=== PATIENT | female | born 1985 | race Caucasian/White ===

== ENCOUNTER → 2018-07-19 08:13 | Outpatient (CLI) | payer OTHER, SELFPAY ==
--- NOTE | 2018-07-19 08:20 | BI_ITS ---
MAMMOGRAPHY - BILATERAL SCREENING REASON FOR EXAM: Female, 32 years old. Routine annual screening examination. PERTINENT HISTORY: Mother with breast cancer. TECHNIQUE: Digital bilateral breast paolo (3D mammographic acquisition) in the CC and MLO projections. 2-D mediolateral oblique (MLO) and craniocaudad (CC) views of both breasts were obtained. CAD: Full Field Digital Mammography with Computer Added Detection was performed. COMPARISON: Comparison is made with prior study dated November 26, 2016. FINDINGS: Breast Composition: The breasts are almost entirely fatty. There are no dominant masses or suspicious calcifications. No other significant abnormalities are identified. There has been no significant change since the prior study. BI/SCREENING MAMM (CAD), BILAT IMPRESSION: Stable bilateral screening mammogram. Yearly follow-up mammogram recommended. (A) ASSESSMENT CATEGORY: BIRADS Category 1: Negative. A letter regarding these results will be sent to the patient by the facility within 30 days. Approximately 10% of breast cancers are not detected by mammography. A normal mammogram should not delay biopsy of a clinically suspicious abnormality. [id number] Electronically Signed: Kam Parsons MD at 8:37 EST Tel [phone], Service support ,
--- OUTSIDE RECORDS SUMMARY | 2018-10-22 08:37 | XMS RPT_ITS ---
:1985 Author Organization [facility] Care Team Providers Name Role Phone TAWANA MERCEDES Attending Unavailable TAWANA MERCEDES Referring Unavailable Primay Care Physicia, No Primary Care Unavailable TAWANA MERCEDES Consulting Unavailable ASSESSMENT, HEALTH RISK Attending Unavailable ASSESSMENT, HEALTH RISK Referring Unavailable TAWANA MERCEDES Primary Care Unavailable PROBLEMS PROBLEMS No Problem Records FoundPROCEDURES PROCEDURES No Procedure Records FoundRESULTS RESULTS SCREENING MAMM (CAD), Observed: 07/19/2018 Status: F Source: [facility] 8:20 AM [facility] REPOSITORY [facility] Imaging Services [address] [place] [address] SCREENING MAMM (CAD), BILAT MR#: [id number] Acct: [id number] Name: MU BARBOZA Rep #: [id number] : 1985 F 32 From: Kam Parsons MD PCP: Care Physician, No Primary Status: REG CLI Study: SCREENING MAMM (CAD), BILAT Date of Exam: 07/19/18 Exam# [id number] Ordering Dr: DELLA IRIZARRY MAMMOGRAPHY - BILATERAL SCREENING REASON FOR EXAM: Female, 32 years old. Routine annual screening examination. PERTINENT HISTORY: Mother with breast cancer. TECHNIQUE: Digital bilateral breast paolo (3D mammographic acquisition) in the CC and MLO projections. 2-D mediolateral oblique (MLO) and craniocaudad (CC) views of both breasts were obtained. CAD: Full Field Digital Mammography with Computer Added Detection was performed. COMPARISON: Comparison is made with prior study dated November 26, 2016. FINDINGS: Breast Composition: The breasts are almost entirely fatty. There are no dominant masses or suspicious calcifications. No other significant abnormalities are identified. There has been no significant change since the prior study. BI/SCREENING MAMM (CAD), BILAT IMPRESSION: Stable bilateral screening mammogram. Yearly follow-up mammogram recommended. (A) ASSESSMENT CATEGORY: BIRADS Category 1: Negative. A letter regarding these results will be sent to the patient by the facility within 30 days. Approximately 10% of breast cancers are not detected by mammography. A normal mammogram should not delay biopsy of a clinically suspicious abnormality. [id number] Electronically Signed: Kam Parsons MD at 8:37 EST Tel [phone], Service support , CC: No Primary Care Physician; DELLA IRIZARRY Site Surveyor: Signed CBC, EMPLOYEE Collected: 04/23/2018 Status: F Source: [place] 8:59 AM [facility] REPOSITORY TYPE CODE TESTS RESULT OUT OF RANGE REFERENCE UNITS LAB L100.1000 4.4-11.0 K/mm3 Normal WBC 7.6 LAB L100.1200 4.2-5.4 M/mm3 Normal RBC 4.64 LAB L100.1300 12.0-15.0 g/dl Low HGB 11.9 LAB L100.1400 37-47 % Low HCT 36.8 LAB L100.1500 81-99 fL Low MCV 79.3 LAB L100.1600 27.0-32.0 pg Low MCH 25.6 LAB L100.1700 32-36 g/gl Normal MCHC 32.3 LAB L100.1810 11.6-14.6 % High RDW CV 15.0 LAB L100.1820 35.1-43.9 fl Normal RDW SD 42.9 LAB L100.1900 150-450 K/mm3 Normal PLT 268 LAB L100.2000 6.2-12.0 fl Normal MPV 10.7 LAB L100.2110 47-70 % Normal NEUT% 67.1 LAB L100.2210 19-41 % Normal LY% 26.0 LAB L100.2310 0-10 % Normal MONO% 5.4 LAB L100.2410 0-5 % Normal EO% 1.1 LAB L100.2510 0-1 % Normal BASO% 0.3 LAB L100.2620 2.0-7.7 X10 3/uL Normal Absolute Neut 5.1 LAB L100.2720 0.83-4.51 X10 3/ul Normal Absolute Lymph 1.97 Performed By: #### L100.0200 #### [facility] [address] [place], [place], [id number] URINALYSIS, EMPLOYEE Collected: 04/23/2018 Status: F Source: [place] 8:59 AM [facility] REPOSITORY TYPE CODE TESTS RESULT OUT OF RANGE REFERENCE UNITS LAB L400.3000 Yellow COLOR Normal Yellow LAB L400.3050 Clear Normal CLARITY Sl. Cloudy LAB L400.3200 Normal mg/dl Normal GLUCOSE, UR Normal LAB L400.3300 Negative mg/dL Normal BILIRUBIN URINE Negative LAB L400.3400 Negative mg/dl Normal KETONE UR Negative LAB L400.3465 1.002-1.030 Normal SP.GR. DIPSTX 1.020 LAB L400.3550 5.0 - 8.0 pH UR Normal 5.0 LAB L400.3600 Negative mg/dl PROT Normal DIPSTX Negative LAB L400.3700 Normal mg/dl Normal UROBILI Normal LAB L400.3750 Negative Normal NITRITE UR Negative LAB L400.3780 Negative /ul High 25 OCCULT BLOOD-UR LAB L400.3800 Negative /ul High LEUK 25 ESTERASE Performed By: #### L400.0100 #### [facility] [address] [place], [address] NICOTINE URINE DRUG Collected: 04/23/2018 Status: F Source: [place] SCREEN 8:59 AM [facility] REPOSITORY TYPE CODE TESTS RESULT OUT OF RANGE REFERENCE UNITS LAB L505.6250 TO BE Normal CONFIRMED Result Comment: CONFIRMATORY TESTING FOR ALL POSITIVE URINE DRUG SCREEN RESULTS WILL ONLY BE SENT OUT UPON PHYSICIAN ORDER. The results of Urine Drug Screen methods provide only preliminary analytical test results. A more specific alternate chemical method must be used in order to obtain a confirmed analytical result. Gas chromatography/mass spectrometery (GC/MS) is the preferred confirmatory method. Clinical consideration and professional judgement should be applied to any drug of abuse test result, particularly when preliminary positive results are used. LAB L505.6270 <200 ng/mL Normal COT DRG Negative SCREEN Result Comment: Cotinine is the first-stage metabolite of Nicotine. Performed By: #### L505.6240 #### [facility] [address] [place], [address] EMPLOYEE PROFILE Collected: 04/23/2018 Status: F Source: [place] 8:59 AM [facility] REPOSITORY TYPE CODE TESTS RESULT OUT OF RANGE REFERENCE UNITS LAB L501.0100 74-106 mg/dL Normal GLU 92 Result Comment: Please note revised GLUCOSE reference range effective 2017. LAB L501.1000 7-18 mg/dL Normal BUN 10 LAB L501.1100 0.55-1.02 mg/dL Normal CREAT,SERUM 0.76 Result Comment: The validity of the calculated GFR AND GFRAA in patients over 70 years has not been determined. Clinical correlation is essential. LAB L501.1110 >60 mL/min Normal EST GFR 92 Result Comment: Non- GFR Calc LAB L501.1115 >60 mL/min Normal EST GFR - AA 112 Result Comment: GFR Calc LAB L501.1300 10-20 RATIO Normal BUN/CRE 13.1 LAB L501.1400 2.6-6.0 mg/dL High URIC 7.1 Result Comment: The drugs N-Acetylcysteine and Metamizole may falsely depress this assay. LAB L501.1500 6.4-8.2 g/dL Normal T PROT 7.3 LAB L501.1800 3.2-5.0 g/dL Low ALB 2.8 LAB L501.1950 2.2-4.2 g/dL High GLOB 4.5 LAB L501.2000 0.9-2.4 RATIO Low A/G 0.6 LAB L501.2200 8.5-10.1 mg/dL Normal CA 8.6 LAB L501.2300 2.5-4.9 mg/dL Normal PHOS 3.5 LAB L501.4100 15-37 U/L Low AST 8 LAB L501.4305 45-117 U/L Normal ALK P 88 LAB L501.4405 13-56 U/L Normal ALT 17 LAB L501.4600 0.20-1.00 mg/dL Normal T BILI 0.20 LAB L501.4700 0.00-0.30 mg/dL Normal D BILI 0.09 LAB L501.4900 200 mg/dL Normal CHOL 129 Result Comment: <200 mg/dL Desirable 200-240 mg/dL Borderline >240 mg/dL High Risk LAB L501.5000 mg/dL Normal TRIG 180 Result Comment: The drugs N-Acetylcysteine and Metamizole may falsely depress this assay. Serum Triglycerides Reference Interval Normal <150 mg/dL Borderline high 150 - 199 mg/dL High 200 - 499 mg/dL Very High > or = 500 mg/dL LAB L501.5300 136-145 mmol/L Normal NA 140 LAB L501.5600 3.5-5.1 mmol/L Normal K 4.0 LAB L501.5900 98-107 mmol/L Normal CL 107 LAB L501.6100 21.0-32.0 mmol/L Normal CO2 24.0 LAB L501.6200 5-15 Normal 9 GAP LAB L501.6400 mg/dL Normal HDL 42 Result Comment: The drugs N-Acetylcysteine and Metamizole may falsely depress this assay. Reference Range HDL <40 mg/dL Low HDL Cholesterol HDL >or= 60 mg/dL High HDL Cholesterol LAB L501.6475 Normal CHOL:HDL 3.10 LAB L501.6500 0-130 mg/dL Normal LDL 51 LAB L501.6600 5-40 mg/dL Normal VLDL 36 LAB L504.2610 84-246 U/L Normal LDH 176 Performed By: #### L500.2900 #### [facility] [address] [place], [address] PROGRESS Observed: 02/24/2018 Status: COMPLETED Source: [place] 3:10 PM [facility] REPOSITORY HNO ID: [id number] Author: Lex Meek Service: (none) Author Type: Physician Manager Of Applications Development Type: Progress Notes Filed: 02/24/2018 3:45 PM Note Text: This is a 32 yo female for a follow up visit for her acne and rosacea. Present regimen includes metro cream and doxycycline. She is doing much better on current regimen. She reports she had taken the doxycycline for 2 months and she was having some trouble with her periods. She states she had stopped it in mid January and hasn't taken since. She was started on control Maci over the past 2 weeks. She was unsure if she should take the doxycycline as she is still having some break outs on her chin and lower cheeks. She feels much better overall as she was having pain of her face before the medication. ALLERGIES No Known Allergies Current Outpatient Prescriptions: Drospirenone-Ethinyl Estradiol (MACI, 28,) 3-0.03 mg per tablet Take 1 tablet by mouth once daily. Disp: Rfl: metroNIDAZOLE 0.75 % cream Apply 1 application to affected area twice daily. Disp: Rfl: 2 minocycline (MINOCIN, DYNACIN) 100 mg capsule Take 1 capsule by mouth twice daily. Disp: 60 capsule Rfl: 2 No current facility-administered medications for this visit. PAST MEDICAL HISTORY Diagnosis Date - Acne vulgaris - Rosacea History reviewed. No pertinent family history. Social History Marital status: Spouse name: Years of education: Number of children: Social History Main Topics Smoking status: Never Smoker Smokeless tobacco: Never Used Alcohol use: No Drug use: No Other Topics Concern Caffeine Concern Yes REVIEW OF SYSTEMS: Patient feels well and denies any recent fevers, chills, or night sweats. She is not having any rash or itching. She has some lesions on her face. PHYSICAL EXAM: BP 132/70 Ht 5' 7.126 (1.71m) Wt 268 lb 8.3 oz (121.8kg) BMI 41.90 kg/(m2). The patient is a pleasant female in no distress. Skin is dry Involving the nose, face, chest and back -few closed comedones and couple papules of face (b/l lower cheeks and chin) -minimal erythema of forehead, b/l cheeks and chin -back and chest are clear ASSESSMENT/PLAN: 1. Rosacea - ICD9: 695.3, ICD10: L71.9 (primary diagnosis) - much improved -will continue Metro cream 0.75% twice daily -will switch to Minocycline 100 mg one bid (for the remaining summer (6 weeks) and then try going to one in April then stop), eRx sent -discussed side effects of medication which include hepatitis, lupus like syndrome, pseudotumor cerebri, cutaneous and tooth dyspigmentation. -continue gentle cleansers and daily face moisturizers with spf 30 2. Acne vulgaris - ICD9: 706.1, ICD10: L70.0 -will continue Metro and Minocycline which is helping for both rosacea and acne -continue over the counter BPO wash topically daily when showering to chest and back Return in about 6 months (around 08/27/2018). Lex Meek PA-C CNOV Observed: 02/24/2018 Status: COMPLETED Source: [place] 2:40 PM [facility] REPOSITORY Office Visit ([facility]) MU BARBOZA ([id number]) 1985 F Date Time Provider Department 02/24/18 2:40 PM LEX MEEK) [facility] During your visit today, we recorded the following information about you: Blood pressure Weight Height 132/70 121.8 kg 1.705 m Lex Meek PA-C 02/24/2018 3:10 PM Addendum Start minocycline twice daily for 6 weeks then decrease to one daily for one remaining month then stop Continue current oral control Continue metro cream twice daily Continue daily facial sunscreen Lex Meek PA-C 02/24/2018 3:45 PM Signed This is a 32 yo female for a follow up visit for her acne and rosacea. Present regimen includes metro cream and doxycycline. She is doing much better on current regimen. She reports she had taken the doxycycline for 2 months and she was having some trouble with her periods. She states she had stopped it in mid January and hasn't taken since. She was started on control Maci over the past 2 weeks. She was unsure if she should take the doxycycline as she is still having some break outs on her chin and lower cheeks. She feels much better overall as she was having pain of her face before the medication. ALLERGIES No Known Allergies Current Outpatient Prescriptions: Drospirenone-Ethinyl Estradiol (MACI, 28,) 3-0.03 mg per tablet Take 1 tablet by mouth once daily. Disp: Rfl: metroNIDAZOLE 0.75 % cream Apply 1 application to affected area twice daily. Disp: Rfl: 2 minocycline (MINOCIN, DYNACIN) 100 mg capsule Take 1 capsule by mouth twice daily. Disp: 60 capsule Rfl: 2 No current facility-administered medications for this visit. PAST MEDICAL HISTORY Diagnosis Date - Acne vulgaris - Rosacea History reviewed. No pertinent family history. Social History Marital status: Spouse name: Years of education: Number of children: Social History Main Topics Smoking status: Never Smoker Smokeless tobacco: Never Used Alcohol use: No Drug use: No Other Topics Concern Caffeine Concern Yes REVIEW OF SYSTEMS: Patient feels well and denies any recent fevers, chills, or night sweats. She is not having any rash or itching. She has some lesions on her face. PHYSICAL EXAM: BP 132/70 Ht 5' 7.126 (1.71m) Wt 268 lb 8.3 oz (121.8kg) BMI 41.90 kg/(m2). The patient is a pleasant female in no distress. Skin is dry Involving the nose, face, chest and back -few closed comedones and couple papules of face (b/l lower cheeks and chin) -minimal erythema of forehead, b/l cheeks and chin -back and chest are clear ASSESSMENT/PLAN: 1. Rosacea - ICD9: 695.3, ICD10: L71.9 (primary diagnosis) - much improved -will continue Metro cream 0.75% twice daily -will switch to Minocycline 100 mg one bid (for the remaining summer (6 weeks) and then try going to one in April then stop), eRx sent -discussed side effects of medication which include hepatitis, lupus like syndrome, pseudotumor cerebri, cutaneous and tooth dyspigmentation. -continue gentle cleansers and daily face moisturizers with spf 30 2. Acne vulgaris - ICD9: 706.1, ICD10: L70.0 -will continue Metro and Minocycline which is helping for both rosacea and acne -continue over the counter BPO wash topically daily when showering to chest and back Return in about 6 months (around 08/27/2018). Lex Meek PA-C Referring Provider: SELF [200] Allergies As of Date: 02/24/2018 (No Known Allergies) Date Reviewed: 02/24/2018 Reviewed by: Lex (Zhang) [place] - Fully Assessed Reason for Visit: Rosacea [926] Primary Visit Diagnosis:Rosacea [L71.9] Other Visit Diagnosis:Acne vulgaris [L70.0] Order(s):minocycline (MINOCIN, DYNACIN) 100 mg capsuleTake 1 capsule by mouth twice daily.Disp: 60 capsuleRfl: 2 Prescriptions as of 02/24/2018 Sig: DROSPIRENONE 3 MG-ETHINYL EST* Take 1 tablet by mouth once d* METRONIDAZOLE 0.75 % TOPICAL * Apply 1 application to affect* MINOCYCLINE 100 MG CAPSULE Take 1 capsule by mouth twice* Problem List As Of Date: 02/24/2018 (None) Other instructions from your clinician: Start minocycline twice daily for 6 weeks then decrease to one daily for one remaining month then stop Continue current oral control Continue metro cream twice daily Continue daily facial sunscreen Prescriptions ordered this encounter Disp Refills Start End MINOCYCLINE 100 MG CAPSULE 60 c* 2 02/24/2018 Route: ORAL Sig: Take 1 capsule by mouth twice daily. Medications Discontinued During This Encounter doxycycline monohydrate (MONODOX) 10* 2 10/29/2017 02/24/2018 Class: Historical Med Route: ORAL Sig: Take 1 capsule by mouth twice daily. Disc: Reason for discontinue is not on file. Disposition: Return in about 6 months (around 08/27/2018). Follow-up and Disposition History Recorded Encounter Status:Closed by LEX MEEK on 02/24/18 ALLERGIES ALLERGIES No Allergies Records FoundENCOUNTERS ENCOUNTERS ADMIT/DISCHARGE ACCOUNT ADMITTING ENCOUNTER LOCATION SOURCE NUMBER CLASS 07/19/[id number] ing:OPBI Repository 04/23/[id number] ing:EMPH Repository PAYERS PAYERS ENCOUNTER GUARANTOR PAYER SUBSCRIBER SOURCE 07/19/2018 MU NOLAND Primary Insurance:[facility] MU [id number] [id number] [address]Xoc: Number: Repository [id number] () Date:[id number] [address], [place] [address]FX: CHECK WEBSITE 07/19/2018 Secondary NOT GIVENUNK Ashley Insurance:SELF PAY [facility] [place] Number: Effective Repository Date:2018-07-15 04/23/2018 Mu Noland Primary NOT GIVENUNK Ashley [id number] [place] Insurance:SELF PAY [facility] [id number]: Number: Effective Repository Date:2018-04-23 ()
== END ==
DX: Z12.31 Encounter for screening mammogram for malignant neoplasm of breast (principal); Z80.3 Family history of malignant neoplasm of breast
CPT/HCPCS: 77063; 77067

== ENCOUNTER → 2019-01-31 08:52 | Outpatient (CLI) | payer OTHER, SELFPAY ==
[2019-01-31 09:51] LABS: Absolute Lymphocyte Count 1.96 X10^3/ul (0.83-4.51); Absolute Neutrophil Count 3.1 X10^3/uL (2.0-7.7); Basophil# 0.04 X10^3/uL; Basophil% 0.7 % (0-1); Eosinophil# 0.09 X10^3/uL; Eosinophils% 1.6 % (0-5); Hematocrit 40.2 % (37-47); Hemoglobin 13.3 g/dl (12.0-15.0); Lymphocyte # 1.96 X10^3/ul (4.0); Lymphocyte % 35.2 % (19-41); Mean Corp Hgb Conc 33.1 g/gl (32-36); Mean Corpuscular Hgb 26.6 pg (27.0-32.0); Mean Corpuscular Volume 80.4 fL (81-99); Mean Platelet Vol. 10.8 fl (6.2-12.0); Monocyte# 0.36 X10^3/uL; Monocyte% 6.5 % (0-10); Neutrophil # 3.11 X10^3/uL (2.7-7.7); Neutrophil % 55.8 % (47-70); Platelet Count 289 K/mm3 (150-450); RBC Distribution Width CV 14.3 % (11.6-14.6); RBC Distribution Width SD 41.2 fl (35.1-43.9); White Blood Count 5.6 K/mm3 (4.4-11.0)
[2019-01-31 09:56] LABS: POSITIVE COUNT NO; POSITIVE DIFFERENTIAL NO; POSITIVE MORPHOLOGY NO
[2019-01-31 10:28] LABS: ALB/GLOB Ratio 0.8 RATIO (0.9-2.4); AST(SGOT) 21 U/L (15-37); Alanine Aminotransfer ALT/SGPT 30 U/L (13-56); Albumin, Serum 3.4 g/dL (3.2-5.0); Alkaline Phosphatase 103 U/L (45-117); Anion Gap 5 (5-15); BUN 10 mg/dL (7-18); BUN/Creat Ratio 11.9 RATIO (10-20); Calcium,Total 9.3 mg/dL (8.5-10.1); Chloride 108 mmol/L (98-107); Cholesterol 191 mg/dL (200); Creatinine, Serum 0.84 mg/dL (0.55-1.02); EST Glomerular Filtration Rate 82 mL/min (>60); Est Glom Filt Rate - Afr Amer 99 mL/min (>60); Follicle Stimulating Hormone 6.1 mIU/mL; Globulin 4.5 g/dL (2.2-4.2); Glucose 92 mg/dL (74-106); High Density Lipoprotein 40 mg/dL; Luteinizing Hormone 9.2 mIU/mL; Potassium 4.1 mmol/L (3.5-5.1); Protein, Total 7.9 g/dL (6.4-8.2); Sodium Level 139 mmol/L (136-145); Thyroid Stim Hormone (TSH) 0.99 uIU/mL (0.358-3.74); Triglycerides 187 mg/dL; Very Low Density Lipoprotein 37 mg/dL (5-40)
[2019-02-02 09:23] LABS: Insulin 31.8 mU/L (2.6-37.6)
[2019-02-03 09:08] LABS: Testosterone, Free < 0.05 ng/dL (0.10-0.85); Testosterone, Total < 3 ng/dL (8-48)
[2019-02-03 16:21] LABS: Testosterone, % Free 1.65 % (0.50-2.80)
== END ==
DX: Z13.1 Encounter for screening for diabetes mellitus (principal); E66.01 Morbid (severe) obesity due to excess calories; N83.202 Unspecified ovarian cyst, left side; Z68.41 Body mass index [BMI] 40.0-44.9, adult
CPT/HCPCS: 36415; 80053; 80061; 83001; 83002; 83525; 84402; 84403; 84439; 84443; 85025

== ENCOUNTER → 2019-07-21 13:19 | Outpatient (CLI) | payer OTHER, SELFPAY ==
--- NOTE | 2019-07-21 13:23 | BI_ITS ---
MAMMOGRAPHY - BILATERAL SCREENING REASON FOR EXAM: Female, 33 years old. Routine annual screening examination. PERTINENT HISTORY: Mother with breast cancer. TECHNIQUE: Digital bilateral breast shannan (3D mammographic acquisition) in the CC and MLO projections. 2-D mediolateral oblique (MLO) and craniocaudad (CC) views of both breasts were obtained. CAD: Full Field Digital Mammography with Computer Added Detection was performed. COMPARISON: Comparison is made with prior examination dated July 19, 2018 and November 26, 2016. FINDINGS: Breast Composition: The breasts are almost entirely fatty. There are no dominant masses or suspicious calcifications. No other significant abnormalities are identified. There has been no significant change since the prior study. BI/SCREEN MAMM (CAD) W/SHANNAN BILAT IMPRESSION: Stable bilateral screening mammogram. Yearly follow-up mammogram recommended. (A) ASSESSMENT CATEGORY: BIRADS Category 1: Negative. A letter regarding these results will be sent to the patient by the facility within 30 days. Approximately 10% of breast cancers are not detected by mammography. A normal mammogram should not delay biopsy of a clinically suspicious abnormality. [id number] Electronically Signed: Kam Parsons, at 15:19 EST , Service support ,
== END ==
DX: Z12.31 Encounter for screening mammogram for malignant neoplasm of breast (principal); Z80.3 Family history of malignant neoplasm of breast
CPT/HCPCS: 77063; 77067

== ENCOUNTER → 2020-06-13 14:49 | Outpatient (CLI) | payer OTHER, SELFPAY ==
--- NOTE | 2020-06-13 16:42 | CT_ITS ---
ACR Level 3 findings have been noted. An addendum which confirms receipt of the report will follow. HISTORY: LLQ pain. ADDITIONAL HISTORY: None provided. EXAMINATION/TECHNIQUE: CT Abdomen And Pelvis W/ Contrast Injection CONTRAST: 100mL Isovue-300 IV contrast. Enteric contrast was given. A radiation dose optimization technique was used for this scan. Number of images including paperwork: 442 COMPARISON: None FINDINGS: LOWER THORAX: No consolidation or pleural effusion. Minimal patchy groundglass opacities at the bases. LIVER: No concerning focal lesion. GALLBLADDER: No radiopaque calculi. BILE DUCTS: No significant biliary dilatation. SPLEEN: Unremarkable. PANCREAS: Unremarkable. ADRENAL GLANDS: Unremarkable. KIDNEYS/URETERS: Unremarkable. BOWEL: No bowel obstruction. No significant bowel wall thickening. No localized inflammation. Colonic diverticulosis. APPENDIX: No evidence of appendicitis. FREE FLUID: No significant free fluid. FREE AIR: None. LYMPH NODES: No pathologic appearing adenopathy. PERITONEUM, RETROPERITONEUM AND MESENTERY: Otherwise unremarkable. VASCULATURE: Unremarkable as imaged. PELVIS: Unremarkable bladder. ABDOMINAL WALL: Unremarkable. OSSEOUS AND SOFT TISSUE STRUCTURES: No acute skeletal findings. CT/Abdomen/Pelvis WITH Contrast IMPRESSION: 1. No acute abdominopelvic abnormality. 2. Colonic diverticulosis. 3. Minimal patchy groundglass opacities at the bases, nonspecific and possibly related to COVID-19 infection. Individualized dose optimization techniques were used for this CT. at 0148 Reported and signed by: Mame Delcid MD Electronically Signed: Mame Delcid MD at 1:48 EST Tel , Service support ,
== END ==
DX: R10.32 Left lower quadrant pain (principal)
CPT/HCPCS: 74177; Q9967

== ENCOUNTER → 2020-08-10 08:14 | Outpatient (CLI) | payer OTHER, SELFPAY ==
--- NOTE | 2020-08-10 08:17 | BI_ITS ---
MAMMOGRAPHY - BILATERAL SCREENING REASON FOR EXAM: Female, 34 years old. Routine annual screening examination. PERTINENT HISTORY: Mother with breast cancer. TECHNIQUE: Digital bilateral breast shannan (3D mammographic acquisition) in the CC and MLO projections. 2-D mediolateral oblique (MLO) and craniocaudad (CC) views of both breasts were obtained. CAD: Full Field Digital Mammography with Computer Added Detection was performed. COMPARISON: Comparison is made with prior study dated 07/21/2019 and 07/19/2018. FINDINGS: Breast Composition: The breasts are almost entirely fatty. There are no dominant masses or suspicious calcifications. Small benign-appearing bilateral axillary lymph nodes. No other significant abnormalities are identified. There has been no significant change since the prior study. BI/SCREEN MAMM (CAD) W/SHANNAN BILAT IMPRESSION: Stable bilateral screening mammogram. Yearly follow-up mammogram recommended. (A) ASSESSMENT CATEGORY: BIRADS Category 2: Benign. A letter regarding these results will be sent to the patient by the facility within 30 days. Approximately 10% of breast cancers are not detected by mammography. A normal mammogram should not delay biopsy of a clinically suspicious abnormality. [id number] Electronically Signed: Kam Parsons, at 9:09 EST , Service support ,
== END ==
DX: Z12.31 Encounter for screening mammogram for malignant neoplasm of breast (principal); Z80.3 Family history of malignant neoplasm of breast
CPT/HCPCS: 77063; 77067

== ENCOUNTER 2021-08-25 15:32 | Outpatient (CLI) | payer OTHER, SELFPAY ==
--- NOTE | 2021-08-25 15:34 | BI_ITS ---
MAMMOGRAPHY - BILATERAL SCREENING REASON FOR EXAM: Female, 35 years old. Routine annual screening examination. PERTINENT HISTORY: Mother with breast cancer. TECHNIQUE: Digital bilateral breast shannan (3D mammographic acquisition) in the CC and MLO projections. 2-D mediolateral oblique (MLO) and craniocaudad (CC) views of both breasts were obtained. CAD: Full Field Digital Mammography with Computer Added Detection was performed. COMPARISON: Comparison is made with prior study dated 08/10/2020 and 07/21/2019 FINDINGS: Breast Composition: The breasts are almost entirely fatty. There are no dominant masses or suspicious calcifications. Stable benign-appearing bilateral axillary No other significant abnormalities are identified. There has been no significant change since the prior study. BI/SCRN MAMM (CAD)W/SHANNAN BILAT IMPRESSION: Stable bilateral screening mammogram. Yearly follow-up mammogram recommended. (A) ASSESSMENT CATEGORY: BIRADS Category 2: Benign. A letter regarding these results will be sent to the patient by the facility within 30 days. Approximately 10% of breast cancers are not detected by mammography. A normal mammogram should not delay biopsy of a clinically suspicious abnormality. [id number] Electronically Signed: Kam Parsons MD at 8:00 EST , Service support ,
== END 2021-08-25 23:59 | disposition home or self-care (01) ==
PROVIDERS: Visit Provider Nurse Practitioner Family
DX: Z12.31 Encounter for screening mammogram for malignant neoplasm of breast (principal)
CPT/HCPCS: 77063; 77067

== ENCOUNTER → 2022-08-27 | Outpatient (CLI) | payer OTHER, SELFPAY ==
--- NOTE | 2022-08-27 13:32 | BI_ITS ---
MAMMOGRAPHY - BILATERAL SCREENING REASON FOR EXAM: Female, 36 years old. Routine annual screening examination. PERTINENT HISTORY: Mother with breast cancer. Right breast larger than left. TECHNIQUE: Digital bilateral breast shannan (3D mammographic acquisition) in the CC and MLO projections. 2-D mediolateral oblique (MLO) and craniocaudad (CC) views of both breasts were obtained. CAD: Full Field Digital Mammography with Computer Added Detection was performed. COMPARISON: Comparison is made with prior study dated 08/25/2021 and 08/10/2020. FINDINGS: Breast Composition: The breasts are almost entirely fatty. There are no dominant masses or suspicious calcifications. No other significant abnormalities are identified. There has been no significant change since the prior study. BI/SCRN MAMM (CAD)W/SHANNAN BILAT IMPRESSION: Stable bilateral screening mammogram. Yearly follow-up mammogram recommended. (A) ASSESSMENT CATEGORY: BIRADS Category 1: Negative. A letter regarding these results will be sent to the patient by the facility within 30 days. Approximately 10% of breast cancers are not detected by mammography. A normal mammogram should not delay biopsy of a clinically suspicious abnormality. [id number] Electronically Signed: Kam Parsons MD at 14:21 EST ,
== END | disposition home or self-care (01) ==
LOC: OPBI 13:30
PROVIDERS: PCP Family Medicine; Visit Provider Family Medicine
DX: Z12.31 Encounter for screening mammogram for malignant neoplasm of breast (principal); Z80.3 Family history of malignant neoplasm of breast
CPT/HCPCS: 77063; 77067

== ENCOUNTER → 2022-10-17 | Outpatient (CLI) | payer OTHER, SELFPAY ==
[2022-10-17 17:00] LABS: HIV - WCH Non-Reactive (Nonreactive); Hepatitis C Antibody Non-Reactive (Nonreactive); Syphilis Antibodies Non-reactive
[2022-10-19 13:36] LABS: HSV 1 IgG < 0.91 index (0.00-0.90); HSV 2 IgG < 0.91 index (0.00-0.90)
[2022-10-20 11:09] LABS: Chlamydia By Nucleic Acid AMP Negative (Negative)
[2022-10-20 13:00] LABS: Gonococcus By Nucleic Acid AMP Negative (Negative)
[2022-10-25 13:04] LABS: HPV APTIMA, High Risk Negative (Negative)
== END | disposition home or self-care (01) ==
PROVIDERS: PCP Family Medicine; Referring Provider Nurse Practitioner Women's Health; Visit Provider Nurse Practitioner Women's Health
DX: N98.9 Complication associated with artificial fertilization, unspecified (principal); Z20.2 Contact with and (suspected) exposure to infections with a predominantly sexual mode of transmission; Z12.4 Encounter for screening for malignant neoplasm of cervix
CPT/HCPCS: 36415; 86695; 86696; 86703; 86780; 86803; 87070; 87205; 87491; 87591; 87624; 88175; G0145

== ENCOUNTER → 2022-12-11 | Outpatient (CLI) | payer OTHER, SELFPAY ==
[2022-12-11 09:42] LABS: Absolute Lymphocyte Count 2.17 X10^3/uL (0.83-4.51); Absolute Neutrophil Count 7.1 X10^3/uL (2.0-7.7); Basophil# 0.04 X10^3/uL; Basophil% 0.4 % (0-1); Hematocrit 39.8 % (37-47); Hemoglobin 12.8 g/dL (12.0-15.0); Lymphocyte # 2.17 X10^3/ul (0.83-4.51); Lymphocyte % 21.9 % (19-41); Mean Corp Hgb Conc 32.2 g/dL (32-36); Mean Corpuscular Hgb 26.4 pg (27.0-32.0); Mean Corpuscular Volume 82.2 fL (81-99); Mean Platelet Vol. 10.4 fl (6.2-12.0); Monocyte# 0.48 X10^3/uL; Monocyte% 4.8 % (0-10); NRBC Flagged by Analyzer 0 % (0-5); Neutrophil % 71.5 % (47-70); Platelet Count 286 K/mm3 (150-450); RBC Distribution Width CV 14.5 % (11.6-14.6); RBC Distribution Width SD 42.8 fl (35.1-43.9); Red Blood Count 4.84 M/mm3 (4.2-5.4); White Blood Count 9.9 K/mm3 (4.4-11.0)
[2022-12-11 10:07] LABS: ALB/GLOB Ratio 0.7 RATIO (0.9-2.4); AST(SGOT) 11 U/L (15-37); Alanine Aminotransfer ALT/SGPT 21 U/L (13-56); Albumin, Serum 3.1 g/dL (3.2-5.0); Alkaline Phosphatase 81 U/L (45-117); Anion Gap 4 (5-15); BUN 9 mg/dL (7-18); BUN/Creat Ratio 12.1 RATIO (10-20); Calcium,Total 8.8 mg/dL (8.5-10.1); Chloride 110 mmol/L (98-107); Creatinine, Serum 0.74 mg/dL (0.55-1.02); EST Glomerular Filtration Rate 92 mL/min (>60); Est Glom Filt Rate - Afr Amer 112 mL/min (>60); Globulin 4.5 g/dL (2.2-4.2); Glucose 100 mg/dL (74-106); LDH 158 U/L (84-246); Potassium 4.1 mmol/L (3.5-5.1); Protein, Total 7.6 g/dL (6.4-8.2); Sodium Level 140 mmol/L (136-145)
[2022-12-11 10:14] LABS: Erythrocyte Sedimentation Rate 27 mm/hr (0-30)
[2022-12-13 09:09] LABS: Endomysial Antibody IgA Negative (Negative); Immunoglobulin A 209 mg/dL (87-352); t-Transglutaminase IgA <2 U/mL (0-3)
[2022-12-15 03:07] LABS: Albumin 3.4 g/dL (2.9-4.4); Alpha-1-Globulins 0.3 g/dL (0.0-0.4); Alpha-2-Globulins 0.9 g/dL (0.4-1.0); Cytoplasmic Ab (C-ANCA) <1:20 titer (Neg:<1:20); Gamma Globulin 1.1 g/dL (0.4-1.8); Immunoglobulin A 216 mg/dL (87-352); Immunoglobulin E 8 IU/mL (6-495); Immunoglobulin G 1175 mg/dL (586-1602); Immunoglobulin M 167 mg/dL (26-217); Perinuclear Ab (P-ANCA) <1:20 titer (Neg:<1:20)
[2022-12-15 17:07] LABS: Alternaria alternata <0.10 kU/L (Class 0); Anti-Centromere B Ab <0.2 AI (0.0-0.9); Anti-Chromatin <0.2 AI (0.0-0.9); Anti-Jo <0.2 AI (0.0-0.9); Anti-Scleroderma-70 AB <0.2 AI (0.0-0.9); Anti-dsDNA Ab <1 IU/mL (0-9); Beef <0.10 kU/L (Class 0); Bermuda Grass <0.10 kU/L (Class 0); Bluegrass, Kentucky <0.10 kU/L (Class 0); Cat Hair/Dander, Standard <0.10 kU/L (Class 0); Chocolate <0.10 kU/L (Class 0); Corn <0.10 kU/L (Class 0); D farinae Mite <0.10 kU/L (Class 0); D pteronyssinus <0.10 kU/L (Class 0); Dog Epithelia <0.10 kU/L (Class 0); Egg, Whole <0.10 kU/L (Class 0); Elm, American White <0.10 kU/L (Class 0); Milk (Cow) <0.10 kU/L (Class 0); Mouse Urine <0.10 kU/L (Class 0); Oak, White <0.10 kU/L (Class 0); Peanut <0.10 kU/L (Class 0); Plantain, English <0.10 kU/L (Class 0); Pork <0.10 kU/L (Class 0); RNP Ab <0.2 AI (0.0-0.9); Ragweed, Short/Common <0.10 kU/L (Class 0); SJOGREN'S Anti-SS-A test < 0.2 AI (0.0-0.9); SJOGREN'S Anti-SS-B test < 0.2 AI (0.0-0.9); Smith Ab <0.2 AI (0.0-0.9); Soybean <0.10 kU/L (Class 0); Wheat <0.10 kU/L (Class 0)
== END | disposition home or self-care (01) ==
PROVIDERS: PCP Family Medicine; Referring Provider Internal Medicine Gastroenterology; Visit Provider Internal Medicine Gastroenterology
DX: K52.9 Noninfective gastroenteritis and colitis, unspecified (principal)
CPT/HCPCS: 36415; 80053; 82784; 82785; 83516; 83615; 84165; 85025; 85652; 86003; 86005; 86140; 86225; 86235; 86255; 86256; 86334

== ENCOUNTER 2022-12-22 21:17 | Emergency (ER) | payer OTHER, SELFPAY ==
[2022-12-22 21:18] VITALS: BP 187/99; PULSE 119; RESP 16; TEMP 36.1; O2SAT 99; BMI 43.1
--- NOTE | 2022-12-22 21:37 | CT_ITS ---
EXAM: CT ABDOMEN AND PELVIS WITH INTRAVENOUS CONTRAST CLINICAL INDICATION: LLQ pain -- H/O diverticulitis and ovarian cysts TECHNIQUE: Helically acquired images were obtained of the abdomen and pelvis with intravenous contrast. CTDIvol = ( 16.91 ) mGy, DLP = ( 1297.47 ) mGycm This CT exam was performed using one or more of the following dose reduction techniques: automated exposure control, adjustment of the mA and/or kV according to patient size, and/or use of iterative reconstruction technique. CONTRAST: IV 100mL Isovue-370 COMPARISON: June 13, 2020 FINDINGS: LOWER THORAX: Unremarkable. Lung bases are clear. No cardiomegaly. No significant pericardial effusion. ABDOMEN: LIVER: Hepatic steatosis. GALLBLADDER AND BILE DUCTS: Unremarkable. No calcified gallstones. No gallbladder distention or wall edema. No intra- or extrahepatic biliary ductal dilation. PANCREAS: Unremarkable. No focal cystic or solid mass. SPLEEN: Unremarkable. Normal size without focal cystic or solid mass. ADRENALS: Unremarkable. No nodules. KIDNEYS AND URETERS: Unremarkable. Normal renal size and position. No hydronephrosis. STOMACH AND BOWEL: Mild focal inflammation involving a diverticulum at the posterior aspect of the distal descending colon is compatible with acute diverticulitis. No colitis. No bowel obstruction. PELVIS: APPENDIX: No evidence of acute appendicitis. BLADDER: Unremarkable. REPRODUCTIVE: Unremarkable as visualized. No mass. ABDOMEN and PELVIS: INTRAPERITONEAL SPACE: Unremarkable. No ascites or other fluid collection. No free air. BONES/JOINTS: Unremarkable. No suspicious lytic or blastic abnormality. SOFT TISSUES: Unremarkable. No discrete abdominal or pelvic wall hernia. VASCULATURE: Unremarkable. Abdominal aorta is non-dilated. LYMPH NODES: Unremarkable. No enlarged lymph nodes. CT/Abdomen/Pelvis W IV Cont ONLY IMPRESSION: Acute diverticulitis of the distal descending colon without complication. Electronically Signed: Jarrell Christina MD at 23:51 EDT ,
--- NOTE | 2022-12-22 21:38 | EDS_ITS ---
HPI History of Present Illness Chief Complaint: Abd Pain Informant: patient Onset/Context/Timing Onset: Yesterday Context: Gradual Onset Timing: Waxes and wanes Current Severity: Mild Maximum Severity: Moderate Narrative Narrative: Patient presents with intermittent pain to the left lower quadrant. She had some mild nausea and intermittent diarrhea. She is a history of diverticulitis as well as ovarian cysts. Her right ovary was removed in the past secondary to large ovarian cyst. She is also had cyst removal left ovary but it remains. Patient has had no fever. She did have some slight chills earlier. She recently saw GI secondary to history of diverticulitis flares and is scheduled for a colonoscopy in March. [facility] Medical History Diverticulitis Ovarian cyst Home Medications clotrimazole-betamethasone 1 %-0.05 % topical cream 1 applic topical BID 2 weeks #45 grams 10/17/22 [Rx Last Taken Unknown] drospirenone 3 mg-ethinyl estradiol 0.03 mg tablet 1 tab PO DAILY #84 tabs 10/17/22 [Rx Last Taken Unknown] fluconazole 150 mg tablet 150 mg PO .COMPLEX #2 tabs 10/17/22 [Rx Last Taken Unknown] ciprofloxacin HCl 500 mg tablet (Cipro) 500 mg PO BID #20 tabs 12/22/22 [Rx Last Taken Unknown] metronidazole 500 mg tablet 500 mg PO TID #30 tabs 12/22/22 [Rx Last Taken Unknown] hydrocodone-acetaminophen 5-325mg 5mg-325mg 1 tab PO Q6H PRN PRN Pain 3 days #10 TABLETS 12/23/22 [Rx Last Taken Unknown] Allergy/AdvReac Type Severity Reaction Status Date / Time No Known Allergies Allergy Verified 12/22/22 21:19 Family History Mother Breast cancer, Onset Age: 35 Father Cancer Prostate Grandmother Cancer Ovarian- paternal Grandfather Colon cancer Paternal Surgical History S/P right oophorectomy S/P surgical removal of pilonidal cyst S/P tonsillectomy Social History adopted: No household members: significant other housing: house number of children: 0 current occupational status: employed 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 ROS ROS ED Constitutional Constitutional ED: Reports chills; Denies fever(s) Eyes Eyes: Denies discharge from eye(s) ENT ENT ED: Denies discharge from eye(s), rhinorrhea or sore throat Cardiovascular Cardiovascular: Denies chest pain or palpitations Respiratory/Chest Respiratory/Chest: Denies cough or dyspnea Gastrointestinal Gastrointestinal: Reports abdominal pain, diarrhea and nausea; Denies vomiting Genitourinary Genitourinary ED: Denies difficulty urinating or dysuria Musculoskeletal Musculoskeletal: Denies back pain or extremity pain Integumentary Denies Abrasions or rash Neurologic Neurologic: Denies headache(s) or weakness Psychiatric Psychiatric: Denies anxiety or depression Allergic/Immunologic Allergic/Immunologic ED: Denies lip swelling or urticaria EXAM Physical Exam Const Vital Signs: 12/22/22 21:18 Temperature 97 F L Temperature Source Temporal Pulse Rate 119 H Respiratory Rate 16 Blood Pressure 187/99 H Blood Pressure Mean 128 Pulse Ox 99 Oxygen Delivery Method Room Air Positive well nourished and well developed General Appearance ED: well developed HEENT Reports normocephalic and head/scalp atraumatic Eyes PERRL and EOMs intact bilaterally Neck supple Chest Wall inspection of chest normal and palpation of chest normal Resp normal respiratory effort and clear to auscultation bilaterally Cardio regular rate and regular rhythm GI GI Narrative: Abdomen soft with mild tenderness in the left lower quadrant. No rebound noted. Palpation: soft Back/Spine no CVA tenderness Extremity normal to inspection Neuro oriented x3 and no sensory deficits noted Sensorium / Orientation: alert Motor Exam: strength 5/5 throughout Psych mental status grossly normal Skin no rashes or lesions noted MDM MDM MDM Narrative Medical decision making narrative: Patient declined anything for pain or nausea at this time. Labwork obtained to evaluate for leukocytosis, anemia, and electrolyte derangement. Urinalysis obtained to evaluate for infection/hematuria. CT scan of the abdomen pelvis obtained to evaluate for diverticulitis versus ovarian cyst. Lab Data Attestation: I reviewed the patient's lab results. Labs: Laboratory Results - last 24 hr 12/22/22 12/22/22 12/22/22 21:55 21:55 21:55 WBC 10.1 RBC 4.50 Hgb 12.3 Hct 36.8 L MCV 81.8 MCH 27.3 MCHC 33.4 RDW Std Deviation 43.2 RDW Coeff of Antolin 14.6 Plt Count 276 MPV 10.1 Immature Gran % (Auto) 0.300 Neut % (Auto) 66.2 Lymph % (Auto) 27.4 [place] % (Auto) 4.9 Eos % (Auto) 0.9 Baso % (Auto) 0.3 Absolute Neuts (auto) 6.7 Absolute Lymphs (auto) 2.78 Nucleated RBC % 0 Sodium 138 Potassium 3.8 Chloride 105 Carbon Dioxide 25.0 Anion Gap 8 BUN 11 Creatinine 0.88 Estim Creat Clear Calc 80.35 Est GFR (MDRD) Af Amer 91 Est GFR (MDRD) Non-Af 76 BUN/Creatinine Ratio 12.4 Glucose 145 H Calcium 8.9 Serum , Qual NEGATIVE Urine Color Urine Clarity Urine pH Ur Specific [place] Urine Protein Urine Glucose (UA) Urine Ketones Urine Occult Blood Urine Nitrite Urine Bilirubin Urine Urobilinogen Ur Leukocyte Esterase Urine RBC Urine WBC Ur Squamous Epith Cells Urine Bacteria Urine Mucus 12/22/22 23:00 WBC RBC Hgb Hct MCV MCH MCHC RDW Std Deviation RDW Coeff of Antolin Plt Count MPV Immature Gran % (Auto) Neut % (Auto) Lymph % (Auto) [place] % (Auto) Eos % (Auto) Baso % (Auto) Absolute Neuts (auto) Absolute Lymphs (auto) Nucleated RBC % Sodium Potassium Chloride Carbon Dioxide Anion Gap BUN Creatinine Estim Creat Clear Calc Est GFR (MDRD) Af Amer Est GFR (MDRD) Non-Af BUN/Creatinine Ratio Glucose Calcium Serum , Qual Urine Color Yellow Urine Clarity Clear Urine pH 6.5 Ur Specific [place] 1.010 Urine Protein Negative Urine Glucose (UA) Normal Urine Ketones Negative Urine Occult Blood Negative Urine Nitrite Negative Urine Bilirubin Negative Urine Urobilinogen Normal Ur Leukocyte Esterase 100 H Urine RBC 0 SEEN Urine WBC 0-5 SEEN Ur Squamous Epith Cells 0-5 SEEN Urine Bacteria RARE Urine Mucus 0 SEEN Radiography Diagnostic Testing: Clinical Impression(s) from Imaging Studies Abdomen/Pelvis CT 12/22/22 21:37 IMPRESSION: Acute diverticulitis of the distal descending colon without complication. Electronically Signed: Jarrell Christina MD at 23:51 EDT , Treatment and Re-Evaluation :: CBC was normal white count and differential. Chemistry studies unremarkable. test negative. Urinalysis reveals no sign of acute infection. CT scan with IV contrast reveals evidence of acute sigmoid diverticulitis without abscess. Test results discussed with the patient. She has done well with Cipro and Flagyl in the past and will be started on this. I will also write her for some hydrocodone as needed for breakthrough pain. She will try to stick with Tylenol and ibuprofen. Return instructions given. Discharge Plan Triage Chief Complaint: Abd Pain ED Provider: Carolyn Gaitan Dx/Rx/DC Orders Clinical Impression: Diverticulitis Instructions: ED Diverticulitis Prescriptions: New ciprofloxacin HCl [Cipro] 500 mg tablet 500 mg PO BID Qty: 20 0RF metronidazole 500 mg tablet 500 mg PO TID Qty: 30 0RF hydrocodone-acetaminophen 5-325 mg tablet 1 tab PO Q6H PRN PRN (Reason: Pain) 3 Days Qty: 10 0RF No Action drospirenone-ethinyl estradiol 3-0.03 mg tablet 1 tab PO DAILY Qty: 84 4RF fluconazole 150 mg tablet 150 mg PO .COMPLEX Qty: 2 0RF Rx Instructions: 150 mg PO take one po now and repeat in 3 days clotrimazole-betamethasone 1-0.05 % cream 1 applic topical BID 14 Days Qty: 45 1RF Primary Care Provider: Sharita Young Referrals: Sharita Young, DO [Primary Care Provider] - 1-2 Weeks Disposition Disposition: Home, Self Care
[2022-12-22 22:00] LABS: Absolute Lymphocyte Count 2.78 X10^3/uL (0.83-4.51); Absolute Neutrophil Count 6.7 X10^3/uL (2.0-7.7); Basophil# 0.03 X10^3/uL; Basophil% 0.3 % (0-1); Eosinophil# 0.09 X10^3/uL; Eosinophils% 0.9 % (0-5); Hematocrit 36.8 % (37-47); Hemoglobin 12.3 g/dL (12.0-15.0); Lymphocyte # 2.78 X10^3/ul (0.83-4.51); Lymphocyte % 27.4 % (19-41); Mean Corp Hgb Conc 33.4 g/dL (32-36); Mean Corpuscular Hgb 27.3 pg (27.0-32.0); Mean Corpuscular Volume 81.8 fL (81-99); Mean Platelet Vol. 10.1 fl (6.2-12.0); Monocyte% 4.9 % (0-10); NRBC Flagged by Analyzer 0 % (0-5); Neutrophil # 6.71 X10^3/uL (2.7-7.7); Neutrophil % 66.2 % (47-70); Platelet Count 276 K/mm3 (150-450); RBC Distribution Width CV 14.6 % (11.6-14.6); RBC Distribution Width SD 43.2 fl (35.1-43.9); White Blood Count 10.1 K/mm3 (4.4-11.0)
[2022-12-22 22:12] LABS: Anion Gap 8 (5-15); BUN 11 mg/dL (7-18); BUN/Creat Ratio 12.4 RATIO (10-20); Calcium,Total 8.9 mg/dL (8.5-10.1); Chloride 105 mmol/L (98-107); Creatinine, Serum 0.88 mg/dL (0.55-1.02); EST Glomerular Filtration Rate 76 mL/min (>60); Est Glom Filt Rate - Afr Amer 91 mL/min (>60); Estimated Creatinine Clearance 80.35 ml/min; Glucose 145 mg/dL (74-106); Potassium 3.8 mmol/L (3.5-5.1); Sodium Level 138 mmol/L (136-145)
[2022-12-22 22:36] LABS: Internal QC Validated? YES +Cl - CLEAR BKGD; Pregnancy, Serum, hCG Quali. NEGATIVE Negative
[2022-12-22 23:12] LABS: Mucous, Urine 0 SEEN /hpf (<or=2+); Red Blood Cells-Urine 0 SEEN /hpf (0-5)
[2022-12-22 23:15] LABS: Color, Urine Yellow (Yellow); Glucose, Dipstick Normal (Normal); Ketone-Dipstick Negative (Negative); Leukocyte Esterase-Dipstick 100 /ul (Negative); Nitrite-Dipstick Negative (Negative); Occult Blood-Urine Negative /ul (Negative); Protein-Dipstick Negative (Negative); Urine Bilirubin Dipstick Negative (Negative); Urine Clarity Clear (Clear); Urine Urobilinogen Normal (Normal); Urine pH 6.5 (5.0 - 8.0)
[2022-12-22 23:21] LABS: Bacteria RARE /hpf (None Seen); Squamous Epithelial Cells - UA 0-5 SEEN /hpf (5-10); White Blood Cells 0-5 SEEN /hpf (0-5)
[2022-12-23] MEDS: Ciprofloxacin 500 MG Tablet PO (00:08)
[2022-12-23] MEDS: metroNIDAZOLE 500 MG Tablet PO (00:08)
== END 2022-12-23 00:52 | disposition home or self-care (01) ==
PROVIDERS: Emergency Provider Emergency Medicine; PCP Family Medicine; Visit Provider Emergency Medicine
DX: K57.32 Diverticulitis of large intestine without perforation or abscess without bleeding (principal); Z79.3 Long term (current) use of hormonal contraceptives
CPT/HCPCS: 74177; 80048; 81001; 84703; 85025; 99284; Q9967; A4216

== ENCOUNTER 2023-03-06 05:56 | Day surgery (SDC) | payer OTHER, SELFPAY ==
[2023-03-06 06:21] VITALS: BP 156/99; PULSE 97; RESP 20; TEMP 36.1; O2SAT 100; BMI 41.6
[2023-03-06 06:26] LABS: Internal QC Validated? YES +Cl - CLEAR BKGD; Pregnancy, Urine Negative Negative
[2023-03-06] MEDS: Lactated Ringers 1,000 ML 15 ML IV (06:31)
--- NOTE | 2023-03-06 06:57 | HP.PCM_ITS ---
History and Physical Date of Admission: 03/06/23 MU BARBOZA, is a 37 F who presents to the office today for Prior workup: ? CT abd/pel 06.13.20 LLQ pain colonic diverticulosis; patchy groundglass opacities of lung base, ?COVID. PCP OV 10.26.22 with history of diverticulitis with more recent episode . Currently experiencing abdominal pain following ingestion of spicy fries on Saturday; gynecology started flagyl *BGI established 12.11.22 new onset softer and smaller caliber stool with movement s up to 3 times a day; non acute symptoms include bloating and heartburn. Notes onset following diverticulitis. Diverticulitis with use of antibiotic therapy up to 4 times; CT imaging (unavailable records) three times seeing diverticulitis. Prior to diverticulitis she was having a lot of constipation; started pre/probiotic and feels this has been helpful. ROS Const Constitutional: No anorexia, fatigue, fever(s), weight change or sleep problems Eyes Eyes: No change in vision ENT ENT: No abnormal hearing, difficulty swallowing, mouth lesions, tongue swelling or throat swelling Resp Respiratory: No cough or shortness of breath Cardio Cardiology: No chest pain at rest, chest pain with exertion, shortness of breath or dyspnea on exertion Gastro GI: No difficulty swallowing Genitourinary-Female: No difficulty urinating or burning urination Musc Musculoskeletal: No joint pain, joint swelling, muscle weakness or decreased muscle mass Skin Skin: No hair loss in leg, yellowing of the eye, itchy eyes, rash, skin ulcer or skin swelling Neuro Neurology: No abnormal hearing, abnormal movements, confusion, unsteady gait/balance or memory loss Psych Psychiatric: No anxiety, No confusion and No memory loss Endo Endocrine: No fatigue or weight change Aller/Imm Allergy/Immunologic: No itchy eyes, throat swelling or tongue swelling Dae/Lymp Hematologic/Lymphatic: No easy bleeding, easy bruising or enlarged lymph nodes Exam Const General: cooperative and comfortable Nutritional Appearance: average body habitus and well nourished [facility] Head: normal to inspection Ears: hearing grossly normal bilaterally Nose: external nose normal Face and sinus: normal facial exam Mouth: oral mucosae normal Throat: posterior oropharynx normal Eyes General: appearance normal, both eyes and all related structures Neck Neck: normal visual inspection Chest Chest palpation & inspection: normal inspection of the chest and normal palpation of entire chest wall Resp Effort & Inspection: normal respiratory effort Auscultation: Bilateral: Clear to Auscultation Cardio Palpation: normal PMI Rate: regular rate Rhythm: regular rhythm GI Inspection: normal to inspection Auscultation: normal bowel sounds Percussion: normal to percussion Palpation: no hepatosplenomegaly Skin General: no rashes or lesions noted Neuro General: patient alert Extrem General: normal to inspection Psych Affect: normal affect Quality Reporting Tobacco Screening ([facility] 138) Smoking Status: Never smoker Assessment and Plan Assessment and Plan (1) Frequent stools: Status: Chronic Plan: Intermittent loose stools that have gotten a lot better with the prebiotic and probiotic combination. She did have a couple episodes of urgency but that was mostly at night and it only happen a couple times. She does have some bloating and intermittent cramping but that is also gotten better with the prebiotic and probiotic combination. We will have her add Fiber Choice to her diet and we will do some testing for inflammatory bowel disease. (2) Diverticulitis: Status: Acute Plan: She has had 4 episodes of acute diverticulitis without any complications of wil roperforation. She recently had an episode of diverticulitis a month ago and completed antibiotics. She is on antibiotics at this time. She has been going to the bathroom more often and she recently notices that she gets a problem when she becomes constipated. She does have a strong family history of colon cancer and colon polyps in multiple family members. Therefore she will undergo colonoscopy for evaluation of her lower GI tract. (3) GERD (gastroesophageal reflux disease): Status: Acute Plan: She does have intermittent gastroesophageal reflux disease. She thinks it is mostly food related but she does occasionally have to take it and acid and or milk in order to coat her esophagus. Because this been going on for several years she will undergo screening for Zelaya's esophagus, erosive esophagitis, eosinophilic esophagitis and structural disease such as a hiatal hernia. Orders: Orders Comprehensive Metabolic Profil Today K52.9 - Noninfective gastroenteritis and colitis, unspecified, K58.9 - Irritable bowel syndrome without diarrhea CRP Today K52.9 - Noninfective gastroenteritis and colitis, unspecified, K58.9 - Irritable bowel syndrome without diarrhea LDH Today K52.9 - Noninfective gastroenteritis and colitis, unspecified, K58.9 - Irritable bowel syndrome without diarrhea CBC W/Diff, Automated Today K52.9 - Noninfective gastroenteritis and colitis, unspecified, K58.9 - Irritable bowel syndrome without diarrhea Erythrocyte Sed Rate Today K52.9 - Noninfective gastroenteritis and colitis, unspecified, K58.9 - Irritable bowel syndrome without diarrhea LORENZO Comprehensive Panel Today K52.9 - Noninfective gastroenteritis and colitis, unspecified Calprotectin, Stool Today K52.9 - Noninfective gastroenteritis and colitis, unspecified Stool Lactoferrin/WBC Today K52.9 - Noninfective gastroenteritis and colitis, unspecified, K58.9 - Irritable bowel syndrome without diarrhea ANCA Today K52.9 - Noninfective gastroenteritis and colitis, unspecified, K58.9 - Irritable bowel syndrome without diarrhea Celiac Disease Profile Today K52.9 - Noninfective gastroenteritis and colitis, unspecified, K58.9 - Irritable bowel syndrome without diarrhea Immunoglobulins G/A/M/E Today K52.9 - Noninfective gastroenteritis and colitis, unspecified, K58.9 - Irritable bowel syndrome without diarrhea GISELE + Protein Elect, Serum Today K52.9 - Noninfective gastroenteritis and colitis, unspecified, K58.9 - Irritable bowel syndrome without diarrhea Miscellaneous Lab Procedure Today K52.9 - Noninfective gastroenteritis and colitis, unspecified Allergen, Mini-Rast Today K52.9 - Noninfective gastroenteritis and colitis, unspecified, K58.9 - Irritable bowel syndrome without diarrhea Allergen, Rast Food Profile Today K52.9 - Noninfective gastroenteritis and colitis, unspecified, K58.9 - Irritable bowel syndrome without diarrhea I have examined the patient and the H&P has been reviewed. There are no clinical changes since date of exam.
--- NOTE | 2023-03-06 07:00 | EGD_PTH ---
PATIENT: MU BARBOZA LOC: EN U#:[id number] AGE/SX: 37/F ROOM: RE03/06/[address]: Dr. Kevin Cahkraborty DO : 1985 BED: DIS: 03/06/2023 SPEC #: [id number] RECD: 03/06/23 08:10 STATUS: TORIE CATRACHITO #: [id number] ERIKA: 03/06/23 07:[address]: Kevin Chakraborty DEPT: SURGICAL PATHOLOGY RECD BY: Marisel Fernandez ENTERED: 03/06/23 09:46 SP TYPE: EGD BIOPSY OT DR: Sharita Young DO Tissues: A - Esophagus, NOS B - Ileum, NOS C - COLON BIOPSY D - Transverse colon E - Sigmoid colon biopsy Procedures: Special Stain Group II Surgery Specimen Level IV Alcian Blue/PAS (control) HEADER OPERATION: Colonoscopy, EGD (MAC), biopsy PRE-OP DIAGNOSIS: Frequent stools, diverticulitis, GERD TISSUE SUBMITTED: A - Distal esophagus biopsy, B - Terminal ileum biopsy, C - Random colonic biopsy, D - Transverse polyp biopsy, E - Sigmoid colon random biopsy MICROSCOPIC DIAGNOSIS A. Distal esophagus, biopsy: Focal changes of reflux. No evidence of goblet cell metaplasia. See comment. B. Terminal ileum, biopsy: No pathologic change. C. Colon, random biopsy: No pathologic change. D. Transverse colon polyp, biopsy: Polypoid fragment of benign colonic mucosa. See comment. E. Sigmoid colon, biopsy: No pathologic change. AM:adam 03/07/2023 COMMENT A. Alcian blue/PAS stain with matched control supports the above diagnosis. D. Neither hyperplastic nor adenomatous change is identified. Clinical correlation is suggested. MICROSCOPIC DESCRIPTION Slides are reviewed. GROSS DESCRIPTION A - Received in fixative is one container labeled with the patient's name and designated distal esophagus. The specimen consists of two irregular fragments of light sharma soft tissue that in aggregate measure 1.0 x 0.7 x 0.1 cm. The specimen is totally submitted in one cassette. B - Received in fixative is one container labeled with the patient's name and designated terminal ileum. The specimen consists of one irregular fragment of light sharma soft tissue that measures 0.6 x 0.6 x 0.1 cm. The specimen is totally submitted in one cassette. C - Received in fixative is one container labeled with the patient's name and designated random colon biopsy. The specimen consists of multiple irregular fragments of light sharma soft tissue that in aggregate measure 1.5 x 1.0 x 0.1 cm. The specimen is totally submitted in one cassette. D - Received in fixative is one container labeled with the patient's name and designated transverse polyp. The specimen consists of one irregular fragment of light sharma soft tissue that measures 0.8 x 0.5 x 0.1 cm. The specimen is totally submitted in one cassette. E - Received in fixative is one container labeled with the patient's name and designated sigmoid colon random biopsy. The specimen consists of multiple irregular fragments of light sharma soft tissue that in aggregate measure 2.5 x 1.0 x 0.1 cm. The specimen is totally submitted in one cassette. / AM:adam 03/06/2023 TC:3 CPT: 01342 x5, [id number]
[2023-03-06 07:30] VITALS: BP 100/58; BP 156/99; PULSE 98; RESP 18; TEMP 37.3; O2SAT 96
--- NOTE | 2023-03-06 07:33 | OP.EGD_ITS ---
Patient Name: Betina Acosta Procedure Date: 03/06/2023 6:54 AM Date of : 1985 Age: 37 Procedure: Upper GI endoscopy Indications: Heartburn Providers: Kevin Chakraborty DO Referring MD: Sharita Young Do Medicines: Monitored Anesthesia Care Patient Profile: This is a 37 year old female. Refer to note in patient chart for documentation of history and physical. Patient has symptoms of chronic heartburn. Complications: No immediate complications. Procedure: Pre-Anesthesia Assessment: - Prior to the procedure, a History and Physical was performed, and patient medications and allergies were reviewed. The patient is competent. The risks and benefits of the procedure and the sedation options and risks were discussed with the patient. All questions were answered and informed consent was obtained. Patient identification and proposed procedure were verified by the physician in the pre-procedure area. Mental Status Examination: alert and oriented. Airway Examination: normal oropharyngeal airway and neck mobility. Respiratory Examination: clear to auscultation. CV Examination: normal. Prophylactic Antibiotics: The patient does not require prophylactic antibiotics. Prior Anticoagulants: The patient has taken no previous anticoagulant or antiplatelet agents. ASA Grade Assessment: II - A patient with mild systemic disease. After reviewing the risks and benefits, the patient was deemed in satisfactory condition to undergo the procedure. The anesthesia plan was to use monitored anesthesia care (MAC). Immediately prior to administration of medications, the patient was re-assessed for adequacy to receive sedatives. The heart rate, respiratory rate, oxygen saturations, blood pressure, adequacy of pulmonary ventilation, and response to care were monitored throughout the procedure. The physical status of the patient was re-assessed after the procedure. After obtaining informed consent, the endoscope was passed under direct vision. Throughout the procedure, the patient's blood pressure, pulse, and oxygen saturations were monitored continuously. The Colonoscope was introduced through the mouth, and advanced to the second part of duodenum. The patient tolerated the procedure well. Scope In: 7:03:51 AM Scope Out: 7:07:38 AM Total Procedure Duration Time 0 hours 3 minutes 47 seconds Findings: LA Grade B (one or more mucosal breaks greater than 5 mm, not extending between the tops of two mucosal folds) esophagitis with no bleeding was found 37 to 40 cm from the incisors. Biopsies were taken with a cold forceps for histology. Verification of patient identification for the specimen was done. Estimated blood loss was minimal. The entire examined stomach was normal. The second portion of the duodenum was normal. Impression: - LA Grade B reflux esophagitis. Biopsied. - Normal stomach. - Normal second portion of the duodenum. Recommendation: - Discharge patient to home. - Resume previous diet. - Use Protonix (pantoprazole) 20 mg PO BID for 8 weeks. - Continue present medications. Procedure Code(s): --- Professional --- 32248, Esophagogastroduodenoscopy, flexible, transoral; with biopsy, single or multiple CPT copyright 2017 [employer]. All rights reserved. The codes documented in this report are preliminary and upon medical biller coder review may be revised to meet current compliance requirements. Kevin Chakraborty DO 03/06/2023 7:32:49 AM This report has been signed electronically. Number of Addenda: 0 Note Initiated On: 03/06/2023 6:54 AM
--- NOTE | 2023-03-06 07:33 | OP.CCLET_ITS ---
03/06/2023 Sharita Young Do Re : Upper GI endoscopy procedure for Betina Acosta Dear Hector This procedure was performed on Monday, March 06, 2023. My impressions and recommendations are as follows: Impressions : - LA Grade B reflux esophagitis. Biopsied. - Normal stomach. - Normal second portion of the duodenum. Recommendations : - Discharge patient to home. - Resume previous diet. - Use Protonix (pantoprazole) 20 mg PO BID for 8 weeks. - Continue present medications. My findings are described in the full procedure note, which is enclosed. If I can be of further assistance, please feel free to contact me at . Sincerely, Kevin Chakraborty, 03/06/2023 7:32:49 AM This report has been signed electronically.
[2023-03-06 07:35] VITALS: BP 156/99; BP 95/62; PULSE 98; RESP 18; O2SAT 97
--- NOTE | 2023-03-06 07:37 | OP.COLON_ITS ---
Patient Name: Betina Acosta Procedure Date: 03/06/2023 7:08 AM Date of : 1985 Age: 37 Procedure: Colonoscopy Indications: Abdominal pain in the left lower quadrant Providers: Kevin Chakraborty DO Referring MD: Sharita Young Do Medicines: Monitored Anesthesia Care Patient Profile: This is a 37 year old female. Refer to note in patient chart for documentation of history and physical. Patient has symptoms of chronic heartburn. Last Colonoscopy: none. The patient's first colonoscopy is today. Complications: No immediate complications. Procedure: Pre-Anesthesia Assessment: - Prior to the procedure, a History and Physical was performed, and patient medications and allergies were reviewed. The patient is competent. The risks and benefits of the procedure and the sedation options and risks were discussed with the patient. All questions were answered and informed consent was obtained. Patient identification and proposed procedure were verified by the physician in the pre-procedure area. Mental Status Examination: alert and oriented. Airway Examination: normal oropharyngeal airway and neck mobility. Respiratory Examination: clear to auscultation. CV Examination: normal. Prophylactic Antibiotics: The patient does not require prophylactic antibiotics. Prior Anticoagulants: The patient has taken no previous anticoagulant or antiplatelet agents. ASA Grade Assessment: II - A patient with mild systemic disease. After reviewing the risks and benefits, the patient was deemed in satisfactory condition to undergo the procedure. The anesthesia plan was to use monitored anesthesia care (MAC). Immediately prior to administration of medications, the patient was re-assessed for adequacy to receive sedatives. The heart rate, respiratory rate, oxygen saturations, blood pressure, adequacy of pulmonary ventilation, and response to care were monitored throughout the procedure. The physical status of the patient was re-assessed after the procedure. After I obtained informed consent, the scope was passed under direct vision. Throughout the procedure, the patient's blood pressure, pulse, and oxygen saturations were monitored continuously. The Colonoscope was introduced through the anus and advanced to the terminal ileum. The colonoscopy was performed without difficulty. The patient tolerated the procedure well. The quality of the bowel preparation was adequate. Scope In: 7:09:38 AM Scope Withdrawal Time 0 hours 12 minutes 3 seconds Scope Out: 7:24:59 AM Total Procedure Duration Time 0 hours 15 minutes 21 seconds Findings: The perianal and digital rectal examinations were normal. Multiple small and large-mouthed diverticula were found in the recto-sigmoid colon and sigmoid colon. Patchy mild inflammation characterized by erythema and loss of vascularity was found in the recto-sigmoid colon and in the sigmoid colon. Biopsies were taken with a cold forceps for histology. Verification of patient identification for the specimen was done. Estimated blood loss was minimal. A patchy area of mucosa in the terminal ileum was mildly erythematous. Biopsies were taken with a cold forceps for histology. Verification of patient identification for the specimen was done. Estimated blood loss was minimal. A 8 mm polyp was found in the transverse colon. The polyp was sessile. The polyp was removed with a cold snare. Resection and retrieval were complete. Verification of patient identification for the specimen was done. Estimated blood loss was minimal. Impression: - Diverticulosis in the recto-sigmoid colon and in the sigmoid colon. - Patchy mild inflammation was found in the recto-sigmoid colon and in the sigmoid colon secondary to colitis. Biopsied. - Erythematous mucosa in the terminal ileum. Biopsied. - One 8 mm polyp in the transverse colon, removed with a cold snare. Resected and retrieved. Recommendation: - Repeat colonoscopy in 5 years for surveillance. - Return to GI office. - Continue present medications. Procedure Code(s): --- Professional --- 34073, Colonoscopy, flexible; with removal of tumor(s), polyp(s), or other lesion(s) by snare technique 89063, 59, Colonoscopy, flexible; with biopsy, single or multiple CPT copyright 2017 [employer]. All rights reserved. The codes documented in this report are preliminary and upon horticultural specialty grower review may be revised to meet current compliance requirements. Kevin Chakraborty DO 03/06/2023 7:36:44 AM This report has been signed electronically. Number of Addenda: 0 Note Initiated On: 03/06/2023 7:08 AM
--- NOTE | 2023-03-06 07:37 | OP.CCLET_ITS ---
03/06/2023 Sharita Young Do Re : Colonoscopy procedure for Betina Acosta Dear Hector This procedure was performed on Monday, March 06, 2023. My impressions and recommendations are as follows: Impressions : - Diverticulosis in the recto-sigmoid colon and in the sigmoid colon. - Patchy mild inflammation was found in the recto-sigmoid colon and in the sigmoid colon secondary to colitis. Biopsied. - Erythematous mucosa in the terminal ileum. Biopsied. - One 8 mm polyp in the transverse colon, removed with a cold snare. Resected and retrieved. Recommendations : - Repeat colonoscopy in 5 years for surveillance. - Return to GI office. - Continue present medications. My findings are described in the full procedure note, which is enclosed. If I can be of further assistance, please feel free to contact me at . Sincerely, Kevin Chakraborty DO 03/06/2023 7:36:44 AM This report has been signed electronically.
[2023-03-06 07:40] VITALS: BP 156/99; BP 98/63; PULSE 87; RESP 18; O2SAT 99
[2023-03-06 07:45] VITALS: BP 123/76; BP 156/99; PULSE 83; RESP 16; TEMP 37.2; O2SAT 98
[2023-03-06 07:58] VITALS: BP 156/99
== END 2023-03-06 08:11 | disposition home or self-care (01) ==
LOC: EN 05:58 → AC 05:59
PROVIDERS: Anesthesiology; PCP Family Medicine; Referring Provider Family Medicine; Visit Provider Internal Medicine Gastroenterology
PROC: 0DJD8ZZ Inspection of Lower Intestinal Tract, Via Natural or Artificial Opening Endoscopic (ICD-10-PCS; CPT 45378; principal; 2023-03-06 06:55)
DX: K52.9 Noninfective gastroenteritis and colitis, unspecified (principal); K63.5 Polyp of colon; R10.32 Left lower quadrant pain; K21.00 Gastro-esophageal reflux disease with esophagitis, without bleeding; K57.30 Diverticulosis of large intestine without perforation or abscess without bleeding; K76.0 Fatty (change of) liver, not elsewhere classified; Z80.0 Family history of malignant neoplasm of digestive organs; K58.9 Irritable bowel syndrome, unspecified
CPT/HCPCS: 43239; 45385; 45380; 81025; 88305; 88313; J7120; J2405

== ENCOUNTER → 2023-05-08 | Outpatient (CLI) | payer OTHER, SELFPAY ==
--- NOTE | 2023-05-08 09:24 | CT_ITS ---
STUDY: CT ABDOMEN AND PELVIS WITH CONTRAST REASON FOR EXAM: Female, 37 years old. Possible diverticulitis RADIATION DOSAGE (If Supplied By Facility): CTDIvol = ( 18.31 ) mGy, DLP = ( 1235.75 ) mGycm TECHNIQUE: Transaxial images were obtained from the dome of the diaphragm to the symphysis pubis without oral contrast. IV 100mL Isovue-300 was administered. Sagittal and coronal images were reconstructed. Individualized dose optimization techniques were used for this CT. COMPARISON: Comparison is made with prior study December 22, 2022. FINDINGS: The visualized lung bases are unremarkable. The visualized portions of the heart are within normal limits. There is decreased attenuation of the liver consistent with steatosis. Normal gallbladder and extrahepatic biliary system. Normal spleen. Normal pancreas. Normal bilateral adrenal glands. Normal right kidney. Normal left kidney. Normal visualized stomach. Normal small intestine. There is diverticulosis, with thickening of the colon wall, and pericolonic inflammation changes consistent with acute diverticulitis. The appendix is visualized and appears normal. Normal abdominal aorta. Normal inferior vena cava. There are small retroperitoneal lymphadenopathy with enlarged nodes no greater than 10mm in the short axis diameter. Normal urinary bladder. Normal abdominal wall. Normal osseous structures. CT/Abdomen/Pelvis WITH Contrast IMPRESSION: Findings in keeping with the noncomplicated acute sigmoid diverticulitis. Diffuse fatty infiltration of the liver. Electronically Signed: Kam Parsons MD at 12:25 EDT ,
== END | disposition home or self-care (01) ==
LOC: CT 09:23
PROVIDERS: PCP Family Medicine; Referring Provider Internal Medicine Gastroenterology; Visit Provider Internal Medicine Gastroenterology
DX: K57.92 Diverticulitis of intestine, part unspecified, without perforation or abscess without bleeding (principal)
CPT/HCPCS: 74177; Q9967

== ENCOUNTER → 2023-05-11 | Outpatient (CLI) | payer OTHER, SELFPAY ==
[2023-05-17 00:07] LABS: Calprotectin, Stool 287 ug/g (0-120)
[2023-05-17 16:09] LABS: Pancreatic Elastase, Fecal 449 (>200)
== END | disposition home or self-care (01) ==
LOC: LABSPEC 11:18
PROVIDERS: PCP Family Medicine; Referring Provider Internal Medicine Gastroenterology; Visit Provider Internal Medicine Gastroenterology
DX: K52.9 Noninfective gastroenteritis and colitis, unspecified (principal); K57.92 Diverticulitis of intestine, part unspecified, without perforation or abscess without bleeding
CPT/HCPCS: 82653; 83630; 83993

== ENCOUNTER → 2023-06-07 | Outpatient (CLI) | payer OTHER, SELFPAY ==
--- NOTE | 2023-06-07 07:19 | US_ITS ---
STUDY: ABDOMINAL ULTRASOUND - RIGHT UPPER QUADRANT; ELASTOGRAPHY REASON FOR VISIT: Female, 37 years old. THOMPSON TECHNIQUE: Ultrasound evaluation of the right upper quadrant was performed with real-time and static urban-scale imaging. Point quantification shear wave elastography was performed ([employer]). TECHNICAL QUALITY: Adequate. COMPARISON: Comparison is made with prior CT scan of the abdomen done on May 08, 2023. FINDINGS: Liver: The liver is enlarged and measures 18.8 cm. There is increased echogenicity consistent with fatty infiltration. The bile ducts are within normal limits. There is hepatic color flow. The direction of portal flow is hepatopetal. There is no demonstrated mass lesion. Median liver stiffness measured 6.3 kPa. Gallbladder: Normal distended gallbladder. The gallbladder wall measures 1.9 mm. There is a negative sonographic Perera''s sign. There is no pericholecystic fluid. There is a solitary echogenic gallstone within the gallbladder. Common Bile Duct (C.B.D.): The common bile duct measures 3.4 mm. Pancreas: There is increased echogenicity of the pancreas. There is no demonstrated pancreatic mass or cyst. Right Kidney: Normal size of the right kidney. The right kidney measures 10.7 cm x 6.7 cm x 5.5 cm. Normal renal cortex. The right cortex measures 1.3 cm. There is no demonstrated renal mass or cyst. There is no right hydronephrosis. US/ABD Limited w/ Elastography IMPRESSION: 1. Liver stiffness measures 6.3 kPa compatible with F2-F3 (Mild to moderate liver fibrosis) Metavir score. 2. Fatty infiltration of the liver. 3. Solitary gallstone. Electronically Signed: Kam Parsons MD at 14:09 EDT ,
== END | disposition home or self-care (01) ==
LOC: US 07:19
PROVIDERS: PCP Family Medicine; Referring Provider Internal Medicine Gastroenterology; Visit Provider Internal Medicine Gastroenterology
DX: K75.81 Nonalcoholic steatohepatitis (NASH) (principal)
CPT/HCPCS: 91200; 76705; 76981

== ENCOUNTER → 2023-09-17 | Outpatient (CLI) | payer OTHER, SELFPAY ==
--- NOTE | 2023-09-17 16:53 | BI_ITS ---
MAMMOGRAPHY - BILATERAL SCREENING REASON FOR EXAM: Female, 37 years old. Routine annual screening examination. PERTINENT HISTORY: Mother with breast cancer. TECHNIQUE: Digital bilateral breast shannan (3D mammographic acquisition) in the CC and MLO projections. 2-D mediolateral oblique (MLO) and craniocaudad (CC) views of both breasts were obtained. CAD: Full Field Digital Mammography with Computer Added Detection was performed. COMPARISON: Comparison is made with prior study dated February 24, 2023 and August 25, 2021. FINDINGS: Breast Composition: The breasts are almost entirely fatty. There are no dominant masses or suspicious calcifications. No other significant abnormalities are identified. There has been no significant change since the prior study. BI/SCRN MAMM (CAD)W/SHANNAN BILAT IMPRESSION: Stable bilateral screening mammogram. Yearly follow-up mammogram recommended. (A) ASSESSMENT CATEGORY: BIRADS Category 1: Negative. A letter regarding these results will be sent to the patient by the facility within 30 days. Approximately 10% of breast cancers are not detected by mammography. A normal mammogram should not delay biopsy of a clinically suspicious abnormality. [id number] Electronically Signed: Kam Parsons MD at 9:06 EST ,
--- OUTSIDE RECORDS SUMMARY | 2023-09-18 12:20 | XMS RPT_ITS | CCD ---
Author Name Unknown Address [address] [place] [address] Organization [facility] Care Team Providers Care Manager Business Intelligence Name Role Phone James Ambrose CNP Attending Unavailable Mirna Mcbride Attending Unavailable GENA MEEK Referring Unavailable GENA MEEK Attending Unavailable Unavailable Primary Care Provider Unavailabl e Unavailable Primary Care Provider Unavailabl e Medications Completed/Discontinued Medications Medication Drug Class(es) Dates Sig (Normalized) Sig (Original) dextromethorphan hydrobromide 15 mg / guaiFENesin 400 mg / pseudoephedrine hydrochloride 60 mg oral tablet (1 source) alpha-Adrenergic Agonist, Uncompetitive P-bdnpgv-[id number]-aspartat e Receptor Antagonist, Sigma-1 Agonist Start: 09-28-2018 CAPMIST DM 60-15-400 mg tab TAKE 1 TABLET EVERY 6 TO 8 HOURS NEEDED FOR COUGH / congestion 0 09/28/2018 Active Problems Active Problems Problem Classification Problem Date Documented Da te Episodic/Chronic Other inflammatory condition of skin (4 sources) Rosacea; Translations: [Rosacea, unspecified] Onset: 02-24-2020 Chronic Unclassified (2 sources) COUGH,SORE THROAT Onset: 09-28-2018 Past or Other Problems Problem Classification Problem Date Documented Da te Episodic/Chronic Other skin disorders (3 sources) Acne vulgaris; Translations: [Acne vulgaris] Onset: 02-24-2020 02-24-2020 Episodic Results Test Name Value Interpretation Reference Range Facil ity Vital Signs Date Time Vital Sign Value Performing Clinician Marielle corona 06-07-2022 14:44-0400 Body height 172.7 cm Gena Gaviota Parra Work Phone: [facility] 06-07-2022 14:44-0400 Body weight 120.2 kg Gena Parra Work Phone: [facility] 06-07-2022 14:44-0400 Diastolic blood pressure 85 mm[Hg] Gena Meek PA-C Work Phone: [facility] 06-07-2022 14:44-0400 Systolic blood pressure 136 mm[Hg] Gena Meek PA-C Work Phone: [facility] Encounters Encounter Date Encounter Type Care Provider Facility Start: 06-07-2022 End: 06-07-2022 ambulatory GENA MEEK Facility:[facility] Start: 06-07-2022 End: 06-07-2022 Patient encounter procedure Gena Meek PA-C Work Phone: [facility] Procedures Date Procedure Procedure Detail Performing Clinician Start: 11-19-2008 CYTOLOGY HAND PACKAGER, CONVERTED Phan Robertson MD Work Phone: Start: 12-19-2005 CYTOLOGY HAND PACKAGER, CONVERTED Phan Robertson MD Work Phone: Plan of Treatment Date Care Activity Detail Author Start: 04-05-2023 Influenza vaccination Influenza Vacc ine (#1) [facility] Start: 08-05-2022 Depression Assessment Depression Ass essment [facility] Start: 04-05-2022 Influenza vaccination INFLUENZA (#1) [facility] Start: 09-13-2021 COVID-19 VACCINE (4 - Booster for Moderna series) COVID-19 VACCINE (4 - Booster for Moderna series) [facility] Start: 09-13-2021 Covid-19 Vaccine (4 - Moderna series) Covid-19 Vaccine (4 - Moderna series) [facility] Start: 08-05-2021 DEPRESSION ASSESSMENT DEPRESSION ASS ESSMENT [facility] Start: 05-03-2021 HPV TESTING HPV TESTING [facility] Start: 05-03-2021 PAP TESTING PAP TESTING [facility] Start: 12-11-2002 Urine microalbumin profile [facility] Start: 12-11-2001 HEPATITIS C SCREENING HEPATITIS C SC SNEHANING [facility] Start: 12-11-2001 HIV SCREENING HIV SCREENING [facility] Start: 1985 HEPATITIS B (1 of 3 - 3-dose series) HEPATITIS B (1 of 3 - 3-dose series) [facility] Start: 1985 Hepatitis B Vaccine (1 of 3 - 3-dose series) Hepatitis B Vaccine (1 of 3 - 3-dose series) [facility] Immunizations Immunization Date Immunization Notes Care Provider Fa cility 06-09-2020 influenza virus vacc ine, unspecified formulation Phan Robertson III, MD Work Phone: [facility] Payers Date Payer Category Payer Unknown [id number] 2017 Unknown 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 2017-Present [phone] [address] [address] [place] [address] Indemnity [id number] Unknown [id number] Unknown [id number] Social History Date Type Detail Facility Start: 02-17-2018 Tobacco smoking stat 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 Tobacco smoking consumption unknown [facility] Start: 06-10-2022 End: 09-02-2022 History of Social function [facility] Start: 06-10-2022 End: 09-02-2022 Tobacco use panel [facility] National Score (1-10 0), lower number is lower risk 81 [facility] Progress note 06-07-2022 Note Date & Type Note Facility 06-07-2022 Note HNO ID: [id number] Author: Gena Meek PA-C Service: ? Author Type: Physician [employer] Work[employer] Type: Progress Notes Filed: 06/10/2022 10:43 PM Note Text: This is a 36 yo female for a follow up on her rosacea. She is currently using Metro cream and feels that seems to keep her clear. She does occasionally use Doxycycline but not often. She does wear regular sunscreen. She has no other skin concerns today. ACTIVE PROBLEM LIST Rosacea Acne Vulgaris ALLERGIES No Known Allergies No family history on file. Social History Tobacco Use Smoking status: Never Smokeless tobacco: Never Vaping Use Vaping Use: Never used Substance Use Topics Alcohol use: No Drug use: No Current Outpatient Medications Medication Sig Dispense Refill doxycycline monohydrate (MONODOX) 100 mg capsule Take 1 capsule by mouth twice daily. With food 60 capsule 5 metroNIDAZOLE 0.75 % cream Apply to face topically twice daily after cleansing 45 g 5 methylPREDNISolone (MEDROL DOSE-PACK) 4 mg Dose-Pack TAKE BY MOUTH DIRECTED ON PACKAGE 0 CAPMIST DM 60-15-400 mg tab TAKE 1 TABLET EVERY 6 TO 8 HOURS NEEDED FOR COUGH / congestion 0 Drospirenone-Ethinyl Estradiol (JENNIFER, 28,) 3-0.03 mg per tablet Take 1 tablet by mouth once daily. No current facility-administered medications for this visit. PAST SURGICAL HISTORY Procedure Laterality Date OOPHORECTOMY PARTIAL/TOTAL UNI/BI Right REVIEW OF SYSTEMS GENERAL: Patient feels well and denies any recent fevers, chills, or night sweats. SKIN: Negative for lesions, rash, and itching PHYSICAL EXAMINATION BP 136/85 Ht 5' 8 (1.73m) Wt 265 lb (120.2kg) BMI 40.30 kg/(m2). The patient is pleasant and in no distress. She is alert and oriented x 3. Involving the face, chest and back. -mild erythema of b/l cheeks and nose without papules -back and chest is clear ASSESSMENT/PLAN: 1. Rosacea - ICD9: 695.3, ICD10: L71.9 (primary diagnosis) -will continue Metro cream 0.75% to face bid, eRx sent (may apply to face once daily for maintenance and increase to bid if needed) -may use Doxycycline 100 mg one bid with food, eRx sent (may use as needed for flares, could take for 3-4 weeks longer if needed) -Patient instructed that medication can cause photosensitivity, so recommend avoidance of tanning booths and use of SPF 30 or higher sunscreen an sun protective clothing when outdoors. -recommend avoidance of triggers, including sunlight, heat, hot beverages, alcohol and aged cheeses -use gentle cleansers and daily face moisturizers with spf 30 -advised to cool face down when feeling flushed to prevent break outs - DOXYCYCLINE MONOHYDRATE 100 MG CAPSULE - METRONIDAZOLE 0.75 % TOPICAL CREAM Gena Meek PA-C Return in about 1 year (around 06/07/2023). [facility] History of Present illness Narrative 06-07-2022 Gena Meek PA-C - 06/07/2022 2:42 PM EDT Note Date & Type Note Facility 06-07-2022 History of Presen t illness Narrative This is a 36 yo female for a follow up on her rosacea. She is currently using Metro cream and feels that seems to keep her clear. She does occasionally use Doxycycline but not often. She does wear regular sunscreen. She has no other skin concerns today. ACTIVE PROBLEM LIST Rosacea Acne Vulgaris ALLERGIES No Known Allergies No family history on file. Social History Tobacco Use Smoking status: Never Smokeless tobacco: Never Vaping Use Vaping Use: Never used Substance Use Topics Alcohol use: No Drug use: No Current Outpatient Medications Medication Sig Dispense Refill doxycycline monohydrate (MONODOX) 100 mg capsule Take 1 capsule by mouth twice daily. With food 60 capsule 5 metroNIDAZOLE 0.75 % cream Apply to face topically twice daily after cleansing 45 g 5 methylPREDNISolone (MEDROL DOSE-PACK) 4 mg Dose-Pack TAKE BY MOUTH DIRECTED ON PACKAGE 0 CAPMIST DM 60-15-400 mg tab TAKE 1 TABLET EVERY 6 TO 8 HOURS NEEDED FOR COUGH / congestion 0 Drospirenone-Ethinyl Estradiol (JENNIFER, 28,) 3-0.03 mg per tablet Take 1 tablet by mouth once daily. No current facility-administered medications for this visit. PAST SURGICAL HISTORY Procedure Laterality Date OOPHORECTOMY PARTIAL/TOTAL UNI/BI Right REVIEW OF SYSTEMS GENERAL: Patient feels well and denies any recent fevers, chills, or night sweats. SKIN: Negative for lesions, rash, and itching PHYSICAL EXAMINATION BP 136/85 Ht 5' 8 (1.73m) Wt 265 lb (120.2kg) BMI 40.30 kg/(m^2). The patient is pleasant and in no distress. She is alert and oriented x 3. Involving the face, chest and back. -mild erythema of b/l cheeks and nose without papules -back and chest is clear ASSESSMENT/PLAN: 1. Rosacea - ICD9: 695.3, ICD10: L71.9 (primary diagnosis) -will continue Metro cream 0.75% to face bid, eRx sent (may apply to face once daily for maintenance and increase to bid if needed) -may use Doxycycline 100 mg one bid with food, eRx sent (may use as needed for flares, could take for 3-4 weeks longer if needed) -Patient instructed that medication can cause photosensitivity, so recommend avoidance of tanning booths and use of SPF 30 or higher sunscreen an sun protective clothing when outdoors. -recommend avoidance of triggers, including sunlight, heat, hot beverages, alcohol and aged cheeses -use gentle cleansers and daily face moisturizers with spf 30 -advised to cool face down when feeling flushed to prevent break outs - DOXYCYCLINE MONOHYDRATE 100 MG CAPSULE - METRONIDAZOLE 0.75 % TOPICAL CREAM Gena Meek PA-C Return in about 1 year (around 06/07/2023). documented in this encounter [facility] Evaluation note Note Date & Type Note Facility documented in this encounter [facility] Summary Purpose Family History No Family History Records FoundNo Family History Records FoundNo Family History Records FoundNo Family History Records Found Advance Directives No Advanced Directives Records FoundNo Advanced Directives Records FoundNo Advanced Directives Records FoundNo Advanced Directives Records Found Additional Source Comments INFORMATION SOURCE (unrecogn ized section and content) DATE CREATED AUTHOR AUTHOR'S ORGANIZ ATION 03/02/2020 [facility] DATE CREATED AUTHOR AUTHOR'S ORGANIZ ATION 11/23/2020 [facility] DATE CREATED AUTHOR AUTHOR'S ORGANIZ ATION 06/10/2022 [facility] Source Comments (unrecognize d section and content) In the event this informatio n is protected by the Federal Confidentiality of Alcohol and Drug Abuse Patient Records regulations: The Federal rules restrict any use of the information to criminally investigate or prosecute any alcohol or drug abuse patient.[facility] the event this information is protected by the Federal Confidentiality of Alcohol and Drug Abuse Patient Records regulations: The Federal rules restrict any use of the information to criminally investigate or prosecute any alcohol or drug abuse patient.[facility] the event this information is protected by the Federal Confidentiality of Alcohol and Drug Abuse Patient Records regulations: The Federal rules restrict any use of the information to criminally investigate or prosecute any alcohol or drug abuse patient.[facility] Reason for Visit (unrecogniz ed section and content) FOR RECORDS PERTAINING TO PATIENTS WHO ARE OR HAVE BEEN ENROLLED IN A CHEMICAL DEPENDENCY/SUBSTANCEABUSE PROGRAM, SOME INFORMATION MAY BE OMITTED. This clinical summary was aggregated from multiple sources. Caution should be exercised in using it in the provision of clinical care. This summary normalizes information from multiple sources, and as a consequence, information in this document may materially change the coding, format and clinical context of patient data. In addition, data may be omitted in some cases. CLINICAL DECISIONS SHOULD BE BASED ON THE PRIMARY CLINICAL RECORDS. [facility] [employer] [facility]. provides no warranty or guarantee of the accuracy or completeness of information in this document.
== END | disposition home or self-care (01) ==
LOC: OPBI 09-18 11:59
PROVIDERS: PCP Family Medicine; Referring Provider Family Medicine; Visit Provider Family Medicine
DX: Z12.31 Encounter for screening mammogram for malignant neoplasm of breast (principal); Z80.3 Family history of malignant neoplasm of breast
CPT/HCPCS: 77063; 77067

== ENCOUNTER → 2023-12-02 | Outpatient (CLI) | payer OTHER, SELFPAY | END | disposition home or self-care (01) | LOC: LABSPEC 10:04 | PROVIDERS: PCP Family Medicine; Visit Provider Physician Assistant | DX: N39.0 Urinary tract infection, site not specified (principal) | CPT/HCPCS: 87077; 87086; 87088; 87186 ==

== ENCOUNTER 2024-05-16 13:41 | Emergency (ER) | payer OTHER, SELFPAY ==
[2024-05-16 13:41] VITALS: BP 143/103; PULSE 118; RESP 16; TEMP 36.6; O2SAT 99; BMI 43.4
--- NOTE | 2024-05-16 13:57 | CT_ITS ---
EXAM: CT ABDOMEN AND PELVIS WITH INTRAVENOUS CONTRAST CLINICAL INDICATION: LLQ abd pain TECHNIQUE: Helically acquired images were obtained of the abdomen and pelvis with intravenous contrast. This CT exam was performed using one or more of the following dose reduction techniques: automated exposure control, adjustment of the mA and/or kV according to patient size, and/or use of iterative reconstruction technique. CONTRAST: IV 100mL [id number] COMPARISON: CT Abdomen Pelvis dated 05/08/2023 FINDINGS: LOWER THORAX: Normal. Lung bases are clear. No cardiomegaly. No pericardial effusion. ABDOMEN: LIVER: Liver is mildly enlarged and steatotic. GALLBLADDER AND BILE DUCTS: Normal. No calcified gallstones. No gallbladder distention or wall edema. No intra- or extrahepatic biliary ductal dilation. PANCREAS: Normal. No focal cystic or solid mass. SPLEEN: Normal. Normal size without focal cystic or solid mass. ADRENALS: Normal. No nodules. KIDNEYS AND URETERS: Normal. Normal renal size and position. No hydronephrosis. STOMACH AND BOWEL: Localized wall thickening of the distal descending colon noted associated with prominent adjacent fat stranding consistent with acute diverticulitis. No evidence of abscess or perforation. PELVIS: APPENDIX: Appendix is visualized and normal in appearance. BLADDER: Normal. REPRODUCTIVE: Stable left-sided exophytic 3.4 cm uterine fibroid. ABDOMEN and PELVIS: INTRAPERITONEAL SPACE: Normal. No ascites or other fluid collection. No free air. BONES/JOINTS: No suspicious lytic or blastic abnormality. SOFT TISSUES: Normal. No discrete abdominal or pelvic wall hernia. VASCULATURE: Normal. Abdominal aorta is non-dilated. LYMPH NODES: Normal. No enlarged lymph nodes. CT/Abdomen/Pelvis W IV Cont ONLY IMPRESSION: 1. Acute diverticulitis of the distal descending colon without evidence of abscess or perforation. 2. Mildly enlarged and mildly steatotic liver. Electronically Signed: Kel Severino MD at 15:05 EDT ,
--- NOTE | 2024-05-16 14:13 | ED.VIS.GI ---
HPI HPI - GI History of Present Illness Chief Complaint: Abd Pain Informant: patient Abdominal Pain/Flank Pain Onset: Yesterday Context: Gradual Onset Timing: Continuous Quality: Cramping Location: LLQ Current Severity: Mild Maximum Severity: Moderate Worsened by: Nothing Relieved by: Nothing Nausea/Vomiting/Emesis GI Symptom: Positive for Nausea; Negative for Vomiting Diarrhea/Melena/Hematochezia GI Symptom: Negative for Diarrhea, Melena or Hematochezia Associated Symptoms Associated Symptoms: Negative for Dysuria, Frequency, Hematuria or Urgency Narrative Narrative: 38-year-old female prior ovary resected on the right. Prior colonoscopy. Complaint left lower quadrant abdominal pain since yesterday evening. Denies nausea, vomiting or diarrhea. No dysuria. No fever. History of diverticulitis. No prior colon resections. Prior similar symptoms: Yes Recent Illness/Hospitalization: No PFSH PFSH Medical History Fatty liver Heartburn Non-smoker History of edema Diverticulitis Home Medications ?Medication ?Instructions ?Recorded ?Last Taken ?Type hyoscyamine sulfate 0.125 mg 0.125 mg PO BID-QID PRN dyspepsia 05/16/23 Unknown Rx disintegrating tablet #60 tabs drospirenone 3 mg-ethinyl 1 tab PO DAILY #84 tabs 02/24/24 Unknown Rx estradiol 0.03 mg tablet pantoprazole 20 mg tablet,delayed 20 mg PO DAILY #90 TABLETS 04/14/24 Unknown Rx release fluconazole 150 mg tablet 150 mg PO Q3D 2 doses #2 tabs 05/08/24 Unknown Rx mesalamine 1.2 gram tablet,delayed 1.2 g PO .QID #120 tabs 05/15/24 Unknown Rx release ciprofloxacin HCl 500 mg tablet 500 mg PO BID 10 days #20 tabs 05/16/24 Unknown Rx (Cipro) metronidazole 500 mg tablet 500 mg PO TID 10 days #30 tabs 05/16/24 Unknown Rx Allergy/AdvReac Type Severity Reaction Status Date / Time No Known Allergies Allergy Verified 05/16/24 13:41 Family History Mother Breast cancer, Onset Age: 35 Father Cancer Prostate Grandmother Cancer Ovarian- paternal Grandfather Colon cancer Paternal Surgical History Hx of wisdom tooth extraction S/P surgical removal of pilonidal cyst S/P tonsillectomy S/P right oophorectomy Social History adopted: No household members: significant other housing: house number of children: 0 current occupational status: employed 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 ROS ROS ED ROS Narrative Left lower quadrant abdominal pain. Intermittent nausea. Constitutional Constitutional ED: Denies chills or fever(s) ENT ENT ED: Denies ear pain Cardiovascular Cardiovascular: Denies chest pain Respiratory/Chest Respiratory/Chest: Denies cough Gastrointestinal Gastrointestinal: Reports abdominal pain; Denies constipation, diarrhea, melena, nausea or vomiting Genitourinary Genitourinary ED: Denies dysuria or hematuria Musculoskeletal Musculoskeletal: Denies arthralgias or back pain Integumentary Denies abscess Neurologic Neurologic: Denies headache(s) Psychiatric Psychiatric: Denies anxiety Endocrine Endocrinology: Denies polydipsia Hematologic/Lymphatic Hematologic/Lymphatic: Denies easy bleeding Allergic/Immunologic Allergic/Immunologic ED: Denies mouth swelling EXAM Physical Exam Narrative Exam Narrative: Well-appearing 38-year-old female. Vital signs stable afebrile. H EENT exam unremarkable. Neck nontender. Lungs clear. Heart tachycardic rate about 110 no murmur. Abdomen soft nondistended normal bowel sounds without peritoneal signs. Tender left lower quadrant. No hernia or mass. No obstruction. Moving all 4 extremities. Nontender no edema. Back nontender. Neurologically awake and alert no focal motor deficits. Const Vital Signs: 05/16/24 13:41 Temperature 97.9 F Temperature Source Oral Pulse Rate 118 H Respiratory Rate 16 Blood Pressure 143/103 H Blood Pressure Mean 116 Pulse Ox 99 Oxygen Delivery Method Room Air Positive well nourished and well developed; Negative for cachectic, contractures or unkempt General Appearance ED: well developed and NAD; Negative for unkempt, cachectic, contractures or pallor Nutritional Appearance: Negative for cachectic HEENT Reports moist mucous membranes; Denies dry mucous membranes normocephalic and atraumatic; Negative for trauma or tenderness Mouth ED: No dry mucous membranes Mouth: No dry mucous membranes Eyes PERRL and EOMs intact bilaterally General Eye ED: Negative for pale conjunctiva, scleral icterus or other Neck no lymphadenopathy, supple and no JVD General: Negative for tenderness Lymph Lymphatic: Negative for other Resp normal respiratory effort and clear to auscultation bilaterally Effort and Inspection: Negative for respiratory distress Auscultation: Negative for rales, rhonchi or wheezes Cardio regular rhythm, S1 normal heart sound, S2 normal heart sound and no murmurs; Negative for regular rate Rate: tachycardic GI non-distended and no masses; Negative for non-tender Auscultation: normoactive bowel sounds Palpation: soft; Negative for guarding or rebound tenderness present Back/Spine no CVA tenderness Extremity full ROM General Extremety ED: Negative for edema or tenderness General Extremity: Negative for edema Neuro CN's II-XII intact bilaterally and moves all extremities Sensorium / Orientation: alert, oriented to person, oriented to place and oriented to time; Negative for orientation impaired, confused, lethargic or stuporous Motor Exam: strength 5/5 throughout Psych mental status grossly normal and thought process normal Appearance: Negative for unkempt Mood & Affect: Negative for depressed, anxious or tearful Skin no wounds General Skin Exam: Negative for jaundice or pallor Lesions: no lesions Rashes: no rashes Trauma: Negative for abrasion Nails: Negative for discolored MDM MDM MDM Narrative Medical decision making narrative: 38-year-old female left lower quadrant abdominal pain with a history of diverticulitis. CAT scan labs. Toradol for pain and Zofran for nausea. Repeat exam patient is doing well at 3:30 PM. Said her pain is much better after the Toradol. We went over her test results including her CAT scan and labs. She is comfortable being discharged home. She be placed on Cipro and Flagyl for the next 10 days. Outpatient follow-up with her primary care physician Dr. Lee. She knows return if worse. She did not waiting at home for pain show use Tylenol and Motrin. History & Record Review Discussion w/independent historian: Patient Lab Data Attestation: I reviewed the patient's lab results. Lab results narrative: CBC showed an elevated white count 18.2. H&H 13 and 41. Platelets 323. Electrolytes show sodium 133. Gap 10. Normal BUN and creatinine. Glucose 121. Urinalysis normal. No signs of infection. CAT scan abdomen pelvis with IV contrast shows left-sided diverticulitis. No perforation or abscess. Read by the radiologist. Labs: Laboratory Results - last 24 hr 05/16/24 14:10 WBC 18.2 H RBC 5.23 Hgb 13.4 Hct 41.9 MCV 80.1 L MCH 25.6 L MCHC 32.0 RDW Std Deviation 41.4 RDW Coeff of Antolin 14.2 Plt Count 323 MPV 10.2 Immature Gran % (Auto) 0.400 Neut % (Auto) 85.6 H Lymph % (Auto) 9.8 L Baldwin % (Auto) 3.9 Eos % (Auto) 0.1 Baso % (Auto) 0.2 Absolute Neuts (auto) 15.6 H Absolute Lymphs (auto) 1.78 Nucleated RBC % 0 Sodium 133 L Potassium 3.8 Chloride 101 Carbon Dioxide 22.0 Anion Gap 10 BUN 6 L Creatinine 0.75 Estim Creat Clear Calc 132.83 Est GFR (MDRD) Af Amer 110 Est GFR (MDRD) Non-Af 91 BUN/Creatinine Ratio 8.0 L Glucose 121 H Calcium 9.4 Serum , Qual NEGATIVE Urine Color Yellow Urine Clarity Clear Urine pH 6.0 Ur Specific [place] 1.010 Urine Protein 15 H Urine Glucose (UA) Normal Urine Ketones Negative Urine Occult Blood Negative Urine Nitrite Negative Urine Bilirubin Negative Urine Urobilinogen Normal Ur Leukocyte Esterase Negative Urine RBC 0 SEEN Urine WBC 0 SEEN Ur Squamous Epith Cells 0 SEEN Urine Bacteria 0 SEEN Urine Mucus 0 SEEN Radiography Diagnostic Testing: Clinical Impression(s) from Imaging Studies Abdomen/Pelvis CT 05/16/24 13:57 IMPRESSION: 1. Acute diverticulitis of the distal descending colon without evidence of abscess or perforation. 2. Mildly enlarged and mildly steatotic liver. Electronically Signed: Kel Severino MD at 15:05 EDT , Discharge Plan Triage Chief Complaint: Abd Pain ED Provider: Rome Lynch Dx/Rx/DC Orders Clinical Impression: Diverticulitis, Abdominal pain Instructions: ED Diverticulitis Prescriptions: New ciprofloxacin HCl [Cipro] 500 mg tablet 500 mg PO BID 10 Days Qty: 20 0RF metronidazole 500 mg tablet 500 mg PO TID 10 Days Qty: 30 0RF No Action hyoscyamine sulfate 0.125 mg tablet,disintegrating 0.125 mg PO BID-QID PRN (Reason: dyspepsia) Qty: 60 3RF mesalamine 1.2 gram tablet,delayed release (DR/EC) 1.2 g PO .QID Qty: 120 2RF drospirenone-ethinyl estradiol 3-0.03 mg tablet 1 tab PO DAILY Qty: 84 4RF pantoprazole 20 mg tablet,delayed release (DR/EC) 20 mg PO DAILY Qty: 90 9RF fluconazole 150 mg tablet 150 mg PO Q3D 0 Days Qty: 2 0RF Rx Instructions: may repeat second dose 72 hrs after first dose if symptoms persist Primary Care Provider: Madelaine Lee Referrals: Madelaine Lee MD [Primary Care Provider] - 3-5 Days Activity Restrictions/Additional Instructions: Follow-up with your doctor later this week to ensure you are improving. The antibiotics Cipro 1 pill twice a day and Flagyl 1 pill 3 times a day for the next 10 days. Alternate Tylenol and Motrin for pain. Return if you are feeling worse. You have diverticulitis. There is no abscess or perforation. Print Language: Belarusian Disposition Disposition: Home, Self Care
[2024-05-16 14:23] LABS: Bacteria 0 SEEN /hpf (None Seen); Mucous, Urine 0 SEEN /hpf (<or=2+); Red Blood Cells-Urine 0 SEEN /hpf (0-5); Squamous Epithelial Cells - UA 0 SEEN /hpf (5-10); White Blood Cells 0 SEEN /hpf (0-5)
[2024-05-16 14:27] LABS: Color, Urine Yellow (Yellow); Glucose, Dipstick Normal (Normal); Ketone-Dipstick Negative (Negative); Leukocyte Esterase-Dipstick Negative /ul (Negative); Nitrite-Dipstick Negative (Negative); Occult Blood-Urine Negative /ul (Negative); Protein-Dipstick 15 mg/dl (Negative); Urine Bilirubin Dipstick Negative (Negative); Urine Clarity Clear (Clear); Urine Urobilinogen Normal (Normal)
[2024-05-16 14:29] LABS: Absolute Lymphocyte Count 1.78 X10^3/uL (0.83-4.51); Absolute Neutrophil Count 15.6 X10^3/uL (2.0-7.7); Basophil# 0.04 X10^3/uL; Basophil% 0.2 % (0-1); Eosinophil# 0.01 X10^3/uL; Eosinophils% 0.1 % (0-5); Hematocrit 41.9 % (37-47); Hemoglobin 13.4 g/dL (12.0-15.0); Lymphocyte # 1.78 X10^3/ul (0.83-4.51); Lymphocyte % 9.8 % (19-41); Mean Corpuscular Hgb 25.6 pg (27.0-32.0); Mean Corpuscular Volume 80.1 fL (81-99); Mean Platelet Vol. 10.2 fl (6.2-12.0); Monocyte% 3.9 % (0-10); NRBC Flagged by Analyzer 0 % (0-5); Neutrophil # 15.56 X10^3/uL (2.7-7.7); Neutrophil % 85.6 % (47-70); Platelet Count 323 K/mm3 (150-450); RBC Distribution Width CV 14.2 % (11.6-14.6); RBC Distribution Width SD 41.4 fl (35.1-43.9); Red Blood Count 5.23 M/mm3 (4.2-5.4); White Blood Count 18.2 K/mm3 (4.4-11.0)
[2024-05-16 14:35] LABS: Internal QC Validated? YES +Cl - CLEAR BKGD; Pregnancy, Serum, hCG Quali. NEGATIVE Negative
[2024-05-16] MEDS: Ondansetron 4 MG/2 ML Vial IV (14:43)
[2024-05-16] MEDS: Ketorolac 30 MG/ML Syringe IV (14:43)
[2024-05-16 14:44] LABS: Anion Gap 10 (5-15); BUN 6 mg/dL (7-18); Calcium,Total 9.4 mg/dL (8.5-10.1); Chloride 101 mmol/L (98-107); Creatinine, Serum 0.75 mg/dL (0.55-1.02); EST Glomerular Filtration Rate 91 mL/min (>60); Est Glom Filt Rate - Afr Amer 110 mL/min (>60); Estimated Creatinine Clearance 132.83 ml/min; Glucose 121 mg/dL (74-106); Potassium 3.8 mmol/L (3.5-5.1); Sodium Level 133 mmol/L (136-145)
[2024-05-16] MEDS: Ciprofloxacin 500 MG Tablet PO (15:43)
[2024-05-16] MEDS: metroNIDAZOLE 500 MG Tablet PO (15:50)
[2024-05-16 15:54] VITALS: BP 126/69; PULSE 72; RESP 18; TEMP 36.8; O2SAT 100
== END 2024-05-16 15:55 | disposition home or self-care (01) ==
PROVIDERS: Emergency Provider Emergency Medicine; PCP Family Medicine; Visit Provider Emergency Medicine
DX: K57.32 Diverticulitis of large intestine without perforation or abscess without bleeding (principal); Z79.899 Other long term (current) drug therapy
CPT/HCPCS: 74177; 80048; 81001; 84703; 85025; 96374; 96375; 99284; Q9967; A4216; J2405

== ENCOUNTER → 2024-09-24 | Outpatient (CLI) | payer OTHER, SELFPAY ==
--- NOTE | 2024-09-24 13:40 | BI_ITS ---
PROCEDURE: SCRN MAMM (CAD)W/SHANNAN BILAT REASON FOR EXAM: Routine yearly screening mammography. TECHNIQUE: Bilateral diagnostic digital breast tomosynthesis with 2D and 3D images. Computer aided detection. COMPARISON: Prior exam(s) dated 09/17/2023 and 08/27/2022 FINDINGS: There are scattered areas of fibroglandular density. No suspicious masses, suspicious cluster of calcifications, architectural distortion or secondary sign of malignancy is identified in either breast. BI/SCRN MAMM (CAD)W/SHANNAN BILAT IMPRESSION: BI-RADS 1: NEGATIVE. RECOMMEND ANNUAL MAMMOGRAPHIC SCREENING. Follow-up code: Routine Follow-up Reading Location: [id number]
== END | disposition home or self-care (01) ==
LOC: OPBI 13:38
PROVIDERS: PCP Family Medicine; Referring Provider Family Medicine; Visit Provider Family Medicine
DX: Z12.31 Encounter for screening mammogram for malignant neoplasm of breast (principal)
CPT/HCPCS: 77063; 77067

== ENCOUNTER → 2024-10-29 | Outpatient (CLI) | payer OTHER, SELFPAY ==
--- NOTE | 2024-10-29 09:00 | CT_ITS ---
PROCEDURE: ABDOMEN/PELVIS WITH CONTRAST 10/29/2024 REASON FOR EXAM: 38-year-old female, diverticulitis. TECHNIQUE: Abdomen and pelvis CT with intravenous contrast. Coronal and Sagittal reconstruction series were provided. PATIENT PREPARATION: Per protocol ORAL CONTRAST TYPE: Isovue 360 CONTRAST: Isovue 300 VOLUME: 100mL One or more dose reduction techniques were used (e.g., Automated exposure control, adjustment of the mA and/or kV according to patient size, use of iterative reconstruction technique. RADIATION DOSE SUMMARY: CTDlvol: 36 mGy DLP: 1260 mGycm COMPARISON: CT abdomen pelvis 05/16/2024. FINDINGS: Lung bases: The bibasilar lungs are clear. The heart is normal in size. Liver: Mild hepatomegaly with diffuse hepatic steatosis. The major portal veins are patent. No biliary ductal dilation. Gallbladder: No radiopaque stones within the gallbladder. Spleen: Normal. Pancreas: Unremarkable. Adrenals: Unremarkable. Kidneys: No hydronephrosis or nephrolithiasis. Bladder: Mildly distended and unremarkable. Reproductive Organs: Prior right oophorectomy. Fibroid uterus. Bowel: The bowel loops are normal in caliber. Moderate wall thickening of the distal descending and sigmoid colon with severe diverticulosis. No evidence of diverticulitis. Normal appendix. Lymph nodes: No lymphadenopathy. Vasculature: The abdominal aorta and IVC are normal. Bones: Unremarkable. CT/Abdomen/Pelvis WITH Contrast IMPRESSION: 1. Severe diverticulosis with moderate wall thickening of the distal descending and sigmoid colon. No evidence of acute diverticulitis. 2. Mild hepatomegaly with diffuse hepatic steatosis. Reading Location: [id number]
== END | disposition home or self-care (01) ==
LOC: CT 08:47
PROVIDERS: PCP Family Medicine; Referring Provider Internal Medicine Gastroenterology; Visit Provider Internal Medicine Gastroenterology
DX: K57.92 Diverticulitis of intestine, part unspecified, without perforation or abscess without bleeding (principal)
CPT/HCPCS: 74177; Q9967

== ENCOUNTER → 2024-11-10 | Outpatient (CLI) | payer OTHER, SELFPAY ==
--- NOTE | 2024-11-10 09:12 | US_ITS ---
PROCEDURE: ABD LIMITED W/ ELASTOGRAPHY (USABDLELPARO), 11/10/2024 REASON FOR EXAM: [place]OMPSON COMPARISON: 10/29/2024 TECHNIQUE: Grayscale and color Doppler imaging of the right upper quadrant was performed. Chaordix S-shear wave elastography was performed for non-invasive assessment of liver tissue stiffness. FINDINGS: Exam limited by soft tissue attenuation and shadowing bowel gas. Liver: Echogenic. 18.3 cm in length. Gallbladder: Cholelithiasis. No visualized wall thickening or pericholecystic fluid. Reportedly, sonographic Perera's was negative. Biliary tree: Unremarkable. CBD measures 6 mm. Pancreas: Largely obscured by shadowing bowel gas. Right kidney: Unremarkable. 12.1 cm in length. Other: No visualized free fluid. Hepatic elastography: Number of measurements: 15 measurements across 3 regions, 5 measurements per region... US probe: CA1-7A. EQI median: 7.87 kPa EQI median velocity: 1.59 m/s IQR/Med: 20.7-22.4% (kPa) and 10.9-11.5% (m/s). If the IQR/Med is IQR/median >30% (for kPa) or >15% in m/s, the variance in the measurements is a large and the accuracy of the measurement may be in question. US/ABD Limited w/ Elastography IMPRESSION: 1. Borderline hepatomegaly and echogenic appearance of the hepatic parenchyma, typically associated with hepatic steatosis. Fibrosis/cirrhosis may have this appearance. 2. Liver stiffness is 7.87 kPa. Per the below 2020 SRU criteria, this rules out compensated advanced chronic liver disease in the absence of other known clinical signs. If there are known clinical signs, furth er testing may be needed for confirmation. 3. Cholelithiasis without findings to suggest cholecystitis. No significant bi liary dilatation. 4. Additional description as above. Assessment is per the Update to the SRU Liver Elastography Consensus Statement (2020) Note that the above assessment of liver fibrosis is vendor-neutral and intended for use in fibrosis related to viral etiologies and non-alcoholic fatty-liver disease (NAFLD); in causes other than viral hepat itis and NAFLD, the cutoff values are currently not well established. In some patients with NAFLD, the cutoff values for cACLD may be lower (7-9 kPa). Note also that in the setting of elevated LFTs, nonfasting or vascular congestion, the stage of lifer fibrosis may be overestimated. Previous SRU reference values: <1.37 m/s (5.7kPa): No to mild fibrosis 1.37 m/s - 2.2 m/s: Moderate to severe fibrosis >2.2 m/s (15kPa): Significant fibrosis / cirrhosis Reading Location: [id number]
== END | disposition home or self-care (01) ==
LOC: US 09:09
PROVIDERS: PCP Family Medicine; Referring Provider Internal Medicine Gastroenterology; Visit Provider Internal Medicine Gastroenterology
DX: K75.81 Nonalcoholic steatohepatitis (NASH) (principal)
CPT/HCPCS: 76705; 76981

== ENCOUNTER → 2025-02-01 | Outpatient (CLI) | payer OTHER, SELFPAY ==
--- NOTE | 2025-02-01 16:12 | CT_ITS ---
PROCEDURE: ABDOMEN/PELVIS WITH CONTRAST 02/01/2025 REASON FOR EXAM: DIVERTICULITIS TECHNIQUE: ABDOMEN/PELVIS WITH IV AND ORAL CONTRAST Coronal and Sagittal reconstruction series were provided. CONTRAST: Isovue-300 VOLUME: 99 mL One or more dose reduction techniques were used (e.g., Automated exposure control, adjustment of the mA and/or kV according to patient size, use of iterative reconstruction technique. RADIATION DOSE SUMMARY: CTDlvol: 23.7 mGy DLP: 1331 mGycm COMPARISON: CT abdomen and pelvis on 10/29/2024, abdominal ultrasound 11/10/2024 FINDINGS: Lung bases: Unremarkable Liver: Unremarkable Gallbladder: Unremarkable Spleen: Normal size. Pancreas: Normal size without evidence of mass surrounding inflammation or ductal dilation. Adrenals: Unremarkable Kidneys: No hydronephrosis or stone. Bladder: Unremarkable Reproductive Organs: Unchanged leiomyoma at the left aspect of the uterine body measuring up to 4.4 cm in greatest dimension. Bowel: No obstruction or inflammation. There is diverticulosis of the distal descending and sigmoid colon. Normal appendix. Lymph nodes: No suspicious lymph node enlargement. Vasculature: The abdominal aorta and IVC are normal. Bones: Unremarkable CT/Abdomen/Pelvis WITH Contrast IMPRESSION: 1. Colonic diverticulosis, without current evidence of acute diverticulitis. 2. Fibroid uterus. Reading Location: [id number]
== END | disposition home or self-care (01) ==
LOC: CT 16:11
PROVIDERS: PCP Family Medicine; Referring Provider Internal Medicine Gastroenterology; Visit Provider Internal Medicine Gastroenterology
DX: K57.92 Diverticulitis of intestine, part unspecified, without perforation or abscess without bleeding (principal)
CPT/HCPCS: 74177; Q9967

== ENCOUNTER 2025-02-15 13:13 | Outpatient (RCR) | payer OTHER, SELFPAY | END 2025-03-04 23:59 | LOC: NS 13:13 | PROVIDERS: PCP Family Medicine; Referring Provider Internal Medicine Gastroenterology; Visit Provider Internal Medicine Gastroenterology | DX: Z71.3 Dietary counseling and surveillance (principal); K57.92 Diverticulitis of intestine, part unspecified, without perforation or abscess without bleeding; K21.00 Gastro-esophageal reflux disease with esophagitis, without bleeding; K75.81 Nonalcoholic steatohepatitis (NASH) | CPT/HCPCS: 97802 ==

== ENCOUNTER → 2025-03-10 | Outpatient (CLI) | payer OTHER, SELFPAY ==
--- NOTE | 2025-03-10 07:54 | US_ITS ---
PROCEDURE: PELVIC W/ TRANSVAGINAL REASON FOR EXAM: PELVIC PAIN AND FIBROID UTERUS Status post right oophorectomy. TECHNIQUE: PELVIC W/ TRANSVAGINAL COMPARISON: Prior CT scan dated February 01, 2025. FINDINGS: Measurements: Uterus: 7.8 cm x 5.3 cm x 4.2 cm with a volume of 89.04 mL Endometrial Thickness: 5 mm. Right Ovary: Status post right oophorectomy. Left Ovary: Nonvisualization. TRANSABDOMINAL: Uterus: 7.8 cm 5.3 cm 4.2 cm. There is evidence of a 4.5 cm 3.7 cm x 3.1 cm uterine fibroid. Nabothian cysts. Endometrium: Unremarkable. Right ovary: Surgically absent. Left ovary: Normal size and echotexture. Other: No large pelvic mass identified. Transvaginal sonography was performed to better visualize the endometrium. TRANSVAGINAL: Uterus: Anteverted. Fibroid as described. Endometrium: Normal echotexture. Right ovary: Surgically absent. Left ovary: Not visualized. Other adnexal findings: None. Cul-de-sac: No free intraperitoneal fluid identified. Tenderness: No tenderness US/Pelvic w/ Transvaginal IMPRESSION: Uterine fibroid. Status post right oophorectomy. Reading Location: [id number]
--- NOTE | 2025-03-10 07:54 | US_ITS ---
PROCEDURE: PELVIC W/ TRANSVAGINAL REASON FOR EXAM: PELVIC PAIN AND FIBROID UTERUS Status post right oophorectomy. TECHNIQUE: PELVIC W/ TRANSVAGINAL COMPARISON: Prior CT scan dated February 01, 2025. FINDINGS: Measurements: Uterus: 7.8 cm x 5.3 cm x 4.2 cm with a volume of 89.04 mL Endometrial Thickness: 5 mm. Right Ovary: Status post right oophorectomy. Left Ovary: Nonvisualization. TRANSABDOMINAL: Uterus: 7.8 cm 5.3 cm 4.2 cm. There is evidence of a 4.5 cm 3.7 cm x 3.1 cm uterine fibroid. Nabothian cysts. Endometrium: Unremarkable. Right ovary: Surgically absent. Left ovary: Normal size and echotexture. Other: No large pelvic mass identified. Transvaginal sonography was performed to better visualize the endometrium. TRANSVAGINAL: Uterus: Anteverted. Fibroid as described. Endometrium: Normal echotexture. Right ovary: Surgically absent. Left ovary: Not visualized. Other adnexal findings: None. Cul-de-sac: No free intraperitoneal fluid identified. Tenderness: No tenderness US/Pelvic w/ Transvaginal IMPRESSION: Uterine fibroid. Status post right oophorectomy. Reading Location: [id number]
== END | disposition home or self-care (01) ==
LOC: OPUS 07:53
PROVIDERS: PCP Family Medicine; Referring Provider Nurse Practitioner Family; Visit Provider Nurse Practitioner Family
DX: R10.2 Pelvic and perineal pain (principal); D25.9 Leiomyoma of uterus, unspecified
CPT/HCPCS: 76830; 76856

== ENCOUNTER → 2025-03-14 | Outpatient (CLI) | payer OTHER, SELFPAY ==
--- OUTSIDE RECORDS SUMMARY | 2025-03-15 08:39 | XMS RPT_ITS | CCD ---
Author Organization [facility]iniSyn[facility] Care Team Providers Care Project Administrator Name Role Phone James Ambrose CNP Attending Unavailable Mirna Mcbride Attending Unavailable GENA MEEK Referring Unavailable GENA MEEK Attending Unavailable Unavailable Primary Care Provider Unavailcristo Pedraza TRAFFIC SAFETY ADMINISTRATOR, TRAFFIC SAFETY ADMINISTRATORNikC Michelle Attending Provider [phone] DO Sharita Young Primary Care Provider [phone] DO Sharita Young M Referring Provider Friend, Dr. Brown Attending Provider DO Sharita Young M Primary Care Provider DO Chris Youngistin M Referring Provider FriendDr. Brown Other Provider Unavailable Primary Care Provider UnavailDO Sharita Davidson M Primary Care Provider DO Hector Sharita M Referring Provider FriendDr. Brown Attending Provider [phone] DO Chris Youngistin M Primary Care Provider DO Hector Sharita M Referring Provider FriendDr. Brown Attending Provider FriendDr. Brown Other Provider DO Sharita Young M Primary Care Provider DO Hector Sharita M Referring Provider FriendDr. Brown Attending Provider Pattie ENRIQUE, IVA Choi Attending Provider Jesus MD, Chalon Primary Care Provider [phone] Madelaine Lee MD Attending Provider Jesus MCKEON, Madelaine Referring Provider Friend , Dr. Brown Attending Provider Friend , Dr. Brown Referring Provider Jesus MCKEON, Chalon Primary Care Provider Jesus MCKEON, Madelaine Referring Provider Berny TRAFFIC SAFETY ADMINISTRATOR-C, Lynnette Attending Provider Jesus MCKEON, Chalon Primary Care Provider Friend , Dr. Brown Attending Provider Friend , Dr. Brown Referring Provider Jesus, Chalon Primary Care Unavailable Jesus, Chalon Referring Unavailable Lynnette Arrieta Attending Unavailable Jesus, Chalon Primary Care Unavailable Lynnette Arrieta Referring Unavailable Lynnette Arrieta Attending Unavailable Jesus, Chalon Primary Care Unavailable Friend, Kevin Attending Unavailable Friend, Kevin Referring Unavailable Jesus, Chalon Primary Care Unavailable Assessment, Health Risk Attending Unavaila ble Assessment, Health Risk Referring Unavaila ble Jesus, Chalon Primary Care Unavailable Assessment, Health Risk Referring Unavaila ble Assessment, Health Risk Attending Unavaila ble Jesus, Chalon Primary Care Unavailable Friend, Kevin Attending Unavailable Friend, Kevin Referring Unavailable Jesus, Chalon Primary Care Unavailable Friend, Kevin Attending Unavailable Sharita Young Referring Unavailable Jesus, Chalon Primary Care Unavailable Jesus, Chalon Referring Unavailable Friend, Kevin Attending Unavailable Jesus, Chalon Primary Care Unavailable Jesus, Chalon Referring Unavailable Friend, Kevin Attending Unavailable Jesus, Chalon Referring Unavailable Jesus, Chalon Attending Unavailable Jesus, Chalon Primary Care Unavailable Jesus, Chalon Primary Care Unavailable Friend, Kevin Referring Unavailable Friend, Kevin Attending Unavailable Jesus, Chalon Primary Care Unavailable Friend, Kevin Attending Unavailable Friend, Kevin Referring Unavailable Jesus, Chalon Primary Care Unavailable Friend, Kevin Attending Unavailable Friend, Kevin Referring Unavailable Rome Lynch Attending Unavailable Jesus, Chalon Primary Care Unavailable Jesus MCKEON, Madelaine Primary Care Provider Dr. Kevin Chakraborty DO Attending Provider Dr. Kevin Chakraborty DO Referring Provider Madelaine Lee MD Referring Provider [phone] Berny TRAFFIC SAFETY ADMINISTRATOR-CLynnette Referring Provider [phone] Assessment, Health Risk Attending Provider Unava ilable Assessment, Health Risk Referring Provider Unava ilable Peter TRAFFIC SAFETY ADMINISTRATOR-Brock Parra Attending Provider [phone] Medications Current Medications Medication Drug Class(es) Dates Sig (Normalized) Sig (Original) betamethasone 0.5 mg/ml / clotrimazole 10 mg/ml topical cream (2 sources) Azole Antifungal, Corticosteroid Start: 10-17-2022 Clotrimazole-Bet amethasone Active 1 APPLIC TOPICAL TWICE A DAY 45 October 17, 2022 12:00am Drospirenone-Ethinyl Estradiol (20 sources) Progestin, Estrogen Start: 02-24-2025 Drospirenone-Eth inyl Estradiol 3-0.03 mg tablet Active 1 {tbl} PO DAILY 84 February 24, 2025 11:33am Start: 02-24-2024 End: 02-24-2025 Drospirenone-Ethinyl Estradi ol 3-0.03 mg tablet Discontinued 1 {tbl} PO DAILY 84 4 February 24, 2024 3:32pm February 24, 2025 11:33am Start: 02-24-2024 Drospirenone-E thinyl Estradiol 3-0.03 mg tablet Active 1 {tbl} PO DAILY 84 February 24, 2024 3:32pm Start: 02-24-2024 Drospirenone-E thinyl Estradiol 3-0.03 mg tablet Active 1 {tbl} PO DAILY 84 February 24, 2024 3:32pm Start: 12-31-2023 End: 02-24-2024 Drospirenone-Ethinyl Estradi ol 3-0.03 mg tablet Discontinued 1 {tbl} PO DAILY 84 December 31, 2023 12:08pm February 24, 2024 3:33pm Start: 12-31-2023 End: 02-24-2024 Drospirenone-Ethinyl Estradi ol 3-0.03 mg tablet Discontinued 1 {tbl} PO DAILY December 31, 2023 12:08pm February 24, 2024 3:33pm Start: 10-17-2022 End: 12-31-2023 Drospirenone-Ethinyl Estradi ol 3-0.03 mg tablet Discontinued 1 {tbl} PO DAILY 84 October 17, 2022 2:57pm December 31, 2023 12:08pm Start: 10-17-2022 End: 12-31-2023 Drospirenone-Ethinyl Estradi ol 3-0.03 mg tablet Discontinued 1 {tbl} PO DAILY October 17, 2022 2:57pm December 31, 2023 12:08pm Start: 10-17-2022 take 1 tablet by effie th once daily Drospirenone-Ethinyl Estradiol Active 1 TABLET PO DAILY October 17, 2022 1:57pm Start: 10-17-2022 take 1 tablet by effie th once daily Drospirenone-Ethinyl Estradiol Active 1 TABLET PO DAILY October 17, 2022 2:57pm Start: 10-17-2022 End: 10-17-2022 Drospirenone-Ethinyl Estradi ol 3-0.03 mg tablet Discontinued 1 {tbl} PO DAILY October 17, 2022 12:00am October 17, 2022 2:59pm Start: 10-17-2022 End: 10-17-2022 take 1 tablet by mouth once daily Drospirenone-Ethinyl Estradiol Discontinued 1 TABLET PO DAILY October 16, 2022 11:00pm October 17, 2022 1:59pm Start: 10-17-2022 End: 10-17-2022 take 1 tablet by mouth once daily Drospirenone-Ethinyl Estradiol Discontinued 1 TABLET PO DAILY October 17, 2022 12:00am October 17, 2022 2:59pm take 1 tablet by effie th once daily Drospirenone-Ethinyl Estradiol (ROBERTA, 28,) 3-0.03 mg per tablet Take 1 tablet by mouth once daily. 0 Active Comment on above: Take 1 tablet by effie th once daily. hyoscyamine sulfate 0.125 mg disintegrating oral tablet (17 sources) Start: 05-16-20 End: 09-25-19 Hyoscyamine Sulfate 0.125 mg tablet,disintegrat ing Active 0.125 mg PO 2 to 4 times per day as needed for dyspepsia 60 3 September 25, 2024 5:32pm mesalamine 800 mg delayed release oral tablet (20 sources) Aminosalicylate Start: 01-08-20 take 1 tablet by mouth twice daily Mesalamine 800 mg tablet,delayed release (DR/EC) Active 1600 mg PO TWICE A DAY 120 2 January 07, 2025 12:00am must be taken on empty stomach; no food 1 hr after or 2-3 hrs before dose Start: 10-29-2024 End: 01-07-2025 take 2 tablets by mouth four times daily Mesalamine 1.2 gram tablet,delayed release (DR/EC) Discontinued 2.4 g PO .QID 120 January 06, 2025 4:49pm January 07, 2025 12:04pm Start: 05-15-2024 End: 10-29-2024 take 1 tablet by mouth four times daily Mesalamine 1.2 gram tablet,delayed release (DR/EC) Discontinued 1.2 g PO .QID 120 October 22, 2024 11:07am October 29, 2024 7:28pm Start: 04-15-2024 End: 05-15-2024 take 2 tablets by mouth twice daily, then take 1 tablet by mouth twice daily Mesalamine 1.2 gram tablet,delayed release (DR/EC) Discontinued 0 PO .COMPLEX 120 April 15, 2024 4:17pm May 15, 2024 1:26pm orally; Start after antibiotics have finished: take two tabs two times a day for four weeks then one tablet two times a day and contact clinic in 3 months with update Start: 05-08-2023 End: 12-02-2023 take 2 tablets by mouth twice daily, then take 1 tablet by mouth twice daily Mesalamine 1.2 gram tablet,delayed release (DR/EC) Discontinued 0 PO .COMPLEX 120 May 08, 2023 12:00am December 02, 2023 6:47am orally; Start after antibiotics have finished: take two tabs two times a day for four weeks then one tablet two times a day and contact clinic in 3 months with update nitrofurantoin, macrocrystals 25 mg / nitrofurantoin, monohydrate 75 mg oral capsule (9 sources) Nitrofuran Antibacterial Start: 03-14-2025 take 1 capsule by mouth every twelve hours at mealtime Nitrofurantoin Monohyd/M-Cryst (Macrobid) 100 mg capsule Active 100 mg PO Q12H 14 7 0 March 14, 2025 12:00am March 20, 2025 12:00am must administer with a meal/food Start: 12-02-2023 End: 12-07-2023 take 1 capsule by mouth every twelve hours at mealtime Nitrofurantoin Monohyd/M-Cryst (Macrobid) 100 mg capsule Discontinued 100 mg PO Q12H 10 5 0 December 02, 2023 12:00am December 06, 2023 12:00am December 07, 2023 12:15am must administer with a meal/food Completed/Discontinued Medications Medication Drug Class(es) Dates Sig (Normalized) Sig (Original) amoxicillin 875 mg / clavulanate 125 mg oral tablet (12 sources) Penicillin-class Antibacterial Start: 11-16-2024 End: 12-25-2024 Amoxicillin-Pot Clavulanate 875-125 mg tablet Discontinued 1 {tbl} PO Q12H 84 42 0 November 16, 2024 12:00am December 27, 2024 12:00am December 25, 2024 3:08pm Diverticulitis Start: 10-30-2024 End: 11-09-2024 Amoxicillin-Pot Clavulanate (Augmentin) 500-125 mg tablet Discontinued 1 {tbl} PO TWICE A DAY 20 October 30, 2024 12:00am November 08, 2024 12:00am November 09, 2024 12:12am ciprofloxacin 500 mg oral tablet (20 sources) Quinolone Antimicrobial Start: 05-16-2024 End: 11-12-2024 take 1 tablet by mouth twice daily Ciprofloxacin Hcl (Cipro) 500 mg tablet Discontinued 500 mg PO TWICE A DAY 20 October 22, 2024 3:12pm October 31, 2024 12:00am November 01, 2024 6:34am Start: 02-04-2024 End: 02-11-2024 take 1 tablet by mouth every twelve hours Ciprofloxacin Hcl (Cipro) 500 mg tablet Discontinued 500 mg PO Q12H 14 7 0 February 04, 2024 12:00am February 10, 2024 12:00am February 11, 2024 12:04am Start: 05-08-2023 End: 05-18-2023 take 1 tablet by mouth twice daily Ciprofloxacin Hcl (Cipro) 500 mg tablet Discontinued 500 mg PO TWICE A DAY 20 10 0 May 08, 2023 12:00am May 17, 2023 12:00am May 18, 2023 12:25am dextromethorphan hydrobromide 15 mg / guaiFENesin 400 mg / pseudoephedrine hydrochloride 60 mg oral tablet (1 source) alpha-Adrenergic Agonist, Uncompetitive F-wcdgmi-G-aspartate Receptor Antagonist, Sigma-1 Agonist Start: 09-28-2018 CAPMIST DM 60-15-400 mg tab TAKE 1 TABLET EVERY 6 TO 8 HOURS NEEDED FOR COUGH / congestion 0 09/28/2018 Active Comment on above: TAKE 1 TABLET EVERY 6 TO 8 HOURS NEEDED FOR COUGH / congestion doxycycline monohydrate 100 mg oral capsule (2 sources) Tetracycline-class Drug Start: 04-11-2021 End: 06-07-2022 take 1 capsule by mouth twice daily at mealtime doxycycline monohydrate (MONODOX) 100 mg capsule Indications: Rosacea Take 1 capsule by mouth twice daily. With food 60 capsule 3 06/07/2022 Active Comment on above: Take 1 capsule by mo [facility] twice daily. With food fluconazole 200 mg oral tablet (20 sources) Azole Antifungal Start: 10-29-2024 End: 11-03-2024 take 1 tablet by mouth once daily Fluconazole 200 mg tablet Discontinued 200 mg PO daily 5 5 0 October 29, 2024 12:00am November 02, 2024 12:00am November 03, 2024 12:08am Start: 05-08-2024 End: 02-24-2025 Fluconazole 150 mg tablet Di scontinued 150 mg PO Every 3 Days 2 0 0 May 08, 2024 12:00am February 24, 2025 10:43am may repeat second dose 72 hrs after first dose if symptoms persist Start: 05-29-2023 End: 12-02-2023 take 1 tablet by mouth once Fluconazole 150 mg tablet Discontinued 150 mg PO ONCE 1 May 29, 2023 12:00am December 02, 2023 6:47am as a single dose Start: 10-17-2022 Fluconazole Ac tive 150 MG PO .COMPLEX 2 October 17, 2022 12:00am 150 mg PO take one po now and repeat in 3 days methylPREDNISolone 4 mg oral tablet (6 sources) Corticosteroid Start: 12-25-2024 End: 02-15-2025 take 1 tablet by mouth once Methylprednisolone (Medrol (Dannie)) 4 mg tablets,dose pack Discontinued 0 PO per package directions 21 December 25, 2024 12:00am February 15, 2025 3:10pm PO PER PKG DIR for 6 days Start: 09-28-2018 methylPREDNISo lone (MEDROL DOSE-PACK) 4 mg Dose-Pack TAKE BY MOUTH DIRECTED ON PACKAGE 0 09/28/2018 Active Comment on above: TAKE BY MOUTH DIR ECTED ON PACKAGE metroNIDAZOLE 500 mg oral tablet (20 sources) Nitroimidazole Antimicrobial Start: 11-17-19 End: 12-29-19 take 1 tablet by mouth every twelve hours Metronidazole 500 mg tablet Discontinued 500 mg PO Q12H 84 42 0 November 16, 2024 12:00am December 27, 2024 12:00am December 28, 2024 12:06am Start: 10-22-2024 End: 11-01-2024 take 1 tablet by mouth twice daily Metronidazole 500 mg tablet Discontinued 500 mg PO TWICE A DAY 20 October 22, 2024 3:12pm October 31, 2024 12:00am November 01, 2024 6:34am Start: 05-16-2024 End: 11-12-2024 take 1 tablet by mouth three times daily Metronidazole 500 mg tablet Discontinued 500 mg PO THREE TIMES A DAY 30 May 16, 2024 12:00am November 12, 2024 2:11pm Diverticulitis Start: 02-04-2024 End: 02-24-2024 take 1 tablet by mouth every twelve hours Metronidazole 500 mg tablet Discontinued 500 mg PO Q12H February 04, 2024 12:00am February 24, 2024 3:33pm Start: 05-08-2023 End: 05-18-2023 take 1 tablet by mouth twice daily Metronidazole 500 mg tablet Discontinued 500 mg PO TWICE A DAY 20 May 08, 2023 12:00am May 17, 2023 12:00am May 18, 2023 12:25am Start: 10-22-2022 End: 10-29-2022 take 1 tablet by mouth twice daily Metronidazole 500 mg tablet Discontinued 500 mg PO TWICE A DAY 14 7 0 October 22, 2022 12:00am October 28, 2022 12:00am October 29, 2022 12:04am Start: 04-11-2021 End: 06-07-2022 metroNIDAZOLE 0.75 % cream Indications: Rosacea Apply to face topically twice daily after cleansing 45 g 5 06/07/2022 Active Comment on above: Apply to face topica lly twice daily after cleansing pantoprazole 20 mg delayed release oral tablet (20 sources) Proton Pump Inhibitor Start: End: take 1 tablet by mouth once daily Pantoprazole 20 mg tablet,delayed release (DR/EC) Discontinued 20 mg PO DAILY 90 0 December 23, 2023 10:31am April 14, 2024 12:03pm Start: 03-06-2023 End: 09-25-2023 take 1 tablet by mouth every twelve hours Pantoprazole 20 mg tablet,delayed release (DR/EC) Discontinued 20 mg PO Q12H 60 3 March 06, 2023 12:00am September 25, 2023 2:53pm Problems Active Problems Problem Classification Problem Date Documented Date Episodic/Chronic Abdominal pain (16 sources) Abdominal pain; Translations: [Unspecified abdominal pain] Onset: 06-08-2024 05-24-2024 Episodic Benign neoplasm of uterus (8 sources) Uterine leiomyoma; Translations: [Leiomyoma of uterus, unspecified] Onset: 02-24-2025 02-24-2025 Episodic Diverticulosis and diverticulitis (20 sources) Diverticulitis; Translations: [Diverticulitis of intestine, part unspecified, without perforation or abscess without bleeding] Onset: 02-04-2025 12-11-2022 Chronic Esophageal disorders (20 sources) Gastroesophageal reflux disease; Translations: [Gastro-esophageal reflux disease without esophagitis] 12-11-2022 Chronic Esophageal disorders (1 source) Esophageal disorders; Translations: [Gastro-esophageal reflux disease with esophagitis, without bleeding] Onset: 10-12-2024 Hepatitis (20 sources) Nonalcoholic steatohepatitis; Translations: [Nonalcoholic steatohepatitis (THOMPSON)] Onset: 11-13-2024 05-16-2023 Chronic Immunizations and screening for infectious disease (2 sources) Contact with and (suspected) exposure to infections with a predominantly sexual mode of transmission; Translations: [Contact with or exposure to venereal diseases] 10-17-2022 Episodic Mycoses (4 sources) Candidiasis of vagina; Translations: [Anogenital candidiasis in female] 10-17-2022 Episodic Noninfectious gastroenteritis (20 sources) Frequent defecation; Translations: [Noninfective gastroenteritis and colitis, unspecified] Onset: 05-16-2024 12-11-2022 Episodic Other inflammatory condition of skin (4 sources) Rosacea; Translations: [Rosacea, unspecified] Onset: 02-24-2020 Chronic Other screening for suspected conditions (not mental disorders or infectious disease) (1 source) Encounter for screening mammogram for malignant neoplasm of breast; Translations: [Encounter for screening mammogram for malignant neoplasm of breast] Onset: 02-24-2025 Episodic Residual codes; unclassified (14 sources) Family history of malignant neoplasm of breast in first degree relative; Translations: [Family history of malignant neoplasm of breast] 10-17-2022 Episodic Comment on above: Patient with negativ e genetic testing. Does yearly mammogram Unclassified (2 sources) COUGH,SORE THROAT Onset: 09-28-2018 Urinary tract infections (2 sources) Urinary tract infectious disease; Translations: [Urinary tract infection, site not specified] 03-14-2025 Episodic Past or Other Problems Problem Classification Problem Date Documented Da te Episodic/Chronic Other skin disorders (3 sources) Acne vulgaris; Translations: [Acne vulgaris] Onset: 02-24-2020 02-24-2020 Episodic Results Test Name Value Interpretation Reference Range Facility Absolute lymphocyte countOrd ered By: HEALTH ASSESSMENT on 03-10-2025 Lymphocytes Auto (Unsp spec) [#/Vol] 2.48 10*3/uL 0.83-4.51 [facility] Absolute neutrophil countOrd ered By: HEALTH ASSESSMENT on 03-10-2025 Neutrophils (Bld) [#/Vol] 6.1 10*3/uL 2.0-7.7 [facility] Absolute nucleated red blood cell countOrdered By: HEALTH ASSESSMENT on 03-10-2025 Nucleated RBC (Bld) [#/Vol] 0.00 10*3/uL 0-5 [facility] Anion gap in Serum or Plasma Ordered By: HEALTH ASSESSMENT on 03-10-2025 Anion gap [Moles/Vol] 13 mmol/L 5-15 [facility] Comment on above: Previous reported re sult: 13 Edited by: AUTOINS on 03/10/25:0950 AMENDED REPORT 03/10/25 0950 GAP previously reported as: 13 BUN/creatinine ratioOrdered By: HEALTH ASSESSMENT on 03-10-2025 Urea nitrogen/Creatinine [Mass ratio] 10.1 mg/mg 10-20 [facility] Comment on above: Previous reported re sult: 10.4 RATIOEdited by: AUTOINS on 03/10/25:0950 AMENDED REPORT 03/10/25 0950 BUN/CRE previously reported as: 10.4 RATIO Bilirubin directOrdered By: HEALTH ASSESSMENT on 03-10-2025 Bilirubin.direct [Mass/Vol] 0.13 mg/dL 0.00-0.30 [facility] Comment on above: Previous reported re sult: 0.12 mg/dLEdited by: AUTOINS on 03/10/25:0950 AMENDED REPORT 03/10/25 0950 D BILI previously reported as: 0.12 mg/dL Bilirubin, totalOrdered By: HEALTH ASSESSMENT on 03-10-2025 Bilirubin [Mass/Vol] 0.29 mg/dL 0.00-1.30 [facility] CBC, Employeeon 03-10-2025 Absolute Lymph 2.48 X10 3/uL Normal 0.83-4.51 [facility] Comment on above: Performed By: #### L 500.2900, L400.0100, L100.0200 #### [facility] [address] [place], [address] Absolute Neut 6.1 X10 3/uL Normal 2.0-7.7 [facility] Comment on above: Performed By: #### L 500.2900, L400.0100, L100.0200 #### [facility] [address] [place], [address] Basophils/100 WBC (Bld) 0.5 % Normal 0-1 [facility] Comment on above: Performed By: #### L 500.2900, L400.0100, L100.0200 #### [facility] [address] [place], [address] Eosinophils/100 WBC (Bld) 1.6 % Normal 0-5 [facility] Comment on above: Performed By: #### L 500.2900, L400.0100, L100.0200 #### [facility] [address] [place], [address] Erythrocyte distribution width (RBC) [Ratio] 14.1 % Normal 11.6-14.6 [facility] Comment on above: Performed By: #### L 500.2900, L400.0100, L100.0200 #### [facility] [address] [place], [address] Hematocrit (Bld) [Volume fraction] 38.3 % Normal 37-47 [facility] Comment on above: Performed By: #### L 500.2900, L400.0100, L100.0200 #### [facility] [address] [place], [address] Hemoglobin (Bld) [Mass/Vol] 12.4 g/dL Normal 12.0-15.0 [facility] Comment on above: Performed By: #### L 500.2900, L400.0100, L100.0200 #### [facility] [address] [place], [address] Lymphocytes/100 WBC (Bld) 26.8 % Normal 19-41 [facility] Comment on above: Performed By: #### L 500.2900, L400.0100, L100.0200 #### [facility] [address] [place], [address] MCH (RBC) [Entitic mass] 26.2 pg Low 27.0-32.0 [facility] Comment on above: Performed By: #### L 500.2900, L400.0100, L100.0200 #### [facility] [address] [place], [address] MCHC (RBC) [Mass/Vol] 32.4 g/dL Normal 32-36 [facility] Comment on above: Performed By: #### L 500.2900, L400.0100, L100.0200 #### [facility] [address] [place], [address] MCV (RBC) [Entitic vol] 81.0 fL Normal 81-99 [facility] Comment on above: Performed By: #### L 500.2900, L400.0100, L100.0200 #### [facility] [address] [place], [address] Monocytes/100 WBC (Bld) 4.7 % Normal 0-10 [facility] Comment on above: Performed By: #### L 500.2900, L400.0100, L100.0200 #### [facility] [address] [place], [address] Neutrophils/100 WBC (Bld) 66.1 % Normal 47-70 [facility] Comment on above: Performed By: #### L 500.2900, L400.0100, L100.0200 #### [facility] [address] [place], [address] NRBC # 0.00 10 3/uL Normal 0-5 [facility] Comment on above: Performed By: #### L 500.2900, L400.0100, L100.0200 #### [facility] [address] [place], [address] Nucleated RBC (Bld) [#/Vol] 0 10*3/uL Normal 0-5 [facility] Comment on above: Performed By: #### L 500.2900, L400.0100, L100.0200 #### [facility] [address] [place], [address] Platelet mean volume (Bld) [Entitic vol] 10.6 fL Normal 6.2-12.0 [facility] Comment on above: Performed By: #### L 500.2900, L400.0100, L100.0200 #### [facility] [address] [place], [address] Platelets (Bld) [#/Vol] 323 10*3/uL Normal 150-450 [facility] Comment on above: Performed By: #### L 500.2900, L400.0100, L100.0200 #### [facility] [address] [place], [address] RBC (Bld) [#/Vol] 4.73 10*6/uL Normal 4.2-5.4 [facility] Comment on above: Performed By: #### L 500.2900, L400.0100, L100.0200 #### [facility] [address] [place], [address] RDW SD 40.9 fl Normal 35.1-43.9 [facility] Comment on above: Performed By: #### L 500.2900, L400.0100, L100.0200 #### [facility] [address] [place], [address] WBC (Bld) [#/Vol] 9.3 10*3/uL Normal 4.4-11.0 [facility] Comment on above: Performed By: #### L 500.2900, L400.0100, L100.0200 #### [facility] [address] [place], [address] Calculated very low density lipoprotein (VLDL) cholesterol measurementOrdered By: HEALTH ASSESSMENT on 03-10-2025 Calculated very low density lipoprotein (VLDL) cholesterol measurement 27 mg/dL 5-40 [facility] Carbon dioxide, total [Moles /volume] in Central venous bloodOrdered By: HEALTH ASSESSMENT on 03-10-2025 CO2 [Moles/Vol] 22.6 mmol/L 21.0-32.0 [facility] Comment on above: Previous reported re sult: 22.7 mmol/LEdited by: AUTOINS on 03/10/25:0950 AMENDED REPORT 03/10/25 0950 CO2 previously reported as: 22.7 mmol/L Chloride assayOrdered By: [facility] ASSESSMENT on 03-10-2025 Chloride [Moles/Vol] 103 mmol/L 98-108 [facility] Comment on above: Previous reported re sult: 102 mmol/LEdited by: AUTOINS on 03/10/25:0950 AMENDED REPORT 03/10/25 0950 [facility] previously reported as: 102 mmol/L Employee Profileon CHOL:HDL 2.77 Normal [facility] Comment on above: Performed By: #### L 500.2900, L400.0100, L100.0200 #### [facility] [address] [place], [address] Cholesterol [Mass/Vol] 130 mg/dL Normal <=200 [facility] Comment on above: Result Comment: Chol esterol level, Desirable <200 mg/dL Borderline high cholesterol 200-239 mg/dL High cholesterol >=240 mg/dL Recommendations of the NCEP Adult Treatment Panel for the following risk-cutoff thresholds for the [place] population. Performed By: #### L 500.2900, L400.0100, L100.0200 #### [facility] [address] [place], [address] Cholesterol in HDL [Mass/Vol] 47 mg/dL Normal [facility] Comment on above: Result Comment: Olga onal Cholesterol Education Program (NCEP) guidelines: <40 mg/dL: Low HDL-cholesterol (major risk factor for CHD) >= 60 mg/dL: High HDL-cholesterol (negative risk factor for CHD) HDL-cholesterol is affected by a number of factors, e.g. smoking, exercise, hormones, sex and age. Performed By: #### L 500.2900, L400.0100, L100.0200 #### [facility] [address] [place], [address] Cholesterol in LDL [Mass/Vol] 56 mg/dL Normal [facility] Comment on above: Result Comment: Bord uwfhgv=363-992 mg/dL Higher Okfv=765 mg/dL or greater Friedwald Equation for LDL-C Performed By: #### L 500.2900, L400.0100, L100.0200 #### [facility] [address] [place], [address] Cholesterol in VLDL [Mass/Vol] 27 mg/dL Normal 5-40 [facility] Comment on above: Performed By: #### L 500.2900, L400.0100, L100.0200 #### [facility] [address] [place], [address] LDH 181 U/L Normal 84-246 [facility] Comment on above: Performed By: #### L 500.2900, L400.0100, L100.0200 #### [facility] [address] [place], [address] Phosphate [Mass/Vol] 3.8 mg/dL Normal 2.7-4.5 [facility] Comment on above: Performed By: #### L 500.2900, L400.0100, L100.0200 #### [facility] [address] [place], [address] Triglyceride [Mass/Vol] 137 mg/dL Normal [facility] Comment on above: Result Comment: The drugs N-Acetylcysteine and Metamizole may falsely depress this assay. Normal range: <150 mg/dL Borderline High: 150-199 mg/dL High: 200-499 mg/dL Very High: >500 mg/dL Performed By: #### L 500.2900, L400.0100, L100.0200 #### [facility] [address] [place], [place], [address] URIC 7.9 mg/dL High 2.6-6.0 [facility] Comment on above: Result Comment: The drugs N-Acetylcysteine and Metamizole may falsely depress this assay. Performed By: #### L 500.2900, L400.0100, L100.0200 #### [facility] [address] [place], [place], [id number] Erythrocyte distribution wid th ratioOrdered By: HEALTH ASSESSMENT on 03-10-2025 Erythrocyte distribution width (RBC) [Ratio] 14.1 % 11.6-14.6 [facility] Erythrocyte distribution wid th standard deviationOrdered By: HEALTH ASSESSMENT on 03-10-2025 Erythrocyte distribution width (RBC) [Ratio] 40.9 fl 35.1-43.9 [facility] Glomerular filtration rate ( GFR) estimation/1.73 sq m using serum, plasma, or whole bOrdered By: HEALTH ASSESSMENT on 03-10-2025 GFR/1.73 sq M.predicted among non-blacks MDRD (S/P/Bld) [Vol rate/Area] 112 mL/min/{1.73_m2} >60 [facility] Comment on above: mL/min/1.73m2 CKD-EP I Creatinine Equation (2020) Hematocrit Auto (Bld) [Volum e fraction]Ordered By: HEALTH ASSESSMENT on 03-10-2025 Hematocrit (Bld) [Volume fraction] 38.3 % 37-47 [facility] Hemoglobin measurementOrdere d By: HEALTH ASSESSMENT on 03-10-2025 Hemoglobin (Bld) [Mass/Vol] 12.4 g/dL 12.0-15.0 [facility] LDL calc ser/plasOrdered By: HEALTH ASSESSMENT on 03-10-2025 Cholesterol in LDL [Mass/Vol] 56 mg/dL [facility] Comment on above: Kkwdiiykaq=691-969 m g/dL & Higher Hvkw=181 mg/dL or greaterFriedwald Equation for LDL-C Laboratory - Chemistry and C hemistry - challengeOrdered By: HEALTH ASSESSMENT on 03-10-2025 AST [Catalytic activity/Vol] 14 U/L <32 [facility] Lactate dehydrogenase (LDH) measurementOrdered By: HEALTH ASSESSMENT on 03-10-2025 LDH [Catalytic activity/Vol] 181 U/L 84-246 [facility] MCV (mean corpuscular volume ) determinationOrdered By: HEALTH ASSESSMENT on 03-10-2025 MCV (RBC) [Entitic vol] 81.0 fL 81-99 [facility] Mean corpuscular hemoglobin (MCH) determinationOrdered By: HEALTH ASSESSMENT on 03-10-2025 MCH (RBC) [Entitic mass] 26.2 pg Low 27.0-32.0 [facility] Mean corpuscular hemoglobin concentration (MCHC) determinationOrdered By: HEALTH ASSESSMENT on 03-10-2025 MCHC (RBC) [Mass/Vol] 32.4 g/dL 32-36 [facility] Mean platelet volume determi nationOrdered By: HEALTH ASSESSMENT on 03-10-2025 Platelet mean volume (Bld) [Entitic vol] 10.6 fL 6.2-12.0 [facility] Neutrophil percentageOrdered By: HEALTH ASSESSMENT on 03-10-2025 Neutrophils/100 WBC (Bld) 66.1 % 47-70 [facility] Nucleated red blood cell per centageOrdered By: HEALTH ASSESSMENT on 03-10-2025 Nucleated RBC/100 WBC (Bld) [Ratio] 0 % 0-5 [facility] Pelvic w/ Transvaginalon Pelvic w/ Transvaginal [facility] Imaging Services [address] [place], [place] [id number] Pelvic w/ Transvaginal MR#: [id number] Acct: [id number] Name: MU BARBOZA Rep #: [id number] : 1985 F 39 From: Kam bettencourt MD PCP: Dr. Madelaine Lee MD Status: [facility] CLI Study: Pelvic w/ Transvaginal Date of Exam: 03/10/25 Exam# [id number] Ordering Dr: Lynnette Arrieta PROCEDURE: PELVIC W/ TRANSVAGINAL REASON FOR EXAM: PELVIC PAIN AND FIBROID UTERUS Status post right oophorectomy. TECHNIQUE: PELVIC W/ TRANSVAGINAL COMPARISON: Prior CT scan dated February 01, 2025. FINDINGS: Measurements: Uterus: 7.8 cm x 5.3 cm x 4.2 cm with a volume of 89.04 mL Endometrial Thickness: 5 mm. Right Ovary: Status post right oophorectomy. Left Ovary: Nonvisualization. TRANSABDOMINAL: Uterus: 7.8 cm 5.3 cm 4.2 cm. There is evidence of a 4.5 cm 3.7 cm x 3.1 cm uterine fibroid. Nabothian cysts. Endometrium: Unremarkable. Right ovary: Surgically absent. Left ovary: Normal size and echotexture. Other: No large pelvic mass identified. Transvaginal sonography was performed to better visualize the endometrium. TRANSVAGINAL: Uterus: Anteverted. Fibroid as described. Endometrium: Normal echotexture. Right ovary: Surgically absent. Left ovary: Not visualized. Other adnexal findings: None. Cul-de-sac: No free intraperitoneal fluid identified. Tenderness: No tenderness US/Pelvic w/ Transvaginal IMPRESSION: Uterine fibroid. Status post right oophorectomy. Reading Location: [facility] CC: RAND Arrieta; Dr. Madelaine Lee MD Home Health Care Physician: Signed Normal [facility] Platelet countOrdered By: HE ALTH ASSESSMENT on 03-10-2025 Platelets (Bld) [#/Vol] 323 10*3/uL 150-450 [facility] Potassium measurement (mass/ volume)Ordered By: HEALTH ASSESSMENT on 03-10-2025 Potassium (Unsp spec) [Mass/Vol] 4.0 mmol/L 3.3-5.1 [facility] Comment on above: Previous reported re sult: 3.9 mmol/LEdited by: AUTOINS on 03/10/25:0950 AMENDED REPORT 03/10/25 0950 K previously reported as: 3.9 mmol/L RBC Auto (Bld) [#/Vol]Ordere d By: HEALTH ASSESSMENT on 03-10-2025 RBC (Bld) [#/Vol] 4.73 10*6/uL 4.2-5.4 [facility] Screening total cholesterol/ high density lipoprotein (HDL) cholesterol ratioOrdered By: HEALTH ASSESSMENT on 03-10-2025 Cholesterol.total/Cholest mariana in HDL [Mass ratio] 2.77 {ratio} [facility] Serum creatinine measurement (mass/volume)Ordered By: HEALTH ASSESSMENT on 03-10-2025 Creatinine [Mass/Vol] 0.68 mg/dL Low 0.70-1.20 [facility] Comment on above: Previous reported re sult: 0.69 mg/dLEdited by: EDUARS on 03/10/25:0950 AMENDED REPORT 03/10/25 0950 CREAT,SERUM previously reported as: 0.69 L mg/dL Serum globulin measurementOr dered By: HEALTH ASSESSMENT on 03-10-2025 Globulin (S) [Mass/Vol] 3.4 g/dL 2.2-4.2 [facility] Serum glucose measurement (m ass/volume)Ordered By: HEALTH ASSESSMENT on 03-10-2025 Glucose [Mass/Vol] 96 mg/dL 70-99 [facility] Comment on above: Previous reported re sult: 95 mg/dLEdited by: ARSENIO on 03/10/25:0950 AMENDED REPORT 03/10/25 0950 GLU previously reported as: 95 mg/dL Serum or plasma alanine pena otransferase (ALT) measurementOrdered By: HEALTH ASSESSMENT on 03-10-2025 ALT [Catalytic activity/Vol] 12 U/L <35 [facility] Comment on above: Previous reported re sult: 11 U/LEdited by: AUTOINS on 03/10/25:0950 AMENDED REPORT 03/10/25 0950 ALT previously reported as: 11 U/L Serum or plasma albumin malathi urement (mass/volume)Ordered By: HEALTH ASSESSMENT on 03-10-2025 Albumin [Mass/Vol] 3.8 g/dL 3.5-5.0 [facility] Comment on above: Previous reported re sult: 4.0 g/dLEdited by: AUTOINS on 03/10/25:0950 AMENDED REPORT 03/10/25 0950 ALB previously reported as: 4.0 g/dL Serum or plasma albumin/glob ulin mass ratioOrdered By: HEALTH ASSESSMENT on 03-10-2025 Albumin/Globulin [Mass ratio] 1.1 {ratio} 0.9-2.4 [facility] Serum or plasma alkaline bob sphatase measurementOrdered By: HEALTH ASSESSMENT on 03-10-2025 ALP [Catalytic activity/Vol] 85 U/L 35-104 [facility] Serum or plasma calcium malathi urement (mass/volume)Ordered By: HEALTH ASSESSMENT on 03-10-2025 Calcium [Mass/Vol] 9.1 mg/dL 7.6-11.0 [facility] Comment on above: Previous reported re sult: 8.9 mg/dLEdited by: AUTOINS on 03/10/25:0950 AMENDED REPORT 03/10/25 0950 CA previously reported as: 8.9 mg/dL Serum or plasma cholesterol in HDL measurement (mass/volume)Ordered By: HEALTH ASSESSMENT on 03-10-2025 Cholesterol in HDL [Mass/Vol] 47 mg/dL >40 [facility] Comment on above: National Cholesterol Education Program (NCEP) guidelines:<40 mg/dL: Low HDL-cholesterol (major risk factor for CHD)>= 60 mg/dL: High HDL-cholesterol (negative risk factor for CHD)HDL-cholesterol is affected by a number of factors, e.g. smoking, exercise, hormones, sex and age. Serum or plasma cholesterol measurement (mass/volume)Ordered By: HEALTH ASSESSMENT on 03-10-2025 Cholesterol [Mass/Vol] 130 mg/dL <201 [facility] Comment on above: Cholesterol level, D esirable <200 mg/dLBorderline high cholesterol 200-239 mg/dLHigh cholesterol >=240 mg/dLRecommendations of the NCEP Adult Treatment Panel for the following risk-cutoff thresholds for the [place] population. Serum or plasma urea nitroge n measurement (mass/volume)Ordered By: HEALTH ASSESSMENT on 03-10-2025 Urea nitrogen [Mass/Vol] 7 mg/dL 4-19 [facility] Serum or plasma uric acid me asurement (mass/volume)Ordered By: HEALTH ASSESSMENT on 03-10-2025 Urate [Mass/Vol] 7.9 mg/dL High 2.6-6.0 [facility] Comment on above: The drugs N-Acetylcy steine and Metamizole may falsely depress this assay. Sodium levelOrdered By: HEAL TH ASSESSMENT on 03-10-2025 Sodium [Moles/Vol] 139 mmol/L 133-145 [facility] Comment on above: Previous reported re sult: 138 mmol/LEdited by: AUTOINS on 03/10/25:0950 AMENDED REPORT 03/10/25 0950 NA previously reported as: 138 mmol/L Total proteinOrdered By: Lorna [facility] ASSESSMENT on 03-10-2025 Protein [Mass/Vol] 7.2 g/dL 5.9-8.4 [facility] Comment on above: Previous reported re sult: 7.1 g/dLEdited by: AUTOINS on 03/10/25:0950 AMENDED REPORT 03/10/25 0950 T PROT previously reported as: 7.1 g/dL Triglycerides measurementOrd ered By: HEALTH ASSESSMENT on 03-10-2025 Triglyceride [Mass/Vol] 137 mg/dL <199 [facility] Comment on above: The drugs N-Acetylcy steine and Metamizole may falsely depress this assay. Normal range: <150 mg/dLBorderline High: 150-199 mg/dLHigh: 200-499 mg/dLVery High: >500 mg/dL Urinalysis, Employeeon 03-10 BILIRUBIN URINE Normal Negative [facility] Comment on above: Order Comment: Urine , Random Result Comment: UTO. WANTS TO COME BACK TO DO ANOTHER TIME Performed By: #### L 500.2900, L400.0100, L100.0200 #### [facility] [address] [place], [place], [id number] Clarity (U) Normal Clear [facility] Comment on above: Order Comment: Urine , Random Result Comment: UTO. WANTS TO COME BACK TO DO ANOTHER TIME Performed By: #### L 500.2900, L400.0100, L100.0200 #### [facility] [address] [place], [address] Color (U) Normal Yellow [facility] Comment on above: Order Comment: Urine , Random Result Comment: UTO. WANTS TO COME BACK TO DO ANOTHER TIME Performed By: #### L 500.2900, L400.0100, L100.0200 #### [facility] [address] [place], [address] GLUCOSE, UR Normal Normal [facility] Comment on above: Order Comment: Urine , Random Result Comment: UTO. WANTS TO COME BACK TO DO ANOTHER TIME Performed By: #### L 500.2900, L400.0100, L100.0200 #### [facility] [address] [place], [address] KETONE UR Normal Negative [facility] Comment on above: Order Comment: Urine , Random Result Comment: UTO. WANTS TO COME BACK TO DO ANOTHER TIME Performed By: #### L 500.2900, L400.0100, L100.0200 #### [facility] [address] [place], [address] LEUK ESTERASE Normal Negative [facility] Comment on above: Order Comment: Urine , Random Result Comment: UTO. WANTS TO COME BACK TO DO ANOTHER TIME Performed By: #### L 500.2900, L400.0100, L100.0200 #### [facility] [address] [place], [address] Nitrite Ql (U) Normal Negative [facility] Comment on above: Order Comment: Urine , Random Result Comment: UTO. WANTS TO COME BACK TO DO ANOTHER TIME Performed By: #### L 500.2900, L400.0100, L100.0200 #### [facility] [address] [place], [address] OCCULT BLOOD-UR Normal Negative [facility] Comment on above: Order Comment: Urine , Random Result Comment: UTO. WANTS TO COME BACK TO DO ANOTHER TIME Performed By: #### L 500.2900, L400.0100, L100.0200 #### [facility] [address] [place], [address] pH UR Normal 5.0 - 8.0 [facility] Comment on above: Order Comment: Urine , Random Result Comment: UTO. WANTS TO COME BACK TO DO ANOTHER TIME Performed By: #### L 500.2900, L400.0100, L100.0200 #### [facility] [address] [place], [address] PROT DIPSTX Normal Negative [facility] Comment on above: Order Comment: Urine , Random Result Comment: UTO. WANTS TO COME BACK TO DO ANOTHER TIME Performed By: #### L 500.2900, L400.0100, L100.0200 #### [facility] [address] [place], [address] SP.GR. DIPSTX Normal 1.002-1.030 [facility] Comment on above: Order Comment: Urine , Random Result Comment: UTO. WANTS TO COME BACK TO DO ANOTHER TIME Performed By: #### L 500.2900, L400.0100, L100.0200 #### [facility] [address] [place], [address] UR Preservative Normal [facility] Comment on above: Order Comment: Urine , Random Result Comment: UTO. WANTS TO COME BACK TO DO ANOTHER TIME Performed By: #### L 500.2900, L400.0100, L100.0200 #### [facility] [address] [place], [address] UROBILI Normal Normal [facility] Comment on above: Order Comment: Urine , Random Result Comment: UTO. WANTS TO COME BACK TO DO ANOTHER TIME Performed By: #### L 500.2900, L400.0100, L100.0200 #### [facility] [address] 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 Is patient in pain?: No Allergies No Known Allergies Allergy (Verified 02/24/25 10:43) Medications ???Medication ???Instructions ???Recorded ???Confirmed ???Type pantoprazole 20 mg tablet,delayed 20 mg PO DAILY #90 TABLETS 02/24/25 Rx release hyoscyamine sulfate 0.125 mg 0.125 mg PO BID-QID PRN dyspepsia 09/25/24 02/24/25 Rx disintegrating tablet #60 tabs mesalamine 800 mg tablet,delayed 1,600 mg (2 x 800 mg) PO BID #120 01/07/25 02/24/25 Rx release tabs drospirenone 3 mg-ethinyl 1 tab PO DAILY #84 tabs 02/24/25 0 02/24/25 Rx estradiol 0.03 mg tablet Is last menstrual period known: Yes Last Menstrual Period: 02/17/25 Post menopausal: No Patient : No : No Control Method: ocp- roberta [facility] Medical History Fatty liver Heartburn Non-smoker History of edema Diverticulitis Surgical History Hx of wisdom tooth extraction S/P surgical removal of pilonidal cyst S/P tonsillectomy S/P right oophorectomy Family History Mother Breast cancer, Onset Age: 35 Father Cancer Prostate Grandmother Cancer Ovarian- paternal Grandfather Colon cancer Paternal Social History adopted: No household members: significant other housing: house number of children: 0 current occupational status: employed 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 History 0 Elective abortions Hx Para Spontaneous abortions Hx # Term Pregnancies Ectopic pregnancies Hx # Pregnancies Multiple births # of living children HPI Encounter for routine gynecological examination Details: MU BARBOZA is a 39 year old who presents for annual exam. Patient reports she recently had CT scan that showed fibroid uterus. She reports she recently noticed left pelvic pain. She felt like this was a possible ovarian cyst. Last PAP: 2022; normal. HPV neg. History of abnormal PAP: no. Last mammogram: 2024; normal History of abnormal mammogram: no Colon cancer screening: age 43 Other preventative health care screenings: Madelaine Lee; PCP Female Reproductive History Last Menstrual Period: 02/17/25 ROS Const Constitutional: Denies chills, fatigue, fever(s), headache(s) or weight loss Eyes Eyes: Denies change in vision ENT ENT: Denies dizziness Cardio Card: Denies chest pain at rest or palpitations Resp Resp: Denies cough GI GI: Denies abdominal pain, constipation or nausea : Reports pelvic pain (left side; about a month ago. ); Denies difficulty voiding, dysuria, hematuria, prolapse symptoms, urinary incontinence, vaginal discharge, vaginal dryness, vaginal odor or vaginal pruritus Skin Skin/Breast: Denies alopecia or rash Neuro Neuro: Denies dizziness Psych Psych: Denies anxiety or depression Endo Endo: Denies cold intolerance, excessive sweating or heat intolerance Exam Const General: cooperative, healthy appearing, no acute distress and well developed Orientation: alert, oriented to person and oriented to place [facility] Head: normal to inspection Neck Neck: normal visual inspection Thyroid: thyroid normal Lymphatic: no lymphadenopathy noted Chest Breast inspection: normal inspection of the breasts and normal inspection of the axillae Breast palpation: normal palpation of the breasts, normal palpation of the axillae and no axillary lymphadenopathy Resp Effort Inspection: normal respiratory effort GI Palpation: soft, no masses and nontender Rectal Exam: deferred External Female Exam: normal external appearance and normal appearance of the urethra Urethra: normal appearance of the urethra and normal palpation Speculum Exam - Vagina: normal appearance of the vagina and normal vaginal discharge Speculum Exam - Cervix: normal appearance (more content not included)... Normal [facility] Gastroenterology Visit Repor ton 02-15-2025 Gastroenterology Visit Report [facility] [address] [place] [address] OFFICE VISIT Date of Service: 02/15/25 MR#: [id number] Acct: [id number] Name: MU BARBOZA YADIRA Rep #: [id number] : 1985 Provider: Kevin Chakraborty DO Age/Sex: 39/F Location: [facility] Status: Signed Intake Vital Signs 05/16/24 13:41 02/15/25 13:31 Height 5 ft 6 in 5 ft 6 in Intake Visit Reasons: 3 M FU Allergies No Known Allergies Allergy (Verified 05/16/24 13:41) Medications ???Medication ???Instructions ???Recorded ???Confirmed ???Type drospirenone 3 mg-ethinyl 1 tab PO DAILY #84 tabs 02/24/24 0 02/15/25 Rx estradiol 0.03 mg tablet pantoprazole 20 mg tablet,delayed 20 mg PO DAILY #90 TABLETS 02/15/25 Rx release fluconazole 150 mg tablet 150 mg PO Q3D 2 doses #2 tabs 10/0 11/2602/15/25 Rx hyoscyamine sulfate 0.125 mg 0.125 mg PO BID-QID PRN dyspepsia 09/25/24 02/15/25 Rx disintegrating tablet #60 tabs mesalamine 800 mg tablet,delayed 1,600 mg (2 x 800 mg) PO BID #120 01/07/25 02/15/25 Rx release tabs PFSH Medical History Fatty liver Heartburn Non-smoker History of edema Diverticulitis Surgical History Hx of wisdom tooth extraction S/P surgical removal of pilonidal cyst S/P tonsillectomy S/P right oophorectomy Family History Mother Breast cancer, Onset Age: 35 Father Cancer Prostate Grandmother Cancer Ovarian- paternal Grandfather Colon cancer Paternal Social History adopted: No household members: significant other housing: house number of children: 0 current occupational status: employed 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 HPI HPI Details: MU BARBOZA, is a 39 F who presents to the office today for follow up. CT abd/pel 06.13.20 LLQ pain colonic diverticulosis; patchy groundglass opacities of lung base, ?COVID. PCP OV 10.26.22 with history of diverticulitis with more recent episode . Currently experiencing abdominal pain following ingestion of spicy fries on Saturday; gynecology started flagyl *BGI established 12.11. new onset softer and smaller caliber stool with movements up to 3 times a day; non acute symptoms include bloating and heartburn. Notes onset following diverticulitis. Diverticulitis with use of antibiotic therapy up to 4 times; CT imaging (unavailable records) three times seeing diverticulitis. Prior to diverticulitis she was having a lot of constipation; started pre/probiotic and feels this has been helpful. OV 11.15.23 Pt reports she is doing well and currently has no symptoms or concerns. Pt continues with medication regimen. OV 05.15.24 pt reports that she is feeling well overall and denies GI symptoms of concern at this time. Pt notes some abd pain when she tried to decrease her mesalamine. abd/pelvis 10.29.24 1. Severe diverticulosis with moderate wall thickening of the distal descending and sigmoid colon. No evidence of acute diverticulitis. 2. Mild hepatomegaly with diffuse hepatic steatosis. US and elastography 11.10.24 hepatic measurement 18.3cm with fatty infiltration, stiffness measures 7.87kPa compatible with F_-F_ Metavir score. OV 11.12.24 pt reports she had a recent diverticulitis flare and was given cipro and flagyl which were not effective, and then tried Augmentin, which she also feels was not effective. Pt reports she is feeling better today, but is unsure what to do to prevent recurrent diverticulitis flares. abd/pelvis CT 02.01.25 1. Colonic diverticulosis, without current evidence of acute diverticulitis. 2. Fibroid uterus. OV 7 pt reports that she is feeling well overall and denies GI symptoms of concern at this time. Pt reports that digestive enzyme / probiotic has been helpful for her symptoms. Is requesting clarification on how to take her Mesalamine. ROS Const Constitutional: Positive for weight change (weight loss); No fatigue or fever(s) ENT ENT: No difficulty swallowing Gastro GI: No abdominal pain, belching, bloating, change in bowel habits, change in stool character, coffee ground emesis, constipation, cramping, diarrhea, heartburn, difficulty swallowing, feeling full early, excessive flatus, incontinent of stools, Vomiting blood/hematemesis, Blood in stool, loose stools, Black,tarry stools, nausea/dyspepsia, pain with swallowing, vomiting or oth (more content not included)... Normal [facility] Abdomen/Pelvis WITH Contrast on 02-01-2025 Abdomen/Pelvis WITH Contrast [facility] Imaging Services [address] [place], [place] [id number] Abdomen/Pelvis WITH Contrast MR#: [id number] Acct: [id number] Name: MU BARBOZA Rep #: [id number] : 1985 F 39 From: Wan Morley MD PCP: Dr. Madelaine Lee MD Status: REG CLI Study: Abdomen/Pelvis WITH Contrast Date of Exam: Exam# [id number] Ordering Dr: Kevin Chakraborty DO PROCEDURE: ABDOMEN/PELVIS WITH CONTRAST 02/01/2025 REASON FOR EXAM: DIVERTICULITIS TECHNIQUE: ABDOMEN/PELVIS WITH IV AND ORAL CONTRAST Coronal and Sagittal reconstruction series were provided. CONTRAST: Isovue-300 VOLUME: 99 mL One or more dose reduction techniques were used (e.g., Automated exposure control, adjustment of the mA and/or kV according to patient size, use of iterative reconstruction technique. RADIATION DOSE SUMMARY: CTDlvol: 23.7 mGy DLP: 1331 mGycm COMPARISON: CT abdomen and pelvis on 10/29/2024, abdominal ultrasound 11/10/2024 FINDINGS: Lung bases: Unremarkable Liver: Unremarkable Gallbladder: Unremarkable Spleen: Normal size. Pancreas: Normal size without evidence of mass surrounding inflammation or ductal dilation. Adrenals: Unremarkable Kidneys: No hydronephrosis or stone. Bladder: Unremarkable Reproductive Organs: Unchanged leiomyoma at the left aspect of the uterine body measuring up to 4.4 cm in greatest dimension. Bowel: No obstruction or inflammation. There is diverticulosis of the distal descending and sigmoid colon. Normal appendix. Lymph nodes: No suspicious lymph node enlargement. Vasculature: The abdominal aorta and IVC are normal. Bones: Unremarkable CT/Abdomen/Pelvis WITH Contrast IMPRESSION: 1. Colonic diverticulosis, without current evidence of acute diverticulitis. 2. Fibroid uterus. Reading Location: [id number] CC: Dr. Madelaine Lee MD; Kevin Chakraborty DO Home Health Care Physician: Signed Normal [facility] Gastroenterology Visit Repor ton 11-12-2024 Gastroenterology Visit Report [facility] Gastroenterology [address] [place] [address] OFFICE VISIT Date of Service: 11/12/24 MR#: [id number] Acct: [id number] Name: MU BARBOZA YADIRA Rep #: [id number] : 1985 Provider: Kevin Chakraborty DO Age/Sex: 38/F Location: [facility] Status: Signed Intake Vital Signs 05/16/24 13:41 Height 5 ft 6 in Intake Visit Reasons: CT test result Allergies No Known Allergies Allergy (Verified 05/16/24 13:41) Medications ???Medication ???Instructions ???Recorded ???Confirmed ???Type drospirenone 3 mg-ethinyl 1 tab PO DAILY #84 tabs 02/24/24 0 11/12/24 Rx estradiol 0.03 mg tablet pantoprazole 20 mg tablet,delayed 20 mg PO DAILY #90 TABLETS 11/12/24 Rx release fluconazole 150 mg tablet 150 mg PO Q3D 2 doses #2 tabs 100 11/2611/12/24 Rx hyoscyamine sulfate 0.125 mg 0.125 mg PO BID-QID PRN dyspepsia 09/25/24 11/12/24 Rx disintegrating tablet #60 tabs mesalamine 1.2 gram tablet,delayed 2.4 g (2 x 1.2 gram) PO .QID #12 0 10/29/24 11/12/24 Rx release tabs PFSH Medical History Fatty liver Heartburn Non-smoker History of edema Diverticulitis Surgical History Hx of wisdom tooth extraction S/P surgical removal of pilonidal cyst S/P tonsillectomy S/P right oophorectomy Family History Mother Breast cancer, Onset Age: 35 Father Cancer Prostate Grandmother Cancer Ovarian- paternal Grandfather Colon cancer Paternal Social History adopted: No household members: significant other housing: house number of children: 0 current occupational status: employed 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 HPI HPI Details: MU BARBOZA, is a 38 F who presents to the office today for follow up. CT abd/pel 06.13.20 LLQ pain colonic diverticulosis; patchy groundglass opacities of lung base, ?COVID. PCP OV 10.26.22 with history of diverticulitis with more recent episode . Currently experiencing abdominal pain following ingestion of spicy fries on Saturday; gynecology started flagyl *BGI established 12.11.22 new onset softer and smaller caliber stool with movements up to 3 times a day; non acute symptoms include bloating and heartburn. Notes onset following diverticulitis. Diverticulitis with use of antibiotic therapy up to 4 times; CT imaging (unavailable records) three times seeing diverticulitis. Prior to diverticulitis she was having a lot of constipation; started pre/probiotic and feels this has been helpful. OV 11.15.23 Pt reports she is doing well and currently has no symptoms or concerns. Pt continues with medication regimen. OV 05.15.24 pt reports that she is feeling well overall and denies GI symptoms of concern at this time. Pt notes some abd pain when she tried to decrease her mesalamine. abd/pelvis 10.29.24 1. Severe diverticulosis with moderate wall thickening of the distal descending and sigmoid colon. No evidence of acute diverticulitis. 2. Mild hepatomegaly with diffuse hepatic steatosis. US and elastography 11.10.24 hepatic measurement 18.3cm with fatty infiltration, stiffness measures 7.87kPa compatible with F_-F_ Metavir score. OV 11.12.24 pt reports she had a recent diverticulitis flare and was given cipro and flagyl which were not effective, and then tried Augmentin, which she also feels was not effective. Pt reports she is feeling better today, but is unsure what to do to prevent recurrent diverticulitis flares. ROS Const Constitutional: Positive for weight change (weight loss); No fatigue or fever(s) ENT ENT: No difficulty swallowing Gastro GI: Positive for abdominal pain, bloating, diarrhea, excessive flatus and nausea/dyspepsia; No belching, change in bowel habits, change in stool character, coffee ground emesis, constipation, cramping, heartburn, difficulty swallowing, feeling full early, incontinent of stools, Vomiting blood/hematemesis, Blood in stool, loose stools, Black,tarry stools, pain with swallowing, vomiting or other Musc Musculoskeletal: Positive for back pain; No joint pain Skin Skin: No yellowing of the eye or itchy eyes Psych Psychiatric: No anxiety and No depression Endo Endocrine: Positive for weight change (weight loss); No fatigue Aller/Imm Allergy/Immunologic: No itchy eyes Dae/Lymp Hematologic/Lymphati c: No easy bleeding or easy bruising (more content not included)... Normal [facility] ABD Limited w/ Elastographyo n 11-10-2024 ABD Limited w/ Elastography [facility] Imaging Services [address] [place] [address] ABD Limited w/ Elastography MR#: [id number] Acct: [id number] Name: MU BARBOZA Rep #: [id number] : 1985 F 38 From: Hebert Wong MD PCP: Dr. Madelaine Lee MD Status: REG CLI Study: ABD Limited w/ Elastography Date of Exam: 03/29 Exam# [id number] Ordering Dr: Kevin Chakraborty DO PROCEDURE: ABD LIMITED W/ ELASTOGRAPHY (USABDLELPARO), 11/10/2024 REASON FOR EXAM: THOMPSON COMPARISON: 10/29/2024 TECHNIQUE: Grayscale and color Doppler imaging of the right upper quadrant was performed. [employer] S-shear wave elastography was performed for non-invasive assessment of liver tissue stiffness. FINDINGS: Exam limited by soft tissue attenuation and shadowing bowel gas. Liver: Echogenic. 18.3 cm in length. Gallbladder: Cholelithiasis. No visualized wall thickening or pericholecystic fluid. Reportedly, sonographic Perera's was negative. Biliary tree: Unremarkable. CBD measures 6 mm. Pancreas: Largely obscured by shadowing bowel gas. Right kidney: Unremarkable. 12.1 cm in length. Other: No visualized free fluid. Hepatic elastography: Number of measurements: 15 measurements across 3 regions, 5 measurements per region... US probe: CA1-7A. EQI median: 7.87 kPa EQI median velocity: 1.59 m/s IQR/Med: 20.7-22.4% (kPa) and 10.9-11.5% (m/s). If the IQR/Med is IQR/median >30% (for kPa) or >15% in m/s, the variance in the measurements is a large and the accuracy of the measurement may be in question. US/ABD Limited w/ Elastography IMPRESSION: 1. Borderline hepatomegaly and echogenic appearance of the hepatic parenchyma, typically associated with hepatic steatosis. Fibrosis/cirrhosis may have this appearance. 2. Liver stiffness is 7.87 kPa. Per the below 2020 SRU criteria, this rules out compensated advanced chronic liver disease in the absence of other known clinical signs. If there are known clinical signs, further testing may be needed for confirmation. 3. Cholelithiasis without findings to suggest cholecystitis. No significant biliary dilatation. 4. Additional description as above. Assessment is per the Update to the SRU Liver Elastography Consensus Statement (2020) Note that the above assessment of liver fibrosis is vendor-neutral and intended for use in fibrosis related to viral etiologies and non-alcoholic fatty-liver disease (NAFLD); in causes other than viral hepatitis and NAFLD, the cutoff values are currently not well established. In some patients with NAFLD, the cutoff values for cACLD may be lower (7-9 kPa). Note also that in the setting of elevated LFTs, nonfasting or vascular congestion, the stage of lifer fibrosis may be overestimated. Previous U reference values: <1.37 m/s (5.7kPa): No to mild fibrosis 1.37 m/s - 2.2 m/s: Moderate to severe fibrosis >2.2 m/s (15kPa): Significant fibrosis / cirrhosis Reading Location: [id number] CC: Dr. Madelaine Lee MD; Kevin Chakraborty DO Home Health Care Physician: Signed Normal [facility] Abdomen/Pelvis WITH Contrast on 10-29-2024 Abdomen/Pelvis WITH Contrast [facility] Imaging Services [address] [place] [address] Abdomen/Pelvis WITH Contrast MR#: [id number] Acct: [id number] Name: MU BARBOZA Rep #: [id number] : 1985 F 38 From: Leann Polo nd, MD PCP: Dr. Madelaine Lee MD Status: REG CLI Study: Abdomen/Pelvis WITH Contrast Date of Exam: Exam# [id number] Ordering Dr: Kevin Chakraborty DO PROCEDURE: ABDOMEN/PELVIS WITH CONTRAST 10/29/2024 REASON FOR EXAM: 38-year-old female, diverticulitis. TECHNIQUE: Abdomen and pelvis CT with intravenous contrast. Coronal and Sagittal reconstruction series were provided. PATIENT PREPARATION: Per protocol ORAL CONTRAST TYPE: Isovue 360 CONTRAST: Isovue 300 VOLUME: 100mL One or more dose reduction techniques were used (e.g., Automated exposure control, adjustment of the mA and/or kV according to patient size, use of iterative reconstruction technique. RADIATION DOSE SUMMARY: CTDlvol: 36 mGy DLP: 1260 mGycm COMPARISON: CT abdomen pelvis 05/16/2024. FINDINGS: Lung bases: The bibasilar lungs are clear. The heart is normal in size. Liver: Mild hepatomegaly with diffuse hepatic steatosis. The major portal veins are patent. No biliary ductal dilation. Gallbladder: No radiopaque stones within the gallbladder. Spleen: Normal. Pancreas: Unremarkable. Adrenals: Unremarkable. Kidneys: No hydronephrosis or nephrolithiasis. Bladder: Mildly distended and unremarkable. Reproductive Organs: Prior right oophorectomy. Fibroid uterus. Bowel: The bowel loops are normal in caliber. Moderate wall thickening of the distal descending and sigmoid colon with severe diverticulosis. No evidence of diverticulitis. Normal appendix. Lymph nodes: No lymphadenopathy. Vasculature: The abdominal aorta and IVC are normal. Bones: Unremarkable. CT/Abdomen/Pelvis WITH Contrast IMPRESSION: 1. Severe diverticulosis with moderate wall thickening of the distal descending and sigmoid colon. No evidence of acute diverticulitis. 2. Mild hepatomegaly with diffuse hepatic steatosis. Reading Location: [id number] CC: Dr. Madelaine Lee MD; Kevin Chakraborty DO Home Health Care Physician: Signed Normal [facility] SCRN MAMM (CAD)W/HSANNAN BILATo n 09-24-2024 SCRN MAMM (CAD)W/SHANNAN BILAT [facility] Imaging Services [address] [place] [address] SCRN MAMM (CAD)W/SHANNAN BILAT MR#: [id number] Acct: [id number] Name: MU BARBOZA Rep #: [id number] : 1985 F 38 From: Kadie Holcomb PCP: Dr. Madelaine Lee MD Status: REG CLI Study: SCRN MAMM (CAD)W/SHANNAN BILAT Date of Exam: 09/06 Exam# [id number] Ordering Dr: Madelaine Lee MD PROCEDURE: SCRN MAMM (CAD)W/SHANNAN BILAT REASON FOR EXAM: Routine yearly screening mammography. TECHNIQUE: Bilateral diagnostic digital breast tomosynthesis with 2D and 3D images. Computer aided detection. COMPARISON: Prior exam(s) dated 09/17/2023 and 08/27/2022 FINDINGS: There are scattered areas of fibroglandular density. No suspicious masses, suspicious cluster of calcifications, architectural distortion or secondary sign of malignancy is identified in either breast. BI/SCRN MAMM (CAD)W/SHANNAN BILAT IMPRESSION: BI-RADS 1: NEGATIVE. RECOMMEND ANNUAL MAMMOGRAPHIC SCREENING. Follow-up code: Routine Follow-up Reading Location: [facility] CC: Dr. Madelaine Lee MD Home Health Care Physician: Signed Normal [facility] Abdomen/Pelvis W IV Cont ONL Yon 05-16-2024 Abdomen/Pelvis W IV Cont ONLY [facility] Imaging Services [address] [place], [place] [address] Abdomen/Pelvis W IV Cont ONLY MR#: [id number] Acct: [id number] Name: MU BARBOZA Rep #: [id number] : 1985 F 38 From: Kel Severino MD PCP: Dr. Madelaine Lee MD Status: REG ER Study: Abdomen/Pelvis W IV Cont ONLY Date of Exam: Exam# [id number] Ordering Dr: Rome Lynch MD [id number] EXAM: CT ABDOMEN AND PELVIS WITH INTRAVENOUS CONTRAST CLINICAL INDICATION: LLQ abd pain TECHNIQUE: Helically acquired images were obtained of the abdomen and pelvis with intravenous contrast. This CT exam was performed using one or more of the following dose reduction techniques: automated exposure control, adjustment of the mA and/or kV according to patient size, and/or use of iterative reconstruction technique. CONTRAST: IV 100mL [id number] COMPARISON: CT Abdomen Pelvis dated 05/08/2023 FINDINGS: LOWER THORAX: Normal. Lung bases are clear. No cardiomegaly. No pericardial effusion. ABDOMEN: LIVER: Liver is mildly enlarged and steatotic. GALLBLADDER AND BILE DUCTS: Normal. No calcified gallstones. No gallbladder distention or wall edema. No intra- or extrahepatic biliary ductal dilation. PANCREAS: Normal. No focal cystic or solid mass. SPLEEN: Normal. Normal size without focal cystic or solid mass. ADRENALS: Normal. No nodules. KIDNEYS AND URETERS: Normal. Normal renal size and position. No hydronephrosis. STOMACH AND BOWEL: Localized wall thickening of the distal descending colon noted associated with prominent adjacent fat stranding consistent with acute diverticulitis. No evidence of abscess or perforation. PELVIS: APPENDIX: Appendix is visualized and normal in appearance. BLADDER: Normal. REPRODUCTIVE: Stable left-sided exophytic 3.4 cm uterine fibroid. ABDOMEN and PELVIS: INTRAPERITONEAL SPACE: Normal. No ascites or other fluid collection. No free air. BONES/JOINTS: No suspicious lytic or blastic abnormality. SOFT TISSUES: Normal. No discrete abdominal or pelvic wall hernia. VASCULATURE: Normal. Abdominal aorta is non-dilated. LYMPH NODES: Normal. No enlarged lymph nodes. CT/Abdomen/Pelvis W IV Cont ONLY IMPRESSION: 1. Acute diverticulitis of the distal descending colon without evidence of abscess or perforation. 2. Mildly enlarged and mildly steatotic liver. Electronically Signed: Kel Severino MD at 15:05 EDT , CC: Dr. Madelaine Lee MD; Dr. Rome Lynch MD Home Health Care Physician: Signed Normal [facility] Basic Metabolic Profile (BMP )on 05-16-2024 BUN/CRE 8.0 RATIO Low 10-20 [facility] Comment on above: Performed By: #### L 500.2500, L700.6800, L100.0100 ####[facility] [address] [place], [address] CA,Total 9.4 mg/dL Normal 8.5-10.1 [facility] Comment on above: Performed By: #### L 500.2500, L700.6800, L100.0100 ####[facility] [address] [place], [address] Chloride [Moles/Vol] 101 mmol/L Normal 98-107 [facility] Comment on above: Performed By: #### L 500.2500, L700.6800, L100.0100 ####[facility] [address] [place], [address] CO2 [Moles/Vol] 22.0 mmol/L Normal 21.0-32.0 [facility] Comment on above: Performed By: #### L 500.2500, L700.6800, L100.0100 ####[facility] [address] [place], [address] Creatinine [Mass/Vol] 0.75 mg/dL Normal 0.55-1.02 [facility] Comment on above: Result Comment: The validity of the calculated GFR GFRAA in patients over 70 years has not been determined. Clinical correlation is essential. Performed By: #### L 500.2500, L700.6800, L100.0100 ####[facility] [address] [place], [address] ECRCL 132.83 ml/min Normal [facility] Comment on above: Performed By: #### L 500.2500, L700.6800, L100.0100 ####[facility] [address] [place], [address] EST GFR - AA 110 mL/min Normal >60 [facility] Comment on above: Result Comment: Afri can Pakistani GFR Calc Performed By: #### L 500.2500, L700.6800, L100.0100 ####[facility] [address] [place], [address] GAP 10 Normal 5-15 [facility] Comment on above: Performed By: #### L 500.2500, L700.6800, L100.0100 ####[facility] [address] [place], [address] GFR/1.73 sq M.predicted among non-blacks MDRD (S/P/Bld) [Vol rate/Area] 91 mL/min/{1.73_m2} Normal >60 [facility] Comment on above: Result Comment: Non- GFR Calc Performed By: #### L 500.2500, L700.6800, L100.0100 ####[facility] [address] [place], [address] Glucose [Mass/Vol] 121 mg/dL High 74-106 [facility] Comment on above: Result Comment: Fast ing Glucose result from 100 to 125 mg/dL suggests IMPAIRED HOMEOSTASIS per A.D.A. criteria. Performed By: #### L 500.2500, L700.6800, L100.0100 ####[facility] [address] [place], [address] Potassium [Moles/Vol] 3.8 mmol/L Normal 3.5-5.1 [facility] Comment on above: Performed By: #### L 500.2500, L700.6800, L100.0100 ####[facility] [address] [place], [address] Sodium [Moles/Vol] 133 mmol/L Low 136-145 [facility] Comment on above: Performed By: #### L 500.2500, L700.6800, L100.0100 ####[facility] [address] [place], [address] Urea nitrogen [Mass/Vol] 6 mg/dL Low 7-18 [facility] Comment on above: Performed By: #### L 500.2500, L700.6800, L100.0100 ####[facility] [address] [place], [address] CBC W/Diff, Automatedon 10-1 2-2023 Absolute Lymph 1.78 X10 3/uL Normal 0.83-4.51 [facility] Comment on above: Performed By: #### L 500.2500, L700.6800, L100.0100 ####[facility] [address] [place], [address] Absolute Neut 15.6 X10 3/uL High 2.0-7.7 [facility] Comment on above: Performed By: #### L 500.2500, L700.6800, L100.0100 ####[facility] [address] [place], [address] Basophils/100 WBC (Bld) 0.2 % Normal 0-1 [facility] Comment on above: Performed By: #### L 500.2500, L700.6800, L100.0100 ####[facility] [address] [place], [address] Eosinophils/100 WBC (Bld) 0.1 % Normal 0-5 [facility] Comment on above: Performed By: #### L 500.2500, L700.6800, L100.0100 ####[facility] [address] [place], [address] Erythrocyte distribution width (RBC) [Ratio] 14.2 % Normal 11.6-14.6 [facility] Comment on above: Performed By: #### L 500.2500, L700.6800, L100.0100 ####[facility] [address] [place], [address] Hematocrit (Bld) [Volume fraction] 41.9 % Normal 37-47 [facility] Comment on above: Performed By: #### L 500.2500, L700.6800, L100.0100 ####[facility] [address] [place], [address] Hemoglobin (Bld) [Mass/Vol] 13.4 g/dL Normal 12.0-15.0 [facility] Comment on above: Performed By: #### L 500.2500, L700.6800, L100.0100 ####[facility] [address] [place], [address] IG% 0.400 Normal 0.0-0.9 [facility] Comment on above: Result Comment: IG% - Immature Granulocytes (promyelocytes, myelocytes and metamyelocytes) > 1% indicates that a LEFT SHIFT is Present. Performed By: #### L 500.2500, L700.6800, L100.0100 ####[facility] [address] [place], [address] Lymphocytes/100 WBC (Bld) 9.8 % Low 19-41 [facility] Comment on above: Performed By: #### L 500.2500, L700.6800, L100.0100 ####[facility] [address] [place], [address] MCH (RBC) [Entitic mass] 25.6 pg Low 27.0-32.0 [facility] Comment on above: Performed By: #### L 500.2500, L700.6800, L100.0100 ####[facility] [address] [place], [address] MCHC (RBC) [Mass/Vol] 32.0 g/dL Normal 32-36 [facility] Comment on above: Performed By: #### L 500.2500, L700.6800, L100.0100 ####[facility] [address] [place], [address] MCV (RBC) [Entitic vol] 80.1 fL Low 81-99 [facility] Comment on above: Performed By: #### L 500.2500, L700.6800, L100.0100 ####[facility] [address] [place], [address] Monocytes/100 WBC (Bld) 3.9 % Normal 0-10 [facility] Comment on above: Performed By: #### L 500.2500, L700.6800, L100.0100 ####[facility] [address] [place], [address] Neutrophils/100 WBC (Bld) 85.6 % High 47-70 [facility] Comment on above: Performed By: #### L 500.2500, L700.6800, L100.0100 ####[facility] [facility] [address] [place], [address] Nucleated RBC (Bld) [#/Vol] 0 10*3/uL Normal 0-5 [facility] Comment on above: Performed By: #### L 500.2500, L700.6800, L100.0100 ####[facility] [address] [place], [address] Platelet mean volume (Bld) [Entitic vol] 10.2 fL Normal 6.2-12.0 [facility] Comment on above: Performed By: #### L 500.2500, L700.6800, L100.0100 ####[facility] [address] [place], [address] Platelets (Bld) [#/Vol] 323 10*3/uL Normal 150-450 [facility] Comment on above: Performed By: #### L 500.2500, L700.6800, L100.0100 ####[facility] [address] [place], [address] RBC (Bld) [#/Vol] 5.23 10*6/uL Normal 4.2-5.4 [facility] Comment on above: Performed By: #### L 500.2500, L700.6800, L100.0100 ####[facility] [address] [place], [address] RDW SD 41.4 fl Normal 35.1-43.9 [facility] Comment on above: Performed By: #### L 500.2500, L700.6800, L100.0100 ####[facility] [address] [place], [address] WBC (Bld) [#/Vol] 18.2 10*3/uL High 4.4-11.0 [facility] Comment on above: Performed By: #### L 500.2500, L700.6800, L100.0100 ####[facility] [address] [place], [address] Emergency Department Summary on 05-16-2024 Emergency Department Summary [facility] Medical Records Department [address] [place] [address] Emergency Department Summary 05/16/24 MR#: [id number] Acct: [id number] Name: TAMRAMU YADRIA Rep #: [id number] : 1985 38 From: Rome Lynch MD PCP: Dr. Madelaine Lee MD Status:REG ER Location: ED HPI HPI - GI History of Present Illness Chief Complaint: Abd Pain Informant: patient Abdominal Pain/Flank Pain Onset: Yesterday Context: Gradual Onset Timing: Continuous Quality: Cramping Location: [facility] Current Severity: Mild Maximum Severity: Moderate Worsened by: Nothing Relieved by: Nothing Nausea/Vomiting/Emes is GI Symptom: Positive for Nausea; Negative for Vomiting Diarrhea/Melena/Dae tochezia GI Symptom: Negative for Diarrhea, Melena or Hematochezia Associated Symptoms Associated Symptoms: Negative for Dysuria, Frequency, Hematuria or Urgency Narrative Narrative: 38-year-old female prior ovary resected on the right. Prior colonoscopy. Complaint left lower quadrant abdominal pain since yesterday evening. Denies nausea, vomiting or diarrhea. No dysuria. No fever. History of diverticulitis. No prior colon resections. Prior similar symptoms: Yes Recent Illness/Hospitalizat ion: No [facility] Medical History Fatty liver Heartburn Non-smoker History of edema Diverticulitis Home Medications ???Medication ???Instructions ???Recorded ???Last Taken ???Type hyoscyamine sulfate 0.125 mg 0.125 mg PO BID-QID PRN dyspepsia 05/16/23 Unknown Rx disintegrating tablet #60 tabs drospirenone 3 mg-ethinyl 1 tab PO DAILY #84 tabs 02/24/24 Unknown Rx estradiol 0.03 mg tablet pantoprazole 20 mg tablet,delayed 20 mg PO DAILY #90 TABLETS 04/14/24 Unknown Rx release fluconazole 150 mg tablet 150 mg PO Q3D 2 doses #2 tabs 05/08/24 Unknown Rx mesalamine 1.2 gram tablet,delayed 1.2 g PO .QID #120 tabs 05/15/24 Unknown Rx release ciprofloxacin HCl 500 mg tablet 500 mg PO BID 10 days #20 tabs 05/16/24 Unknown Rx (Cipro) metronidazole 500 mg tablet 500 mg PO TID 10 days #30 tabs 05/16/24 Unknown Rx Allergy/AdvReac Type Severity Reaction Status Date / Time No Known Allergies Allergy Verified 05/16/24 13:41 Family History Mother Breast cancer, Onset Age: 35 Father Cancer Prostate Grandmother Cancer Ovarian- paternal Grandfather Colon cancer Paternal Surgical History Hx of wisdom tooth extraction S/P surgical removal of pilonidal cyst S/P tonsillectomy S/P right oophorectomy Social History adopted: No household members: significant other housing: house number of children: 0 current occupational status: employed 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 ROS ROS ED ROS Narrative Left lower quadrant abdominal pain. Intermittent nausea. Constitutional Constitutional ED: Denies chills or fever(s) ENT ENT ED: Denies ear pain Cardiovascular Cardiovascular: Denies chest pain Respiratory/Chest Respiratory/Chest: Denies cough Gastrointestinal Gastrointestinal: Reports abdominal pain; Denies constipation, diarrhea, melena, nausea or vomiting Genitourinary Genitourinary ED: Denies dysuria or hematuria Musculoskeletal Musculoskeletal: Denies arthralgias or back pain Integumentary Denies abscess Neurologic Neurologic: Denies headache(s) Psychiatric Psychiatric: Denies anxiety Endocrine Endocrinology: Denies polydipsia Hematologic/Lymphati c Hematologic/Lymphati c: Denies easy bleeding Allergic/Immunologic Allergic/Immunologic ED: Denies mouth swelling EXAM Physical Exam Narrative Exam Narrative: Well-appearing 38-year-old female. Vital signs stable afebrile. H EENT exam unremarkable. Neck nontender. Lungs clear. Heart tachycardic rate about 110 no murmur. Abdomen soft nondistended normal bowel sounds without peritoneal signs. Tender left lower quadrant. No hernia or mass. No obstruction. Moving all 4 extremities. Nontender no edema. Back nontender. Neurologically awake and alert no focal motor deficits. Const Vital Signs: 05/16/24 13:41 Temperature 97.9 F Temperature Source Oral Pulse Rate 118 H Respiratory Rate 16 Blood Pressure 143/103 H Blood Pressure Mean 116 Pulse Ox 99 Oxygen Delivery Method Room Air Positive well nourished and well developed; Negative for cachectic, contractures or unkempt Gen (more content not included)... Normal [facility] ,Serum,hCG Quali.on 05-16-2024 HCG, SERUM QUAL Negative Normal [facility] Comment on above: Performed By: #### L 500.2500, L700.6800, L100.0100 ####[facility] [address] [place], [address] Urinalysis, Completeon 05-16 BACTERIA 0 SEEN Normal None Seen [facility] Comment on above: Order Comment: CLEAN CATCH Performed By: #### L 400.0001 ####[facility] [address] [place], [address] EPI,SQUAMOUS 0 SEEN Normal 5-10 [facility] Comment on above: Order Comment: CLEAN CATCH Performed By: #### L 400.0001 ####[facility] [address] [place], [address] Mucus Ql (Urine sed) 0 SEEN Normal [facility] Comment on above: Order Comment: CLEAN CATCH Performed By: #### L 400.0001 ####[facility] [address] [place], [address] RBC 0 SEEN Normal 0-5 [facility] Comment on above: Order Comment: CLEAN CATCH Performed By: #### L 400.0001 ####[facility] [address] [place], [address] WBC 0 SEEN Normal 0-5 [facility] Comment on above: Order Comment: CLEAN CATCH Performed By: #### L 400.0001 ####[facility] [address] [place], [address] Gastroenterology Visit Repor ton 05-15-2024 Gastroenterology Visit Report [facility] [address] [place] [address] OFFICE VISIT Date of Service: 05/15/24 MR#: [id number] Acct: [id number] Name: TAMRAMU YADIRA Rep #: [id number] : 1985 Provider: Kevin Chakraborty DO Age/Sex: 38/F [place] [facility] [place] Status: Signed Intake Vital Signs 03/06/23 06:21 02/24/24 15:25 Height 5 ft 6 in 5 ft 6 in Intake Visit Reasons: 6 M FU Chief Complaint: Annual Allergies No Known Allergies Allergy (Verified 02/24/24 15:31) Medications ???Medication ???Instructions ???Recorded ???Confirmed ???Type hyoscyamine sulfate 0.125 mg 0.125 mg PO BID-QID PRN dyspepsia 05/16/23 05/15/24 Rx disintegrating tablet #60 tabs drospirenone 3 mg-ethinyl 1 tab PO DAILY #84 tabs 02/24/24 05/15/24 Rx estradiol 0.03 mg tablet pantoprazole 20 mg tablet,delayed 20 mg PO DAILY #90 TABLETS 04/14/24 05/15/24 Rx release fluconazole 150 mg tablet 150 mg PO Q3D 2 doses #2 tabs 05/08/24 05/15/24 Rx mesalamine 1.2 gram tablet,delayed 1.2 g PO .QID #120 tabs 05/15/24 05/15/24 Rx release PFSH Medical History Fatty liver Heartburn Non-smoker History of edema Diverticulitis Surgical History Hx of wisdom tooth extraction S/P surgical removal of pilonidal cyst S/P tonsillectomy S/P right oophorectomy Family History Mother Breast cancer, Onset Age: 35 Father Cancer Prostate Grandmother Cancer Ovarian- paternal Grandfather Colon cancer Paternal Social History adopted: No household members: significant other housing: house number of children: 0 current occupational status: employed 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 HPI HPI Chief Complaint: Annual Details: MU BARBOZA, is a 38 F who presents to the office today for follow up. CT abd/pel 06.13.20 LLQ pain colonic diverticulosis; patchy groundglass opacities of lung base, ?COVID. PCP OV 10.26.22 with history of diverticulitis with more recent episode . Currently experiencing abdominal pain following ingestion of spicy fries on Saturday; gynecology started flagyl *BGI established 5.9.23 new onset softer and smaller caliber stool with movements up to 3 times a day; non acute symptoms include bloating and heartburn. Notes onset following diverticulitis. Diverticulitis with use of antibiotic therapy up to 4 times; CT imaging (unavailable records) three times seeing diverticulitis. Prior to diverticulitis she was having a lot of constipation; started pre/probiotic and feels this has been helpful. OV 4 Pt reports she is doing well and currently has no symptoms or concerns. Pt continues with medication regimen. OV 05.15.24 pt reports that she is feeling well overall and denies GI symptoms of concern at this time. Pt notes some abd pain when she tried to decrease her mesalamine. ROS Const Constitutional: No fatigue, fever(s) or weight change ENT ENT: No difficulty swallowing Gastro GI: No abdominal pain, belching, bloating, change in bowel habits, change in stool character, coffee ground emesis, constipation, cramping, diarrhea, heartburn, difficulty swallowing, feeling full early, excessive flatus, incontinent of stools, Vomiting blood/hematemesis, Blood in stool, loose stools, Black,tarry stools, nausea/dyspepsia, pain with swallowing, vomiting or other Musc Musculoskeletal: No joint pain Skin Skin: No yellowing of the eye or itchy eyes Psych Psychiatric: No anxiety and No depression Endo Endocrine: No fatigue or weight change Aller/Imm Allergy/Immunologic: No itchy eyes Dae/Lymp Hematologic/Lymphati c: No easy bleeding or easy bruising Exam Const General: cooperative and comfortable Nutritional Appearance: average body habitus and well nourished [facility] Head: normal to inspection Ears: hearing grossly normal bilaterally Nose: external nose normal Face and sinus: normal facial exam Mouth: oral mucosae normal Throat: posterior oropharynx normal Eyes General: appearance normal, both eyes and all related structures Neck Neck: normal visual inspection Chest Chest palpation inspection: normal inspection of the chest and normal palpation of entire chest wall Resp Effort Inspection: normal respiratory effort Auscultation: Bilateral: Clear to Auscultation Cardio Palpation: normal PMI Rate: regular rate Rhythm: regul (more content not included)... Normal [facility] CBC, Employeeon 03-30-2024 Absolute Lymph 2.98 X10 3/uL Normal 0.83-4.51 [facility] Comment on above: Performed By: #### L 500.2900, L400.0100, L100.0200 #### [facility] [address] [place], [address] Absolute Neut 4.6 X10 3/uL Normal 2.0-7.7 [facility] Comment on above: Performed By: #### L 500.2900, L400.0100, L100.0200 #### [facility] [address] [place], [address] Basophils/100 WBC (Bld) 0.9 % Normal 0-1 [facility] Comment on above: Performed By: #### L 500.2900, L400.0100, L100.0200 #### [facility] [address] [place], [address] Eosinophils/100 WBC (Bld) 1.6 % Normal 0-5 [facility] Comment on above: Performed By: #### L 500.2900, L400.0100, L100.0200 #### [facility] [address] [place], [address] Erythrocyte distribution width (RBC) [Ratio] 13.9 % Normal 11.6-14.6 [facility] Comment on above: Performed By: #### L 500.2900, L400.0100, L100.0200 #### [facility] [address] [place], [address] Hematocrit (Bld) [Volume fraction] 39.1 % Normal 37-47 [facility] Comment on above: Performed By: #### L 500.2900, L400.0100, L100.0200 #### [facility] [address] [place], [address] Hemoglobin (Bld) [Mass/Vol] 12.4 g/dL Normal 12.0-15.0 [facility] Comment on above: Performed By: #### L 500.2900, L400.0100, L100.0200 #### [facility] [address] [place], [address] Lymphocytes/100 WBC (Bld) 36.2 % Normal 19-41 [facility] Comment on above: Performed By: #### L 500.2900, L400.0100, L100.0200 #### [facility] [address] [place], [address] MCH (RBC) [Entitic mass] 25.6 pg Low 27.0-32.0 [facility] Comment on above: Performed By: #### L 500.2900, L400.0100, L100.0200 #### [facility] [address] [place], [address] MCHC (RBC) [Mass/Vol] 31.7 g/dL Low 32-36 [facility] Comment on above: Performed By: #### L 500.2900, L400.0100, L100.0200 #### [facility] [address] [place], [address] MCV (RBC) [Entitic vol] 80.8 fL Low 81-99 [facility] Comment on above: Performed By: #### L 500.2900, L400.0100, L100.0200 #### [facility] [address] [place], [address] Monocytes/100 WBC (Bld) 5.5 % Normal 0-10 [facility] Comment on above: Performed By: #### L 500.2900, L400.0100, L100.0200 #### [facility] [address] [place], [address] Neutrophils/100 WBC (Bld) 55.3 % Normal 47-70 [facility] Comment on above: Performed By: #### L 500.2900, L400.0100, L100.0200 #### [facility] [address] [place], [address] NRBC # 0.00 10 3/uL Normal 0-5 [facility] Comment on above: Performed By: #### L 500.2900, L400.0100, L100.0200 #### [facility] [address] [place], [address] Nucleated RBC (Bld) [#/Vol] 0 10*3/uL Normal 0-5 [facility] Comment on above: Performed By: #### L 500.2900, L400.0100, L100.0200 #### [facility] [address] [place], [address] Platelet mean volume (Bld) [Entitic vol] 10.6 fL Normal 6.2-12.0 [facility] Comment on above: Performed By: #### L 500.2900, L400.0100, L100.0200 #### [facility] [address] [place], [address] Platelets (Bld) [#/Vol] 305 10*3/uL Normal 150-450 [facility] Comment on above: Performed By: #### L 500.2900, L400.0100, L100.0200 #### [facility] [address] [place], [address] RBC (Bld) [#/Vol] 4.84 10*6/uL Normal 4.2-5.4 [facility] Comment on above: Performed By: #### L 500.2900, L400.0100, L100.0200 #### [facility] [address] [place], [address] RDW SD 40.7 fl Normal 35.1-43.9 [facility] Comment on above: Performed By: #### L 500.2900, L400.0100, L100.0200 #### [facility] [address] [place], [address] WBC (Bld) [#/Vol] 8.2 10*3/uL Normal 4.4-11.0 [facility] Comment on above: Performed By: #### L 500.2900, L400.0100, L100.0200 #### [facility] [address] [place], [address] Employee [employer] 4 Albumin [Mass/Vol] 2.9 g/dL Low 3.2-5.0 [facility] Comment on above: Performed By: #### L 500.2900, L400.0100, L100.0200 #### [facility] [address] [place], [address] Albumin/Globulin [Mass ratio] 0.7 {ratio} Low 0.9-2.4 [facility] Comment on above: Performed By: #### L 500.2900, L400.0100, L100.0200 #### [facility] [address] [place], [address] ALK P 95 U/L Normal 45-117 [facility] Comment on above: Performed By: #### L 500.2900, L400.0100, L100.0200 #### [facility] [address] [place], [address] ALT [Catalytic activity/Vol] 20 U/L Normal 13-56 [facility] Comment on above: Performed By: #### L 500.2900, L400.0100, L100.0200 #### [facility] [address] [place], [address] AST [Catalytic activity/Vol] 13 U/L Low 15-37 [facility] Comment on above: Performed By: #### L 500.2900, L400.0100, L100.0200 #### [facility] [address] [place], [address] Bilirubin [Mass/Vol] 0.40 mg/dL Normal 0.20-1.00 [facility] Comment on above: Result Comment: For patients on eltrombopag therapy, use of Dimension [place] TBIL is not recommended. Performed By: #### L 500.2900, L400.0100, L100.0200 #### [facility] [address] [place], [address] Bilirubin.direct [Mass/Vol] 0.11 mg/dL Normal 0.00-0.30 [facility] Comment on above: Performed By: #### L 500.2900, L400.0100, L100.0200 #### [facility] [address] [place], [address] BUN/CRE 10.4 RATIO Normal 10-20 [facility] Comment on above: Performed By: #### L 500.2900, L400.0100, L100.0200 #### [facility] [address] [place], [address] CA,Total 8.4 mg/dL Low 8.5-10.1 [facility] Comment on above: Performed By: #### L 500.2900, L400.0100, L100.0200 #### [facility] [address] [place], [address] Chloride [Moles/Vol] 105 mmol/L Normal 98-107 [facility] Comment on above: Performed By: #### L 500.2900, L400.0100, L100.0200 #### [facility] [address] [place], [address] CHOL:HDL 3.70 Normal [facility] Comment on above: Performed By: #### L 500.2900, L400.0100, L100.0200 #### [facility] [address] [place], [address] Cholesterol [Mass/Vol] 155 mg/dL Normal 200 [facility] Comment on above: Result Comment: <200 mg/dL Desirable 200-240 mg/dL Borderline >240 mg/dL High Risk Performed By: #### L 500.2900, L400.0100, L100.0200 #### [facility] [address] [place], [address] Cholesterol in HDL [Mass/Vol] 42 mg/dL Normal [facility] Comment on above: Result Comment: The drugs N-Acetylcysteine and Metamizole may falsely depress this assay. Reference Range HDL <40 mg/dL Low HDL Cholesterol HDL >or= 60 mg/dL High HDL Cholesterol Performed By: #### L 500.2900, L400.0100, L100.0200 #### [facility] [address] [place], [address] Cholesterol in LDL [Mass/Vol] 82 mg/dL Normal 0-130 [facility] Comment on above: Performed By: #### L 500.2900, L400.0100, L100.0200 #### [facility] [address] [place], [address] Cholesterol in VLDL [Mass/Vol] 31 mg/dL Normal 5-40 [facility] Comment on above: Performed By: #### L 500.2900, L400.0100, L100.0200 #### [facility] [address] [place], [address] CO2 [Moles/Vol] 29.0 mmol/L Normal 21.0-32.0 [facility] Comment on above: Performed By: #### L 500.2900, L400.0100, L100.0200 #### [facility] [address] [place], [address] Creatinine [Mass/Vol] 0.77 mg/dL Normal 0.55-1.02 [facility] Comment on above: Result Comment: The validity of the calculated GFR GFRAA in patients over 70 years has not been determined. Clinical correlation is essential. Performed By: #### L 500.2900, L400.0100, L100.0200 #### [facility] [address] [place], [address] EST GFR - AA 107 mL/min Normal >60 [facility] Comment on above: Result Comment: Afri can Pakistani GFR Calc Performed By: #### L 500.2900, L400.0100, L100.0200 #### [facility] [address] [place], [address] GAP 5 Normal 5-15 [facility] Comment on above: Performed By: #### L 500.2900, L400.0100, L100.0200 #### [facility] [address] [place], [address] GFR/1.73 sq M.predicted among non-blacks MDRD (S/P/Bld) [Vol rate/Area] 88 mL/min/{1.73_m2} Normal >60 [facility] Comment on above: Result Comment: Non- GFR Calc Performed By: #### L 500.2900, L400.0100, L100.0200 #### [facility] [address] [place], [address] Globulin (S) [Mass/Vol] 4.2 g/dL Normal 2.2-4.2 [facility] Comment on above: Performed By: #### L 500.2900, L400.0100, L100.0200 #### [facility] [address] [place], [address] Glucose [Mass/Vol] 98 mg/dL Normal 74-106 [facility] Comment on above: Performed By: #### L 500.2900, L400.0100, L100.0200 #### [facility] [address] [place], [address] LDH 171 U/L Normal 84-246 [facility] Comment on above: Performed By: #### L 500.2900, L400.0100, L100.0200 #### [facility] [address] [place], [address] Phosphate [Mass/Vol] 3.3 mg/dL Normal 2.5-4.9 [facility] Comment on above: Performed By: #### L 500.2900, L400.0100, L100.0200 #### [facility] [address] [place], [address] Potassium [Moles/Vol] 4.0 mmol/L Normal 3.5-5.1 [facility] Comment on above: Performed By: #### L 500.2900, L400.0100, L100.0200 #### [facility] [address] [place], [address] Sodium [Moles/Vol] 139 mmol/L Normal 136-145 [facility] Comment on above: Performed By: #### L 500.2900, L400.0100, L100.0200 #### [facility] [address] [place], [address] T PROT 7.1 g/dL Normal 6.4-8.2 [facility] Comment on above: Performed By: #### L 500.2900, L400.0100, L100.0200 #### [facility] [address] [place], [address] Triglyceride [Mass/Vol] 154 mg/dL Normal [facility] Comment on above: Result Comment: The drugs N-Acetylcysteine and Metamizole may falsely depress this assay. Serum Triglycerides Reference Interval Normal <150 mg/dL Borderline high 150 - 199 mg/dL High 200 - 499 mg/dL Very High > or = 500 mg/dL Performed By: #### L 500.2900, L400.0100, L100.0200 #### [facility] [address] [place], [address] Urea nitrogen [Mass/Vol] 8 mg/dL Normal 7-18 [facility] Comment on above: Performed By: #### L 500.2900, L400.0100, L100.0200 #### [facility] [address] [place], [address] URIC 7.8 mg/dL High 2.6-6.0 [facility] Comment on above: Result Comment: The drugs N-Acetylcysteine and Metamizole may falsely depress this assay. Performed By: #### L 500.2900, L400.0100, L100.0200 #### [facility] [address] [place], [address] Urinalysis, Employeeon 03-30 BILIRUBIN URINE Normal Negative [facility] Comment on above: Result Comment: NOT COLLECTED Performed By: #### L 500.2900, L400.0100, L100.0200 ####[facility] [address] [place], [address] Clarity (U) Normal Clear [facility] Comment on above: Result Comment: NOT COLLECTED Performed By: #### L 500.2900, L400.0100, L100.0200 ####[facility] [address] [place], [address] Color (U) Normal Yellow [facility] Comment on above: Result Comment: NOT COLLECTED Performed By: #### L 500.2900, L400.0100, L100.0200 ####[facility] [address] [place], [address] GLUCOSE, UR Normal Normal [facility] Comment on above: Result Comment: NOT COLLECTED Performed By: #### L 500.2900, L400.0100, L100.0200 ####[facility] [address] [place], [address] KETONE UR Normal Negative [facility] Comment on above: Result Comment: NOT COLLECTED Performed By: #### L 500.2900, L400.0100, L100.0200 ####[facility] [address] [place], [address] LEUK ESTERASE Normal Negative [facility] Comment on above: Result Comment: NOT COLLECTED Performed By: #### L 500.2900, L400.0100, L100.0200 ####[facility] [address] [place], [address] Nitrite Ql (U) Normal Negative [facility] Comment on above: Result Comment: NOT COLLECTED Performed By: #### L 500.2900, L400.0100, L100.0200 ####[facility] [address] [place], [address] OCCULT BLOOD-UR Normal Negative [facility] Comment on above: Result Comment: NOT COLLECTED Performed By: #### L 500.2900, L400.0100, L100.0200 ####[facility] [address] [place], [address] pH UR Normal 5.0 - 8.0 [facility] Comment on above: Result Comment: NOT COLLECTED Performed By: #### L 500.2900, L400.0100, L100.0200 ####[facility] [address] [place], [address] PROT DIPSTX Normal Negative [facility] Comment on above: Result Comment: NOT COLLECTED Performed By: #### L 500.2900, L400.0100, L100.0200 ####[facility] [address] [place], [address] SP.GR. DIPSTX Normal 1.002-1.030 [facility] Comment on above: Result Comment: NOT COLLECTED Performed By: #### L 500.2900, L400.0100, L100.0200 ####[facility] [address] [place], [address] UR Preservative Normal [facility] Comment on above: Result Comment: NOT COLLECTED Performed By: #### L 500.2900, L400.0100, L100.0200 ####[facility] [address] [place], [address] UROBILI Normal Normal [facility] Comment on above: Result Comment: NOT COLLECTED Performed By: #### L 500.2900, L400.0100, L100.0200 ####[facility] [address] [place], [address] Culture, urineOrdered By: St adneike Blankenship on 12-02-2023 Bacteria identified Cx Nom (U) Escherichia coli [facility] - Chemistry and C hemistry - challengeon 12-02-2023 HCG ( test) Ql (U) Negative [facility] Bilirubin Ql (U) Negative [facility] Glucose Ql (U) Negative [facility] Ketones Ql (U) Negative [facility] pH (U) 6.0 [pH] [facility] Specific gravity (U) [Rel density] 1.015 [facility] Urobilinogen (U) [Mass/Vol] Negative [facility] - Hematology and Cell countson 12-02-2023 Hemoglobin Ql (U) Trace [facility] - Specimen inform ationon 12-02-2023 Clarity (U) Clear [facility] Color (U) Dk Yellow [facility] - Urinalysison Nitrite Ql (U) Negative [facility] Protein Ql (U) Negative [facility] No Panel Informationon 12-01 Urine Leukocytes Positive [facility] Urine Non-Hemolyzed Blood [facility] No Panel InformationOrdered By: Kevin Friend on 05-11-2023 Stool Calprotectin 287 ug/g 0-120 [facility] Comment on above: Concentration Interp retation Follow-Up< 5 - 50 ug/g Normal None>50 -120 ug/g Borderline Re-evaluate in 4-6 weeks >120 ug/g Abnormal Repeat as clinically indicatedPerformed at: - [address] [id number] Director: Abdiel Randolph MD, Phone: [phone] Stool Pancreatic Elastase 449 >200 [facility] Comment on above: Result Units: ug Nayla st./g Severe Pancreatic Insufficiency: <100 Moderate Pancreatic Insufficiency: 100 - 200 Normal: >200Performed at: - [address] [id number] Director: Abdiel Randolph MD, Phone: [phone] Stool lactoferrin detection by immunoassayOrdered By: Kevin Chakraborty on 05-11-2023 Lactoferrin IA Ql (Stl) [facility] Lactoferrin IA Ql (Stl) [facility] Absolute lymphocyte countOrd ered By: HEALTH ASSESSMENT on 03-22-2023 Lymphocytes Auto (Unsp spec) [#/Vol] 2.28 10*3/uL 0.83-4.51 [facility] Absolute reticulocyte countO rdered By: HEALTH ASSESSMENT on 03-22-2023 Reticulocytes (Bld) [#/Vol] 0.00 10*3/uL 0-5 [facility] Basophil percentageOrdered B y: HEALTH ASSESSMENT on 03-22-2023 Basophil percentage 3.8 mg/dL 2.5-4.9 [facility] Bilirubin [Mass/Vol] 0.40 mg/dL 0.20-1.00 [facility] Comment on above: For patients on eltr ombopag therapy, use of Dimension [place] TBIL is not recommended. Chloride [Moles/Vol] 106 mmol/L 98-107 [facility] Cholesterol [Mass/Vol] 124 mg/dL <200 [facility] Comment on above: <200 mg/dL Desirable 200-240 mg/dL Borderline >240 mg/dL High Risk Glucose [Mass/Vol] 103 mg/dL 74-106 [facility] Comment on above: Fasting Glucose resu lt from 100 to 125 mg/dL suggests IMPAIRED HOMEOSTASIS per A.D.A. criteria. LDH [Catalytic activity/Vol] 147 U/L 84-246 [facility] Neutrophils (Bld) [#/Vol] 5.9 10*3/uL 2.0-7.7 [facility] Potassium [Moles/Vol] 4.0 mmol/L 3.5-5.1 [facility] Protein [Mass/Vol] 7.6 g/dL 6.4-8.2 [facility] Sodium [Moles/Vol] 137 mmol/L 136-145 [facility] Triglyceride [Mass/Vol] 160 mg/dL <199 [facility] Comment on above: The drugs N-Acetylcy steine and Metamizole may falsely depress this assay.Serum Triglycerides Reference Interval Normal <150 mg/dL Borderline high 150 - 199 mg/dL High 200 - 499 mg/dL Very High > or = 500 mg/dL WBC (Bld) [#/Vol] 8.8 10*3/uL 4.4-11.0 [facility] Blood erythrocytes count (nu mber/volume)Ordered By: HEALTH ASSESSMENT on 03-22-2023 RBC (Bld) [#/Vol] 4.97 10*6/uL 4.2-5.4 [facility] Blood hemoglobin measurement (mass/volume)Ordered By: HEALTH ASSESSMENT on 03-22-2023 Hemoglobin (Bld) [Mass/Vol] 13.1 g/dL 12.0-15.0 [facility] Blood leukocytes count corre cted for nucleated erythrocytes (number/volume)Ordered By: HEALTH ASSESSMENT on 03-22-2023 WBC corrected for nucl RBC (Bld) [#/Vol] TRAFFIC SAFETY ADMINISTRATOR [facility] Blood platelet mean volumeOr dered By: HEALTH ASSESSMENT on 03-22-2023 Platelet mean volume (Bld) [Entitic vol] 11.3 fL 6.2-12.0 [facility] Determination of erythrocyte mean corpuscular volume (MCV)Ordered By: HEALTH ASSESSMENT on 03-22-2023 MCV (RBC) [Entitic vol] 83.9 fL 81-99 [facility] Direct bilirubinOrdered By: HEALTH ASSESSMENT on 03-22-2023 Bilirubin.direct [Mass/Vol] 0.12 mg/dL 0.00-0.30 [facility] Hematocrit Auto (Bld) [Volum e fraction]Ordered By: HEALTH ASSESSMENT on 03-22-2023 Hematocrit (Bld) [Volume fraction] 41.7 % 37-47 [facility] - Chemistry and C hemistry - challengeOrdered By: HEALTH ASSESSMENT on 03-22-2023 ALP [Catalytic activity/Vol] 91 U/L 45-117 [facility] ALT [Catalytic activity/Vol] 19 U/L 13-56 [facility] Cholesterol.total/Cholest mariana in HDL [Mass ratio] 2.40 {ratio} [facility] CO2 [Moles/Vol] 27.0 mmol/L 21.0-32.0 [facility] Globulin (S) [Mass/Vol] 4.4 g/dL 2.2-4.2 [facility] Urea nitrogen/Creatinine [Mass ratio] 11.8 mg/mg 10-20 [facility] - Hematology and Cell countsOrdered By: HEALTH ASSESSMENT on 03-22-2023 Erythrocyte distribution width (RBC) [Entitic vol] 42.7 fL 35.1-43.9 [facility] Erythrocyte distribution width (RBC) [Ratio] 14.1 % 11.6-14.6 [facility] MCH (RBC) [Entitic mass] 26.4 pg 27.0-32.0 [facility] Nucleated RBC/100 WBC (Bld) [Ratio] 0 % 0-5 [facility] MCHC Auto (RBC) [Mass/Vol]Or dered By: HEALTH ASSESSMENT on 03-22-2023 MCHC (RBC) [Mass/Vol] 31.4 g/dL 32-36 [facility] No Panel InformationOrdered By: HEALTH ASSESSMENT on 03-22-2023 Estimated Creatinine Clearance Calc TRAFFIC SAFETY ADMINISTRATOR [facility] Estimated GFR (MDRD) Amer 108 mL/min >60 [facility] Comment on above: GFR Calc Estimated GFR (MDRD) Non-Af Amer 90 mL/min >60 [facility] Comment on above: Non- GFR Calc Immature Granulocyte % (Auto) TRAFFIC SAFETY ADMINISTRATOR [facility] Platelets bldOrdered By: HEA LTH ASSESSMENT on 03-22-2023 Platelets (Bld) [#/Vol] 300 10*3/uL 150-450 [facility] Review by pathologistOrdered By: HEALTH ASSESSMENT on 03-22-2023 Pathologist review Jason (Unsp spec) [Interp] TRAFFIC SAFETY ADMINISTRATOR [facility] Segmented neutrophils/100 WB C Auto (Bld)Ordered By: HEALTH ASSESSMENT on 03-22-2023 Segmented neutrophils/100 WBC (Bld) 66.9 % 47-70 [facility] Serum or plasma albumin malathi urement (mass/volume)Ordered By: HEALTH ASSESSMENT on 03-22-2023 Albumin [Mass/Vol] 3.2 g/dL 3.2-5.0 [facility] Serum or plasma albumin/glob ulin mass ratioOrdered By: HEALTH ASSESSMENT on 03-22-2023 Albumin/Globulin [Mass ratio] 0.7 {ratio} 0.9-2.4 [facility] Serum or plasma calcium malathi urement (mass/volume)Ordered By: HEALTH ASSESSMENT on 03-22-2023 Calcium [Mass/Vol] 9.0 mg/dL 8.5-10.1 [facility] Serum or plasma cholesterol in HDL measurement (mass/volume)Ordered By: HEALTH ASSESSMENT on 03-22-2023 Cholesterol in HDL [Mass/Vol] 51 mg/dL >40 [facility] Comment on above: The drugs N-Acetylcy steine and Metamizole may falsely depress this assay. Reference Range HDL <40 mg/dL Low HDL Cholesterol HDL >or= 60 mg/dL High HDL Cholesterol Serum or plasma cholesterol in VLDL measurement (mass/volume)Ordered By: HEALTH ASSESSMENT on 03-22-2023 Cholesterol in VLDL [Mass/Vol] 32 mg/dL 5-40 [facility] Serum or plasma creatinine m easurement (mass/volume)Ordered By: HEALTH ASSESSMENT on 03-22-2023 Creatinine [Mass/Vol] 0.76 mg/dL 0.55-1.02 [facility] Comment on above: The validity of the calculated GFR & GFRAA in patients over 70 years has not been determined. Clinical correlation is essential. Serum or plasma low density lipoprotein (LDL) cholesterol measurement (mass/volume)Ordered By: HEALTH ASSESSMENT on 03-22-2023 Cholesterol in LDL [Mass/Vol] 41 mg/dL 0-130 [facility] Serum or plasma urea nitroge n measurement (mass/volume)Ordered By: HEALTH ASSESSMENT on 03-22-2023 Urea nitrogen [Mass/Vol] 9 mg/dL 7-18 [facility] Serum or plasma uric acid me asurement (mass/volume)Ordered By: HEALTH ASSESSMENT on 03-22-2023 Urate [Mass/Vol] 6.9 mg/dL 2.6-6.0 [facility] Comment on above: The drugs N-Acetylcy steine and Metamizole may falsely depress this assay. Thin prep Papanicolaou smear with manual screeningOrdered By: HEALTH ASSESSMENT on 03-22-2023 Thin prep Papanicolaou smear with manual screening 11 U/L 15-37 [facility] Thin prep Papanicolaou smear with manual screening 4 5-15 [facility] - Chemistry and C hemistry - challengeOrdered By: Carlos Michael on 03-06-2023 HCG ( test) Ql (U) Negative [facility] Comment on above: Very dilute urine sp ecimens, as indicated by a low specificgravity, may not contain chain sales representative levels of hCG. If is still suspected, a first morning urinespecimen should be collected 48 hours later and tested. Absolute lymphocyte countOrd ered By: Carolyn Gaitan on 12-22-2022 Lymphocytes Auto (Unsp spec) [#/Vol] 2.78 10*3/uL 0.83-4.51 [facility] Basophil percentageOrdered B y: Carolyn Gaitan on 12-22-2022 Basophil percentage 0-5 SEEN /hpf 0-5 [facility] Basophils/100 WBC (Bld) 0.3 % 0-1 [facility] Chloride [Moles/Vol] 105 mmol/L 98-107 [facility] Eosinophils/100 WBC (Bld) 0.9 % 0-5 [facility] Glucose [Mass/Vol] 145 mg/dL 74-106 [facility] Comment on above: Fasting Glucose resu lt greater than or equal to 126 mg/dL suggests DIABETES MELLITUS per A.D.A. criteria. Neutrophils (Bld) [#/Vol] 6.7 10*3/uL 2.0-7.7 [facility] Neutrophils/100 WBC (Bld) 66.2 % 47-70 [facility] Potassium [Moles/Vol] 3.8 mmol/L 3.5-5.1 [facility] Sodium [Moles/Vol] 138 mmol/L 136-145 [facility] WBC (Bld) [#/Vol] 10.1 10*3/uL 4.4-11.0 [facility] Beta hCG serum qualOrdered B y: Carolyn Gaitan on 12-22-2022 Beta HCG ( test) Ql Negative [facility] Bilirubin Test strip Ql (U)O rdered By: Carolyn Gaitan on 12-22-2022 Bilirubin Ql (U) Negative Negative [facility] Blood erythrocytes count (nu mber/volume)Ordered By: Carolyn Gaitan on 12-22-2022 RBC (Bld) [#/Vol] 4.50 10*6/uL 4.2-5.4 [facility] Blood hemoglobin measurement (mass/volume)Ordered By: Carolyn Gaitan on 12-22-2022 Hemoglobin (Bld) [Mass/Vol] 12.3 g/dL 12.0-15.0 [facility] Blood lymphocytes/100 leukoc ytesOrdered By: Carolyn Gaitan on 12-22-2022 Lymphocytes/100 WBC (Bld) 27.4 % 19-41 [facility] Blood monocytes/100 leukocyt esOrdered By: Carolyn Gaitan on 12-22-2022 Monocytes/100 WBC (Bld) 4.9 % 0-10 [facility] Blood platelet mean volumeOr dered By: Carolyn Gaitan on 12-22-2022 Platelet mean volume (Bld) [Entitic vol] 10.1 fL 6.2-12.0 [facility] Determination of erythrocyte mean corpuscular volume (MCV)Ordered By: Carolyn Gaitan on 12-22-2022 MCV (RBC) [Entitic vol] 81.8 fL 81-99 [facility] Hematocrit Auto (Bld) [Volum e fraction]Ordered By: Carolyn Gaitan on 12-22-2022 Hematocrit (Bld) [Volume fraction] 36.8 % 37-47 [facility] Ketones Test strip Ql (U)Ord ered By: Carolyn Gaitan on 12-22-2022 Ketones Ql (U) Negative Negative [facility] - Chemistry and C hemistry - challengeOrdered By: Carolyn Gaitan on 12-22-2022 CO2 [Moles/Vol] 25.0 mmol/L 21.0-32.0 [facility] Urea nitrogen/Creatinine [Mass ratio] 12.4 mg/mg 10-20 [facility] - Hematology and Cell countsOrdered By: Carolyn Gaitan on 12-22-2022 Erythrocyte distribution width (RBC) [Entitic vol] 43.2 fL 35.1-43.9 [facility] Erythrocyte distribution width (RBC) [Ratio] 14.6 % 11.6-14.6 [facility] Immature granulocytes/100 WBC (Bld) 0.300 % 0.0-0.9 [facility] Comment on above: IG% - Immature Granu locytes (promyelocytes, myelocytes and metamyelocytes) > 1% indicates that a LEFT SHIFT is Present. MCH (RBC) [Entitic mass] 27.3 pg 27.0-32.0 [facility] Nucleated RBC/100 WBC (Bld) [Ratio] 0 % 0-5 [facility] MCHC Auto (RBC) [Mass/Vol]Or dered By: Carolyn Gaitan on 12-22-2022 MCHC (RBC) [Mass/Vol] 33.4 g/dL 32-36 [facility] Mucus LM Ql (Urine sed)Order ed By: Carolyn Gaitan on 12-22-2022 Mucus Ql (Urine sed) 0 SEEN /hpf [facility] Nitrite Test strip Ql (U)Ord ered By: Carolyn Gaitan on 12-22-2022 Nitrite Ql (U) Negative Negative [facility] No Panel InformationOrdered By: Carolyn Gaitan on 12-22-2022 Estimated Creatinine Clearance Calc 80.35 ml/min [facility] Estimated GFR (MDRD) Amer 91 mL/min >60 [facility] Comment on above: GFR Calc Estimated GFR (MDRD) Non-Af Amer 76 mL/min >60 [facility] Comment on above: Non- GFR Calc Platelets bldOrdered By: Nasrin Gaitan on 12-22-2022 Platelets (Bld) [#/Vol] 276 10*3/uL 150-450 [facility] Protein Test strip Ql (U)Ord ered By: Carolyn Gaitan on 12-22-2022 Protein Ql (U) Negative Negative [facility] Serum or plasma calcium malathi urement (mass/volume)Ordered By: Carolyn Gaitan on 12-22-2022 Calcium [Mass/Vol] 8.9 mg/dL 8.5-10.1 [facility] Serum or plasma creatinine m easurement (mass/volume)Ordered By: Carolyn Gaitan on 12-22-2022 Creatinine [Mass/Vol] 0.88 mg/dL 0.55-1.02 [facility] Comment on above: The validity of the calculated GFR & GFRAA in patients over 70 years has not been determined. Clinical correlation is essential. Serum or plasma urea nitroge n measurement (mass/volume)Ordered By: Carolyn Gaitan on 12-22-2022 Urea nitrogen [Mass/Vol] 11 mg/dL 7-18 [facility] Squamous epithelial cells de tection in urine sediment by light microscopyOrdered By: Carolyn Gaitan on 12-22-2022 Epithelial cells.squamous LM Ql (Urine sed) 0-5 SEEN /hpf 5-10 [facility] Thin prep Papanicolaou smear with manual screeningOrdered By: Carolyn Gaitan on 12-22-2022 Thin prep Papanicolaou smear with manual screening 8 5-15 [facility] Urine blood detectionOrdered By: Carolyn Gaitan on 12-22-2022 RBC Ql (U) Negative Negative [facility] RBC Ql (U) 0 SEEN /hpf 0-5 [facility] Urine clarityOrdered By: Nasrin Gaitan on 12-22-2022 Clarity (U) Clear Clear [facility] Urine color determinationOrd ered By: Carolyn Gaitan on 12-22-2022 Color (U) Yellow Yellow [facility] Urine glucose detectionOrder ed By: Carolyn Gaitan on 12-22-2022 Glucose Ql (U) Normal mg/dl Normal [facility] Urine leukocyte esterase det ection by dipstickOrdered By: Carolyn Gaitan on 12-22-2022 Leukocyte esterase Test strip Ql (U) 100 /ul Negative [facility] Urine pHOrdered By: Carolyn Gaitan on 12-22-2022 pH (U) 6.5 [pH] 5.0 - 8.0 [facility] Urine sediment bacteria coun t by microscopy (number/high power field)Ordered By: Carolyn Gaitan on 12-22-2022 Bacteria LM.HPF (Urine sed) [#/Area] RARE /hpf None Seen [facility] Urine specific gravity measu rementOrdered By: Carolyn Gaitan on 12-22-2022 Specific gravity (U) [Rel density] 1.010 1.002-1.030 [facility] Urobilinogen Auto test strip Ql (U)Ordered By: Carolyn Gaitan on 12-22-2022 Urobilinogen Ql (U) Normal mg/dl Normal [facility] Absolute lymphocyte countOrd ered By: Kevin Chakraborty on 12-11-2022 Lymphocytes Auto (Unsp spec) [#/Vol] 2.17 10*3/uL 0.83-4.51 [facility] Albumin Elph [Mass/Vol]Order ed By: Kevin Chakraborty on 12-11-2022 Albumin [Mass/Vol] 3.4 g/dL 2.9-4.4 [facility] Alternaria alternata IgE ser umOrdered By: Kevin Chakraborty on 12-11-2022 A. alternata IgE Qn (S) <0.10 kU/L Class 0 [facility] Atypical perinuclear antineu trophil cytoplasmic antibodies measurementOrdered By: Kevin Chakraborty on 12-11-2022 Neutrophil cytoplasmic Ab.perinuclear.atypical IF (S) [Titer] <1:20 titer Neg:<1:20 [facility] Comment on above: The atypical pANCA p attern has been observed in asignificant percentage of patients with ulcerative colitis,primary sclerosing cholangitis and autoimmune hepatitis.Performed at: [facility] [address] [id number] Director: Crow Berrios PhD, Phone: [phone] at: [facility] [address] [id number] Director: Abdiel Randolph MD, Phone: [phone] Basophil percentageOrdered B y: Kevin Chakraborty on 12-11-2022 Basophil percentage < 0.2 AI 0.0-0.9 [facility] Basophils/100 WBC (Bld) 0.4 % 0-1 [facility] Bilirubin [Mass/Vol] 0.20 mg/dL 0.20-1.00 [facility] Comment on above: For patients on eltr ombopag therapy, use of Dimension [place] TBIL is not recommended. Chloride [Moles/Vol] 110 mmol/L 98-107 [facility] Eosinophils/100 WBC (Bld) 1.0 % 0-5 [facility] Glucose [Mass/Vol] 100 mg/dL 74-106 [facility] Comment on above: Fasting Glucose resu lt from 100 to 125 mg/dL suggests IMPAIRED HOMEOSTASIS per A.D.A. criteria. LDH [Catalytic activity/Vol] 158 U/L 84-246 [facility] Neutrophils (Bld) [#/Vol] 7.1 10*3/uL 2.0-7.7 [facility] Neutrophils/100 WBC (Bld) 71.5 % 47-70 [facility] Potassium [Moles/Vol] 4.1 mmol/L 3.5-5.1 [facility] Protein [Mass/Vol] 7.6 g/dL 6.4-8.2 [facility] Sodium [Moles/Vol] 140 mmol/L 136-145 [facility] WBC (Bld) [#/Vol] 9.9 10*3/uL 4.4-11.0 [facility] Blood erythrocytes count (nu mber/volume)Ordered By: Kevin Chakraborty on 12-11-2022 RBC (Bld) [#/Vol] 4.84 10*6/uL 4.2-5.4 [facility] Blood hemoglobin measurement (mass/volume)Ordered By: Kevin Chakraborty on 12-11-2022 Hemoglobin (Bld) [Mass/Vol] 12.8 g/dL 12.0-15.0 [facility] Blood lymphocytes/100 leukoc ytesOrdered By: Kevin Chakraborty on 12-11-2022 Lymphocytes/100 WBC (Bld) 21.9 % 19-41 [facility] Blood monocytes/100 leukocyt esOrdered By: Kevin Chakraborty on 12-11-2022 Monocytes/100 WBC (Bld) 4.8 % 0-10 [facility] Blood platelet mean volumeOr dered By: Kevin Chakraborty on 12-11-2022 Platelet mean volume (Bld) [Entitic vol] 10.4 fL 6.2-12.0 [facility] Chocolate RASTOrdered By: Ra tone Chakraborty on 12-11-2022 Chocolate IgE Qn (S) <0.10 kU/L Class 0 [facility] Comment on above: Performed at: [facility] [employer] [address] [id number] Director: Crow Berrios PhD, Phone: [phone] at: [address] [id number] Director: Abdiel Randolph MD, Phone: [phone] Determination of erythrocyte mean corpuscular volume (MCV)Ordered By: Kevin Chakraborty on 12-11-2022 MCV (RBC) [Entitic vol] 82.2 fL 81-99 [facility] Erythrocyte sedimentation ra teOrdered By: Kevin Chakraborty on 12-11-2022 ESR (Bld) [Velocity] 27 mm/h 0-30 [facility] System Hematocrit Auto (Bld) [Volum e fraction]Ordered By: Kevin Chakraborty on 12-11-2022 Hematocrit (Bld) [Volume fraction] 39.8 % 37-47 [facility] Interpretation of serum or p lasma protein pattern by immunofixation (narrative resultOrdered By: Kevin Chakraborty on 12-11-2022 Protein Fractions Immunofixation Jason [Interp] See comment [facility] Comment on above: NOT OBSERVED Laboratory - Chemistry and C hemistry - challengeOrdered By: Kevin Chakraborty on 12-11-2022 ALP [Catalytic activity/Vol] 81 U/L 45-117 [facility] ALT [Catalytic activity/Vol] 21 U/L 13-56 [facility] CO2 [Moles/Vol] 26.0 mmol/L 21.0-32.0 [facility] Urea nitrogen/Creatinine [Mass ratio] 12.1 mg/mg 10-20 [facility] Laboratory - Hematology and Cell countsOrdered By: Kevin Chakraborty on 12-11-2022 Erythrocyte distribution width (RBC) [Entitic vol] 42.8 fL 35.1-43.9 [facility] Erythrocyte distribution width (RBC) [Ratio] 14.5 % 11.6-14.6 [facility] Immature granulocytes/100 WBC (Bld) 0.400 % 0.0-0.9 [facility] Comment on above: IG% - Immature Granu locytes (promyelocytes, myelocytes and metamyelocytes) > 1% indicates that a LEFT SHIFT is Present. MCH (RBC) [Entitic mass] 26.4 pg 27.0-32.0 [facility] Nucleated RBC/100 WBC (Bld) [Ratio] 0 % 0-5 [facility] Laboratory - Miscellaneous t estsOrdered By: Kevin Chakraborty on 12-11-2022 Service comment (Unsp spec) [Interp] Comment . [facility] Comment on above: Levels of Specific I gE Class Description of Class ----- < 0.10 0 Negative 0.10 - 0.31 0/I Equivocal/Low 0.32 - 0.55 I Low 0.56 - 1.40 II Moderate 1.41 - 3.90 III High 3.91 - 19.00 IV Very High 19.01 - 100.00 V Very High >100.00 Very High MCHC Auto (RBC) [Mass/Vol]Or dered By: Kevin Chakraborty on 12-11-2022 MCHC (RBC) [Mass/Vol] 32.2 g/dL 32-36 [facility] No Panel InformationOrdered By: Kevin Chakraborty on 12-11-2022 Addendum Document Comment . [facility] Comment on above: Protein electrophore sis scan will follow via computer,mail, or jet pilot delivery. Centromere B Antibody <0.2 AI 0.0-0.9 [facility] Common Ragweed (Short) Allergen <0.10 kU/L Class 0 [facility] Endomysial IgA Antibody Negative Negative [facility] Cayman Islander Plantain Allergen (RAST) <0.10 kU/L Class 0 [facility] Estimated GFR (MDRD) Amer 112 mL/min >60 [facility] Comment on above: GFR Calc Estimated GFR (MDRD) Non-Af Amer 92 mL/min >60 [facility] Comment on above: Non- GFR Calc Immunoglobulin E 8 IU/mL 6-495 [facility] Miscellaneous Test See comment [facility] Comment on above: TEST RESULT LIMITSIB D Expanded Panel Iveth 56 High units 0-50 Negative <45 Equivocal 45 - 50 Positive >50 ACCA 9 units 0-90 Negative <80 Equivocal 80 - 90 Positive >90 ALCA 8 units 0-60 Negative <55 Equivocal 55 - 60 Positive >60 AMCA 16 units 0-100 Negative < 90 Equivocal 90 - 100 Positive >100 This test was developed and its performance characteristics determined by [facility]. It has not been cleared or approved by the Food and Drug Administration. The FDA has determined that such clearance or approval is not necessary.Atypical pANCA Negative Negative Comments Suggestive of Crohn's Disease. Pattern is not conclusive for disease behavior risk stratification. TESTING PERFORMED AT [facility]. ORIGINAL REPORT ON FILE IN LAB CONTAINS ADDITIONAL TEST SITE INFORMATION. Mouse Urine Allergen IgE Antibody <0.10 kU/L Class 0 [facility] MARKETING INSTRUCTOR Antibody <0.2 AI 0.0-0.9 [facility] Seafood Group Allergens (RAST) Negative . [facility] Comment on above: Allergens in this mi x are: Blue mussel Fish [place] Shrimp Tuna Platelets bldOrdered By: Etienne barnett Friend on 12-11-2022 Platelets (Bld) [#/Vol] 286 10*3/uL 150-450 [facility] Serum Bermuda grass IgE anti body assay (units/volume)Ordered By: Kevin Chakraborty on 12-11-2022 Bermuda grass IgE Qn (S) <0.10 kU/L Class 0 [facility] Serum DNA double strand anti body assay (units/volume)Ordered By: Kevin Chakraborty on 12-11-2022 DNA double strand Ab Qn (S) [IU]/mL 0-9 [facility] Comment on above: Negative <5 Equivoca l 5 - 9 Positive >9 Serum Dermatophagoides farin ae specific IgE antibody assay (units/volume)Ordered By: Kevin Chakraborty on 12-11-2022 Pakistani house dust mite IgE Qn (S) <0.10 kU/L Class 0 [facility] Serum house dust mi te IgE antibody assay (units/volume)Ordered By: Kevin Chakraborty on 12-11-2022 house dust mite IgE Qn (S) <0.10 kU/L Class 0 [facility] Serum Yadira-1 antibody assay (u nits/volume)Ordered By: Kevin Chakraborty on 12-11-2022 Yadira-1 extractable nuclear Ab Qn (S) <0.2 AI 0.0-0.9 [facility] Serum [place] blue grass Ig E antibody assay (units/volume)Ordered By: Kevin Chakraborty on 12-11-2022 [place] blue grass IgE Qn (S) <0.10 kU/L Class 0 [facility] Serum Scl-70 extractable nuc lear antibody assay (units/volume)Ordered By: Kevin Chakraborty on 12-11-2022 SCL-70 extractable nuclear Ab Qn (S) <0.2 AI 0.0-0.9 [facility] Serum Coulter extractable nucl ear antibody detectionOrdered By: Kevin Chakraborty on 12-11-2022 Coulter extractable nuclear Ab Ql (S) <0.2 AI 0.0-0.9 [facility] Serum [id number] measu rement by electrophoresisOrdered By: Kevin Chakraborty on 12-11-2022 Alpha 1 globulin Elph [Mass/Vol] 0.3 g/dL 0.0-0.4 [facility] Alpha 1 globulin Elph [Mass/Vol] 0.9 g/dL 0.4-1.0 [facility] Serum beef IgE antibody assa y (units/volume)Ordered By: Kevin Chakraborty on 12-11-2022 Beef IgE Qn (S) <0.10 kU/L Class 0 [facility] Serum cat dander IgE antibod y assay (units/volume)Ordered By: Kevin Chakraborty on 12-11-2022 Cat dander IgE Qn (S) <0.10 kU/L Class 0 [facility] Serum classic neutrophil cyt oplasmic antibody assay (units/volume)Ordered By: Kevin Chakraborty on 12-11-2022 Neutrophil cytoplasmic Ab.classic Qn (S) <1:20 titer Neg:<1:20 [facility] Serum corn IgE antibody assa y (units/volume)Ordered By: Kevin Chakraborty on 12-11-2022 [place] IgE Qn (S) <0.10 kU/L Class 0 [facility] Serum cow milk IgE antibody assay (units/volume)Ordered By: Kevin Chakraborty on 12-11-2022 Cow milk IgE Qn (S) <0.10 kU/L Class 0 [facility] Serum dog epithelium IgE ant ibody assay (units/volume)Ordered By: Kevin Chakraborty on 12-11-2022 Dog epithelium IgE Qn (S) <0.10 kU/L Class 0 [facility] Serum globulin measurement ( mass/volume)Ordered By: Kevin Chakraborty on 12-11-2022 Globulin (S) [Mass/Vol] 3.6 g/dL 2.2-3.9 [facility] Serum or plasma C reactive p rotein measurement (mass/volume)Ordered By: eKvin Chakraborty on 12-11-2022 CRP [Mass/Vol] 31.10 mg/L 0.0-3.0 [facility] Comment on above: C-Reactive Protein ( CRP) provides useful information for thediagnosis, therapy and monitoring of inflammatory processesand associated diseases. For the evaluation of Relative Riskfor Cardiovascular Disease, a High Sensitivity CRP (HSCRP)should be ordered. Serum or plasma IgA measurem ent (mass/volume)Ordered By: Kevin Chakraborty on 12-11-2022 IgA [Mass/Vol] 216 mg/dL 87-352 [facility] Serum or plasma IgG measurem ent (mass/volume)Ordered By: Kevin Chakraborty on 12-11-2022 IgG [Mass/Vol] 1175 mg/dL 586-1602 [facility] Serum or plasma IgM measurem ent (mass/volume)Ordered By: Kevin Chakraborty on 12-11-2022 IgM [Mass/Vol] 167 mg/dL 26-217 [facility] Serum or plasma albumin malathi urement (mass/volume)Ordered By: Kevin Chakraborty on 12-11-2022 Albumin [Mass/Vol] 3.1 g/dL 3.2-5.0 [facility] Serum or plasma albumin/glob ulin mass ratioOrdered By: Kevin Chakraborty on 12-11-2022 Albumin/Globulin [Mass ratio] 0.7 {ratio} 0.9-2.4 [facility] Serum or plasma beta globuli n measurement by electrophoresis (mass/volume)Ordered By: Kevin Chakraborty on 12-11-2022 Beta globulin Elph [Mass/Vol] 1.2 g/dL 0.7-1.3 [facility] Serum or plasma calcium malathi urement (mass/volume)Ordered By: Kevin Chakraborty on 12-11-2022 Calcium [Mass/Vol] 8.8 mg/dL 8.5-10.1 [facility] Serum or plasma creatinine m easurement (mass/volume)Ordered By: Kevin Chakraborty on 12-11-2022 Creatinine [Mass/Vol] 0.74 mg/dL 0.55-1.02 [facility] Comment on above: The validity of the calculated GFR & GFRAA in patients over 70 years has not been determined. Clinical correlation is essential. Serum or plasma gamma globul in measurement by electrophoresis (mass/volume)Ordered By: Kevin Chakraborty on 12-11-2022 Gamma globulin Elph [Mass/Vol] 1.1 g/dL 0.4-1.8 [facility] Serum or plasma immunoelectr ophoresis interpretation (nominal result)Ordered By: Kevin Chakraborty on 12-11-2022 Interpretation IEP [Interp] Comment . [facility] Comment on above: No monoclonality det ected. Serum or plasma urea nitroge n measurement (mass/volume)Ordered By: Kevin Chakraborty on 12-11-2022 Urea nitrogen [Mass/Vol] 9 mg/dL 7-18 [facility] Serum peanut IgE antibody as say (units/volume)Ordered By: Kevin Chakraborty on 12-11-2022 Peanut IgE Qn (S) <0.10 kU/L Class 0 [facility] Serum perinuclear neutrophil cytoplasmic antibody titer by immunofluorescenceOrdered By: Kevin Chakraborty on 12-11-2022 Neutrophil cytoplasmic Ab.perinuclear IF (S) [Titer] <1:20 titer Neg:<1:20 [facility] Comment on above: The presence of posi tive fluorescence exhibiting P-ANCA orC-ANCA patterns alone is not specific for the diagnosis ofWegener's Granulomatosis (WG) or microscopic polyangiitis.Decisions about treatment should not be based solely onANCA IFA results. The International ANCA Group Consensusrecommends follow up testing of positive sera with both UT-3 and MPO-ANCA enzyme immunoassays. As many as 5% serumsamples are positive only by EIA. Ref. AM J Clin [id number];111:507-513. Serum pork IgE antibody assa y (units/volume)Ordered By: Kevin Chakraborty on 12-11-2022 Pork IgE Qn (S) <0.10 kU/L Class 0 [facility] Serum soybean IgE antibody a ssay (units/volume)Ordered By: Kevin Chakraborty on 12-11-2022 Soybean IgE Qn (S) <0.10 kU/L Class 0 [facility] Serum tissue transglutaminas e IgA antibody assay (units/volume)Ordered By: Kevin Chakraborty on 12-11-2022 tTG IgA Qn (S) <2 U/mL 0-3 [facility] Comment on above: Negative 0 - 3 Weak Positive 4 - 10 Positive >10 Tissue Transglutaminase (tTG) has been identified as the endomysial antigen. Studies have demonstr- ated that endomysial IgA antibodies have over 99% specificity for gluten sensitive enteropathy. Serum wheat IgE antibody ass ay (units/volume)Ordered By: Kevin Chakraborty on 12-11-2022 Wheat IgE Qn (S) <0.10 kU/L Class 0 [facility] Serum white elm IgE antibody assay (units/volume)Ordered By: Kevinrico Chakraborty on 12-11-2022 White Elm IgE Qn (S) <0.10 kU/L Class 0 [facility] Serum white oak IgE antibody assay (units/volume)Ordered By: Kevinrico Chakraborty on 12-11-2022 Greenback IgE Qn (S) <0.10 kU/L Class 0 [facility] Serum whole egg IgE antibody assay (units/volume)Ordered By: Kevin Chakraborty on 12-11-2022 Whole Egg IgE Qn (S) <0.10 kU/L Class 0 [facility] Thin prep Papanicolaou smear with manual screeningOrdered By: Kevin Chakraborty on 12-11-2022 Thin prep Papanicolaou smear with manual screening 11 U/L 15-37 [facility] Thin prep Papanicolaou smear with manual screening 4 5-15 [facility] Thin prep Papanicolaou smear with manual screening 1.0 0.7-1.7 [facility] Total protein bloodOrdered B y: Kevinnancy Chakraborty on 12-11-2022 Protein [Mass/Vol] 7.0 g/dL 6.0-8.5 [facility] Thin prep Papanicolaou smear with manual screeningOrdered By: Michelle Pedraza on 10-21-2022 Genital Culture Presumptive C albicans [facility] Genital Culture G. vaginalis (Presumptive) [facility] Gram stain for investigation of transfusion reactionOrdered By: Michelle Pedraza on 10-18-2022 Microscopic observation Gram stain Nom (Unsp spec) [facility] Cervical or vagninal specime n microscopic examination by cytology stain (reported asOrdered By: Michelle Pedraza on 10-17-2022 Cytology report Cyto stain Doc (Cvx/Vag) Comment . [facility] Comment on above: The Pap smear is a s creening test designed to aid in thedetection of premalignant and malignant conditions of theuterine cervix. It is not a diagnostic procedure andshould not be used as the sole means of detecting cervicalcancer. Both false-positive and false-negative reports dooccur. Chlamydia trachomatis rRNA d etection by probe and target amplification methodOrdered By: Michelle Pedraza on 10-17-2022 C. trachomatis rRNA FLAQUITA+probe Ql (Unsp spec) Negative Negative [facility] Detection in cervical specim en of any of human papilloma virus (HPV) 16, 18, 31, 33,Ordered By: Michelle Pedraza on 10-17-2022 HPV 16+18+31+33+35+39+45+51+5 2+56+58+59+66+68 DNA Probe+sig amp Ql (Cvx) Negative Negative [facility] Comment on above: This nucleic acid am plification test detects fourteen high-risk HPV types (16,18,31,33,35,39,45,51,52,56,58,59,66,68)without differentiation. HIV 1 and HIV-2 antibody ass ay with HIV-1 p24 antigen detectionOrdered By: Michelle Pedraza on 10-17-2022 HIV 1+2 Ab+HIV1 p24 Ag IA Ql Non-Reactive Nonreactive [facility] Laboratory - CytologyOrdered By: Michelle Pedraza on 10-17-2022 Chemical Research Technician Cyto stain Nom (Cvx/Vag) [ID] Comment . [facility] Comment on above: Mirza Delaney, [facility] otechnologist ([facility]) Laboratory - Microbiology an d Antimicrobial susceptibilityOrdered By: Michelle Pedraza on 10-17-2022 N. gonorrhoeae DNA FLAQUITA+probe Ql (Unsp spec) Negative Negative [facility] Comment on above: Performed at: =[address] [id number] Director: Elisa Cartagena MD, Phone: [phone] Laboratory - Miscellaneous t estsOrdered By: Michelle Pedraza on 10-17-2022 Service comment (Unsp spec) [Interp] Comment . [facility] Comment on above: This liquid based Th inPrep(R) pap test was screened withthe use of an image guided system. Service comment (Unsp spec) [Interp] . . [facility] Liquid-based cerv Pap + CT/G C by FLAQUITA w reflex to high-risk HPV for ASCUSOrdered By: Michelle Pedraza on 10-17-2022 Cytology report Cyto stain.thin prep Doc (Cvx/Vag) Comment . [facility] Comment on above: Criteria not met, HP V Genotype not performed.Performed at: - [facility] [id number] Director: Elisa Cartagena MD, Phone: [phone] at: = - [facility] [id number] Director: Elisa Cartagena MD, Phone: [phone] No Panel InformationOrdered By: Michelle Pedraza on 10-17-2022 Pathology report final diagnosis Narrative Comment . [facility] Comment on above: NEGATIVE FOR INTRAEP ITHELIAL LESION OR MALIGNANCY.FUNGAL ORGANISMS MORPHOLOGICALLY CONSISTENT WITH CRISTY SPECIES AREPRESENT.CELLULAR CHANGES ASSOCIATED WITH INFLAMMATION ARE PRESENT. Hepatitis C Antibody Non-Reactive Nonreactive [facility] Comment on above: Non Reactive: < 0.8 Equivocal: >/= 0.8 to < 1.0 Reactive: >/= 1.0The [facility] recommends that a reactive/equivocal HCV antibody result be followed up by the HCV Nucleic Acid Amplificationtest (399235) Herpes Simplex Virus I IgG Antibody < 0.91 index 0.00-0.90 [facility] Comment on above: Negative <0.91 Equiv ocal 0.91 - 1.09 Positive >1.09 Note: Negative indicates no antibodies detected to HSV-1. Equivocal may suggest early infection. If clinically appropriate, retest at later date. Positive indicates antibodies detected to HSV-1. No Panel Informationon 10-17 POC Bacterial Vaginitis (Rapid) Negative [facility] POC Trichomonas (Rapid) Negative [facility] Serum Treponema species anti body detectionOrdered By: Michelle Pedraza on 10-17-2022 Treponema sp Ab Ql (S) Non-Reactive [facility] Serum herpes simplex virus 2 antibody assay by immunoassay (units/volume)Ordered By: Michlele Pedraza on 10-17-2022 HSV 2 Ab IA Qn (S) < 0.91 index 0.00-0.90 [facility] Comment on above: Negative <0.91 Equiv ocal 0.91 - 1.09 Positive >1.09 Note: Negative indicates no HSV-2 antibodies detected. Positive indicates HSV-2 antibodies detected. Equivocal and low positive HSV-2 screens (Index 0.91-5.00) may be false positive and are reflexed to supplemental testing in accordance with CDC guidelines.Performed at: [address] [id number] Director: Crow Berrios PhD, Phone: [phone] Lucia 06-07-2022 CNOV Office Visit (DERMUP) MU BARBOZA ([id number]) 1985 F Date Time Provider Department 06/07/22 2:40 PM GENA MEEK During your visit today, we recorded the following information about you: Blood pressure Weight Height 136/85 120.2 kg 1.727 m Gena Meek PA-C 06/10/2022 10:43 PM Signed This is a 36 yo female for [...] FOR COUGH / congestion 0 Drospirenone-Ethinyl Estradiol (ROBERTA, 28,) 3-0.03 mg per tablet Take 1 tablet by mouth once daily. No current facility-administere d medications for this visit. PAST SURGICAL HISTORY [...] CAPSULE - METRONIDAZOLE 0.75 % TOPICAL CREAM IVA Haynes-Aida Return in about 1 year (around 06/07/2023). Referring Provider: GENA MEEK [[id number]] Allergies As of Date: 06/07/2022 (No Known Allergies) Date Reviewed: 06/07/2022 Reviewed by: Gretta Pollock MA - Fully Assessed Reason for Visit: Rosacea [926] Primary Visit Diagnosis:Rosacea [L71.9] Order(s):metroNIDAZO LE 0.75 % creamApply to face topically twice daily after cleansingDisp: 45 gRfl: 5 doxycycline monohydrate (MONODOX) 100 mg capsuleTake 1 capsule by mouth twice daily. With foodDisp: 60 capsuleRfl: 3 Prescriptions as of 06/10/2022 - metroNIDAZOLE 0.75 % cream Apply to face topically twice daily after cleansing - doxycycline monohydrate (MONODOX) 100 mg capsule Take 1 capsule by mouth twice daily. With food - methylPREDNISolone (MEDROL DOSE-PACK) 4 mg Dose-Pack TAKE BY MOUTH DIRECTED ON PACKAGE - CAPMIST DM 60-15-400 mg tab TAKE 1 TABLET EVERY 6 TO 8 HOURS NEEDED FOR COUGH / congestion - Drospirenone-Ethinyl Estradiol (ROBERTA, 28,) 3-0.03 mg per tablet Take 1 tablet by mouth once daily. Problem List As Of Date 06/07/2022 Noted Resolved Rosacea [L71.9] 02/24/2020 Acne vulgaris [L70.0] 02/24/2020 Prescriptions ordered this encounter Disp Refills Start End METRONIDAZOLE 0.75 % TOPICAL CREAM 45 g 5 06/07/2022 Sig: Apply to face topically twice daily after cleansing DOXYCYCLINE MONOHYDRATE 100 MG CAPSU* 60 c* 3 06/07/2022 Route: ORAL Sig: Take 1 capsule by mouth twice daily. With food Medications Discontinued During This Encounter Prescriptions - doxycycline monohydrate (MONODOX) 100 mg capsule (Discontinued) Take 1 capsule by mouth twice daily. With food - metroNIDAZOLE 0.75 % cream (Discontinued) Apply to face topically twice daily after cleansing Disposition: Return in about 1 year (around 06/07/2023). Follow-up and Disposition History for Encounter Date Provider Department Center 06/07/2022 [id number]-YGDHVLEOGENA MEEK [facility] Encounter Numb (more content not included)... [facility] B-HCG (SERUM) Negative Normal NEGATIVE [facility] Comment on above: Result Comment: Serum Test is more Sensitive than a Urine Test. Please Note Threshold Values: SERUM - 10mlU/mL URINE - 20mlU/mL Performed By: #### L 200.4092 #### ML - LABORATORY [address] [place] [address] [facility] 11-20-2020 Anion gap [Moles/Vol] 13.1 mmol/L Low - [facility] Comment on above: Performed By: #### L 100.0010 #### - LABORATORY [address] [place] [address]360 Calcium [Mass/Vol] 8.8 mg/dL Normal 8.6-10.0 [facility] Comment on above: Performed By: #### L 100.0010 #### ML - LABORATORY [address] [place] [address] 44781 Chloride [Moles/Vol] 104 mmol/L Normal 98-107 [facility] Comment on above: Performed By: #### L 100.0010 #### ML [facility] [address] [place] [address] 85405 CO2 [Moles/Vol] 23 mmol/L Normal 22-29 [facility] Comment on above: Performed By: #### L 100.0010 #### ML [facility] [address] [place] [address] 29962 Creatinine [Mass/Vol] 0.65 mg/dL Normal 0.50-0.90 [facility] Comment on above: Performed By: #### L 100.0010 #### ML [facility] [address] [place] [address] 43364 eGFR if AFR ESE > 60 ml/min/1.73m2 Normal [facility] Comment on above: Result Comment: eGFR >= 60 Indicates normal kidney function. * eGFR IS AN ESTIMATE * (AFR ESE = ) (non-AFR AM = NON-) MDRD calculation used in the eGFR should not be used to dose medications. For further limitations of the eGFR please refer to the Physician Website or the National Kidney Disease Education Program website (www.nkdep.nih.gov). Performed By: #### L 100.0010 #### ML - LABORATORY [address] [place] [address] 38809 eGFR nonAFR Ese > 60 ml/Min/1.73m2 Normal U [facility] Comment on above: Performed By: #### L 100.0010 #### ML - LABORATORY [address] [place] [address] 08034 Glucose [Mass/Vol] 133 mg/dL High 74-106 [facility] Comment on above: Performed By: #### L 100.0010 #### ML - LABORATORY [address] [place] [address] 13916 Potassium [Moles/Vol] 4.1 mmol/L Normal 3.5-5.0 [facility] Comment on above: Performed By: #### L 100.0010 #### ML - LABORATORY [address] [place] [address] 72931 Sodium [Moles/Vol] 136 mmol/L Normal 135-145 [facility] Comment on above: Performed By: #### L 100.0010 #### ML - LABORATORY [address] [place] [address] 64209 Urea nitrogen [Mass/Vol] 9 mg/dL Normal 6-20 [facility] Comment on above: Performed By: #### L 100.0010 #### ML - LABORATORY [address] [place] [address] 46506 CBCon 11-20-2020 BASO# 0.00 x10(3) Normal 0.00-0.10 [facility] Comment on above: Performed By: #### L 200.0010 #### ML - LABORATORY [address] [place] [address] 76672 Basophils/100 WBC (Bld) 0.4 % Normal 0.0-1.0 [facility] Comment on above: Performed By: #### L 200.0010 #### ML - LABORATORY [address] [place] [address] 28319 EOS# 0.10 x10(3) Normal 0.00-0.54 [facility] Comment on above: Performed By: #### L 200.0010 #### ML - LABORATORY [address] [place] [address] 10495 Eosinophils/100 WBC (Bld) 1.0 % Normal 0.5-4.9 [facility] Comment on above: Performed By: #### L 200.0010 #### ML [facility] [address] [place] [address] 18653 Erythrocyte distribution width (RBC) [Ratio] 14.8 % Normal 12.5-15.7 [facility] Comment on above: Performed By: #### L 200.0010 #### ML [facility] [address] [place] [address] 90419 Hematocrit (Bld) [Volume fraction] 36.1 % Normal 36.0-48.0 [facility] Comment on above: Performed By: #### L 200.0010 #### ML [facility] [address] [place] [address] 39297 Hemoglobin (Bld) [Mass/Vol] 12.0 g/dL Normal 12.0-16.0 [facility] Comment on above: Performed By: #### L 200.0010 #### [facility] [address] [place] [address] 22112 LYMPH# 1.70 x10(3) Normal 1.00-3.50 [facility] Comment on above: Performed By: #### L 200.0010 #### ML [facility] [address] [place] [address] 92066 Lymphocytes/100 WBC (Bld) 13.3 % Low 16.0-48.0 [facility] Comment on above: Performed By: #### L 200.0010 #### ML [facility] [address] [place] [address] 56047 MCH (RBC) [Entitic mass] 28.0 pg Low 28.5-32.9 [facility] Comment on above: Performed By: #### L 200.0010 #### ML [facility] [address] [place] [address] 04270 MCHC (RBC) [Mass/Vol] 33.3 g/dL Normal 33.0-36.0 [facility] Comment on above: Performed By: #### L 200.0010 #### ML [facility] [address] [place] [address] 61170 MCV (RBC) [Entitic vol] 84.4 fL Normal 80.0-99.0 [facility] Comment on above: Performed By: #### L 200.0010 #### ML - LABORATORY [address] [place] [address] 61044 MONO# 0.90 x10(3) High 0.30-0.80 [facility] Comment on above: Performed By: #### L 200.0010 #### ML - LABORATORY [address] [place] [address] 99458 Monocytes/100 WBC (Bld) 6.6 % Normal 4.3-11.2 [facility] Comment on above: Performed By: #### L 200.0010 #### ML - LABORATORY [address] [place] [address] 05278 NEUT# 10.40 x10(3) High 1.40-6.50 [facility] Comment on above: Performed By: #### L 200.0010 #### ML - LABORATORY [address] [place] [address] 67700 Neutrophils/100 WBC (Bld) 78.7 % High 45.0-73.0 [facility] Comment on above: Performed By: #### L 200.0010 #### ML - LABORATORY [address] [place] [address] 55714 Platelet mean volume (Bld) [Entitic vol] 8.5 fL Normal 7.5-9.5 [facility] Comment on above: Performed By: #### L 200.0010 #### ML - LABORATORY [address] [place] [address] 31120 PLT 254 X10(3) Normal 150-450 [facility] Comment on above: Performed By: #### L 200.0010 #### ML - [facility]AT[facility] [address] [place] [address] 60991 RBC 4.28 x10(6) Normal 3.30-5.00 [facility] Comment on above: Performed By: #### L 200.0010 #### ML - [facility]ATORY [address] [place] [address] 55603 WBC 13.2 x10(3) High 4.5-10.0 [facility] Comment on above: Performed By: #### L 200.0010 #### [facility] [address] [place] [address] EMERGENCY DEPARTMENT REPORTo n 11-20-2020 EMERGENCY [place] [address] HEALTH INFORMATION MANAGEMENT EMERGENCY DEPARTMENT REPORT Patient: MU BARBOZA JEFFREY M.DMalika [id number] F Status: DEP ER ED Date of Service: 11/20/20 PHYSICIAN: ARINA Barlow CHIEF COMPLAINT: Left lower quadrant abdominal pain. HISTORY OF PRESENT ILLNESS: A 34-year-old female with 3 prior bouts of diverticulitis all of which have been managed with outpatient antibiotics. She states she is getting the same pain for the last 24 hours in the left lower quadrant pain. No nausea, vomiting, urinary symptoms, diarrhea, constipation, back pain, fever, chills, cough, shortness of breath. She states it feels very similar to what she has had in the past. Further review of systems is negative. PAST HISTORY: Ovarian cystectomy done at [facility]. SOCIAL HISTORY: Single. No alcohol or tobacco use. PHYSICAL EXAMINATION: GENERAL/VITAL SIGNS: Reveals mild tachycardia in this afebrile, 34-year-old, pleasant female. She appears to be in minimal discomfort. HEENT: No scleral icterus. No rhinorrhea. Pharynx is moist. NECK: Supple. LUNGS: Lung zaman are clear. No CVA tenderness to fist percussion. HEART: Cardiac tones are regular. ABDOMEN: Soft. Good bowel sounds heard. She has mild left lower quadrant pain to deep palpation. No guarding or rebound. No referred contralateral rebound tenderness either. No right lower quadrant pain. EXTREMITIES: No edema. No focal neurologic deficits. EMERGENCY DEPARTMENT COURSE: Workup here, white count 13,000. Urinalysis negative. HCG negative. I feel this patient can be managed as an outpatient. Will use Augmentin and Flagyl. Potter 6 packs for overnight pain. IMPRESSION: Diverticulitis. Report#: Dict ID [id number] / Int ID [id number] cc: ARINA Burroughs 11/20/20 2049 _ QUINTON INFANTE M.D. cc: QUINTON INFANTE M.D.; BARBARA MOORE << Signature on File>> Reported By: QUINTON INFANTE M.D. Signed By: QUINTON INFANTE M.D. Tests performed at: [place] [address] Normal [facility] UA W/C&Son 11-20-2020 Bilirubin Ql (U) Negative Normal NEGATIVE [facility] Comment on above: Order Comment: Urine Specimen Source+ CLEAN CATCH Performed By: #### L 200.3001 #### ML [facility] [address] [place] [address] 21190 Color (U) YELLOW Normal YELLOW [facility] Comment on above: Order Comment: Urine Specimen Source+ CLEAN CATCH Performed By: #### L 200.3001 #### ML [facility] [address] [place] [address] 82370 Glucose Ql (U) Negative Normal NEGATIVE [facility] Comment on above: Order Comment: Urine Specimen Source+ CLEAN CATCH Performed By: #### L 200.3001 #### ML [facility] [address] [place] [address] 68518 Hemoglobin Ql (U) Negative Normal NEGATIVE [facility] Comment on above: Order Comment: Urine Specimen Source+ CLEAN CATCH Performed By: #### L 200.3001 #### ML [facility] [address] [place] [address] 94806 Leukocyte esterase Test strip Ql (U) Negative Normal NEGATIVE [facility] Comment on above: Order Comment: Urine Specimen Source+ CLEAN CATCH Performed By: #### L 200.3001 #### [facility] [address] [place] [address] 43061 Nitrite Ql (U) Negative Normal NEGATIVE [facility] Comment on above: Order Comment: Urine Specimen Source+ CLEAN CATCH Performed By: #### L 200.3001 #### ML [facility] [address] [place] [address] 72130 pH (U) 5.5 [pH] Normal 5.0-8.0 [facility] Comment on above: Order Comment: Urine Specimen Source+ CLEAN CATCH Performed By: #### L 200.3001 #### ML - LABORATORY [address] [place] [address] Protein Ql (U) Negative Normal NEGATIVE [facility] Comment on above: Order Comment: Urine Specimen Source+ CLEAN CATCH Performed By: #### L 200.3001 #### ML - LABORATORY [address] [place] [address] URINE APPEARANC SL CLOUDY Normal CLEAR [facility] Comment on above: Order Comment: Urine Specimen Source+ CLEAN CATCH Performed By: #### L 200.3001 #### [facility] [address] [place], [place] [address] URINE KETONE Negative Normal NEGATIVE [facility] Comment on above: Order Comment: Urine Specimen Source+ CLEAN CATCH Performed By: #### L 200.3001 #### [facility] [address] [place] [address] URINE SPECIFIC >=1.030 Normal 1.001-1.035 [facility] Comment on above: Order Comment: Urine Specimen Source+ CLEAN CATCH Performed By: #### L 200.3001 #### [facility] [address] [place] [address] 67571 URINE UROBILINO 0.2 EU/DL Normal 0.2-1.0 [facility] Comment on above: Order Comment: Urine Specimen Source+ CLEAN CATCH Performed By: #### L 200.3001 #### ML - LABORATORY [address] [place] [address] 71666 NUTRITIONAL ASSISTANT CYTOLOGYon 02-23-2020 NUTRITIONAL ASSISTANT CYTOLOGY RUN DATE: 03/02/20 Laboratory LIVE PAGE 1 RUN TIME: 725 Specimen Inquiry RUN USER: INTERFACE [facility] Department of Laboratories [address] [place] [address] PATIENT: MU BARBOZA LOC: THAO U #: [id number] HOME PHONE: AGE/SX: 34/F ROOM: RE02/23/[address] [facility] [address]: Barbara Moore D.O.B.: 81 BED: DIS: STATUS: REG REF LAB O/S: Specimen : [id number] Date Collected: 02/23/20 Surgeon : Barbara Moore Date Received : 02/24/20 Date Reported : 03/02/20 SPECIMEN TYPE: Thinprep, ENDOCERVICAL NUMBER OF SLIDES: 1 COLLECTION DATE: 02/23/20 LMP: 02/16/20 OTHER: Z01.419 : = DIAGNOSIS NEGATIVE FOR INTRAEPITHELIAL LESION OR MALIGNANCY. SPECIMEN SAMPLE ADEQUATE FOR EVALUATION, ENDOCERVICAL CELLS (TRANSFORMATION ZONE) PRESENT. PREVIOUS CYTOLOGY HISTORY UNKNOWN. NOTE: The pap smear is a screening test for the detection of cervical cancer and its precursors. The test should be done at regular intervals since the pap test is subject to false positive and false negative results. If clinically indicated, further investigation is recommended. Signed-Out: OVI Sears(ASCP) (signature on file) 03/02/20 My electronic signature is attestation that I have personally reviewed the submitted material(s) and the final report reflects that evaluation. END OF REPORT Normal [facility] Comment on above: Performed By: #### G Y #### [facility] [address] [address] CYTOLOGY NUTRITIONAL ASSISTANT, CONVERTEDon [facility] CYTOLOGY NUTRITIONAL ASSISTANT, CONVERTEDon [facility] Vital Signs Date Time Vital Sign Value Performing Clinician Marielle corona 03-14-2025 10:44-0400 Body temperature 97.7 [degF] Madelaine Lee MD Work Phone: [facility] 03-14-2025 10:44-0400 Diastolic blood pressure 70 mm[Hg] Madelaine Lee MD Work Phone: [facility] 03-14-2025 10:44-0400 Heart rate 100 /min Madelaine Lee MD Work Phone: [facility] 03-14-2025 10:44-0400 Respiratory rate 16 /min Madelaine Lee MD Work Phone: [facility] 03-14-2025 10:44-0400 SaO2% (BldA) [Mass fraction] 97 % Madelaine Lee MD Work Phone: [facility] 03-14-2025 10:44-0400 Systolic blood pressure 130 mm[Hg] Madelaine Lee MD Work Phone: [facility] 02-24-2025 11:26-0400 Diastolic blood pressure 84 mm[Hg] Madelaine Lee MD Work Phone: [facility] 02-24-2025 11:26-0400 Systolic blood pressure 136 mm[Hg] Madelaine Lee MD Work Phone: [facility] 02-24-2025 10:37-0400 Body height 167.64 cm Madelaine Lee MD Work Phone: [facility] 02-24-2025 10:37-0400 Body mass index (BMI) [Ratio] 42.3 kg/m2 Madelaine Lee MD Work Phone: [facility] 02-24-2025 10:37-0400 Body weight 118.89 kg Madelaine Lee MD Work Phone: [facility] 02-15-2025 13:31-0400 Body height 167.64 cm Madelaine Lee MD Work Phone: [facility] 02-15-2025 13:31-0400 Body weight 119.83 kg Madelaine Lee MD Work Phone: [facility] 12-02-2023 06:41-0400 Body height 167.64 cm DO Sharita Hector Work Phone: [facility] 12-02-2023 06:41-0400 Body mass index (BMI) [Ratio] 44.2 kg/m2 DO Sharita Hector Work Phone: [facility] 12-02-2023 06:41-0400 Body temperature 97.7 [degF] DO Sharita Hector Work Phone: [facility] 12-02-2023 06:41-0400 Body weight 124.45 kg DO Sharita Hector Work Phone: [facility] 12-02-2023 06:41-0400 Diastolic blood pressure 70 mm[Hg] DO Sharita Hector Work Phone: [facility] 12-02-2023 06:41-0400 Heart rate 91 /min DO Sharita Hector Work Phone: [facility] 12-02-2023 06:41-0400 Respiratory rate 16 /min DO Sharita Hector Work Phone: [facility] 12-02-2023 06:41-0400 SaO2% (BldA) [Mass fraction] 95 % DO Sharita Hector Work Phone: [facility] 12-02-2023 06:41-0400 Systolic blood pressure 132 mm[Hg] DO Sharita Hector Work Phone: [facility] 03-06-2023 07:45-0400 Body temperature 98.9 [degF] DO Sharita Hector Work Phone: [facility] 03-06-2023 07:45-0400 Diastolic blood pressure 76 mm[Hg] DO Sharita Hector Work Phone: [facility] 03-06-2023 07:45-0400 Heart rate 83 /min DO Sharita Hector Work Phone: [facility] 03-06-2023 07:45-0400 Respiratory rate 16 /min DO Sharita Hector Work Phone: [facility] 03-06-2023 07:45-0400 SaO2% (BldA) [Mass fraction] 98 % DO Sharita Hector Work Phone: [facility] 03-06-2023 07:45-0400 Systolic blood pressure 123 mm[Hg] DO Sharita Hector Work Phone: [facility] 03-06-2023 06:21-0400 Body height 167.64 cm DO Sharita Hector Work Phone: [facility] 03-06-2023 06:21-0400 Body mass index (BMI) [Ratio] 41.6 kg/m2 DO Sharita Hector Work Phone: [facility] 03-06-2023 06:21-0400 Body weight 117 kg DO Sharita Hector Work Phone: [facility] 12-22-2022 21:18-0400 Body mass index (BMI) [Ratio] 43.1 kg/m2 DO Sharita Hector Work Phone: [facility] 12-22-2022 21:18-0400 Body temperature 97 [degF] DO Sharita Hector Work Phone: [facility] 12-22-2022 21:18-0400 Body weight 121.24 kg DO Sharita Hector Work Phone: [facility] 12-22-2022 21:18-0400 Diastolic blood pressure 99 mm[Hg] DO Sharita Hector Work Phone: [facility] 12-22-2022 21:18-0400 Heart rate 119 /min DO Sharita Hector Work Phone: [facility] 12-22-2022 21:18-0400 Respiratory rate 16 /min DO Sharita Hector Work Phone: [facility] 12-22-2022 21:18-0400 SaO2% (BldA) [Mass fraction] 99 % DO Sharitamartin Balderasnger Work Phone: [facility] 12-22-2022 21:18-0400 Systolic blood pressure 187 mm[Hg] DO Sharitamartin Balderasnger Work Phone: [facility] 10-17-2022 14:34-0400 Body height 167.64 cm DO Sharitamartin Balderasnger Work Phone: [facility] 10-17-2022 14:34-0400 Body mass index (BMI) [Ratio] 42.9 kg/m2 DO Sharitamartin Balderasnger Work Phone: [facility] 10-17-2022 14:34-0400 Body weight 120.71 kg DO Sharita Balderasnger Work Phone: [facility] 10-17-2022 14:34-0400 Diastolic blood pressure 86 mm[Hg] DO Sharita Balderasnger Work Phone: [facility] 10-17-2022 14:34-0400 Systolic blood pressure 124 mm[Hg] DO Sharita Balderasnger Work Phone: [facility] 06-07-2022 14:44-0400 Body height 172.7 cm Gena Gaviota PA-C Work Phone: [facility] 06-07-2022 14:44-0400 Body weight 120.2 kg Gena Gaviota PA-C Work Phone: [facility] 06-07-2022 14:44-0400 Diastolic blood pressure 85 mm[Hg] Gena Gaviota PA-C Work Phone: [facility] 06-07-2022 14:44-0400 Systolic blood pressure 136 mm[Hg] Gena Pasadena PA-C Work Phone: [facility] Encounters Encounter Date Encounter Type Care Provider Facility Start: 03-24-2025 ambulatory [facility] Facility:[facility] Start: 03-14-2025 End: 03-14-2025 ambulatory Madelaine Lee MD Work Phone: [facility] Start: 03-14-2025 End: 03-14-2025 Patient encounter procedure Brock Mike Peter CISNEROS-C -[facility] Work Phone: Start: 03-10-2025 Registered Referred HEALTH RIS K ASSESSMENT -Employee Health Start: 03-10-2025 Patient encounter procedure Lynnette GORDILLO [facility] Work Phone: Start: 03-10-2025 ambulatory Madelaine Lee Facility:[facility] Start: 02-24-2025 End: 02-24-2025 Patient encounter procedure Lynnette GORDILLO -[facility] Work Phone: Start: 02-24-2025 End: 02-24-2025 Patient encounter status Lynnette GORDILLO [facility] Start: 02-24-2025 End: 02-24-2025 ambulatory Madelaine Lee MD Work Phone: -[facility] Start: 02-15-2025 End: 02-15-2025 Patient encounter procedure Kevin Chakraborty DO -[facility] Work Phone: Start: 02-15-2025 End: 02-15-2025 ambulatory Madelaine Lee MD Work Phone: -[facility] Start: 02-15-2025 End: 03-04-2025 Discharged Recurring Kevin Chakraborty DO -Nutritional Servic es Work Phone: Start: 02-15-2025 Registered Recurring Kevin Friend DO -Nutritional Services Work Phone: Start: 02-15-2025 End: 03-04-2025 ambulatory Madelaine Lee MD Work Phone: -Nutritional Services Start: 02-01-2025 End: 02-01-2025 ambulatory Madelaine Lee MD Work Phone: -Cat Scan [facility] Start: 02-01-2025 End: 02-01-2025 Patient encounter procedure Kevintone Chakraborty DO -Cat Scan [facility] Work Phone: Start: 02-01-2025 End: 02-01-2025 ambulatory Madelaine Lee Facility:[facility] Start: 11-12-2024 End: 11-12-2024 Patient encounter procedure Kevin Chakraborty DO -[facility] Work Phone: Start: 11-12-2024 End: 11-12-2024 ambulatory Chalon Jesus Facility:[facility] Start: 11-10-2024 End: 11-10-2024 ambulatory Madelaine Lee MD Work Phone: [facility] Work Phone: Start: 11-10-2024 End: 11-10-2024 Patient encounter procedure Kevin Chakraborty DO -Ultrasound, [facility] Work Phone: Start: 11-10-2024 End: 11-10-2024 ambulatory Madelaine Lee Facility:[facility] Start: 10-29-2024 End: 10-29-2024 ambulatory Madelaine Lee MD Work Phone: [facility] Work Phone: Start: 10-29-2024 End: 10-29-2024 Patient encounter procedure Kevin Chakraborty DO -Cat Scan, [facility] Work Phone: Start: 10-29-2024 End: 10-29-2024 ambulatory Madelaine Lee Facility:[facility] Start: 09-24-2024 End: 09-24-[address] Madelaine Lee MD -Outpatient Breast Imaging Work Phone: Start: 09-24-2024 End: 09-24-2024 ambulatory Madelaine Lee Facility:[facility] Start: 05-16-2024 End: 05-16-2024 Emergency department patient visit Rome Lynch Facility:[facility] Start: 05-15-2024 End: 05-15-2024 ambulatory Madelaine Lee Facility:[facility] Start: 03-30-2024 ambulatory Challakeshia Lee Facility:[facility] Start: 12-02-2023 End: 12-02-2023 ambulatory DO Sharita Young Work Phone: [facility] Work Phone: Start: 12-02-2023 End: 12-02-2023 Patient encounter procedure DO Sharita Young Work Phone: [facility]-Laboratory, Specimen Work Phone: Start: 12-02-2023 End: 12-02-2023 Patient encounter procedure DO Sharita Young Work Phone: [facility] Work Phone: Start: 11-15-2023 End: 11-15-2023 Patient encounter procedure DO Sharita Young Work Phone: [facility] Work Phone: Start: 09-17-2023 End: 09-17-2023 ambulatory [facility] Work Phone: Start: 09-17-2023 End: 09-17-2023 Patient encounter procedure [facility]-Outpatient Breast Imaging Work Phone: Start: 06-07-2023 End: 06-07-2023 ambulatory DO Sharita Young Work Phone: [facility] Work Phone: Start: 06-07-2023 End: 06-07-2023 Patient encounter procedure DO Sharita Young Work Phone: [facility]-Ultrasound, H Work Phone: Start: 05-16-2023 End: 05-16-2023 Patient encounter procedure DO Sharita Young Work Phone: [facility] Work Phone: Start: 05-11-2023 End: 05-11-2023 ambulatory DO Sharita Young Work Phone: [facility] Work Phone: Start: 05-11-2023 End: 05-11-2023 Patient encounter procedure DO Sharita Young Work Phone: [facility]-Laboratory, Specimen Work Phone: Start: 05-08-2023 End: 05-08-2023 Patient encounter procedure DO Sharita Young Work Phone: [facility]-Cat Scan, [facility] Work Phone: Start: 03-22-2023 Registered Referred DO Sharita Young Work Phone: [facility]-Employee Health Start: 03-06-2023 Non-patient / Non-visit DO Sahil Young Work Phone: [facility] Start: 03-06-2023 End: 03-06-2023 Admission to same day surgery center DO Sharita Young Work Phone: [facility]-Endoscopy Work Phone: Start: 03-06-2023 End: 03-06-2023 ambulatory DO Sharita Young Work Phone: [facility] Work Phone: Start: 12-22-2022 End: 12-23-2022 Emergency department patient visit DO Sharita Young Work Phone: [facility]-Emergency Department Work Phone: Start: 12-11-2022 End: 12-11-2022 ambulatory DO Sharita Young Work Phone: [facility] Work Phone: Start: 12-11-2022 End: 12-11-2022 Patient encounter procedure DO Sharita Young Work Phone: [facility] Start: 10-17-2022 End: 10-17-2022 ambulatory DO Sharita Young Work Phone: [facility] Work Phone: Start: 10-17-2022 End: 10-17-2022 Patient encounter procedure DO Sharita Young Work Phone: [facility] Start: 08-27-2022 End: 08-27-2022 ambulatory [facility] Work Phone: Start: 08-27-2022 End: 08-27-2022 Patient encounter procedure [facility]-Outpatient Breast Imaging Start: 06-07-2022 End: 06-07-2022 ambulatory GENA MEEK Facility:[facility] Start: 06-07-2022 End: 06-07-2022 Patient encounter procedure Gena Meek [facility] Work Phone: [facility] D[facility]ology Comment on above: Rosacea (Primary Dx) Start: 08-25-2021 End: 08-25-2021 Patient encounter procedure [facility]-Outpatient Breast Imaging Start: 10-07-2018 Patient encounter procedure Mirna Corteze Facility:[facility] Start: 09-28-2018 Patient encounter procedure James Ambrose Facility:[facility] Start: 11-22-2008 Documentation procedure Phan Robertson III, MD Work Phone: [facility] Start: 11-22-2008 Historic EMR Phan Robertson MD Work Phone: [facility] Start: 12-21-2005 Documentation procedure Phan Robetrson III, MD Work Phone: [facility] Start: 12-21-2005 Historic EMR Phan Robertson MD Work Phone: [facility] Procedures Date Procedure Procedure Detail Performing Clinician Start: 03-10-2025 Serum inorganic phos phate measurement Madelaine Lee MD Work Phone: Start: 03-10-2025 Pelvic echography Abel Lee MD Work Phone: Start: 02-01-2025 Computed tomography of abdomen and pelvis with contrast Madelaine Lee MD Work Phone: Start: 11-10-2024 Ultrasound elastogra phy of liver Madelaine Lee MD Work Phone: Start: 10-29-2024 Computed tomography of abdomen and pelvis with contrast Madelaine Lee MD Work Phone: Start: 09-24-2024 Screening mammography C enrique Lee MD Work Phone: Start: 12-02-2023 Urine culture DO Judy Young Work Phone: Start: 09-17-2023 Screening mammography Start: 06-07-2023 Ultrasound elastogra phy of liver DO Sharita Young Work Phone: Start: 05-11-2023 Lactoferrin measurement DO Sharita Young Work Phone: Start: 05-08-2023 Computed tomography of abdomen and pelvis with contrast DO Sharita Young Work Phone: Start: 03-06-2023 Colonoscopy DO Sharita Young Work Phone: Start: 12-22-2022 Computed tomography of abdomen and pelvis with intravenous contrast DO Sharita Young Work Phone: Start: 08-27-2022 Screening mammography Start: 08-25-2021 Screening mammography Start: 11-19-2008 CYTOLOGY NUTRITIONAL ASSISTANT, CONVERTED Phan Robertson MD Work Phone: Start: 12-19-2005 CYTOLOGY NUTRITIONAL ASSISTANT, CONVERTED Phan Robertson MD Work Phone: Cytopathology proced ure, preparation of smear, genital source DO Sharita Young Work Phone: Investigation of transfusion reaction DO Sharita Young Work Phone: Plan of Treatment Date Care Activity Detail Author Start: 06-07-2023 Liver elastography w/o imag w/i&r LIVER ELASTOGRAPHY [facility] Start: 04-05-2023 [facility]enza [facility] Start: 03-06-2023 Colonoscopy w/biopsy single/multiple COLONOSCOPY AND BIOPSY [facility] Start: 03-06-2023 Colsc flx w/rmvl of tumor polyp lesion snare tq COLONOSCOPY W/LESION REMOVAL [facility] Start: 03-06-2023 Egd transoral biopsy single/multiple EGD BIOPSY SINGLE/MULTIPLE [facility] Start: 03-06-2023 Patient discharge [facility] Start: 10-17-2022 Liquid based cervical cytology screening [facility] Start: 10-17-2022 [facility] [facility] Start: 08-05-2022 Depression Assessment Depression Assessment [facility] Start: 04-05-2022 Influenza vaccination INFLUENZA (#1) [facility] Start: 09-13-2021 COVID-19 VACCINE (4 - Booster for Moderna series) COVID-19 VACCINE (4 - Booster for Moderna series) [facility] Start: 09-13-2021 Covid-19 Vaccine (4 - Moderna series) Covid-19 Vaccine (4 - Moderna series) [facility] Start: 08-05-2021 DEPRESSION ASSESSMENT DEPRESSION ASSESSMENT [facility] Start: 05-03-2021 HPV TESTING HPV TESTING [facility] Start: 05-03-2021 PAP TESTING PAP TESTING [facility] Start: 12-11-2002 Urine microalbumin profile [facility] Start: 12-11-2001 HEPATITIS C SCREENING HEPATITIS C SCREENING [facility] Start: 12-11-2001 HIV SCREENING HIV SCREENING [facility] Start: 1985 HEPATITIS B (1 of 3 - 3-dose series) HEPATITIS B (1 of 3 - 3-dose series) [facility] Start: 1985 Hepatitis B Vaccine (1 of 3 - 3-dose series) Hepatitis B Vaccine (1 of 3 - 3-dose series) [facility] Cytopathology proced ure, preparation of smear, genital source Genital Culture [facility] Lactoferrin [Presenc e] in Stool by Immunoassay [facility] MG Breast - bilatera l Screening [facility] Path report.final Dx Spec [facility] Patient Education ED Diverticulitis [facility] Work Phone: Patient referral [facility] Work Phone: Protein measurement [facility] Protein measurement [facility] US Pelvis [facility] Immunizations Immunization Date Immunization Notes Care Provider Fa cility 06-19-2024 influenza, seasonal, injectable, preservative free Madelaine Lee MD Work Phone: [facility] 06-10-2023 influenza, injectabl e, quadrivalent, preservative free DO Sharita Hector Work Phone: [facility] 06-21-2022 influenza, injectabl e, quadrivalent, preservative free DO Sharita Hector Work Phone: [facility] 06-21-2022 influenza, seasonal, injectable [facility] 09-07-2020 Covid (Moderna[facility] 08-10-2020 Covid (Moderna) [facility] 06-09-2020 influenza, injectabl e, quadrivalent, preservative free DO Sharita Hector Work Phone: [facility] 06-09-2020 influenza, seasonal, injectable [facility] 06-09-2020 influenza virus vaccine, unspecified formulation Phan Robertson III, MD Work Phone: [facility] 06-10-2019 influenza, injectabl e, quadrivalent, preservative free DO Sharita Hector Work Phone: [facility] 06-10-2019 influenza, seasonal, injectable [facility] 07-03-2018 influenza, injectabl e, quadrivalent, preservative free DO Sharita Hector Work Phone: [facility] 07-03-2018 influenza, seasonal, injectable [facility] 05-10-2017 influenza, injectabl e, quadrivalent, preservative free DO Sharita Hector Work Phone: [facility] 05-10-2017 influenza, seasonal, injectable [facility] 05-03-2016 influenza, injectabl e, quadrivalent, preservative free DO Sharita Hector Work Phone: [facility] 05-03-2016 influenza, seasonal, injectable [facility] 05-31-2015 influenza, injectabl e, quadrivalent, preservative free DO Sharita Hector Work Phone: [facility] 05-31-2015 influenza, seasonal, injectable [facility] 05-13-2014 influenza, injectabl e, quadrivalent, preservative free DO Sharita Young Work Phone: [facility] 05-13-2014 influenza, seasonal, injectable [facility] Payers Date Payer Category Payer Self-pay [id number] 2023 Unknown [id number] 2017 Unknown 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 2017-Present [phone] [address] [address] [place] [address] Indemnity [id number] 2016 Unknown [id number] Unknown [id number] Unknown [id number] Unknown [id number] [id number] Unknown [id number] [id number] Unknown [id number] 2.16.840.1.756878.3.579.2.462 Unknown [id number] 2.16.840.1.520424.3.579.2.462 Unknown [id number] 2.16.840.1.026569.3.579.2.462 Unknown [id number] 2.16.840.1.133585.3.579.2.462 Unknown [id number] 2.16.840.1.098693.3.579.2.462 Unknown [id number] 2.16.840.1.508240.3.579.2.462 Unknown [id number] 2.16.840.1.992443.3.579.2.462 Unknown [id number] 2.16.840.1.586425.3.579.2.462 Unknown [id number] 2.16.840.1.282706.3.579.2.462 Unknown [id number] 2.16.840.1.410994.3.579.2.462 Unknown [id number] 2.16.840.1.277515.3.579.2.462 Unknown [id number] [id number] Social History Date Type Detail Facility Tobacco smoking status NHIS Unknown if ever smoked [facility] Work Phone: Start: 1985 Sex Assigned At Female [facility] Start: 02-17-2018 End: 05-16-2024 Tobacco smoking status NHIS Never smoked tobacco [facility] Start: 02-17-2018 Tobacco use and exposure Smokeless tobacco non-user [facility] Start: 06-10-2022 Alcohol intake Current non-dr ryder of alcohol (finding) [facility] Start: 1985 Sex Assigned At Not on file [facility] Start: 05-28-2022 End: 06-07-2022 Exposure to SARS-CoV-2 (event) Not sure [facility] Start: 10-17-2022 End: 11-15-2023 Tobacco smoking status NHIS Unknown if ever smoked [facility] Start: 06-10-2022 End: 09-02-2022 History of Social function [facility] Start: 06-10-2022 End: 09-02-2022 Tobacco use panel [facility] National Score (1-100), lower number is lower risk 81 [facility] Start: 11-05-2024 End: 11-13-2024 Sex Female (finding) [facility] NEGATED: Highlighted row [facility] Goals Date Patient Goal Desired Activity /State Mental Status Date Assessment Result Facility 03-06-2023 Cognitive function Voice/Name [facility] Work Phone: Clinical Notes 06-07-2022 to 02-15-2025 Note Date & Type Note Facility 02-15-2025 Evaluation note Diagnosis Onset Date Resolution Diverticulitis acute February 15, 2025 2:47pm GERD (gastroesophageal reflux disease) acute February 15, 2025 2:47pm THOMPSON (nonalcoholic steatohepatitis) acute February 15, 2025 2:47pm Frequent stools chronic February 2:47pm Fibroid uterus acute February 24, 2025 10:26am Pelvic pain acute February 24 10:26am Encounter for routine gynecological examination noneactive February 24, 2025 10:26am UTI (urinary tract infection) acute March 14 10:39am [facility] Work Phone: [phone] Radiology Diagnostic study note [facility] Imaging Services [address] [place], [place] [address] Abdomen/Pelvis WITH Contrast MR#: [id number] Acct: [id number] Name: TAMRAMU YADIRA Rep #: [id number] : 1985 F 39 From: Sally Morley MD PCP: Dr. Madelaine Lee MD Status: REG CL I Study:Abdomen/Pelvis WITH Contrast Date of Ex am: 02/01/25 Exam# [id number] Ordering Dr: Natali Chakraborty DO PROCEDURE: ABDOMEN/PELVIS WITH CONTRAST 02/01/2025 REASON FOR EXAM: DIVERTICULITIS TECHNIQUE: ABDOMEN/PELVIS WITH IV AND ORAL CONTRAST Coronal and Sagittal reconstruction series were provided. CONTRAST: Isovue-300 VOLUME: 99 mL One or more dose reduction techniques were used (e.g., Automated exposure control, adjustment of the mA and/or kV according to patient size, use of iterative reconstruction technique. RADIATION DOSE SUMMARY: CTDlvol: 23.7 mGy DLP: 1331 mGycm COMPARISON: CT abdomen and pelvis on 10/29/2024, abdominal ultrasound 11/10/2024 FINDINGS: Lung bases: Unremarkable Liver: Unremarkable Gallbladder: Unremarkable Spleen: Normal size. Pancreas: Normal size without evidence of mass surrounding inflammation or ductal dilation. Adrenals: Unremarkable Kidneys: No hydronephrosis or stone. Bladder: Unremarkable Reproductive Organs: Unchanged leiomyoma at the left aspect of the uterine body measuring up to 4.4cm in greatest dimension. Bowel: No obstruction or inflammation. There is diverticulosis of the distal descending and sigmoidcolon. Normal appendix. Lymph nodes: No suspicious lymph node enlargement. Vasculature: The abdominal aorta and IVC are normal. Bones: Unremarkable CT/Abdomen/Pelvis WITH Contrast IMPRESSION: 1. Colonic diverticulosis, without current evidence of acute diverticulitis. 2. Fibroid uterus. Reading Location: [id number] CC: Dr. Madelaine Lee MD; Kevin Friend, DO ~ Home Health Care Physician: Signed [facility]04-10-2025 Evaluation note* Diagnosis Onset Date Resolution Status Admit Date Diverticulitis acute November 1:58pm GERD (gastroesophageal reflu x disease) acute November 12, 2024 1:58pm THOMPSON (nonalcoholic steatohepatitis) acute November 12 1:58pm Frequent stools chronic November 1:58pm [facility] Work Phone: [phone] Evaluation note* Diagnosis Onset Date Resolution Status Admit Date Diverticulitis acute November 1:58pm GERD (gastroesophageal reflu x disease) acute November 12, 2024 1:58pm THOMPSON (nonalcoholic steatohepatitis) acute November 12 1:58pm Frequent stools chronic November 1:58pm Diverticulitis acute February 15, 2025 2:47pm GERD (gastroesophageal reflu x disease) acute February 15, 2025 2:47pm THOMPSON (nonalcoholic steatohepatitis) acute February 15, 2025 2:47pm Frequent stools chronic February 2:47pm Fibroid uterus acute February 24, 2025 10:26am Pelvic pain acute February 24 10:26am Encounter for routine gynecological examination noneactive February 032024 10:26am [facility] Work Phone: [phone]) 298-434104-09-2025 Radiology Diagnostic study note [facility] Imaging Services [address] [place] [address] ABD Limited w/ Elastography MR#: [id number] Acct: [id number] Name: MU BARBOZA Rep #: [id number] : 1985 F 38 From: Ashley Wong MD PCP: Dr. Madelaine Lee MD Status: REG CL I Study:ABD Limited w/ Elastography Date of Exa m: 11/10/24 Exam# [id number] Ordering Dr: Natali Chakraborty DO PROCEDURE: ABD LIMITED W/ ELASTOGRAPHY (USABDLELPARO), 11/10/2024 REASON FOR EXAM: THOMPSON COMPARISON: 10/29/2024 TECHNIQUE: Grayscale and color Doppler imaging of the right upper quadrant was performed. Pap[employer] S-shear waveelastography was performed for non-invasive assessment of liver tissue stiffness. FINDINGS: Exam limited by soft tissue attenuation and shadowing bowel gas. Liver: Echogenic. 18.3 cm in length. Gallbladder: Cholelithiasis. No visualized wall thickening or pericholecystic fluid. Reportedly, sonographic Perera's was negative. Biliary tree: Unremarkable. CBD measures 6 mm. Pancreas: Largely obscured by shadowing bowel gas. Right kidney: Unremarkable. 12.1 cm in length. Other: No visualized free fluid. Hepatic elastography: Number of measurements: 15 measurements across 3 regions, 5 measurements per region... US probe: CA1-7A. EQI median: 7.87 kPa EQI median velocity: 1.59 m/s IQR/Med: 20.7-22.4% (kPa) and 10.9-11.5% (m/s). If the IQR/Med is IQR/median >30% (for kPa) or >15% in m/s, the variance in the measurements is a large and the accuracy of the measurement may be in question. US/ABD Limited w/ Elastography IMPRESSION: 1. Borderline hepatomegaly and echogenic appearance of the hepatic parenchyma, typically associatedwith hepatic steatosis. Fibrosis/cirrhosis may have this appearance. 2. Liver stiffness is 7.87 kPa. Per the below 2020 SRU criteria, this rules out compensated advanced chronic liver disease in the absence of other known clinical signs. If there are known clinical signs, further testing may be needed for confirmation. 3. Cholelithiasis without findings to suggest cholecystitis. No significant biliary dilatation. 4. Additional description as above. Assessment is per the Update to the U Liver Elastography Consensus Statement (2020) Note that the above assessment of liver fibrosis is vendor-neutral and intended for use in fibrosisrelated to viral etiologies and non-alcoholic fatty-liver disease (NAFLD); in causes other than viral hepatitis and NAFLD, the cutoff values are currently not well established. In some patients with NAFLD, the cutoff values for cACLD may be lower (7-9 kPa). Note also that in the setting of elevated LFTs, nonfasting or vascular congestion, the stage of lifer fibrosis may be overestimated. Previous [facility] reference values: <1.37 m/s (5.7kPa): No to mild fibrosis 1.37 m/s - 2.2 m/s: Moderate to severe fibrosis >2.2 m/s (15kPa): Significant fibrosis / cirrhosis Reading Location: [facility] CC: Dr. Madelaine Lee MD; Kevin Chakraborty DO ~ Home Health Care Physician: Signed [facility]03-27-2025 Radiology Diagnostic study note [facility] Imaging Services [address] [place] [address] [id number] Abdomen/Pelvis WITH Contrast MR#: [id number] Acct: [id number] Name: MU BARBOZA YADIRA Rep #: [id number] : 1985 F 38 From: Loreto Mazariegos MD PCP: Dr. Madelaine Lee MD Status: REG CL I Study:Abdomen/Pelvis WITH Contrast Date of Ex am: 10/29/24 Exam# [id number] Ordering Dr: Natali Chakraborty DO PROCEDURE: ABDOMEN/PELVIS WITH CONTRAST 10/29/2024 REASON FOR EXAM: 38-year-old female, diverticulitis. TECHNIQUE: Abdomen and pelvis CT with intravenous contrast. Coronal and Sagittal reconstruction series were provided. PATIENT PREPARATION: Per protocol ORAL CONTRAST TYPE: Isovue 360 CONTRAST: Isovue 300 VOLUME: 100mL One or more dose reduction techniques were used (e.g., Automated exposure control, adjustment of the mA and/or kV according to patient size, use of iterative reconstruction technique. RADIATION DOSE SUMMARY: CTDlvol: 36 mGy DLP: 1260 mGycm COMPARISON: CT abdomen pelvis 05/16/2024. FINDINGS: Lung bases: The bibasilar lungs are clear. The heart is normal in size. Liver: Mild hepatomegaly with diffuse hepatic steatosis. The major portal veinsare patent. No biliary ductal dilation. Gallbladder: No radiopaque stones within the gallbladder. Spleen: Normal. Pancreas: Unremarkable. Adrenals: Unremarkable. Kidneys: No hydronephrosis or nephrolithiasis. Bladder: Mildly distended and unremarkable. Reproductive Organs: Prior right oophorectomy. Fibroid uterus. Bowel: The bowel loops are normal in caliber. Moderate wall thickening of the distal descending andsigmoid colon with severe diverticulosis. No evidence of diverticulitis. Normal appendix. Lymph nodes: No lymphadenopathy. Vasculature: The abdominal aorta and IVC are normal. Bones: Unremarkable. CT/Abdomen/Pelvis WITH Contrast IMPRESSION: 1. Severe diverticulosis with moderate wall thickening of the distal descending and sigmoid colon. No evidence of acute diverticulitis. 2. Mild hepatomegaly with diffuse hepatic steatosis. Reading Location: [id number] CC: Dr. Madelaine Lee MD; Kevin Chakraborty DO ~ Home Health Care Physician: Signed [facility]08-02-2023 History and physical note Author Kevin Chakraborty [facility] March 06, 2023 6:57am Note Date/Time March 06, 2023 6:5 7am [facility] Medical Records Department [address] [place] [id number] History & Physical Exam 03/06/23 0657 MR#: [id number] Acct: [id number] Name: MU BARBOZA YADIRA Rep #:[id number] : 1985 37 From: Kevin Chakraborty DO PCP: Sharita Young DO Status:REG S DC Location: [address] History and Physical Date of Admission: 03/06/23 MU BARBOZA is a 37 F who presents to the office today for Prior workup: ? CT abd/pel 11.9.20 LLQ pain colonic diverticulosis; patchy groundglass opacities of lung base, ?COVID. PCP OV 3.24.23 with history of diverticulitis with more recent episode . Currently experiencing abdominal pain following ingestion of spicy fries on Saturday; gynecology started flagyl *BGI established 12.11.22 new onset softer and smaller caliber stool with movements up to 3 times a day; non acute symptoms include bloating and heartburn. Notes onset following diverticulitis. Diverticulitis with use of antibiotic therapy up to 4 times; CT imaging (unavailable records) three times seeing diverticulitis. Prior to diverticulitis she was having a lot of constipation; started pre/probiotic and feels this has been helpful. ROS Const Constitutional: No anorexia, fatigue, fever(s), weight change or sleep problems Eyes Eyes: No change in vision ENT ENT: No abnormal hearing, difficulty swallowing, mouth lesions, tongue swelling or throat swelling Resp Respiratory: No cough or shortness of breath Cardio Cardiology: No chest pain at rest, chest pain with exertion, shortness of breathor dyspnea on exertion Gastro GI: No difficulty swallowing Genitourinary-Female: No difficulty urinating or burning urination Musc Musculoskeletal: No joint pain, joint swelling, muscle weakness or decreased muscle mass Skin Skin: No hair loss in leg, yellowing of the eye, itchy eyes, rash, skin ulcer orskin swelling Neuro Neurology: No abnormal hearing, abnormal movements, confusion, unsteady gait/balance or memory loss Psych Psychiatric: No anxiety, No confusion and No memory loss Endo Endocrine: No fatigue or weight change Aller/Imm Allergy/Immunologic: No itchy eyes, throat swelling or tongue swelling Dae/Lymp Hematologic/Lymphatic: No easy bleeding, easy bruising or enlarged lymph nodes Exam Const General: cooperative and comfortable Nutritional Appearance: average body habitus and well nourished [facility] Head: normal to inspection Ears: hearing grossly normal bilaterally Nose: external nose normal Face and sinus: normal facial exam Mouth: oral mucosae normal Throat: posterior oropharynx normal Eyes General: appearance normal, both eyes and all related structures Neck Neck: normal visual inspection Chest Chest palpation & inspection: normal inspection of the chest and normal palpation of entire chest wall Resp Effort & Inspection: normal respiratory effort Auscultation: Bilateral: Clear to Auscultation Cardio Palpation: normal PMI Rate: regular rate Rhythm: regular rhythm GI Inspection: normal to inspection Auscultation: normal bowel sounds Percussion: normal to percussion Palpation: no hepatosplenomegaly Skin General: no rashes or lesions noted Neuro General: patient alert Extrem General: normal to inspection Psych Affect: normal affect Quality Reporting Tobacco Screening ([facility] 138) Smoking Status: Never smoker Assessment and Plan Assessment and Plan (1) Frequent stools: Status: Chronic Plan: Intermittent loose stools that have gotten a lot better with the prebiotic and probiotic combination. She did have a couple episodes of urgency but that was mostly at night and it only happen a couple times. She does have some bloating and intermittent cramping but that is also gotten better with the prebiotic and probiotic combination. We will have her add Fiber Choice to her diet and we will do some testing for inflammatory bowel disease. (2) Diverticulitis: Status: Acute Plan: She has had 4 episodes of acute diverticulitis without any complications of microperforation. She recently had an episode of diverticulitis a month ago andcompleted antibiotics. She is on antibiotics at this time. She has been going to the bathroom more often and she recently notices that she gets a problem whenshe becomes constipated. She does have a strong family history of colon cancer and colon polyps in multiple family members. Therefore she will undergo colonoscopy for evaluation of her lower GI tract. (3) GERD (gastroesophageal reflux disease): Status: Acute Plan: She does have intermittent gastroesophageal reflux disease. She thinks it is mostly food related but she does occasionally have to take it and acid and or milk in order to coat her esophagus. Because this been going on for several years she will undergo screening for Zelaya's esophagus, erosive esophagitis, eosinophilic esophagitis and structural disease such as a hiatal hernia. Orders: Orders Comprehensive Metabolic Profil Today K52.9 - Noninfective gastroenteritis and colitis, unspecified, K58.9 - Irritable bowel syndrome without diarrhea CRP Today K52.9 - Noninfective gastroenteritis and colitis, unspecified, K58.9 -Irritable bowel syndrome without diarrhea LDH Today K52.9 - Noninfective gastroenteritis and colitis, unspecified, K58.9 -Irritable bowel syndrome without diarrhea CBC W/Diff, Automated Today K52.9 - Noninfective gastroenteritis and colitis, unspecified, K58.9 - Irritable bowel syndrome without diarrhea Erythrocyte Sed Rate Today K52.9 - Noninfective gastroenteritis and colitis, unspecified, K58.9 - Irritable bowel syndrome without diarrhea LORENZO Comprehensive Panel Today K52.9 - Noninfective gastroenteritis and colitis, unspecified Calprotectin, Stool Today K52.9 - Noninfective gastroenteritis and colitis, unspecified Stool Lactoferrin/WBC Today K52.9 - Noninfective gastroenteritis and colitis, unspecified, K58.9 - Irritable bowel syndrome without diarrhea ANCA Today K52.9 - Noninfective gastroenteritis and colitis, unspecified, K58.9 - Irritable bowel syndrome without diarrhea Celiac Disease Profile Today K52.9 - Noninfective gastroenteritis and colitis, unspecified, K58.9 - Irritable bowel syndrome without diarrhea Immunoglobulins G/A/M/E Today K52.9 - Noninfective gastroenteritis and colitis, unspecified, K58.9 - Irritable bowel syndrome without diarrhea GISELE + Protein Elect, Serum Today K52.9 - Noninfective gastroenteritis and colitis, unspecified, K58.9 - Irritable bowel syndrome without diarrhea Miscellaneous Lab Procedure Today K52.9 - Noninfective gastroenteritis and colitis, unspecified Allergen, Mini-Rast Today K52.9 - Noninfective gastroenteritis and colitis, unspecified, K58.9 - Irritable bowel syndrome without diarrhea Allergen, Rast Food Profile Today K52.9 - Noninfective gastroenteritis and colitis, unspecified, K58.9 - Irritable bowel syndrome without diarrhea I have examined the patient and the H&P has been reviewed. There are no clinicalchanges since date of exam. 03/06/23 0657 <Electronically signed by Kevin Chakraborty DO> Cosigner Signature (if applicable): CC: Sharita Young DO; Kevin Chakraborty DO~ Signed [facility] Work Phone: 1(127) 384-900608-02-2023 [facility] Procedure note [facility]08-02-2023 Procedure [facility] 10-17-2022 NotePap Smear Specimen AdequacyMarch 2022 5:54pmComment. Satisfactory for evaluation. Endocervical and/or squamous metaplasticcells (endocervical component)are present.[facility] A#[id number] [place], [place] [address]Comment on above:Satisfactory for evaluation. Endocervical and/or squamous metaplasticcells (endocervical component)are present.06-07-2022 NoteHNO ID: [id number] Author: Gena Meek PA-C Service: ? 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 She is currently using Metro cream and feelsthat seems to keep her clear. She does [...] FOR COUGH / congestion 0 Drospirenone-Ethinyl Estradiol (ROBERTA, 28,) 3-0.03 mg per tablet Take 1 [...] 1 year (around 06/07/2023). [facility] noteNo assessment information availableWSelect [facility] [place] Work Phone: Evaluation note* Diagnosis Rosacea- Primary documented in this encounter [facility] note* Diagnosis Onset Date Resolution Status Possible exposure to STD non eactive Encounter for routine gynecological examination noneactive Monilial vaginitis noneactiv e Monilial intertrigo noneacti ve [facility] Work Phone: Evaluation note* Diagnosis Onset Date Resolution Status Possible exposure to STD non eactive Encounter for routine gynecological examination noneactive Monilial vaginitis noneactiv e Monilial intertrigo noneacti ve Diverticulitis acute GERD (gastroesophageal reflux disease) acute Frequent stools chronic [facility] Work Phone: Evaluation note* Diagnosis Onset Date Resolution Status Diverticulitis acute GERD (gastroesophageal reflux disease) acute Frequent stools chronic [facility] Work Phone: Evaluation note* Diagnosis Onset Date Resolution Status Diverticulitis acute GERD (gastroesophageal reflux disease) acute THOMPSON (nonalcoholic steatohepatitis) acute Frequent stools chronic [facility] Work Phone: Reason for referral (narrative)No reason for referral information availableWSelect [facility] [place] Work Phone: Summary Purpose Family History Relationship Condition Age at Onset Recorded Date/T susie mother Malignant neoplasm of breast 35 father Malignant neoplasm Unknown grandmother Malignant neoplasm Unknown grandfather Malignant neoplasm of colon Unknown Advance Directives Advance Directive Response Recorded Date/ Time Living Will No February 28, 2023 1:20pm Power of Advance Scout No February 28 3 1:20pm Advance Directive Response Recorded Date/ Time Living Will No February 28, 2023 12:20pm Power of Advance Scout No February 28 3 12:20pm Chief Complaint and Reason for Visit Chief Complaint SCREENING Chief Complaint SCREENING 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) Reason for Visit Possible exposure to STD Encounter for routine gynecological examination Monilial vaginitis Monilial intertrigo Chief Complaint SCREENING 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) Consult E ORDERS Reason for Visit Possible exposure to STD Encounter for routine gynecological examination Monilial vaginitis Monilial intertrigo Diverticulitis GERD (gastroesophageal reflux disease) Frequent stools Chief Complaint Consult E ORDERS abd pain Reason for Visit Diverticulitis GERD (gastroesophageal reflux disease) Frequent stools Chief Complaint 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 Diverticulitis of intestine, part unspecified Chief Complaint 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 Diverticulitis of intestine, part unspecified 2 WK FU Nonalcoholic steatohepatitis (THOMPSON) Reason for Visit Diverticulitis GERD (gastroesophageal reflux disease) THOMPSON (nonalcoholic steatohepatitis) Frequent stools Chief Complaint Nonalcoholic steatoh epatitis (THOMPSON) SCREENING Chief Complaint SCREENING 6 MO FU URINARY SYMPTOMS Reason for Visit Diverticulitis GERD (gastroesophageal reflux disease) THOMPSON (nonalcoholic steatohepatitis) Frequent stools Chief Complaint Admit Date SCREENING September 24, 2024 1:37pm DIVERTICULITIS October 29, 2024 8:4 5am Chief Complaint Admit Date SCREENING September 24, 2024 1:37pm DIVERTICULITIS October 29, 2024 8:4 5am THOMPSON November 10, 2024 9:[address] test result November 12, 2024 1:5 8pm Reason for Visit Admit Date Diverticulitis November 12, 2024 1:5 8pm GERD (gastroesophageal reflux disease) A pril 2024 1:58pm THOMPSON (nonalcoholic steatohepatitis) Apri l 2024 1:58pm Frequent stools November 12, 2024 1:5 8pm Chief Complaint Admit Date DIVERTICULITIS October 29, 2024 8:4 5am THOMPSON November 10, 2024 9:[address] test result November 12, 2024 1:5 8pm DIVERTICULITIS - ORAL AND IV CONTRAST Ju ne 2024 4:09pm Chief Complaint Admit Date DIVERTICULITIS October 29, 2024 8:4 5am THOMPSON November 10, 2024 9:[address] test result November 12, 2024 1:5 8pm DIVERTICULITIS - ORAL AND IV CONTRAST Ju ne 2024 4:09pm MNT February 15, 2025 1:13 pm 3 M FU February 15, 2025 2:47 pm Chief Complaint Admit Date DIVERTICULITIS October 29, 2024 8:4 5am THOMPSON November 10, 2024 9:[address] test result November 12, 2024 1:5 8pm DIVERTICULITIS - ORAL AND IV CONTRAST Ju ne 2024 4:09pm MNT February 15, 2025 1:13 pm 3 M FU February 15, 2025 2:47 pm 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) February 24, 2025 10:2 6am Reason for Visit Admit Date Diverticulitis November 12, 2024 1:5 8pm GERD (gastroesophageal reflux disease) A pril 2024 1:58pm THOMPSON (nonalcoholic steatohepatitis) Apri l 2024 1:58pm Frequent stools November 12, 2024 1:5 8pm Diverticulitis February 15, 2025 2:47 pm GERD (gastroesophageal reflux disease) J dalila 2024 2:47pm THOMPSON (nonalcoholic steatohepatitis) February 15, 2025 2:47pm Frequent stools February 15, 2025 2:47 pm Fibroid uterus February 24, 2025 10:2 6am Pelvic pain February 24, 2025 10:2 6am Encounter for routine gynecological exam ination February 24, 2025 10:26am Chief Complaint Admit Date THOMPSON November 10, 2024 9:[address] test result November 12, 2024 1:5 8pm DIVERTICULITIS - ORAL AND IV CONTRAST Ju ne 2024 4:09pm MNT February 15, 2025 1:13 pm 3 M FU February 15, 2025 2:47 pm 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) February 24, 2025 10:2 6am Chief Complaint Admit Date DIVERTICULITIS - ORAL AND IV CONTRAST Ju ne 2024 4:09pm MNT February 15, 2025 1:13 pm 3 M FU February 15, 2025 2:47 pm 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) February 24, 2025 10:2 6am PELVIC PAIN, FIBROID UTERUS March 10, 2025 7:52am 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, 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 8:4 4am CONCERN FOR UTI March 14, 2025 10 :39am Reason for Visit Admit Date Diverticulitis February 15, 2025 2:47 pm GERD (gastroesophageal reflux disease) J dalila 2024 2:47pm THOMPSON (nonalcoholic steatohepatitis) February 15, 2025 2:47pm Frequent stools February 15, 2025 2:47 pm Fibroid uterus February 24, 2025 10:2 6am Pelvic pain February 24, 2025 10:2 6am Encounter for routine gynecological exam ination February 24, 2025 10:26am UTI (urinary tract infection) March 10:39am Additional Source Comments INFORMATION SOURCE (unrecogn ized section and content) DATE CREATED AUTHOR 10/09/2018 [facility] Nellie Odom DATE CREATED AUTHOR AUTHOR'S ORGANIZ ATION 03/02/2020 [facility] renetta [place] DATE CREATED AUTHOR AUTHOR'S ORGANIZ ATION 11/23/2020 [facility] DATE CREATED AUTHOR AUTHOR'S ORGANIZ ATION 06/10/2022 [facility] DATE CREATED AUTHOR AUTHOR'S ORGANIZ ATION 03/12/2025 [facility] Goals (unrecognized section and content) Goals may be documented in a n alternate sectionGoals may be documented in an alternate sectionGoals may be documented in an alternate sectionGoals may be documented in an alternate sectionGoals may be documented in an alternate sectionGoals may be documented in an alternate sectionGoals may be documented in an alternate sectionGoals may be documented in an alternate sectionGoals may be documented in an alternate sectionGoals may be documented in an alternate sectionGoals may be documented in an alternate sectionGoals may be documented in an alternate sectionGoals may be documented in an alternate section Source Comments (unrecognize d section and content) In the event this informatio n is protected by the Federal Confidentiality of Alcohol and Drug Abuse Patient Records regulations: The Federal rules restrict any use of the information to criminally investigate or prosecute any alcohol or drug abuse patient.[facility] CenterIn the event this information is protected by the Federal Confidentiality of Alcohol and Drug Abuse Patient Records regulations: The Federal rules restrict any use of the information to criminally investigate or prosecute any alcohol or drug abuse patient.[facility] CenterIn the event this information is protected by the Federal Confidentiality of Alcohol and Drug Abuse Patient Records regulations: The Federal rules restrict any use of the information to criminally investigate or prosecute any alcohol or drug abuse patient.[facility] Reason for Visit (unrecogniz ed section and content) Reason Comments Rosacea Care Teams (unrecognized sec tion and content) Team Status: Active Member Role Status Dates BARBARA MOORE Family Provider Active Sharita Young DO Primary Care Provider Active Team Status: Inactive Member Role Status Dates Sharita Young , Primary Care Provider, Attending Provider Active Team Status: Inactive Member Role Status Bambi Pedraza TRAFFIC SAFETY ADMINISTRATOR, TRAFFIC SAFETY ADMINISTRATOR-C Attending Provider Active Sharita Young DO Primary Care Provider, Referring Provider Active Team Status: Inactive Member Role Status Bambi Young , Primary Care Provider Active Michelle Pedraza TRAFFIC SAFETY ADMINISTRATOR, TRAFFIC SAFETY ADMINISTRATOR-C Attending Provider, Referring Provider Active Team Status: Inactive Member Role Status Dates Sharita Young , Primary Care Provider, Referring Provider Active Dr. Kevin Chakraborty , Attending Provider Active Team Status: Inactive Member Role Status Bambi Young DO Primary Care Provider Active Dr. Kevin Chakraborty , Attending Provider, Referring Provider Active Team Status: Active Member Role Status Bambi Young , Primary Care Provider, Referring Provider Active Dr. Kevin Chakraborty , Attending Provider, Other Prov ider Active Team Status: Inactive Member Role Status Bambi Young DO Primary Care Provider Active Dr. Carolyn Gaitan MD Attending Provider, Emergency Provider Active Team Status: Active Member Role Status Bambi Young DO Primary Care Provider Active Health Risk Assessment Attending Provider, Referring P azucena Active Team Status: Inactive Member Role Status Bambi Young DO Primary Care Provi cortez, Attending Provider, Referring Provider Active Team Status: Inactive Member Role Status Bambi Young DO Primary Care Provider, Referring Provider Active IVA Banda Attending Provider Active Team Status: Inactive Member Role Status Bambi Young DO Primary Care Provider Active IVA Banda Attending Provider Active Team Status: Active Member Role Status Bambi Lee MD Primary Care Provider Active Team Status: Inactive Member Role Status Bambi Lee MD Primary Care Provider Active St art: September 24, 2024 End: September 24, 2024 Madelaine Lee MD Attending Provider Active Start : September 24, 2024 End: September 24, 2024 Madelaine Lee MD Referring Provider Active Start : September 24, 2024 End: September 24, 2024 Team Status: Inactive Member Role Status Bambi Lee MD Primary Care Provider Active St art: October 29, 2024 End: October 29, 2024 Dr. Kevin Chakraborty DO Attending Provider Active Start: October 29, 2024 End: October 29, 2024 Dr. Kevin Chakraborty DO Referring Provider Active Start: October 29, 2024 End: October 29, 2024 Team Status: Inactive Member Role Status Bambi Lee MD Primary Care Provider Active St art: November 10, 2024 End: November 10, 2024 Dr. Kevin Chakraborty DO Attending Provider Active Start: November 10, 2024 End: November 10, 2024 Dr. Kevin Chakraborty DO Referring Provider Active Start: November 10, 2024 End: November 10, 2024 Team Status: Inactive Member Role Status Bambi Lee MD Primary Care Provider Active St art: November 12, 2024 End: November 12, 2024 Madelaine Lee MD Referring Provider Active Start : November 12, 2024 End: November 12, 2024 Dr. Kevin Chakraborty DO Attending Provider Active Start: November 12, 2024 End: November 12, 2024 Team Status: Active Member Role/Relationship Status Bambi Lee MD Primary Care Provider Active Team Status: Inactive Member Role/Relationship Status Bambi Lee MD Primary Care Provider Active St art: October 29, 2024 End: October 29, 2024 Dr. Kevin Chakraborty DO Attending Provider Active Start: October 29, 2024 End: October 29, 2024 Dr. Kevin Chakraborty DO Referring Provider Active Start: October 29, 2024 End: October 29, 2024 Team Status: Inactive Member Role/Relationship Status Bambi Lee MD Primary Care Provider Active St art: November 10, 2024 End: November 10, 2024 Dr. Kevin Chakraborty DO Attending Provider Active Start: November 10, 2024 End: November 10, 2024 Dr. Kevin Chakraborty DO Referring Provider Active Start: November 10, 2024 End: November 10, 2024 Team Status: Inactive Member Role/Relationship Status Bambi Lee MD Primary Care Provider Active St art: November 12, 2024 End: November 12, 2024 Madelaine Lee MD Referring Provider Active Start : November 12, 2024 End: November 12, 2024 Dr. Kevin Chakraborty DO Attending Provider Active Start: November 12, 2024 End: November 12, 2024 Team Status: Inactive Member Role/Relationship Status Bambi Lee MD Primary Care Provider Active St art: February 01, 2025 End: February 01, 2025 Dr. Kevin Chakraborty DO Attending Provider Active Start: February 01, 2025 End: February 01, 2025 Dr. Kevin Chakraborty DO Referring Provider Active Start: February 01, 2025 End: February 01, 2025 Team Status: Active Member Role/Relationship Status Bambi Lee MD Primary Care Provider Active St art: February 15, 2025 Dr. Kevin Chakraborty DO Attending Provider Active Start: February 15, 2025 Dr. Kevin Chakraborty DO Referring Provider Active Start: February 15, 2025 Team Status: Inactive Member Role/Relationship Status Bambi Lee MD Primary Care Provider Active St art: February 15, 2025 End: February 15, 2025 Madelaine Lee MD Referring Provider Active Start : February 15, 2025 End: February 15, 2025 Dr. Kevin Chakraborty DO Attending Provider Active Start: February 15, 2025 End: February 15, 2025 Team Status: Inactive Member Role/Relationship Status Bambi Lee MD Primary Care Provider Active St art: February 24, 2025 End: February 24, 2025 Madelaine Lee MD Referring Provider Active Start : February 24, 2025 End: February 24, 2025 RAND Fagan Attending Provider Active Start: February 24, 2025 End: February 24, 2025 Team Status: Inactive Member Role/Relationship Status Bambi Lee MD Primary Care Provider Active St art: November 10, 2024 End: November 10, 2024 Dr. Kevin Chakraborty DO Attending Provider Active Start: November 10, 2024 End: November 10, 2024 Dr. Kevin Chakraborty DO Referring Provider Active Start: November 10, 2024 End: November 10, 2024 Team Status: Inactive Member Role/Relationship Status Bambi Lee MD Primary Care Provider Active St art: November 12, 2024 End: November 12, 2024 Madelaine Lee MD Referring Provider Active Start : November 12, 2024 End: November 12, 2024 Dr. Kevin Chakraborty DO Attending Provider Active Start: November 12, 2024 End: November 12, 2024 Team Status: Inactive Member Role/Relationship Status Bambi Lee MD Primary Care Provider Active St art: February 01, 2025 End: February 01, 2025 Dr. Kevin Chakraborty DO Attending Provider Active Start: February 01, 2025 End: February 01, 2025 Dr. Kevin Chakraborty DO Referring Provider Active Start: February 01, 2025 End: February 01, 2025 Team Status: Inactive Member Role/Relationship Status Bambi Lee MD Primary Care Provider Active St art: February 15, 2025 End: March 04, 2025 Dr. Kevin Chakraborty DO Attending Provider Active Start: February 15, 2025 End: March 04, 2025 Dr. Kevin Chakraborty DO Referring Provider Active Start: February 15, 2025 End: March 04, 2025 Team Status: Inactive Member Role/Relationship Status Bambi Lee MD Primary Care Provider Active St art: February 15, 2025 End: February 15, 2025 Madelaine Lee MD Referring Provider Active Start : February 15, 2025 End: February 15, 2025 Dr. Kevin Chakraborty DO Attending Provider Active Start: February 15, 2025 End: February 15, 2025 Team Status: Inactive Member Role/Relationship Status Bambi Lee MD Primary Care Provider Active St art: February 24, 2025 End: February 24, 2025 Madelaine Lee MD Referring Provider Active Start : February 24, 2025 End: February 24, 2025 RAND Fagan Attending Provider Active Start: February 24, 2025 End: February 24, 2025 Team Status: Inactive Member Role/Relationship Status Bambi Lee MD Primary Care Provider Active St art: February 01, 2025 End: February 01, 2025 Dr. Kevin Chakraborty DO Attending Provider Active Start: February 01, 2025 End: February 01, 2025 Dr. Kevin Chakraborty DO Referring Provider Active Start: February 01, 2025 End: February 01, 2025 Team Status: Inactive Member Role/Relationship Status Bambi Lee MD Primary Care Provider Active St art: February 15, 2025 End: March 04, 2025 Dr. Kevin Chakraborty DO Attending Provider Active Start: February 15, 2025 End: March 04, 2025 Dr. Kevin Chakraborty DO Referring Provider Active Start: February 15, 2025 End: March 04, 2025 Team Status: Inactive Member Role/Relationship Status Bambi Lee MD Primary Care Provider Active St art: February 15, 2025 End: February 15, 2025 Madelaine Lee MD Referring Provider Active Start : February 15, 2025 End: February 15, 2025 Dr. Kevin Chakraborty DO Attending Provider Active Start: February 15, 2025 End: February 15, 2025 Team Status: Inactive Member Role/Relationship Status Bambi Lee MD Primary Care Provider Active St art: February 24, 2025 End: February 24, 2025 Madelaine Lee MD Referring Provider Active Start : February 24, 2025 End: February 24, 2025 RAND Fagan Attending Provider Active Start: February 24, 2025 End: February 24, 2025 Team Status: Active Member Role/Relationship Status Bambi Lee MD Primary Care Provider Active St art: March 10, 2025 RAND Fagan Attending Provider Active Start: March 10, 2025 RAND Fagan Referring Provider Active Start: March 10, 2025 Team Status: Active Member Role/Relationship Status Bambi Lee MD Primary Care Provider Active St art: March 10, 2025 Health Risk Assessment Attending Provider Active Start: March 10, 2025 Health Risk Assessment Referring Provider Active Start: March 10, 2025 Team Status: Inactive Member Role/Relationship Status Bambi Lee MD Primary Care Provider Active St art: March 14, 2025 End: March 14, 2025 Madelaine Lee MD Referring Provider Active Start : March 14, 2025 End: March 14, 2025 Brock Green NP, TRAFFIC SAFETY ADMINISTRATOR-C Attending Provider Active S tart: March 14, 2025 End: March 14, 2025 FOR RECORDS PERTAINING TO PATIENTS WHO ARE [...] BE BASED ON THE PRIMARY CLINICAL RECORDS. [facility] [facility]. provides no warranty or guarantee of the accuracy or completeness of information in this document.
--- OUTSIDE RECORDS SUMMARY | 2025-03-15 08:39 | XMS RPT_ITS | CCD ---
Author Organization [facility] CliniSyfl Care Team Providers Care Manager Research Development Name Role Phone James Ambrose CNP Attending Unavailable Mirna Mcbride Attending Unavailable GENA MEEK Referring Unavailable GENA MEEK Attending Unavailable Unavailable Primary Care Provider Unavailcristo Pedraza PASTE WORKER, PASTE WORKERNikC Michelle Attending Provider [phone] DO Sharita Young Primary Care Provider [phone] DO Sharita Young M Referring Provider Friend, Dr. Brown Attending Provider DO Sharita Young M Primary Care Provider DO Chris Youngistin M Referring Provider FriendDr. Brown Other Provider Unavailable Primary Care Provider UnavailDO Sharita Davidson M Primary Care Provider DO Hector Sharita M Referring Provider FriendDr. Brown Attending Provider [phone] DO Chris Youngistin M Primary Care Provider DO Hector Sharita M Referring Provider FriendDr. Brown Attending Provider FriendDr. Brown Other Provider DO Sharita Young M Primary Care Provider DO Hector Sharita M Referring Provider FriendDr. Brown Attending Provider Pattie ENRIQUE, IVA Choi Attending Provider Jesus MD, Chalon Primary Care Provider Madelaine Lee MD Attending Provider [phone] Jesus MCKEON, Madelaine Referring Provider Friend , Dr. Brown Attending Provider Friend , Dr. Brown Referring Provider Jesus MCKEON, Chalon Primary Care Provider Jesus MCKEON, Madelaine Referring Provider Berny PASTE WORKER-C, Lynnette Attending Provider [phone] Jesus MCKEON, Chalon Primary Care Provider Friend [...] Referring Provider Madelaine Lee MD Referring Provider [phone] Berny PASTE WORKER-CLynnette Referring Provider [phone] Assessment, Health Risk Attending Provider Unava ilable Assessment, Health Risk Referring Provider Unava ilable Peter PASTE WORKER-Brock Parra Attending Provider [phone] Medications Current Medications Medication Drug Class(es) [...] oral tablet (1 source) alpha-Adrenergic Agonist, Uncompetitive Q-rasxhg-I-aspartate Receptor Antagonist, Sigma-1 Agonist Start: 09-28-2018 CAPMIST [...] on above: Take 1 capsule by mo [facility] twice daily. With food fluconazole 200 mg [...] Auto (Unsp spec) [#/Vol] 2.48 10*3/uL 0.83-4.51 [facility] Absolute neutrophil countOrd ered By: HEALTH ASSESSMENT on 03-10-2025 Neutrophils (Bld) [#/Vol] 6.1 10*3/uL 2.0-7.7 [facility] Absolute nucleated red blood cell countOrdered By: HEALTH ASSESSMENT on 03-10-2025 Nucleated RBC (Bld) [#/Vol] 0.00 10*3/uL 0-5 [facility] Anion gap in Serum or Plasma Ordered By: HEALTH ASSESSMENT on 03-10-2025 Anion gap [Moles/Vol] 13 mmol/L 5-15 [facility] Comment on above: Previous reported re sult: 13 Edited by: AUTOINS on 03/10/25:0950 AMENDED REPORT 03/10/25 0950 GAP previously reported as: 13 BUN/creatinine ratioOrdered By: HEALTH ASSESSMENT on 03-10-2025 Urea nitrogen/Creatinine [Mass ratio] 10.1 mg/mg 10-20 [facility] Comment on above: Previous reported re sult: 10.4 RATIOEdited by: AUTOINS on 03/10/25:0950 AMENDED REPORT 03/10/25 0950 BUN/CRE previously reported as: 10.4 RATIO Bilirubin directOrdered By: HEALTH ASSESSMENT on 03-10-2025 Bilirubin.direct [Mass/Vol] 0.13 mg/dL 0.00-0.30 [facility] Comment on above: Previous reported re sult: 0.12 mg/dLEdited by: AUTOINS on 03/10/25:0950 AMENDED REPORT 03/10/25 0950 D BILI previously reported as: 0.12 mg/dL Bilirubin, totalOrdered By: HEALTH ASSESSMENT on 03-10-2025 Bilirubin [Mass/Vol] 0.29 mg/dL 0.00-1.30 [facility] CBC, Employeeon 03-10-2025 Absolute Lymph 2.48 X10 3/uL Normal 0.83-4.51 [facility] Comment on above: Performed By: #### L 500.2900, L400.0100, L100.0200 #### [facility] [address] [place], [address] Absolute Neut 6.1 X10 3/uL Normal 2.0-7.7 [facility] Comment on above: Performed By: #### L 500.2900, L400.0100, L100.0200 #### [facility] [address] [place], [address] Basophils/100 WBC (Bld) 0.5 % Normal 0-1 [facility] Comment on above: Performed By: #### L 500.2900, L400.0100, L100.0200 #### [facility] [address] [place], [address] Eosinophils/100 WBC (Bld) 1.6 % Normal 0-5 [facility] Comment on above: Performed By: #### L 500.2900, L400.0100, L100.0200 #### [facility] [address] [place], [address] Erythrocyte distribution width (RBC) [Ratio] 14.1 % Normal 11.6-14.6 [facility] Comment on above: Performed By: #### L 500.2900, L400.0100, L100.0200 #### [facility] [address] [place], [address] Hematocrit (Bld) [Volume fraction] 38.3 % Normal 37-47 [facility] Comment on above: Performed By: #### L 500.2900, L400.0100, L100.0200 #### [facility] [address] [place], [address] Hemoglobin (Bld) [Mass/Vol] 12.4 g/dL Normal 12.0-15.0 [facility] Comment on above: Performed By: #### L 500.2900, L400.0100, L100.0200 #### [facility] [address] [place], [address] Lymphocytes/100 WBC (Bld) 26.8 % Normal 19-41 [facility] Comment on above: Performed By: #### L 500.2900, L400.0100, L100.0200 #### [facility] [address] [place], [address] MCH (RBC) [Entitic mass] 26.2 pg Low 27.0-32.0 [facility] Comment on above: Performed By: #### L 500.2900, L400.0100, L100.0200 #### [facility] [address] [place], [address] MCHC (RBC) [Mass/Vol] 32.4 g/dL Normal 32-36 [facility] Comment on above: Performed By: #### L 500.2900, L400.0100, L100.0200 #### [facility] [address] [place], [address] MCV (RBC) [Entitic vol] 81.0 fL Normal 81-99 [facility] Comment on above: Performed By: #### L 500.2900, L400.0100, L100.0200 #### [facility] [address] [place], [address] Monocytes/100 WBC (Bld) 4.7 % Normal 0-10 [facility] Comment on above: Performed By: #### L 500.2900, L400.0100, L100.0200 #### [facility] [address] [place], [address] Neutrophils/100 WBC (Bld) 66.1 % Normal 47-70 [facility] Comment on above: Performed By: #### L 500.2900, L400.0100, L100.0200 #### [facility] [address] [place], [address] NRBC # 0.00 10 3/uL Normal 0-5 [facility] Comment on above: Performed By: #### L 500.2900, L400.0100, L100.0200 #### [facility] [address] [place], [address] Nucleated RBC (Bld) [#/Vol] 0 10*3/uL Normal 0-5 [facility] Comment on above: Performed By: #### L 500.2900, L400.0100, L100.0200 #### [facility] [address] [place], [address] Platelet mean volume (Bld) [Entitic vol] 10.6 fL Normal 6.2-12.0 [facility] Comment on above: Performed By: #### L 500.2900, L400.0100, L100.0200 #### [facility] [address] [place], [address] Platelets (Bld) [#/Vol] 323 10*3/uL Normal 150-450 [facility] Comment on above: Performed By: #### L 500.2900, L400.0100, L100.0200 #### [facility] [address] [place], [address] RBC (Bld) [#/Vol] 4.73 10*6/uL Normal 4.2-5.4 [facility] Comment on above: Performed By: #### L 500.2900, L400.0100, L100.0200 #### [facility] [address] [place], [address] RDW SD 40.9 fl Normal 35.1-43.9 [facility] Comment on above: Performed By: #### L 500.2900, L400.0100, L100.0200 #### [facility] [address] [place], [address] WBC (Bld) [#/Vol] 9.3 10*3/uL Normal 4.4-11.0 [facility] Comment on above: Performed By: #### L 500.2900, L400.0100, L100.0200 #### [facility] [address] [place], [address] Calculated very low density lipoprotein (VLDL) cholesterol measurementOrdered By: HEALTH ASSESSMENT on 03-10-2025 Calculated very low density lipoprotein (VLDL) cholesterol measurement 27 mg/dL 5-40 [facility] Carbon dioxide, total [Moles /volume] in Central venous bloodOrdered By: HEALTH ASSESSMENT on 03-10-2025 CO2 [Moles/Vol] 22.6 mmol/L 21.0-32.0 [facility] Comment on above: Previous reported re sult: 22.7 mmol/LEdited by: AUTOINS on 03/10/25:0950 AMENDED REPORT 03/10/25 0950 CO2 previously reported as: 22.7 mmol/L Chloride assayOrdered By: [facility] ASSESSMENT on 03-10-2025 Chloride [Moles/Vol] 103 mmol/L 98-108 [facility] Comment on above: Previous reported re sult: 102 mmol/LEdited by: AUTOINS on 03/10/25:0950 AMENDED REPORT 03/10/25 0950 CL previously reported as: 102 mmol/L [employer] CHOL:HDL 2.77 Normal [facility] Comment on above: Performed By: #### L 500.2900, L400.0100, L100.0200 #### [facility] [address] [place], [address] Cholesterol [Mass/Vol] 130 mg/dL Normal <=200 [facility] Comment on above: Result Comment: Chol esterol level, Desirable <200 mg/dL Borderline high cholesterol 200-239 mg/dL High cholesterol >=240 mg/dL Recommendations of the NCEP Adult Treatment Panel for the following risk-cutoff thresholds for the [place] population. Performed By: #### L 500.2900, L400.0100, L100.0200 #### [facility] [address] [place], [address] Cholesterol in HDL [Mass/Vol] 47 mg/dL Normal [facility] Comment on above: Result Comment: Olga onal Cholesterol Education Program (NCEP) guidelines: <40 mg/dL: Low HDL-cholesterol (major risk factor for CHD) >= 60 mg/dL: High HDL-cholesterol (negative risk factor for CHD) HDL-cholesterol is affected by a number of factors, e.g. smoking, exercise, hormones, sex and age. Performed By: #### L 500.2900, L400.0100, L100.0200 #### [facility] [address] [place], [address] Cholesterol in LDL [Mass/Vol] 56 mg/dL Normal [facility] Comment on above: Result Comment: Bord lyyfay=287-565 mg/dL Higher Dxkx=186 mg/dL or greater Friedwald Equation for LDL-C Performed By: #### L 500.2900, L400.0100, L100.0200 #### [facility] [address] [place], [address] Cholesterol in VLDL [Mass/Vol] 27 mg/dL Normal 5-40 [facility] Comment on above: Performed By: #### L 500.2900, L400.0100, L100.0200 #### [facility] [address] [place], [address] LDH 181 U/L Normal 84-246 [facility] Comment on above: Performed By: #### L 500.2900, L400.0100, L100.0200 #### [facility] [address] [place], [address] Phosphate [Mass/Vol] 3.8 mg/dL Normal 2.7-4.5 [facility] Comment on above: Performed By: #### L 500.2900, L400.0100, L100.0200 #### [facility] [address] [place], [address] Triglyceride [Mass/Vol] 137 mg/dL Normal [facility] Comment on above: Result Comment: The drugs N-Acetylcysteine and Metamizole may falsely depress this assay. Normal range: <150 mg/dL Borderline High: 150-199 mg/dL High: 200-499 mg/dL Very High: >500 mg/dL Performed By: #### L 500.2900, L400.0100, L100.0200 #### [facility] [address] [place], [place], [address] URIC 7.9 mg/dL High 2.6-6.0 [facility] Comment on above: Result Comment: The drugs N-Acetylcysteine and Metamizole may falsely depress this assay. Performed By: #### L 500.2900, L400.0100, L100.0200 #### [facility] [address] [place], [place], [address] Erythrocyte distribution wid th ratioOrdered By: HEALTH ASSESSMENT on 03-10-2025 Erythrocyte distribution width (RBC) [Ratio] 14.1 % 11.6-14.6 [facility] Erythrocyte distribution wid th standard deviationOrdered By: HEALTH ASSESSMENT on 03-10-2025 Erythrocyte distribution width (RBC) [Ratio] 40.9 fl 35.1-43.9 [facility] Glomerular filtration rate ( GFR) estimation/1.73 sq m using serum, plasma, or whole bOrdered By: HEALTH ASSESSMENT on 03-10-2025 GFR/1.73 sq M.predicted among non-blacks MDRD (S/P/Bld) [Vol rate/Area] 112 mL/min/{1.73_m2} >60 [facility] Comment on above: mL/min/1.73m2 CKD-EP I Creatinine Equation (2020) Hematocrit Auto (Bld) [Volum e fraction]Ordered By: HEALTH ASSESSMENT on 03-10-2025 Hematocrit (Bld) [Volume fraction] 38.3 % 37-47 [facility] Hemoglobin measurementOrdere d By: HEALTH ASSESSMENT on 03-10-2025 Hemoglobin (Bld) [Mass/Vol] 12.4 g/dL 12.0-15.0 [facility] LDL calc ser/plasOrdered By: HEALTH ASSESSMENT on 03-10-2025 Cholesterol in LDL [Mass/Vol] 56 mg/dL [facility] Comment on above: Xbxpdiqehd=953-544 m g/dL & Higher Excn=315 mg/dL or greaterFriedwald Equation for LDL-C Laboratory - Chemistry and C hemistry - challengeOrdered By: HEALTH ASSESSMENT on 03-10-2025 AST [Catalytic activity/Vol] 14 U/L <32 [facility] Lactate dehydrogenase (LDH) measurementOrdered By: HEALTH ASSESSMENT on 03-10-2025 LDH [Catalytic activity/Vol] 181 U/L 84-246 [facility] MCV (mean corpuscular volume ) determinationOrdered By: HEALTH ASSESSMENT on 03-10-2025 MCV (RBC) [Entitic vol] 81.0 fL 81-99 [facility] Mean corpuscular hemoglobin (MCH) determinationOrdered By: HEALTH ASSESSMENT on 03-10-2025 MCH (RBC) [Entitic mass] 26.2 pg Low 27.0-32.0 [facility] Mean corpuscular hemoglobin concentration (MCHC) determinationOrdered By: HEALTH ASSESSMENT on 03-10-2025 MCHC (RBC) [Mass/Vol] 32.4 g/dL 32-36 [facility] Mean platelet volume determi nationOrdered By: HEALTH ASSESSMENT on 03-10-2025 Platelet mean volume (Bld) [Entitic vol] 10.6 fL 6.2-12.0 [facility] Neutrophil percentageOrdered By: HEALTH ASSESSMENT on 03-10-2025 Neutrophils/100 WBC (Bld) 66.1 % 47-70 [facility] Nucleated red blood cell per centageOrdered By: HEALTH ASSESSMENT on 03-10-2025 Nucleated RBC/100 WBC (Bld) [Ratio] 0 % 0-5 [facility] Pelvic w/ Transvaginalon Pelvic w/ Transvaginal [facility] [address] [place], [place] [id number] Pelvic w/ Transvaginal MR#: [id number] Acct: [id number] Name: MU BARBOZA Rep #: [id number] : 1985 F 39 From: Kam bettencourt MD PCP: Dr. Madelaine Lee MD Status: [facility] CLI Study: Pelvic w/ Transvaginal Date of Exam: 03/10/25 Exam# [id number] Ordering Dr: Lynnette Arrieta PROCEDURE: PELVIC W/ [...] fibroid. Status post right oophorectomy. Reading Location: [facility] CC: RAND Arrieta; Dr. Madelaine Lee MD Sports Betting Manager: Signed Normal [facility] Platelet countOrdered By: HE ALTH ASSESSMENT on 03-10-2025 Platelets (Bld) [#/Vol] 323 10*3/uL 150-450 [facility] Potassium measurement (mass/ volume)Ordered By: HEALTH ASSESSMENT on 03-10-2025 Potassium (Unsp spec) [Mass/Vol] 4.0 mmol/L 3.3-5.1 [facility] Comment on above: Previous reported re sult: 3.9 mmol/LEdited by: AUTOINS on 03/10/25:0950 AMENDED REPORT 03/10/25 0950 K previously reported as: 3.9 mmol/L RBC Auto (Bld) [#/Vol]Ordere d By: HEALTH ASSESSMENT on 03-10-2025 RBC (Bld) [#/Vol] 4.73 10*6/uL 4.2-5.4 [facility] Screening total cholesterol/ high density lipoprotein (HDL) cholesterol ratioOrdered By: HEALTH ASSESSMENT on 03-10-2025 Cholesterol.total/Cholest mariana in HDL [Mass ratio] 2.77 {ratio} [facility] Serum creatinine measurement (mass/volume)Ordered By: HEALTH ASSESSMENT on 03-10-2025 Creatinine [Mass/Vol] 0.68 mg/dL Low 0.70-1.20 [facility] Comment on above: Previous reported re sult: 0.69 mg/dLEdited by: EDUARS on 03/10/25:0950 AMENDED REPORT 03/10/25 0950 CREAT,SERUM previously reported as: 0.69 L mg/dL Serum globulin measurementOr dered By: HEALTH ASSESSMENT on 03-10-2025 Globulin (S) [Mass/Vol] 3.4 g/dL 2.2-4.2 [facility] Serum glucose measurement (m ass/volume)Ordered By: HEALTH ASSESSMENT on 03-10-2025 Glucose [Mass/Vol] 96 mg/dL 70-99 [facility] Comment on above: Previous reported re sult: 95 mg/dLEdited by: ARSENIO on 03/10/25:0950 AMENDED REPORT 03/10/25 0950 GLU previously reported as: 95 mg/dL Serum or plasma alanine pena otransferase (ALT) measurementOrdered By: HEALTH ASSESSMENT on 03-10-2025 ALT [Catalytic activity/Vol] 12 U/L <35 [facility] Comment on above: Previous reported re sult: 11 U/LEdited by: AUTOINS on 03/10/25:0950 AMENDED REPORT 03/10/25 0950 ALT previously reported as: 11 U/L Serum or plasma albumin malathi urement (mass/volume)Ordered By: HEALTH ASSESSMENT on 03-10-2025 Albumin [Mass/Vol] 3.8 g/dL 3.5-5.0 [facility] Comment on above: Previous reported re sult: 4.0 g/dLEdited by: AUTOINS on 03/10/25:0950 AMENDED REPORT 03/10/25 0950 ALB previously reported as: 4.0 g/dL Serum or plasma albumin/glob ulin mass ratioOrdered By: HEALTH ASSESSMENT on 03-10-2025 Albumin/Globulin [Mass ratio] 1.1 {ratio} 0.9-2.4 [facility] Serum or plasma alkaline bob sphatase measurementOrdered By: HEALTH ASSESSMENT on 03-10-2025 ALP [Catalytic activity/Vol] 85 U/L 35-104 [facility] Serum or plasma calcium malathi urement (mass/volume)Ordered By: HEALTH ASSESSMENT on 03-10-2025 Calcium [Mass/Vol] 9.1 mg/dL 7.6-11.0 [facility] Comment on above: Previous reported re sult: 8.9 mg/dLEdited by: AUTOINS on 03/10/25:0950 AMENDED REPORT 03/10/25 0950 CA previously reported as: 8.9 mg/dL Serum or plasma cholesterol in HDL measurement (mass/volume)Ordered By: HEALTH ASSESSMENT on 03-10-2025 Cholesterol in HDL [Mass/Vol] 47 mg/dL >40 [facility] Comment on above: National Cholesterol Education Program (NCEP) guidelines:<40 mg/dL: Low HDL-cholesterol (major risk factor for CHD)>= 60 mg/dL: High HDL-cholesterol (negative risk factor for CHD)HDL-cholesterol is affected by a number of factors, e.g. smoking, exercise, hormones, sex and age. Serum or plasma cholesterol measurement (mass/volume)Ordered By: HEALTH ASSESSMENT on 03-10-2025 Cholesterol [Mass/Vol] 130 mg/dL <201 [facility] Comment on above: Cholesterol level, D esirable <200 mg/dLBorderline high cholesterol 200-239 mg/dLHigh cholesterol >=240 mg/dLRecommendations of the NCEP Adult Treatment Panel for the following risk-cutoff thresholds for the [place] population. Serum or plasma urea nitroge n measurement (mass/volume)Ordered By: HEALTH ASSESSMENT on 03-10-2025 Urea nitrogen [Mass/Vol] 7 mg/dL 4-19 [facility] Serum or plasma uric acid me asurement (mass/volume)Ordered By: HEALTH ASSESSMENT on 03-10-2025 Urate [Mass/Vol] 7.9 mg/dL High 2.6-6.0 [facility] Comment on above: The drugs N-Acetylcy steine and Metamizole may falsely depress this assay. Sodium levelOrdered By: HEAL TH ASSESSMENT on 03-10-2025 Sodium [Moles/Vol] 139 mmol/L 133-145 [facility] Comment on above: Previous reported re sult: 138 mmol/LEdited by: AUTOINS on 03/10/25:0950 AMENDED REPORT 03/10/25 0950 NA previously reported as: 138 mmol/L Total proteinOrdered By: Lorna [facility] ASSESSMENT on 03-10-2025 Protein [Mass/Vol] 7.2 g/dL 5.9-8.4 [facility] Comment on above: Previous reported re sult: 7.1 g/dLEdited by: AUTOINS on 03/10/25:0950 AMENDED REPORT 03/10/25 0950 T PROT previously reported as: 7.1 g/dL Triglycerides measurementOrd ered By: HEALTH ASSESSMENT on 03-10-2025 Triglyceride [Mass/Vol] 137 mg/dL <199 [facility] Comment on above: The drugs N-Acetylcy steine and Metamizole may falsely depress this assay. Normal range: <150 mg/dLBorderline High: 150-199 mg/dLHigh: 200-499 mg/dLVery High: >500 mg/dL Urinalysis, Employeeon 03-10 BILIRUBIN URINE Normal Negative [facility] Comment on above: Order Comment: Urine , Random Result Comment: UTO. WANTS TO COME BACK TO DO ANOTHER TIME Performed By: #### L 500.2900, L400.0100, L100.0200 #### [facility] [address] [place], [place], [id number] Clarity (U) Normal Clear [facility] Comment on above: Order Comment: Urine , Random Result Comment: UTO. WANTS TO COME BACK TO DO ANOTHER TIME Performed By: #### L 500.2900, L400.0100, L100.0200 #### [facility] [address] [place], [address] Color (U) Normal Yellow [facility] Comment on above: Order Comment: Urine , Random Result Comment: UTO. WANTS TO COME BACK TO DO ANOTHER TIME Performed By: #### L 500.2900, L400.0100, L100.0200 #### [facility] [address] [place], [address] GLUCOSE, UR Normal Normal [facility] Comment on above: Order Comment: Urine , Random Result Comment: UTO. WANTS TO COME BACK TO DO ANOTHER TIME Performed By: #### L 500.2900, L400.0100, L100.0200 #### [facility] [address] [place], [address] KETONE UR Normal Negative [facility] Comment on above: Order Comment: Urine , Random Result Comment: UTO. WANTS TO COME BACK TO DO ANOTHER TIME Performed By: #### L 500.2900, L400.0100, L100.0200 #### [facility] [address] [place], [address] LEUK ESTERASE Normal Negative [facility] Comment on above: Order Comment: Urine , Random Result Comment: UTO. WANTS TO COME BACK TO DO ANOTHER TIME Performed By: #### L 500.2900, L400.0100, L100.0200 #### [facility] [address] [place], [address] Nitrite Ql (U) Normal Negative [facility] Comment on above: Order Comment: Urine , Random Result Comment: UTO. WANTS TO COME BACK TO DO ANOTHER TIME Performed By: #### L 500.2900, L400.0100, L100.0200 #### [facility] [address] [place], [address] OCCULT BLOOD-UR Normal Negative [facility] Comment on above: Order Comment: Urine , Random Result Comment: UTO. WANTS TO COME BACK TO DO ANOTHER TIME Performed By: #### L 500.2900, L400.0100, L100.0200 #### [facility] [address] [place], [address] pH UR Normal 5.0 - 8.0 [facility] Comment on above: Order Comment: Urine , Random Result Comment: UTO. WANTS TO COME BACK TO DO ANOTHER TIME Performed By: #### L 500.2900, L400.0100, L100.0200 #### [facility] [address] [place], [address] PROT DIPSTX Normal Negative [facility] Comment on above: Order Comment: Urine , Random Result Comment: UTO. WANTS TO COME BACK TO DO ANOTHER TIME Performed By: #### L 500.2900, L400.0100, L100.0200 #### [facility] [address] [place], [address] SP.GR. DIPSTX Normal 1.002-1.030 [facility] Comment on above: Order Comment: Urine , Random Result Comment: UTO. WANTS TO COME BACK TO DO ANOTHER TIME Performed By: #### L 500.2900, L400.0100, L100.0200 #### [facility] [address] [place], [address] UR Preservative Normal [facility] Comment on above: Order Comment: Urine , Random Result Comment: UTO. WANTS TO COME BACK TO DO ANOTHER TIME Performed By: #### L 500.2900, L400.0100, L100.0200 #### [facility] [address] [place], [address] UROBILI Normal Normal [facility] Comment on above: Order Comment: Urine , Random Result Comment: UTO. WANTS TO COME BACK TO DO ANOTHER TIME Performed By: #### L 500.2900, L400.0100, L100.0200 #### [facility] [address] [place], [address] White blood cell (WBC) count Ordered By: HEALTH ASSESSMENT on 03-10-2025 WBC (Bld) [#/Vol] 9.3 10*3/uL 4.4-11.0 [facility] Outcomes Specialist Office Visit Reporton 02-24-2025 Outcomes Specialist Office Visit Report [facility] [address], [address] [place] [address] OFFICE VISIT Date of Service: 02/24/25 MR#: [id number] Acct: [id number] Name: MU BARBOZA Rep #: [id number] : 1985 Provider: RAND Flores Age/Sex: 39/F Location: [facility] [place] Status: Signed Intake Vital Signs 05/16/24 13:41 02/15/25 13:31 02/24/25 10:37 02/24/25 11:26 Height 5 ft 6 in 5 ft 6 in 5 ft 6 in Weight: 264 lb 3.2 oz 262 lb 2 oz BMI 42.3 BP 162/92 H 136/84 H Intake Visit Reasons: 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 History 0 Elective abortions Hx Para Spontaneous [...] oriented to person and oriented to place [facility] Head: normal to inspection Neck Neck: normal [...] normal appearance (more content not included)... 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 HPI HPI Details: MU BARBOZA, is a [...] or oth (more content not included)... Normal [facility] Abdomen/Pelvis WITH Contrast on 02-01-2025 Abdomen/Pelvis WITH Contrast [facility] Services [address] [place], [place] [address] Abdomen/Pelvis WITH Contrast MR#: [id number] Acct: [id number] Name: MU BARBOZA Rep #: [id number] : 1985 F 39 From: Wan Morley MD PCP: Dr. Madelaine Lee MD Status: REG CLI Study: Abdomen/Pelvis WITH Contrast Date of Exam: Exam# [id number] Ordering Dr: Kevin Chakraborty DO PROCEDURE: ABDOMEN/PELVIS [...] acute diverticulitis. 2. Fibroid uterus. Reading Location: [id number] CC: Dr. 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 HPI HPI Details: MU BARBOZA, is a [...] easy bruising (more content not included)... Normal [facility] ABD Limited w/ Elastographyo n 11-10-2024 ABD Limited w/ Elastography [facility] [address] [place] [address] ABD Limited w/ Elastography MR#: [id number] Acct: [id number] Name: MU BARBOZA Rep #: [id number] : 1985 F 38 From: Hebert Wong MD PCP: Dr. Madelaine Lee MD Status: REG CLI Study: ABD Limited w/ Elastography Date of Exam: 03/29 Exam# [id number] Ordering Dr: Kevin Chakraborty DO PROCEDURE: ABD LIMITED W/ ELASTOGRAPHY (USABDLELPARO), 11/10/2024 REASON FOR EXAM: THOMPSON COMPARISON: 10/29/2024 TECHNIQUE: Grayscale and color Doppler imaging of the right upper quadrant was performed. StrongLoop S-shear wave elastography was performed for non-invasive [...] (15kPa): Significant fibrosis / cirrhosis Reading Location: [id number] CC: Dr. Madelaine Lee MD; Kevin Chakraborty DO Sports Betting Manager: Signed Normal [facility] Abdomen/Pelvis WITH Contrast on 10-29-2024 Abdomen/Pelvis WITH Contrast [facility] Services [address] [place] [address] Abdomen/Pelvis WITH Contrast MR#: [id number] Acct: [id number] Name: MU BARBOZA Rep #: [id number] : 1985 F 38 From: Leann Polo nd, MD PCP: Dr. Madelaine Lee MD Status: REG CLI Study: Abdomen/Pelvis WITH Contrast Date of Exam: Exam# [id number] Ordering Dr: Kevin Chakraborty DO PROCEDURE: ABDOMEN/PELVIS [...] hepatomegaly with diffuse hepatic steatosis. Reading Location: [id number] CC: Dr. Madelaine Lee MD; Kevin Chakraborty DO Sports Betting Manager: Signed Normal [facility] SCRN MAMM (CAD)W/SHANNAN BILATo n 09-24-2024 SCRN MAMM (CAD)W/SHANNAN BILAT [facility] [address] [place] [address] SCRN MAMM (CAD)W/SHANNAN BILAT MR#: [id number] Acct: [id number] Name: MU BARBOZA Rep #: [id number] : 1985 F 38 From: Kadie Holcomb PCP: Dr. Madelaine Lee MD Status: REG CLI Study: SCRN MAMM (CAD)W/SHANNAN BILAT Date of Exam: 09/06 Exam# [id number] Ordering Dr: Madelaine Lee MD PROCEDURE: SCRN [...] SCREENING. Follow-up code: Routine Follow-up Reading Location: [facility] CC: Dr. Madelaine Lee MD Sports Betting Manager: Signed Normal [facility] Abdomen/Pelvis W IV Cont ONL Yon 05-16-2024 Abdomen/Pelvis W IV Cont ONLY [facility] Imaging Services [address] [place], [place] [address] Abdomen/Pelvis W IV Cont ONLY MR#: [id number] Acct: [id number] Name: MU BARBOZA Rep #: [id number] : 1985 F 38 From: Kel Severino MD PCP: Dr. Madelaine Lee MD Status: REG ER Study: Abdomen/Pelvis W IV Cont ONLY Date of Exam: Exam# [id number] Ordering Dr: Rome Lynch MD [id number] EXAM: CT ABDOMEN AND PELVIS WITH INTRAVENOUS [...] Madelaine Lee MD; Dr. Rome Lynch MD Sports Betting Manager: Signed Normal [facility] Basic Metabolic Profile (BMP )on 05-16-2024 BUN/CRE 8.0 RATIO Low 10-20 [facility] Comment on above: Performed By: #### L 500.2500, L700.6800, L100.0100 ####[facility] [address] [place], [address] CA,Total 9.4 mg/dL Normal 8.5-10.1 [facility] Comment on above: Performed By: #### L 500.2500, L700.6800, L100.0100 ####[facility] [address] [place], [address] Chloride [Moles/Vol] 101 mmol/L Normal 98-107 [facility] Comment on above: Performed By: #### L 500.2500, L700.6800, L100.0100 ####[facility] [address] [place], [address] CO2 [Moles/Vol] 22.0 mmol/L Normal 21.0-32.0 [facility] Comment on above: Performed By: #### L 500.2500, L700.6800, L100.0100 ####[facility] [address] [place], [address] Creatinine [Mass/Vol] 0.75 mg/dL Normal 0.55-1.02 [facility] Comment on above: Result Comment: The validity of the calculated GFR GFRAA in patients over 70 years has not been determined. Clinical correlation is essential. Performed By: #### L 500.2500, L700.6800, L100.0100 ####[facility] [address] [place], [address] ECRCL 132.83 ml/min Normal [facility] Comment on above: Performed By: #### L 500.2500, L700.6800, L100.0100 ####[facility] [address] [place], [address] EST GFR - AA 110 mL/min Normal >60 [facility] Comment on above: Result Comment: Afri can Mauritian GFR Calc Performed By: #### L 500.2500, L700.6800, L100.0100 ####[facility] [address] [place], [address] GAP 10 Normal 5-15 [facility] Comment on above: Performed By: #### L 500.2500, L700.6800, L100.0100 ####[facility] [address] [place], [address] GFR/1.73 sq M.predicted among non-blacks MDRD (S/P/Bld) [Vol rate/Area] 91 mL/min/{1.73_m2} Normal >60 [facility] Comment on above: Result Comment: Non- GFR Calc Performed By: #### L 500.2500, L700.6800, L100.0100 ####[facility] [address] [place], [address] Glucose [Mass/Vol] 121 mg/dL High 74-106 [facility] Comment on above: Result Comment: Fast ing Glucose result from 100 to 125 mg/dL suggests IMPAIRED HOMEOSTASIS per A.D.A. criteria. Performed By: #### L 500.2500, L700.6800, L100.0100 ####[facility] [address] [place], [address] Potassium [Moles/Vol] 3.8 mmol/L Normal 3.5-5.1 [facility] Comment on above: Performed By: #### L 500.2500, L700.6800, L100.0100 ####[facility] [address] [place], [address] Sodium [Moles/Vol] 133 mmol/L Low 136-145 [facility] Comment on above: Performed By: #### L 500.2500, L700.6800, L100.0100 ####[facility] [address] [place], [address] Urea nitrogen [Mass/Vol] 6 mg/dL Low 7-18 [facility] Comment on above: Performed By: #### L 500.2500, L700.6800, L100.0100 ####[facility] [address] [place], [address] CBC W/Diff, Automatedon 10-1 2-2023 Absolute Lymph 1.78 X10 3/uL Normal 0.83-4.51 [facility] Comment on above: Performed By: #### L 500.2500, L700.6800, L100.0100 ####[facility] [address] [place], [address] Absolute Neut 15.6 X10 3/uL High 2.0-7.7 [facility] Comment on above: Performed By: #### L 500.2500, L700.6800, L100.0100 ####[facility] [address] [place], [address] Basophils/100 WBC (Bld) 0.2 % Normal 0-1 [facility] Comment on above: Performed By: #### L 500.2500, L700.6800, L100.0100 ####[facility] [address] [place], [address] Eosinophils/100 WBC (Bld) 0.1 % Normal 0-5 [facility] Comment on above: Performed By: #### L 500.2500, L700.6800, L100.0100 ####[facility] [address] [place], [address] Erythrocyte distribution width (RBC) [Ratio] 14.2 % Normal 11.6-14.6 [facility] Comment on above: Performed By: #### L 500.2500, L700.6800, L100.0100 ####[facility] [address] [place], [address] Hematocrit (Bld) [Volume fraction] 41.9 % Normal 37-47 [facility] Comment on above: Performed By: #### L 500.2500, L700.6800, L100.0100 ####[facility] [address] [place], [address] Hemoglobin (Bld) [Mass/Vol] 13.4 g/dL Normal 12.0-15.0 [facility] Comment on above: Performed By: #### L 500.2500, L700.6800, L100.0100 ####[facility] [address] [place], [address] IG% 0.400 Normal 0.0-0.9 [facility] Comment on above: Result Comment: IG% - Immature Granulocytes (promyelocytes, myelocytes and metamyelocytes) > 1% indicates that a LEFT SHIFT is Present. Performed By: #### L 500.2500, L700.6800, L100.0100 ####[facility] [address] [place], [address] Lymphocytes/100 WBC (Bld) 9.8 % Low 19-41 [facility] Comment on above: Performed By: #### L 500.2500, L700.6800, L100.0100 ####[facility] [address] [place], [address] MCH (RBC) [Entitic mass] 25.6 pg Low 27.0-32.0 [facility] Comment on above: Performed By: #### L 500.2500, L700.6800, L100.0100 ####[facility] [address] [place], [address] MCHC (RBC) [Mass/Vol] 32.0 g/dL Normal 32-36 [facility] Comment on above: Performed By: #### L 500.2500, L700.6800, L100.0100 ####[facility] [address] [place], [address] MCV (RBC) [Entitic vol] 80.1 fL Low 81-99 [facility] Comment on above: Performed By: #### L 500.2500, L700.6800, L100.0100 ####[facility] [address] [place], [address] Monocytes/100 WBC (Bld) 3.9 % Normal 0-10 [facility] Comment on above: Performed By: #### L 500.2500, L700.6800, L100.0100 ####[facility] [address] [place], [address] Neutrophils/100 WBC (Bld) 85.6 % High 47-70 [facility] Comment on above: Performed By: #### L 500.2500, L700.6800, L100.0100 ####[facility] [address] [place], [address] Nucleated RBC (Bld) [#/Vol] 0 10*3/uL Normal 0-5 [facility] Comment on above: Performed By: #### L 500.2500, L700.6800, L100.0100 ####[facility] [address] [place], [address] Platelet mean volume (Bld) [Entitic vol] 10.2 fL Normal 6.2-12.0 [facility] Comment on above: Performed By: #### L 500.2500, L700.6800, L100.0100 ####[facility] [address] [place], [address] Platelets (Bld) [#/Vol] 323 10*3/uL Normal 150-450 [facility] Comment on above: Performed By: #### L 500.2500, L700.6800, L100.0100 ####[facility] [address] [place], [address] RBC (Bld) [#/Vol] 5.23 10*6/uL Normal 4.2-5.4 [facility] Comment on above: Performed By: #### L 500.2500, L700.6800, L100.0100 ####[facility] [address] [place], [address] RDW SD 41.4 fl Normal 35.1-43.9 [facility] Comment on above: Performed By: #### L 500.2500, L700.6800, L100.0100 ####[facility] [address] [place], [address] WBC (Bld) [#/Vol] 18.2 10*3/uL High 4.4-11.0 [facility] Comment on above: Performed By: #### L 500.2500, L700.6800, L100.0100 ####[facility] [address] [place], [address] Emergency Department Summary on 05-16-2024 Emergency Department Summary [facility] Medical Records Department [address] [place] [address] Emergency Department Summary 05/16/24 MR#: [id number] Acct: [id number] Name: TAMRAMU YADIRA Rep #: [id number] : 1985 38 From: Rome Lynch MD PCP: Dr. 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 Normal [facility] ,Serum,hCG Quali.on 05-16-2024 HCG, SERUM QUAL Negative Normal [facility] Comment on above: Performed By: #### L 500.2500, L700.6800, L100.0100 ####[facility] [address] [place], [address] Urinalysis, Completeon 05-16 BACTERIA 0 SEEN Normal None Seen [facility] Comment on above: Order Comment: CLEAN CATCH Performed By: #### L 400.0001 ####[facility] [address] [place], [address] EPI,SQUAMOUS 0 SEEN Normal 5-10 [facility] Comment on above: Order Comment: CLEAN CATCH Performed By: #### L 400.0001 ####[facility] [address] [place], [address] Mucus Ql (Urine sed) 0 SEEN Normal [facility] Comment on above: Order Comment: CLEAN CATCH Performed By: #### L 400.0001 ####[facility] [address] [place], [address] RBC 0 SEEN Normal 0-5 [facility] Comment on above: Order Comment: CLEAN CATCH Performed By: #### L 400.0001 ####[facility] [address] [place], [address] WBC 0 SEEN Normal 0-5 [facility] Comment on above: Order Comment: CLEAN CATCH Performed By: #### L 400.0001 ####[facility] [address] [place], [address] Gastroenterology Visit Repor ton 05-15-2024 Gastroenterology Visit Report [facility] [address] 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 HPI HPI Chief Complaint: Annual Details: MU [...] Appearance: average body habitus and well nourished [facility] Head: normal to inspection Ears: hearing grossly [...] Rhythm: regul (more content not included)... Normal [facility] CBC, Employeeon 03-30-2024 Absolute Lymph 2.98 X10 3/uL Normal 0.83-4.51 [facility] Comment on above: Performed By: #### L 500.2900, L400.0100, L100.0200 #### [facility] [address] [place], [address] Absolute Neut 4.6 X10 3/uL Normal 2.0-7.7 [facility] Comment on above: Performed By: #### L 500.2900, L400.0100, L100.0200 #### [facility] [address] [place], [address] Basophils/100 WBC (Bld) 0.9 % Normal 0-1 [facility] Comment on above: Performed By: #### L 500.2900, L400.0100, L100.0200 #### [facility] [address] [place], [address] Eosinophils/100 WBC (Bld) 1.6 % Normal 0-5 [facility] Comment on above: Performed By: #### L 500.2900, L400.0100, L100.0200 #### [facility] [address] [place], [address] Erythrocyte distribution width (RBC) [Ratio] 13.9 % Normal 11.6-14.6 [facility] Comment on above: Performed By: #### L 500.2900, L400.0100, L100.0200 #### [facility] [address] [place], [address] Hematocrit (Bld) [Volume fraction] 39.1 % Normal 37-47 [facility] Comment on above: Performed By: #### L 500.2900, L400.0100, L100.0200 #### [facility] [address] [place], [address] Hemoglobin (Bld) [Mass/Vol] 12.4 g/dL Normal 12.0-15.0 [facility] Comment on above: Performed By: #### L 500.2900, L400.0100, L100.0200 #### [facility] [address] [place], [address] Lymphocytes/100 WBC (Bld) 36.2 % Normal 19-41 [facility] Comment on above: Performed By: #### L 500.2900, L400.0100, L100.0200 #### [facility] [address] [place], [address] MCH (RBC) [Entitic mass] 25.6 pg Low 27.0-32.0 [facility] Comment on above: Performed By: #### L 500.2900, L400.0100, L100.0200 #### [facility] [address] [place], [address] MCHC (RBC) [Mass/Vol] 31.7 g/dL Low 32-36 [facility] Comment on above: Performed By: #### L 500.2900, L400.0100, L100.0200 #### [facility] [address] [place], [address] MCV (RBC) [Entitic vol] 80.8 fL Low 81-99 [facility] Comment on above: Performed By: #### L 500.2900, L400.0100, L100.0200 #### [facility] [address] [place], [address] Monocytes/100 WBC (Bld) 5.5 % Normal 0-10 [facility] Comment on above: Performed By: #### L 500.2900, L400.0100, L100.0200 #### [facility] [address] [place], [address] Neutrophils/100 WBC (Bld) 55.3 % Normal 47-70 [facility] Comment on above: Performed By: #### L 500.2900, L400.0100, L100.0200 #### [facility] [address] [place], [address] NRBC # 0.00 10 3/uL Normal 0-5 [facility] Comment on above: Performed By: #### L 500.2900, L400.0100, L100.0200 #### [facility] [address] [place], [address] Nucleated RBC (Bld) [#/Vol] 0 10*3/uL Normal 0-5 [facility] Comment on above: Performed By: #### L 500.2900, L400.0100, L100.0200 #### [facility] [address] [place], [address] Platelet mean volume (Bld) [Entitic vol] 10.6 fL Normal 6.2-12.0 [facility] Comment on above: Performed By: #### L 500.2900, L400.0100, L100.0200 #### [facility] [address] [place], [address] Platelets (Bld) [#/Vol] 305 10*3/uL Normal 150-450 [facility] Comment on above: Performed By: #### L 500.2900, L400.0100, L100.0200 #### [facility] [address] [place], [address] RBC (Bld) [#/Vol] 4.84 10*6/uL Normal 4.2-5.4 [facility] Comment on above: Performed By: #### L 500.2900, L400.0100, L100.0200 #### [facility] [address] [place], [address] RDW SD 40.7 fl Normal 35.1-43.9 [facility] Comment on above: Performed By: #### L 500.2900, L400.0100, L100.0200 #### [facility] [address] [place], [address] WBC (Bld) [#/Vol] 8.2 10*3/uL Normal 4.4-11.0 [facility] Comment on above: Performed By: #### L 500.2900, L400.0100, L100.0200 #### [facility] [address] [place], [address] Employee Profileon 4 Albumin [Mass/Vol] 2.9 g/dL Low 3.2-5.0 [facility] Comment on above: Performed By: #### L 500.2900, L400.0100, L100.0200 #### [facility] [address] [place], [address] Albumin/Globulin [Mass ratio] 0.7 {ratio} Low 0.9-2.4 [facility] Comment on above: Performed By: #### L 500.2900, L400.0100, L100.0200 #### [facility] [address] [place], [address] ALK P 95 U/L Normal 45-117 [facility] Comment on above: Performed By: #### L 500.2900, L400.0100, L100.0200 #### [facility] [address] [place], [address] ALT [Catalytic activity/Vol] 20 U/L Normal 13-56 [facility] Comment on above: Performed By: #### L 500.2900, L400.0100, L100.0200 #### [facility] [address] [place], [address] AST [Catalytic activity/Vol] 13 U/L Low 15-37 [facility] Comment on above: Performed By: #### L 500.2900, L400.0100, L100.0200 #### [facility] [address] [place], [address] Bilirubin [Mass/Vol] 0.40 mg/dL Normal 0.20-1.00 [facility] Comment on above: Result Comment: For patients on eltrombopag therapy, use of Dimension Upatoi TBIL is not recommended. Performed By: #### L 500.2900, L400.0100, L100.0200 #### [facility] [address] [place], [address] Bilirubin.direct [Mass/Vol] 0.11 mg/dL Normal 0.00-0.30 [facility] Comment on above: Performed By: #### L 500.2900, L400.0100, L100.0200 #### [facility] [address] [place], [address] BUN/CRE 10.4 RATIO Normal 10-20 [facility] Comment on above: Performed By: #### L 500.2900, L400.0100, L100.0200 #### [facility] [address] [place], [address] CA,Total 8.4 mg/dL Low 8.5-10.1 [facility] Comment on above: Performed By: #### L 500.2900, L400.0100, L100.0200 #### [facility] [address] [place], [address] Chloride [Moles/Vol] 105 mmol/L Normal 98-107 [facility] Comment on above: Performed By: #### L 500.2900, L400.0100, L100.0200 #### [facility] [address] [place], [address] CHOL:HDL 3.70 Normal [facility] Comment on above: Performed By: #### L 500.2900, L400.0100, L100.0200 #### [facility] [address] [place], [address] Cholesterol [Mass/Vol] 155 mg/dL Normal 200 [facility] Comment on above: Result Comment: <200 mg/dL Desirable 200-240 mg/dL Borderline >240 mg/dL High Risk Performed By: #### L 500.2900, L400.0100, L100.0200 #### [facility] [address] [place], [address] Cholesterol in HDL [Mass/Vol] 42 mg/dL Normal [facility] Comment on above: Result Comment: The drugs N-Acetylcysteine and Metamizole may falsely depress this assay. Reference Range HDL <40 mg/dL Low HDL Cholesterol HDL >or= 60 mg/dL High HDL Cholesterol Performed By: #### L 500.2900, L400.0100, L100.0200 #### [facility] [address] [place], [address] Cholesterol in LDL [Mass/Vol] 82 mg/dL Normal 0-130 [facility] Comment on above: Performed By: #### L 500.2900, L400.0100, L100.0200 #### [facility] [address] [place], [address] Cholesterol in VLDL [Mass/Vol] 31 mg/dL Normal 5-40 [facility] Comment on above: Performed By: #### L 500.2900, L400.0100, L100.0200 #### [facility] [address] [place], [address] CO2 [Moles/Vol] 29.0 mmol/L Normal 21.0-32.0 [facility] Comment on above: Performed By: #### L 500.2900, L400.0100, L100.0200 #### [facility] [address] [place], [address] Creatinine [Mass/Vol] 0.77 mg/dL Normal 0.55-1.02 [facility] Comment on above: Result Comment: The validity of the calculated GFR GFRAA in patients over 70 years has not been determined. Clinical correlation is essential. Performed By: #### L 500.2900, L400.0100, L100.0200 #### [facility] [address] [place], [address] EST GFR - AA 107 mL/min Normal >60 [facility] Comment on above: Result Comment: Afri can Mauritian GFR Calc Performed By: #### L 500.2900, L400.0100, L100.0200 #### [facility] [address] [place], [address] GAP 5 Normal 5-15 [facility] Comment on above: Performed By: #### L 500.2900, L400.0100, L100.0200 #### [facility] [address] [place], [address] GFR/1.73 sq M.predicted among non-blacks MDRD (S/P/Bld) [Vol rate/Area] 88 mL/min/{1.73_m2} Normal >60 [facility] Comment on above: Result Comment: Non- GFR Calc Performed By: #### L 500.2900, L400.0100, L100.0200 #### [facility] [address] [place], [address] Globulin (S) [Mass/Vol] 4.2 g/dL Normal 2.2-4.2 [facility] Comment on above: Performed By: #### L 500.2900, L400.0100, L100.0200 #### [facility] [address] [place], [address] Glucose [Mass/Vol] 98 mg/dL Normal 74-106 [facility] Comment on above: Performed By: #### L 500.2900, L400.0100, L100.0200 #### [facility] [address] [place], [address] LDH 171 U/L Normal 84-246 [facility] Comment on above: Performed By: #### L 500.2900, L400.0100, L100.0200 #### [facility] [address] [place], [address] Phosphate [Mass/Vol] 3.3 mg/dL Normal 2.5-4.9 [facility] Comment on above: Performed By: #### L 500.2900, L400.0100, L100.0200 #### [facility] [address] [place], [address] Potassium [Moles/Vol] 4.0 mmol/L Normal 3.5-5.1 [facility] Comment on above: Performed By: #### L 500.2900, L400.0100, L100.0200 #### [facility] [address] [place], [address] Sodium [Moles/Vol] 139 mmol/L Normal 136-145 [facility] Comment on above: Performed By: #### L 500.2900, L400.0100, L100.0200 #### [facility] [address] [place], [address] T PROT 7.1 g/dL Normal 6.4-8.2 [facility] Comment on above: Performed By: #### L 500.2900, L400.0100, L100.0200 #### [facility] [address] [place], [address] Triglyceride [Mass/Vol] 154 mg/dL Normal [facility] Comment on above: Result Comment: The drugs N-Acetylcysteine and Metamizole may falsely depress this assay. Serum Triglycerides Reference Interval Normal <150 mg/dL Borderline high 150 - 199 mg/dL High 200 - 499 mg/dL Very High > or = 500 mg/dL Performed By: #### L 500.2900, L400.0100, L100.0200 #### [facility] [address] [place], [address] Urea nitrogen [Mass/Vol] 8 mg/dL Normal 7-18 [facility] Comment on above: Performed By: #### L 500.2900, L400.0100, L100.0200 #### [facility] [address] [place], [address] URIC 7.8 mg/dL High 2.6-6.0 [facility] Comment on above: Result Comment: The drugs N-Acetylcysteine and Metamizole may falsely depress this assay. Performed By: #### L 500.2900, L400.0100, L100.0200 #### [facility] [address] [place], [address] Urinalysis, Employeeon 03-30 BILIRUBIN URINE Normal Negative [facility] Comment on above: Result Comment: NOT COLLECTED Performed By: #### L 500.2900, L400.0100, L100.0200 ####[facility] [address] [place], [address] Clarity (U) Normal Clear [facility] Comment on above: Result Comment: NOT COLLECTED Performed By: #### L 500.2900, L400.0100, L100.0200 ####[facility] [address] [place], [address] Color (U) Normal Yellow [facility] Comment on above: Result Comment: NOT COLLECTED Performed By: #### L 500.2900, L400.0100, L100.0200 ####[facility] [address] [place], [address] GLUCOSE, UR Normal Normal [facility] Comment on above: Result Comment: NOT COLLECTED Performed By: #### L 500.2900, L400.0100, L100.0200 ####[facility] [address] [place], [address] KETONE UR Normal Negative [facility] Comment on above: Result Comment: NOT COLLECTED Performed By: #### L 500.2900, L400.0100, L100.0200 ####[facility] [address] [place], [address] LEUK ESTERASE Normal Negative [facility] Comment on above: Result Comment: NOT COLLECTED Performed By: #### L 500.2900, L400.0100, L100.0200 ####[facility] [address] [place], [address] Nitrite Ql (U) Normal Negative [facility] Comment on above: Result Comment: NOT COLLECTED Performed By: #### L 500.2900, L400.0100, L100.0200 ####[facility] [address] [place], [address] OCCULT BLOOD-UR Normal Negative [facility] Comment on above: Result Comment: NOT COLLECTED Performed By: #### L 500.2900, L400.0100, L100.0200 ####[facility] [address] [place], [address] pH UR Normal 5.0 - 8.0 [facility] Comment on above: Result Comment: NOT COLLECTED Performed By: #### L 500.2900, L400.0100, L100.0200 ####[facility] [address] [place], [address] PROT DIPSTX Normal Negative [facility] Comment on above: Result Comment: NOT COLLECTED Performed By: #### L 500.2900, L400.0100, L100.0200 ####[facility] [address] [place], [address] SP.GR. DIPSTX Normal 1.002-1.030 [facility] Comment on above: Result Comment: NOT COLLECTED Performed By: #### L 500.2900, L400.0100, L100.0200 ####[facility] [address] [place], [address] UR Preservative Normal [facility] Comment on above: Result Comment: NOT COLLECTED Performed By: #### L 500.2900, L400.0100, L100.0200 ####[facility] [address] [place], [address] UROBILI Normal Normal [facility] Comment on above: Result Comment: NOT COLLECTED Performed By: #### L 500.2900, L400.0100, L100.0200 ####[facility] [address] [place], [address] Culture, urineOrdered By: St adenike Blankenship on 12-02-2023 Bacteria identified Cx Nom (U) Escherichia coli [facility] - Chemistry and C hemistry - challengeon 12-02-2023 HCG ( test) Ql (U) Negative [facility] Bilirubin Ql (U) Negative [facility] Glucose Ql (U) Negative [facility] Ketones Ql (U) Negative [facility] pH (U) 6.0 [pH] [facility] Specific gravity (U) [Rel density] 1.015 [facility] Urobilinogen (U) [Mass/Vol] Negative [facility] - Hematology and Cell countson 12-02-2023 Hemoglobin Ql (U) Trace [facility] - Specimen inform ationon 12-02-2023 Clarity (U) Clear [facility] Color (U) Dk Yellow [facility] - Urinalysison Nitrite Ql (U) Negative [facility] Protein Ql (U) Negative [facility] No Panel Informationon 12-01 Urine Leukocytes Positive [facility] Urine Non-Hemolyzed Blood [facility] No Panel InformationOrdered By: Kevin Friend on 05-11-2023 Stool Calprotectin 287 ug/g 0-120 [facility] Comment on above: Concentration Interp retation Follow-Up< 5 - 50 ug/g Normal None>50 -120 ug/g Borderline Re-evaluate in 4-6 weeks >120 ug/g Abnormal Repeat as clinically indicatedPerformed at: - [address] [id number] Director: Abdiel Randolph MD, Phone: [phone] Stool Pancreatic Elastase 449 >200 [facility] Comment on above: Result Units: ug Nayla st./g Severe Pancreatic Insufficiency: <100 Moderate Pancreatic Insufficiency: 100 - 200 Normal: >200Performed at: - [facility] [id number] Director: Abdiel Randolph MD, Phone: [phone] Stool lactoferrin detection by immunoassayOrdered By: Kevin Chakraborty on 05-11-2023 Lactoferrin IA Ql (Stl) [facility] Lactoferrin IA Ql (Stl) [facility] Absolute lymphocyte countOrd ered By: HEALTH ASSESSMENT on 03-22-2023 Lymphocytes Auto (Unsp spec) [#/Vol] 2.28 10*3/uL 0.83-4.51 [facility] Absolute reticulocyte countO rdered By: HEALTH ASSESSMENT on 03-22-2023 Reticulocytes (Bld) [#/Vol] 0.00 10*3/uL 0-5 [facility] Basophil percentageOrdered B y: HEALTH ASSESSMENT on 03-22-2023 Basophil percentage 3.8 mg/dL 2.5-4.9 [facility] Bilirubin [Mass/Vol] 0.40 mg/dL 0.20-1.00 [facility] Comment on above: For patients on eltr ombopag therapy, use of Dimension Upatoi TBIL is not recommended. Chloride [Moles/Vol] 106 mmol/L 98-107 [facility] Cholesterol [Mass/Vol] 124 mg/dL <200 [facility] Comment on above: <200 mg/dL Desirable 200-240 mg/dL Borderline >240 mg/dL High Risk Glucose [Mass/Vol] 103 mg/dL 74-106 [facility] Comment on above: Fasting Glucose resu lt from 100 to 125 mg/dL suggests IMPAIRED HOMEOSTASIS per A.D.A. criteria. LDH [Catalytic activity/Vol] 147 U/L 84-246 [facility] Neutrophils (Bld) [#/Vol] 5.9 10*3/uL 2.0-7.7 [facility] Potassium [Moles/Vol] 4.0 mmol/L 3.5-5.1 [facility] Protein [Mass/Vol] 7.6 g/dL 6.4-8.2 [facility] Sodium [Moles/Vol] 137 mmol/L 136-145 [facility] Triglyceride [Mass/Vol] 160 mg/dL <199 [facility] Comment on above: The drugs N-Acetylcy steine and Metamizole may falsely depress this assay.Serum Triglycerides Reference Interval Normal <150 mg/dL Borderline high 150 - 199 mg/dL High 200 - 499 mg/dL Very High > or = 500 mg/dL WBC (Bld) [#/Vol] 8.8 10*3/uL 4.4-11.0 [facility] Blood erythrocytes count (nu mber/volume)Ordered By: HEALTH ASSESSMENT on 03-22-2023 RBC (Bld) [#/Vol] 4.97 10*6/uL 4.2-5.4 [facility] Blood hemoglobin measurement (mass/volume)Ordered By: HEALTH ASSESSMENT on 03-22-2023 Hemoglobin (Bld) [Mass/Vol] 13.1 g/dL 12.0-15.0 [facility] Blood leukocytes count corre cted for nucleated erythrocytes (number/volume)Ordered By: HEALTH ASSESSMENT on 03-22-2023 WBC corrected for nucl RBC (Bld) [#/Vol] [employer] [facility] Blood platelet mean volumeOr dered By: HEALTH ASSESSMENT on 03-22-2023 Platelet mean volume (Bld) [Entitic vol] 11.3 fL 6.2-12.0 [facility] Determination of erythrocyte mean corpuscular volume (MCV)Ordered By: HEALTH ASSESSMENT on 03-22-2023 MCV (RBC) [Entitic vol] 83.9 fL 81-99 [facility] Direct bilirubinOrdered By: HEALTH ASSESSMENT on 03-22-2023 Bilirubin.direct [Mass/Vol] 0.12 mg/dL 0.00-0.30 [facility] Hematocrit Auto (Bld) [Volum e fraction]Ordered By: HEALTH ASSESSMENT on 03-22-2023 Hematocrit (Bld) [Volume fraction] 41.7 % 37-47 [facility] - Chemistry and C hemistry - challengeOrdered By: HEALTH ASSESSMENT on 03-22-2023 ALP [Catalytic activity/Vol] 91 U/L 45-117 [facility] ALT [Catalytic activity/Vol] 19 U/L 13-56 [facility] Cholesterol.total/Cholest mariana in HDL [Mass ratio] 2.40 {ratio} [facility] CO2 [Moles/Vol] 27.0 mmol/L 21.0-32.0 [facility] Globulin (S) [Mass/Vol] 4.4 g/dL 2.2-4.2 [facility] Urea nitrogen/Creatinine [Mass ratio] 11.8 mg/mg 10-20 [facility] - Hematology and Cell countsOrdered By: HEALTH ASSESSMENT on 03-22-2023 Erythrocyte distribution width (RBC) [Entitic vol] 42.7 fL 35.1-43.9 [facility] Erythrocyte distribution width (RBC) [Ratio] 14.1 % 11.6-14.6 [facility] MCH (RBC) [Entitic mass] 26.4 pg 27.0-32.0 [facility] Nucleated RBC/100 WBC (Bld) [Ratio] 0 % 0-5 [facility] MCHC Auto (RBC) [Mass/Vol]Or dered By: HEALTH ASSESSMENT on 03-22-2023 MCHC (RBC) [Mass/Vol] 31.4 g/dL 32-36 [facility] No Panel InformationOrdered By: HEALTH ASSESSMENT on 03-22-2023 Estimated Creatinine Clearance Calc [employer] [facility] Estimated GFR (MDRD) Amer 108 mL/min >60 [facility] Comment on above: GFR Calc Estimated GFR (MDRD) Non-Af Amer 90 mL/min >60 [facility] Comment on above: Non- GFR Calc Immature Granulocyte % (Auto) [employer] [facility] Platelets bldOrdered By: HEA LTH ASSESSMENT on 03-22-2023 Platelets (Bld) [#/Vol] 300 10*3/uL 150-450 [facility] Review by pathologistOrdered By: HEALTH ASSESSMENT on 03-22-2023 Pathologist review Jason (Unsp spec) [Interp] [employer] [facility] Segmented neutrophils/100 WB C Auto (Bld)Ordered By: HEALTH ASSESSMENT on 03-22-2023 Segmented neutrophils/100 WBC (Bld) 66.9 % 47-70 [facility] Serum or plasma albumin malathi urement (mass/volume)Ordered By: HEALTH ASSESSMENT on 03-22-2023 Albumin [Mass/Vol] 3.2 g/dL 3.2-5.0 [facility] Serum or plasma albumin/glob ulin mass ratioOrdered By: HEALTH ASSESSMENT on 03-22-2023 Albumin/Globulin [Mass ratio] 0.7 {ratio} 0.9-2.4 [facility] Serum or plasma calcium malathi urement (mass/volume)Ordered By: HEALTH ASSESSMENT on 03-22-2023 Calcium [Mass/Vol] 9.0 mg/dL 8.5-10.1 [facility] Serum or plasma cholesterol in HDL measurement (mass/volume)Ordered By: HEALTH ASSESSMENT on 03-22-2023 Cholesterol in HDL [Mass/Vol] 51 mg/dL >40 [facility] Comment on above: The drugs N-Acetylcy steine and Metamizole may falsely depress this assay. Reference Range HDL <40 mg/dL Low HDL Cholesterol HDL >or= 60 mg/dL High HDL Cholesterol Serum or plasma cholesterol in VLDL measurement (mass/volume)Ordered By: HEALTH ASSESSMENT on 03-22-2023 Cholesterol in VLDL [Mass/Vol] 32 mg/dL 5-40 [facility] Serum or plasma creatinine m easurement (mass/volume)Ordered By: HEALTH ASSESSMENT on 03-22-2023 Creatinine [Mass/Vol] 0.76 mg/dL 0.55-1.02 [facility] Comment on above: The validity of the calculated GFR & GFRAA in patients over 70 years has not been determined. Clinical correlation is essential. Serum or plasma low density lipoprotein (LDL) cholesterol measurement (mass/volume)Ordered By: HEALTH ASSESSMENT on 03-22-2023 Cholesterol in LDL [Mass/Vol] 41 mg/dL 0-130 [facility] Serum or plasma urea nitroge n measurement (mass/volume)Ordered By: HEALTH ASSESSMENT on 03-22-2023 Urea nitrogen [Mass/Vol] 9 mg/dL 7-18 [facility] Serum or plasma uric acid me asurement (mass/volume)Ordered By: HEALTH ASSESSMENT on 03-22-2023 Urate [Mass/Vol] 6.9 mg/dL 2.6-6.0 [facility] Comment on above: The drugs N-Acetylcy steine and Metamizole may falsely depress this assay. Thin prep Papanicolaou smear with manual screeningOrdered By: HEALTH ASSESSMENT on 03-22-2023 Thin prep Papanicolaou smear with manual screening 11 U/L 15-37 [facility] Thin prep Papanicolaou smear with manual screening 4 5-15 [facility] - Chemistry and C hemistry - challengeOrdered By: Carlos Michael on 03-06-2023 HCG ( test) Ql (U) Negative [facility] Comment on above: Very dilute urine sp ecimens, as indicated by a low specificgravity, may not contain printing sales representative levels of hCG. If is still suspected, a first morning urinespecimen should be collected 48 hours later and tested. Absolute lymphocyte countOrd ered By: Carolyn Gaitan on 12-22-2022 Lymphocytes Auto (Unsp spec) [#/Vol] 2.78 10*3/uL 0.83-4.51 [facility] Basophil percentageOrdered B y: Carolyn Gaitan on 12-22-2022 Basophil percentage 0-5 SEEN /hpf 0-5 [facility] Basophils/100 WBC (Bld) 0.3 % 0-1 [facility] Chloride [Moles/Vol] 105 mmol/L 98-107 [facility] Eosinophils/100 WBC (Bld) 0.9 % 0-5 [facility] Glucose [Mass/Vol] 145 mg/dL 74-106 [facility] Comment on above: Fasting Glucose resu lt greater than or equal to 126 mg/dL suggests DIABETES MELLITUS per A.D.A. criteria. Neutrophils (Bld) [#/Vol] 6.7 10*3/uL 2.0-7.7 [facility] Neutrophils/100 WBC (Bld) 66.2 % 47-70 [facility] Potassium [Moles/Vol] 3.8 mmol/L 3.5-5.1 [facility] Sodium [Moles/Vol] 138 mmol/L 136-145 [facility] WBC (Bld) [#/Vol] 10.1 10*3/uL 4.4-11.0 [facility] Beta hCG serum qualOrdered B y: Carolyn Gaitan on 12-22-2022 Beta HCG ( test) Ql Negative [facility] Bilirubin Test strip Ql (U)O rdered By: Carolyn Gaitan on 12-22-2022 Bilirubin Ql (U) Negative Negative [facility] Blood erythrocytes count (nu mber/volume)Ordered By: Carolyn Gaitan on 12-22-2022 RBC (Bld) [#/Vol] 4.50 10*6/uL 4.2-5.4 [facility] Blood hemoglobin measurement (mass/volume)Ordered By: Carolyn Gaitan on 12-22-2022 Hemoglobin (Bld) [Mass/Vol] 12.3 g/dL 12.0-15.0 [facility] Blood lymphocytes/100 leukoc ytesOrdered By: Carolyn Gaitan on 12-22-2022 Lymphocytes/100 WBC (Bld) 27.4 % 19-41 [facility] Blood monocytes/100 leukocyt esOrdered By: Carolyn Gaitan on 12-22-2022 Monocytes/100 WBC (Bld) 4.9 % 0-10 [facility] Blood platelet mean volumeOr dered By: Carolyn Gaitan on 12-22-2022 Platelet mean volume (Bld) [Entitic vol] 10.1 fL 6.2-12.0 [facility] Determination of erythrocyte mean corpuscular volume (MCV)Ordered By: Carolyn Gaitan on 12-22-2022 MCV (RBC) [Entitic vol] 81.8 fL 81-99 [facility] Hematocrit Auto (Bld) [Volum e fraction]Ordered By: Carolyn Gaitan on 12-22-2022 Hematocrit (Bld) [Volume fraction] 36.8 % 37-47 [facility] Ketones Test strip Ql (U)Ord ered By: Carolyn Gaitan on 12-22-2022 Ketones Ql (U) Negative Negative [facility] - Chemistry and C hemistry - challengeOrdered By: Carolyn Gaitan on 12-22-2022 CO2 [Moles/Vol] 25.0 mmol/L 21.0-32.0 [facility] Urea nitrogen/Creatinine [Mass ratio] 12.4 mg/mg 10-20 [facility] - Hematology and Cell countsOrdered By: Carolyn Gaitan on 12-22-2022 Erythrocyte distribution width (RBC) [Entitic vol] 43.2 fL 35.1-43.9 [facility] Erythrocyte distribution width (RBC) [Ratio] 14.6 % 11.6-14.6 [facility] Immature granulocytes/100 WBC (Bld) 0.300 % 0.0-0.9 [facility] Comment on above: IG% - Immature Granu locytes (promyelocytes, myelocytes and metamyelocytes) > 1% indicates that a LEFT SHIFT is Present. MCH (RBC) [Entitic mass] 27.3 pg 27.0-32.0 [facility] Nucleated RBC/100 WBC (Bld) [Ratio] 0 % 0-5 [facility] MCHC Auto (RBC) [Mass/Vol]Or dered By: Carolyn Gaitan on 12-22-2022 MCHC (RBC) [Mass/Vol] 33.4 g/dL 32-36 [facility] Mucus LM Ql (Urine sed)Order ed By: Carolyn Gaitan on 12-22-2022 Mucus Ql (Urine sed) 0 SEEN /hpf [facility] Nitrite Test strip Ql (U)Ord ered By: Carolyn Gaitan on 12-22-2022 Nitrite Ql (U) Negative Negative [facility] No Panel InformationOrdered By: Carolyn Gaitan on 12-22-2022 Estimated Creatinine Clearance Calc 80.35 ml/min [facility] Estimated GFR (MDRD) Amer 91 mL/min >60 [facility] Comment on above: GFR Calc Estimated GFR (MDRD) Non-Af Amer 76 mL/min >60 [facility] Comment on above: Non- GFR Calc Platelets bldOrdered By: Nasrin Gaitan on 12-22-2022 Platelets (Bld) [#/Vol] 276 10*3/uL 150-450 [facility] Protein Test strip Ql (U)Ord ered By: Carolyn Gaitan on 12-22-2022 Protein Ql (U) Negative Negative [facility] Serum or plasma calcium malathi urement (mass/volume)Ordered By: Carolyn Gaitan on 12-22-2022 Calcium [Mass/Vol] 8.9 mg/dL 8.5-10.1 [facility] Serum or plasma creatinine m easurement (mass/volume)Ordered By: Carolyn Gaitan on 12-22-2022 Creatinine [Mass/Vol] 0.88 mg/dL 0.55-1.02 [facility] Comment on above: The validity of the calculated GFR & GFRAA in patients over 70 years has not been determined. Clinical correlation is essential. Serum or plasma urea nitroge n measurement (mass/volume)Ordered By: Carolyn Gaitan on 12-22-2022 Urea nitrogen [Mass/Vol] 11 mg/dL 7-18 [facility] Squamous epithelial cells de tection in urine sediment by light microscopyOrdered By: Carolyn Gaitan on 12-22-2022 Epithelial cells.squamous LM Ql (Urine sed) 0-5 SEEN /hpf 5-10 [facility] Thin prep Papanicolaou smear with manual screeningOrdered By: Carolyn Gaitan on 12-22-2022 Thin prep Papanicolaou smear with manual screening 8 5-15 [facility] Urine blood detectionOrdered By: Carolyn Gaitan on 12-22-2022 RBC Ql (U) Negative Negative [facility] RBC Ql (U) 0 SEEN /hpf 0-5 [facility] Urine clarityOrdered By: Nasrin Gaitan on 12-22-2022 Clarity (U) Clear Clear [facility] Urine color determinationOrd ered By: Carolyn Gaitan on 12-22-2022 Color (U) Yellow Yellow [facility] Urine glucose detectionOrder ed By: Carolyn Gaitan on 12-22-2022 Glucose Ql (U) Normal mg/dl Normal [facility] Urine leukocyte esterase det ection by dipstickOrdered By: Carolyn Gaitan on 12-22-2022 Leukocyte esterase Test strip Ql (U) 100 /ul Negative [facility] Urine pHOrdered By: Carolyn Gaitan on 12-22-2022 pH (U) 6.5 [pH] 5.0 - 8.0 [facility] Urine sediment bacteria coun t by microscopy (number/high power field)Ordered By: Carolyn Gaitan on 12-22-2022 Bacteria LM.HPF (Urine sed) [#/Area] RARE /hpf None Seen [facility] Urine specific gravity measu rementOrdered By: Carolyn Gaitan on 12-22-2022 Specific gravity (U) [Rel density] 1.010 1.002-1.030 [facility] Urobilinogen Auto test strip Ql (U)Ordered By: Carolyn Gaitan on 12-22-2022 Urobilinogen Ql (U) Normal mg/dl Normal [facility] Absolute lymphocyte countOrd ered By: Kevin Chakraborty on 12-11-2022 Lymphocytes Auto (Unsp spec) [#/Vol] 2.17 10*3/uL 0.83-4.51 [facility] Albumin Elph [Mass/Vol]Order ed By: Kevin Chakraborty on 12-11-2022 Albumin [Mass/Vol] 3.4 g/dL 2.9-4.4 [facility] Alternaria alternata IgE ser umOrdered By: Kevin Chakraborty on 12-11-2022 A. alternata IgE Qn (S) <0.10 kU/L Class 0 [facility] Atypical perinuclear antineu trophil cytoplasmic antibodies measurementOrdered By: Kevin Chakraborty on 12-11-2022 Neutrophil cytoplasmic Ab.perinuclear.atypical IF (S) [Titer] <1:20 titer Neg:<1:20 [facility] Comment on above: The atypical pANCA p attern has been observed in asignificant percentage of patients with ulcerative colitis,primary sclerosing cholangitis and autoimmune hepatitis.Performed at: [facility] [address] [id number] Director: Crow Berrios PhD, Phone: [phone] at: [facility] [address] [id number] Director: Abdiel Randolph MD, Phone: [phone] Basophil percentageOrdered B y: Kevin Chakraborty on 12-11-2022 Basophil percentage < 0.2 AI 0.0-0.9 [facility] Basophils/100 WBC (Bld) 0.4 % 0-1 [facility] Bilirubin [Mass/Vol] 0.20 mg/dL 0.20-1.00 [facility] Comment on above: For patients on eltr ombopag therapy, use of Dimension Upatoi TBIL is not recommended. Chloride [Moles/Vol] 110 mmol/L 98-107 [facility] Eosinophils/100 WBC (Bld) 1.0 % 0-5 [facility] Glucose [Mass/Vol] 100 mg/dL 74-106 [facility] Comment on above: Fasting Glucose resu lt from 100 to 125 mg/dL suggests IMPAIRED HOMEOSTASIS per A.D.A. criteria. LDH [Catalytic activity/Vol] 158 U/L 84-246 [facility] Neutrophils (Bld) [#/Vol] 7.1 10*3/uL 2.0-7.7 [facility] Neutrophils/100 WBC (Bld) 71.5 % 47-70 [facility] Potassium [Moles/Vol] 4.1 mmol/L 3.5-5.1 [facility] Protein [Mass/Vol] 7.6 g/dL 6.4-8.2 [facility] Sodium [Moles/Vol] 140 mmol/L 136-145 [facility] WBC (Bld) [#/Vol] 9.9 10*3/uL 4.4-11.0 [facility] Blood erythrocytes count (nu mber/volume)Ordered By: Kevin Chakraborty on 12-11-2022 RBC (Bld) [#/Vol] 4.84 10*6/uL 4.2-5.4 [facility] Blood hemoglobin measurement (mass/volume)Ordered By: Kevin Chakraborty on 12-11-2022 Hemoglobin (Bld) [Mass/Vol] 12.8 g/dL 12.0-15.0 [facility] Blood lymphocytes/100 leukoc ytesOrdered By: Kevin Chakraborty on 12-11-2022 Lymphocytes/100 WBC (Bld) 21.9 % 19-41 [facility] Blood monocytes/100 leukocyt esOrdered By: Kevin Chakraborty on 12-11-2022 Monocytes/100 WBC (Bld) 4.8 % 0-10 [facility] Blood platelet mean volumeOr dered By: Kevin Chakraborty on 12-11-2022 Platelet mean volume (Bld) [Entitic vol] 10.4 fL 6.2-12.0 [facility] Chocolate RASTOrdered By: Ra tone Chakraborty on 12-11-2022 Chocolate IgE Qn (S) <0.10 kU/L Class 0 [facility] Comment on above: Performed at: [facility] [address] [id number] Director: Crow Berrios PhD, Phone: [phone] at: [address] [id number] Director: Abdiel Randolph MD, Phone: [phone] Determination of erythrocyte mean corpuscular volume (MCV)Ordered By: Kevin Chakraborty on 12-11-2022 MCV (RBC) [Entitic vol] 82.2 fL 81-99 [facility] Erythrocyte sedimentation ra teOrdered By: Kevin Chakraborty on 12-11-2022 ESR (Bld) [Velocity] 27 mm/h 0-30 [facility] Hematocrit Auto (Bld) [Volum e fraction]Ordered By: Kevin Chakraborty on 12-11-2022 Hematocrit (Bld) [Volume fraction] 39.8 % 37-47 [facility] Interpretation of serum or p lasma protein pattern by immunofixation (narrative resultOrdered By: Kevin Chakraborty on 12-11-2022 Protein Fractions Immunofixation Jason [Interp] See comment [facility] Comment on above: NOT OBSERVED Laboratory - Chemistry and C hemistry - challengeOrdered By: Kevin Chakraborty on 12-11-2022 ALP [Catalytic activity/Vol] 81 U/L 45-117 [facility] ALT [Catalytic activity/Vol] 21 U/L 13-56 [facility] CO2 [Moles/Vol] 26.0 mmol/L 21.0-32.0 [facility] Urea nitrogen/Creatinine [Mass ratio] 12.1 mg/mg 10-20 [facility] Laboratory - Hematology and Cell countsOrdered By: Kevin Chakraborty on 12-11-2022 Erythrocyte distribution width (RBC) [Entitic vol] 42.8 fL 35.1-43.9 [facility] Erythrocyte distribution width (RBC) [Ratio] 14.5 % 11.6-14.6 [facility] Immature granulocytes/100 WBC (Bld) 0.400 % 0.0-0.9 [facility] Comment on above: IG% - Immature Granu locytes (promyelocytes, myelocytes and metamyelocytes) > 1% indicates that a LEFT SHIFT is Present. MCH (RBC) [Entitic mass] 26.4 pg 27.0-32.0 [facility] Nucleated RBC/100 WBC (Bld) [Ratio] 0 % 0-5 [facility] Laboratory - Miscellaneous t estsOrdered By: Kevin Chakraborty on 12-11-2022 Service comment (Unsp spec) [Interp] Comment . [facility] Comment on above: Levels of Specific I [...] 12-11-2022 MCHC (RBC) [Mass/Vol] 32.2 g/dL 32-36 [facility] No Panel InformationOrdered By: Kevin Chakraborty on 12-11-2022 Addendum Document Comment . [facility] Comment on above: Protein electrophore sis scan will follow via computer,mail, or computer forwarding system markup clerk delivery. Centromere B Antibody <0.2 AI 0.0-0.9 [facility] Common Ragweed (Short) Allergen <0.10 kU/L Class 0 [facility] Endomysial IgA Antibody Negative Negative [facility] Burmese Plantain Allergen (RAST) <0.10 kU/L Class 0 [facility] Estimated GFR (MDRD) Amer 112 mL/min >60 [facility] Comment on above: GFR Calc Estimated GFR (MDRD) Non-Af Amer 92 mL/min >60 [facility] Comment on above: Non- GFR Calc Immunoglobulin E 8 IU/mL 6-495 [facility] Miscellaneous Test See comment [facility] Comment on above: TEST RESULT [...] developed and its performance characteristics determined by [facility]. It has not been cleared or approved by the Food and Drug Administration. The FDA has determined that such clearance or approval is not necessary.Atypical pANCA Negative Negative Comments Suggestive of Crohn's Disease. Pattern is not conclusive for disease behavior risk stratification. TESTING PERFORMED AT [facility]. ORIGINAL REPORT ON FILE IN LAB CONTAINS ADDITIONAL TEST SITE INFORMATION. Mouse Urine Allergen IgE Antibody <0.10 kU/L Class 0 [facility] MITER SAW OPERATOR Antibody <0.2 AI 0.0-0.9 [facility] Seafood Group Allergens (RAST) Negative . [facility] Comment on above: Allergens in this mi x are: Blue mussel Fish [place] Shrimp Tuna Platelets bldOrdered By: Etienne barnett Friend on 12-11-2022 Platelets (Bld) [#/Vol] 286 10*3/uL 150-450 [facility] Serum Bermuda grass IgE anti body assay (units/volume)Ordered By: Kevin Chakraborty on 12-11-2022 Bermuda grass IgE Qn (S) <0.10 kU/L Class 0 [facility] Serum DNA double strand anti body assay (units/volume)Ordered By: Kevin Chakraborty on 12-11-2022 DNA double strand Ab Qn (S) [IU]/mL 0-9 [facility] Comment on above: Negative <5 Equivoca l 5 - 9 Positive >9 Serum Dermatophagoides farin ae specific IgE antibody assay (units/volume)Ordered By: Kevin Chakraborty on 12-11-2022 Mauritian house dust mite IgE Qn (S) <0.10 kU/L Class 0 [facility] Serum house dust mi te IgE antibody assay (units/volume)Ordered By: Kevin Chakraborty on 12-11-2022 house dust mite IgE Qn (S) <0.10 kU/L Class 0 [facility] Serum Yadira-1 antibody assay (u nits/volume)Ordered By: Kevin Chakraborty on 12-11-2022 Yadira-1 extractable nuclear Ab Qn (S) <0.2 AI 0.0-0.9 [facility] Serum [place] blue grass Ig E antibody assay (units/volume)Ordered By: Kevin Chakraborty on 12-11-2022 [place] blue grass IgE Qn (S) <0.10 kU/L Class 0 [facility] Serum Scl-70 extractable nuc lear antibody assay (units/volume)Ordered By: Kevin Chakraborty on 12-11-2022 SCL-70 extractable nuclear Ab Qn (S) <0.2 AI 0.0-0.9 [facility] Serum Coulter extractable nucl ear antibody detectionOrdered By: Kevin Chakraborty on 12-11-2022 Coulter extractable nuclear Ab Ql (S) <0.2 AI 0.0-0.9 [facility] Serum [id number] measu rement by electrophoresisOrdered By: Kevin Chakraborty on 12-11-2022 Alpha 1 globulin Elph [Mass/Vol] 0.3 g/dL 0.0-0.4 [facility] Alpha 1 globulin Elph [Mass/Vol] 0.9 g/dL 0.4-1.0 [facility] Serum beef IgE antibody assa y (units/volume)Ordered By: Kevin Chakraborty on 12-11-2022 Beef IgE Qn (S) <0.10 kU/L Class 0 [facility] Serum cat dander IgE antibod y assay (units/volume)Ordered By: Kevin Chakraborty on 12-11-2022 Cat dander IgE Qn (S) <0.10 kU/L Class 0 [facility] Serum classic neutrophil cyt oplasmic antibody assay (units/volume)Ordered By: Kevin Chakraborty on 12-11-2022 Neutrophil cytoplasmic Ab.classic Qn (S) <1:20 titer Neg:<1:20 [facility] Serum corn IgE antibody assa y (units/volume)Ordered By: Kevin Chakraborty on 12-11-2022 [place] IgE Qn (S) <0.10 kU/L Class 0 [facility] Serum cow milk IgE antibody assay (units/volume)Ordered By: Kevin Chakraborty on 12-11-2022 Cow milk IgE Qn (S) <0.10 kU/L Class 0 [facility] Serum dog epithelium IgE ant ibody assay (units/volume)Ordered By: Kevin Chakraborty on 12-11-2022 Dog epithelium IgE Qn (S) <0.10 kU/L Class 0 [facility] Serum globulin measurement ( mass/volume)Ordered By: Kevin Chakraborty on 12-11-2022 Globulin (S) [Mass/Vol] 3.6 g/dL 2.2-3.9 [facility] Serum or plasma C reactive p rotein measurement (mass/volume)Ordered By: Kevin Chakraborty on 12-11-2022 CRP [Mass/Vol] 31.10 mg/L 0.0-3.0 [facility] Comment on above: C-Reactive Protein ( CRP) provides useful information for thediagnosis, therapy and monitoring of inflammatory processesand associated diseases. For the evaluation of Relative Riskfor Cardiovascular Disease, a High Sensitivity CRP (HSCRP)should be ordered. Serum or plasma IgA measurem ent (mass/volume)Ordered By: Kevin Chakraborty on 12-11-2022 IgA [Mass/Vol] 216 mg/dL 87-352 [facility] Serum or plasma IgG measurem ent (mass/volume)Ordered By: Kevin Chakraborty on 12-11-2022 IgG [Mass/Vol] 1175 mg/dL 586-1602 [facility] Serum or plasma IgM measurem ent (mass/volume)Ordered By: Kevin Chakraborty on 12-11-2022 IgM [Mass/Vol] 167 mg/dL 26-217 [facility] Serum or plasma albumin malathi urement (mass/volume)Ordered By: Kevin Chakraborty on 12-11-2022 Albumin [Mass/Vol] 3.1 g/dL 3.2-5.0 [facility] Serum or plasma albumin/glob ulin mass ratioOrdered By: Kevin Chakraborty on 12-11-2022 Albumin/Globulin [Mass ratio] 0.7 {ratio} 0.9-2.4 [facility] Serum or plasma beta globuli n measurement by electrophoresis (mass/volume)Ordered By: Kevin Chakraborty on 12-11-2022 Beta globulin Elph [Mass/Vol] 1.2 g/dL 0.7-1.3 [facility] Serum or plasma calcium malathi urement (mass/volume)Ordered By: Kevin Chakraborty on 12-11-2022 Calcium [Mass/Vol] 8.8 mg/dL 8.5-10.1 [facility] Serum or plasma creatinine m easurement (mass/volume)Ordered By: Kevin Chakraborty on 12-11-2022 Creatinine [Mass/Vol] 0.74 mg/dL 0.55-1.02 [facility] Comment on above: The validity of the calculated GFR & GFRAA in patients over 70 years has not been determined. Clinical correlation is essential. Serum or plasma gamma globul in measurement by electrophoresis (mass/volume)Ordered By: Kevin Chakraborty on 12-11-2022 Gamma globulin Elph [Mass/Vol] 1.1 g/dL 0.4-1.8 [facility] Serum or plasma immunoelectr ophoresis interpretation (nominal result)Ordered By: Kevin Chakraborty on 12-11-2022 Interpretation IEP [Interp] Comment . [facility] Comment on above: No monoclonality det ected. Serum or plasma urea nitroge n measurement (mass/volume)Ordered By: Kevin Chakraborty on 12-11-2022 Urea nitrogen [Mass/Vol] 9 mg/dL 7-18 [facility] Serum peanut IgE antibody as say (units/volume)Ordered By: Kevin Chakraborty on 12-11-2022 Peanut IgE Qn (S) <0.10 kU/L Class 0 [facility] Serum perinuclear neutrophil cytoplasmic antibody titer by immunofluorescenceOrdered By: Kevin Chakraborty on 12-11-2022 Neutrophil cytoplasmic Ab.perinuclear IF (S) [Titer] <1:20 titer Neg:<1:20 [facility] Comment on above: The presence of posi tive fluorescence exhibiting P-ANCA orC-ANCA patterns alone is not specific for the diagnosis ofWegener's Granulomatosis (WG) or microscopic polyangiitis.Decisions about treatment should not be based solely onANCA IFA results. The International ANCA Group Consensusrecommends follow up testing of positive sera with both MT-3 and MPO-ANCA enzyme immunoassays. As many as 5% serumsamples are positive only by EIA. Ref. AM J Clin [id number];111:507-513. Serum pork IgE antibody assa y (units/volume)Ordered By: Kevin Chakraborty on 12-11-2022 Pork IgE Qn (S) <0.10 kU/L Class 0 [facility] Serum soybean IgE antibody a ssay (units/volume)Ordered By: Kevin Chakraborty on 12-11-2022 Soybean IgE Qn (S) <0.10 kU/L Class 0 [facility] Serum tissue transglutaminas e IgA antibody assay (units/volume)Ordered By: Kevin Chakraborty on 12-11-2022 tTG IgA Qn (S) <2 U/mL 0-3 [facility] Comment on above: Negative 0 - 3 Weak Positive 4 - 10 Positive >10 Tissue Transglutaminase (tTG) has been identified as the endomysial antigen. Studies have demonstr- ated that endomysial IgA antibodies have over 99% specificity for gluten sensitive enteropathy. Serum wheat IgE antibody ass ay (units/volume)Ordered By: Kevin Chakraborty on 12-11-2022 Wheat IgE Qn (S) <0.10 kU/L Class 0 [facility] Serum white elm IgE antibody assay (units/volume)Ordered By: Kevinrico Chakraborty on 12-11-2022 White Elm IgE Qn (S) <0.10 kU/L Class 0 [facility] Serum white oak IgE antibody assay (units/volume)Ordered By: Kevinrico Chakraborty on 12-11-2022 [place] IgE Qn (S) <0.10 kU/L Class 0 [facility] Serum whole egg IgE antibody assay (units/volume)Ordered By: Kevin Chakraborty on 12-11-2022 Whole Egg IgE Qn (S) <0.10 kU/L Class 0 [facility] Thin prep Papanicolaou smear with manual screeningOrdered By: Kevin Chakraborty on 12-11-2022 Thin prep Papanicolaou smear with manual screening 11 U/L 15-37 [facility] Thin prep Papanicolaou smear with manual screening 4 5-15 [facility] Thin prep Papanicolaou smear with manual screening 1.0 0.7-1.7 [facility] Total protein bloodOrdered B y: Kevinnancy Chakraborty on 12-11-2022 Protein [Mass/Vol] 7.0 g/dL 6.0-8.5 [facility] Thin prep Papanicolaou smear with manual screeningOrdered By: Michelle Pedraza on 10-21-2022 Genital Culture Presumptive C albicans [facility] Genital Culture G. vaginalis (Presumptive) [facility] Gram stain for investigation of transfusion reactionOrdered By: Michelle Pedraza on 10-18-2022 Microscopic observation Gram stain Nom (Unsp spec) [facility] Cervical or vagninal specime n microscopic examination by cytology stain (reported asOrdered By: Michelle Pedraza on 10-17-2022 Cytology report Cyto stain Doc (Cvx/Vag) Comment . [facility] Comment on above: The Pap smear is [...] rRNA FLAQUITA+probe Ql (Unsp spec) Negative Negative [facility] Detection in cervical specim en of any of human papilloma virus (HPV) 16, 18, 31, 33,Ordered By: Michelle Pedraza on 10-17-2022 HPV 16+18+31+33+35+39+45+51+5 2+56+58+59+66+68 DNA Probe+sig amp Ql (Cvx) Negative Negative [facility] Comment on above: This nucleic acid am plification test detects fourteen high-risk HPV types (16,18,31,33,35,39,45,51,52,56,58,59,66,68)without differentiation. HIV 1 and HIV-2 antibody ass ay with HIV-1 p24 antigen detectionOrdered By: Michelle Pedraza on 10-17-2022 HIV 1+2 Ab+HIV1 p24 Ag IA Ql Non-Reactive Nonreactive [facility] Laboratory - CytologyOrdered By: Michelle Pedraza on 10-17-2022 Game Advisor Cyto stain Nom (Cvx/Vag) [ID] Comment . [facility] Comment on above: Mirza Delaney, [facility] otechnologist ([facility] [place]) Laboratory - Microbiology an d Antimicrobial susceptibilityOrdered By: Michelle Pedraza on 10-17-2022 N. gonorrhoeae DNA FLAQUITA+probe Ql (Unsp spec) Negative Negative [facility] Comment on above: Performed at: =[address] [id number] Director: Elisa Cartagena MD, Phone: [phone] Laboratory - Miscellaneous t estsOrdered By: Michelle Pedraza on 10-17-2022 Service comment (Unsp spec) [Interp] Comment . [facility] Comment on above: This liquid based Th inPrep(R) pap test was screened withthe use of an image guided system. Service comment (Unsp spec) [Interp] . . [facility] Liquid-based cerv Pap + CT/G C by FLAQUITA w reflex to high-risk HPV for ASCUSOrdered By: Michelle Pedraza on 10-17-2022 Cytology report Cyto stain.thin prep Doc (Cvx/Vag) Comment . [facility] Comment on above: Criteria not met, HP V Genotype not performed.Performed at: - [facility] [id number] Director: Elisa Cartagena MD, Phone: [phone] at: = - [facility] [id number] Director: Elisa Cartagena MD, Phone: [phone] No Panel InformationOrdered By: Michelle Pedraza on 10-17-2022 Pathology report final diagnosis Narrative Comment . [facility] Comment on above: NEGATIVE FOR INTRAEP ITHELIAL LESION OR MALIGNANCY.FUNGAL ORGANISMS MORPHOLOGICALLY CONSISTENT WITH CRISTY SPECIES AREPRESENT.CELLULAR CHANGES ASSOCIATED WITH INFLAMMATION ARE PRESENT. Hepatitis C Antibody Non-Reactive Nonreactive [facility] Comment on above: Non Reactive: < 0.8 Equivocal: >/= 0.8 to < 1.0 Reactive: >/= 1.0The [facility] recommends that a reactive/equivocal HCV antibody result be followed up by the HCV Nucleic Acid Amplificationtest (912496) Herpes Simplex Virus I IgG Antibody < 0.91 index 0.00-0.90 [facility] Comment on above: Negative <0.91 Equiv ocal 0.91 - 1.09 Positive >1.09 Note: Negative indicates no antibodies detected to HSV-1. Equivocal may suggest early infection. If clinically appropriate, retest at later date. Positive indicates antibodies detected to HSV-1. No Panel Informationon 10-17 POC Bacterial Vaginitis (Rapid) Negative [facility] POC Trichomonas (Rapid) Negative [facility] Serum Treponema species anti body detectionOrdered By: Michelle Pedraza on 10-17-2022 Treponema sp Ab Ql (S) Non-Reactive [facility] Serum herpes simplex virus 2 antibody assay by immunoassay (units/volume)Ordered By: Michelle Pedraza on 10-17-2022 HSV 2 Ab IA Qn (S) < 0.91 index 0.00-0.90 [facility] Comment on above: Negative <0.91 Equiv ocal 0.91 - 1.09 Positive >1.09 Note: Negative indicates no HSV-2 antibodies detected. Positive indicates HSV-2 antibodies detected. Equivocal and low positive HSV-2 screens (Index 0.91-5.00) may be false positive and are reflexed to supplemental testing in accordance with CDC guidelines.Performed at: [address] [id number] Director: Crow Berrios PhD, Phone: [phone] Lucia 06-07-2022 CNOV Office Visit ([place]) MU BARBOZA ([id number]) 1985 F Date Time Provider Department 06/07/22 [...] year (around 06/07/2023). Referring Provider: GENA MEEK [[id number]] Allergies As of Date: 06/07/2022 (No Known [...] for Encounter Date Provider Department Center 06/07/2022 [id number]-DURXMURMGENA [facility]EEK [facility] En[facility] Numb (more content not included)... [facility] B-HCG (SERUM) Negative Normal NEGATIVE [facility] Comment on above: Result Comment: Serum Test is more Sensitive than a Urine Test. Please Note Threshold Values: SERUM - 10mlU/mL URINE - 20mlU/mL Performed By: #### L 200.4092 #### ML - LABORATORY [address] [place] [address] [facility] 11-20-2020 Anion gap [Moles/Vol] 13.1 mmol/L Low - [facility] Comment on above: Performed By: #### L 100.0010 #### - LABORATORY [address] [place] [address] Calcium [Mass/Vol] 8.8 mg/dL Normal 8.6-10.0 [facility] Comment on above: Performed By: #### L 100.0010 #### [facility] - LABORATORY [address] [place] [address] Chloride [Moles/Vol] 104 mmol/L Normal 98-107 [facility] Comment on above: Performed By: #### L 100.0010 #### ML [facility] [address] [place] [address] CO2 [Moles/Vol] 23 mmol/L Normal 22-29 [facility] Comment on above: Performed By: #### L 100.0010 #### [facility] [address] [place] [address] Creatinine [Mass/Vol] 0.65 mg/dL Normal 0.50-0.90 [facility] Comment on above: Performed By: #### L 100.0010 #### ML [facility] [address] [place] [address] eGFR if AFR ESE > 60 ml/min/1.73m2 [...] #### L 100.0010 #### ML - LABORATORY [address] [place] [address] eGFR nonAFR Ese > 60 ml/Min/1.73m2 Normal U [facility] Comment on above: Performed By: #### L 100.0010 #### ML - LABORATORY [address] [place] [address] Glucose [Mass/Vol] 133 mg/dL High 74-106 [facility] Comment on above: Performed By: #### L 100.0010 #### ML - LABORATORY [address] [place] [address] Potassium [Moles/Vol] 4.1 mmol/L Normal 3.5-5.0 [facility] Comment on above: Performed By: #### L 100.0010 #### ML - LABORATORY [address] [place] [address] 20353 Sodium [Moles/Vol] 136 mmol/L Normal 135-145 [facility] Comment on above: Performed By: #### L 100.0010 #### ML - LABORATORY [address] [place] [address] 21120 Urea nitrogen [Mass/Vol] 9 mg/dL Normal 6-20 [facility] Comment on above: Performed By: #### L 100.0010 #### ML - LABORATORY [address] [place] [address] 50415 CBCon 11-20-2020 BASO# 0.00 x10(3) Normal 0.00-0.10 [facility] Comment on above: Performed By: #### L 200.0010 #### ML - LABORATORY [address] [place] [address] 72970 Basophils/100 WBC (Bld) 0.4 % Normal 0.0-1.0 [facility] Comment on above: Performed By: #### L 200.0010 #### ML - LABORATORY [address] [place] [address] 09960 EOS# 0.10 x10(3) Normal 0.00-0.54 [facility] Comment on above: Performed By: #### L 200.0010 #### ML - LABORATORY [address] [place] [address] 45116 Eosinophils/100 WBC (Bld) 1.0 % Normal 0.5-4.9 [facility] Comment on above: Performed By: #### L 200.0010 #### ML [facility] [address] [place] [address] 04646 Erythrocyte distribution width (RBC) [Ratio] 14.8 % Normal 12.5-15.7 [facility] Comment on above: Performed By: #### L 200.0010 #### ML [facility] [address] [place] [address] 40359 Hematocrit (Bld) [Volume fraction] 36.1 % Normal 36.0-48.0 [facility] Comment on above: Performed By: #### L 200.0010 #### ML [facility] [address] [place] [address] 57407 Hemoglobin (Bld) [Mass/Vol] 12.0 g/dL Normal 12.0-16.0 [facility] Comment on above: Performed By: #### L 200.0010 #### [facility] [address] [place] [address] 90357 LYMPH# 1.70 x10(3) Normal 1.00-3.50 [facility] Comment on above: Performed By: #### L 200.0010 #### ML [facility] [address] [place] [address] 93073 Lymphocytes/100 WBC (Bld) 13.3 % Low 16.0-48.0 [facility] Comment on above: Performed By: #### L 200.0010 #### ML [facility] [address] [place] [address] 98414 MCH (RBC) [Entitic mass] 28.0 pg Low 28.5-32.9 [facility] Comment on above: Performed By: #### L 200.0010 #### ML [facility] [address] [place] [address] 24903 MCHC (RBC) [Mass/Vol] 33.3 g/dL Normal 33.0-36.0 [facility] Comment on above: Performed By: #### L 200.0010 #### ML [facility] [address] [place] [address] 41199 MCV (RBC) [Entitic vol] 84.4 fL Normal 80.0-99.0 [facility] Comment on above: Performed By: #### L 200.0010 #### ML - LABORATORY [address] [place] [address] 56333 MONO# 0.90 x10(3) High 0.30-0.80 [facility] Comment on above: Performed By: #### L 200.0010 #### ML - LABORATORY [address] [place] [address] 62815 Monocytes/100 WBC (Bld) 6.6 % Normal 4.3-11.2 [facility] Comment on above: Performed By: #### L 200.0010 #### ML - LABORATORY [address] [place] [address] 99235 NEUT# 10.40 x10(3) High 1.40-6.50 [facility] Comment on above: Performed By: #### L 200.0010 #### ML - LABORATORY [address] [place] [address] 69648 Neutrophils/100 WBC (Bld) 78.7 % High 45.0-73.0 [facility] Comment on above: Performed By: #### L 200.0010 #### ML - LABORATORY [address] [place] [address] 90833 Platelet mean volume (Bld) [Entitic vol] 8.5 fL Normal 7.5-9.5 [facility] Comment on above: Performed By: #### L 200.0010 #### ML - LABORATORY [address] [place] [address] 47799 PLT 254 X10(3) Normal 150-450 [facility] Comment on above: Performed By: #### L 200.0010 #### ML - LABORATORY [address] [place] [address] 95967 RBC 4.28 x10(6) Normal 3.30-5.00 [facility] Comment on above: Performed By: #### L 200.0010 #### ML - LABORATORY [address] [place] [address] 42359 WBC 13.2 x10(3) High 4.5-10.0 [facility] Comment on above: Performed By: #### L 200.0010 #### [facility] - [facility] [address] [place] [address] EMERGENCY DEPARTMENT REPORTo n 11-20-2020 [place] [address] HEALTH INFORMATION MANAGEMENT EMERGENCY DEPARTMENT REPORT Patient: MU BARBOZA JEFFREY M.DMalika [id number] F Status: DEP ER ED [...] negative. PAST HISTORY: Ovarian cystectomy done at [facility]. SOCIAL HISTORY: Single. No alcohol or [...] an outpatient. Will use Augmentin and Flagyl. Cataumet 6 packs for overnight pain. IMPRESSION: Diverticulitis. Report#: Dict ID [id number] / Int ID [id number] cc: ARINA Burroughs 11/20/20 2049 _ QUINTON INFANTE M.D. cc: QUINTON INFANTE M.D.; BARBARA MOORE << Signature on File>> Reported By: QUINTON INFANTE M.D. Signed By: QUINTON INFANTE M.D. Tests performed at: [place] [address] Normal [facility] UA W/C&Son 11-20-2020 Bilirubin Ql (U) Negative Normal NEGATIVE [facility] Comment on above: Order Comment: Urine Specimen Source+ CLEAN CATCH Performed By: #### L 200.3001 #### ML [facility] [address] [place] [address] 26707 Color (U) YELLOW Normal YELLOW [facility] Comment on above: Order Comment: Urine Specimen Source+ CLEAN CATCH Performed By: #### L 200.3001 #### ML [facility] [address] [place] [address] 06716 Glucose Ql (U) Negative Normal NEGATIVE [facility] Comment on above: Order Comment: Urine Specimen Source+ CLEAN CATCH Performed By: #### L 200.3001 #### ML [facility] [address] [place] [address] 21361 Hemoglobin Ql (U) Negative Normal NEGATIVE [facility] Comment on above: Order Comment: Urine Specimen Source+ CLEAN CATCH Performed By: #### L 200.3001 #### ML [facility] [address] [place] [address] 82212 Leukocyte esterase Test strip Ql (U) Negative Normal NEGATIVE [facility] Comment on above: Order Comment: Urine Specimen Source+ CLEAN CATCH Performed By: #### L 200.3001 #### [facility] [address] [place] [address] 87211 Nitrite Ql (U) Negative Normal NEGATIVE [facility] Comment on above: Order Comment: Urine Specimen Source+ CLEAN CATCH Performed By: #### L 200.3001 #### ML [facility] [address] [place] [address] 15505 pH (U) 5.5 [pH] Normal 5.0-8.0 [facility] Comment on above: Order Comment: Urine Specimen Source+ CLEAN CATCH Performed By: #### L 200.3001 #### ML - LABORATORY [address] [place] [address] Protein Ql (U) Negative Normal NEGATIVE [facility] Comment on above: Order Comment: Urine Specimen Source+ CLEAN CATCH Performed By: #### L 200.3001 #### ML - LABORATORY [address] [place] [address] URINE APPEARANC SL CLOUDY Normal CLEAR [facility] Comment on above: Order Comment: Urine Specimen Source+ CLEAN CATCH Performed By: #### L 200.3001 #### [facility] - [facility] [address] [place], [place] [address] URINE KETONE Negative Normal NEGATIVE [facility] Comment on above: Order Comment: Urine Specimen Source+ CLEAN CATCH Performed By: #### L 200.3001 #### [facility] [address] [place] [address] URINE SPECIFIC >=1.030 Normal 1.001-1.035 [facility] Comment on above: Order Comment: Urine Specimen Source+ CLEAN CATCH Performed By: #### L 200.3001 #### [facility] - [facility] [address] [place] [address] 86085 URINE UROBILINO 0.2 EU/DL Normal 0.2-1.0 [facility] Comment on above: Order Comment: Urine Specimen Source+ CLEAN CATCH Performed By: #### L 200.3001 #### ML - LABORATORY [address] [place] [address] 05361 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 CYTOLOGYon 02-23-2020 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 CYTOLOGY RUN DATE: 03/02/20 Laboratory LIVE PAGE 1 RUN TIME: 725 Specimen Inquiry RUN USER: INTERFACE [facility] [place] Department of Laboratories [address] [place] [address] PATIENT: MU BARBOZA LOC: [facility]AO U #: [id number] HOME PHONE: AGE/SX: 34/F ROOM: RE02/23/20 [facility] DR: Barbara Moore D.O.B.: 81 BED: DIS: STATUS: REG REF LAB O/S: Specimen : [id number] Date Collected: 02/23/20 Surgeon : Barbara Moore [...] reflects that evaluation. END OF REPORT Normal [facility] Comment on above: Performed By: #### G Y #### [facility] [address] [address] CYTOLOGY 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, CONVERTEDon [facility] CYTOLOGY 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, CONVERTEDon [facility] Vital Signs Date Time Vital Sign Value Performing Clinician Marielle corona 03-14-2025 10:44-0400 Body temperature 97.7 [degF] Madelaine Lee MD Work Phone: [facility] 03-14-2025 10:44-0400 Diastolic blood pressure 70 mm[Hg] Madelaine Lee MD Work Phone: [facility] 03-14-2025 10:44-0400 Heart rate 100 /min Madelaine Lee MD Work Phone: [facility] 03-14-2025 10:44-0400 Respiratory rate 16 /min Madelaine Lee MD Work Phone: [facility] 03-14-2025 10:44-0400 SaO2% (BldA) [Mass fraction] 97 % Madelaine Lee MD Work Phone: [facility] 03-14-2025 10:44-0400 Systolic blood pressure 130 mm[Hg] Madelaine Lee MD Work Phone: [facility] 02-24-2025 11:26-0400 Diastolic blood pressure 84 mm[Hg] Madelaine Lee MD Work Phone: [facility] 02-24-2025 11:26-0400 Systolic blood pressure 136 mm[Hg] Madelaine Lee MD Work Phone: [facility] 02-24-2025 10:37-0400 Body height 167.64 cm Madelaine Lee MD Work Phone: [facility] 02-24-2025 10:37-0400 Body mass index (BMI) [Ratio] 42.3 kg/m2 Madelaine Lee MD Work Phone: [facility] 02-24-2025 10:37-0400 Body weight 118.89 kg Madelaine Lee MD Work Phone: [facility] 02-15-2025 13:31-0400 Body height 167.64 cm Madelaine Lee MD Work Phone: [facility] 02-15-2025 13:31-0400 Body weight 119.83 kg Madelaine Lee MD Work Phone: [facility] 12-02-2023 06:41-0400 Body height 167.64 cm DO Sharita Hector Work Phone: [facility] 12-02-2023 06:41-0400 Body mass index (BMI) [Ratio] 44.2 kg/m2 DO Sharita Hector Work Phone: [facility] 12-02-2023 06:41-0400 Body temperature 97.7 [degF] DO Sharita Hector Work Phone: [facility] 12-02-2023 06:41-0400 Body weight 124.45 kg DO Sharita Hector Work Phone: [facility] 12-02-2023 06:41-0400 Diastolic blood pressure 70 mm[Hg] DO Sharita Hector Work Phone: [facility] 12-02-2023 06:41-0400 Heart rate 91 /min DO Sharita Hector Work Phone: [facility] 12-02-2023 06:41-0400 Respiratory rate 16 /min DO Sharita Hector Work Phone: [facility] 12-02-2023 06:41-0400 SaO2% (BldA) [Mass fraction] 95 % DO Sharita Hector Work Phone: [facility] 12-02-2023 06:41-0400 Systolic blood pressure 132 mm[Hg] DO Sharita Hector Work Phone: [facility] 03-06-2023 07:45-0400 Body temperature 98.9 [degF] DO Sharita Hector Work Phone: [facility] 03-06-2023 07:45-0400 Diastolic blood pressure 76 mm[Hg] DO Sharita Hector Work Phone: [facility] 03-06-2023 07:45-0400 Heart rate 83 /min DO Sharita Hector Work Phone: [facility] 03-06-2023 07:45-0400 Respiratory rate 16 /min DO Sharita Hector Work Phone: [facility] 03-06-2023 07:45-0400 SaO2% (BldA) [Mass fraction] 98 % DO Sharita Hector Work Phone: [facility] 03-06-2023 07:45-0400 Systolic blood pressure 123 mm[Hg] DO Sharita Hector Work Phone: [facility] 03-06-2023 06:21-0400 Body height 167.64 cm DO Sharita Hector Work Phone: [facility] 03-06-2023 06:21-0400 Body mass index (BMI) [Ratio] 41.6 kg/m2 DO Sharita Hector Work Phone: [facility] 03-06-2023 06:21-0400 Body weight 117 kg DO Sharita Hector Work Phone: [facility] 12-22-2022 21:18-0400 Body mass index (BMI) [Ratio] 43.1 kg/m2 DO Sharita Hector Work Phone: [facility] 12-22-2022 21:18-0400 Body temperature 97 [degF] DO Sharita Hector Work Phone: [facility] 12-22-2022 21:18-0400 Body weight 121.24 kg DO Sharita Hector Work Phone: [facility] 12-22-2022 21:18-0400 Diastolic blood pressure 99 mm[Hg] DO Sharita Hector Work Phone: [facility] 12-22-2022 21:18-0400 Heart rate 119 /min DO Sharita Hector Work Phone: [facility] 12-22-2022 21:18-0400 Respiratory rate 16 /min DO Sharita Hector Work Phone: [facility] 12-22-2022 21:18-0400 SaO2% (BldA) [Mass fraction] 99 % DO Sharitamartin Balderasnger Work Phone: [facility] 12-22-2022 21:18-0400 Systolic blood pressure 187 mm[Hg] DO Sharitamartin Balderasnger Work Phone: [facility] 10-17-2022 14:34-0400 Body height 167.64 cm DO Sharitamartin Balderasnger Work Phone: [facility] 10-17-2022 14:34-0400 Body mass index (BMI) [Ratio] 42.9 kg/m2 DO Sharitamartin Balderasnger Work Phone: [facility] 10-17-2022 14:34-0400 Body weight 120.71 kg DO Sharita Balderasnger Work Phone: [facility] 10-17-2022 14:34-0400 Diastolic blood pressure 86 mm[Hg] DO Sharita Balderasnger Work Phone: [facility] 10-17-2022 14:34-0400 Systolic blood pressure 124 mm[Hg] DO Sharita Balderasnger Work Phone: [facility] 06-07-2022 14:44-0400 Body height 172.7 cm Gena Gaviota PA-C Work Phone: [facility] 06-07-2022 14:44-0400 Body weight 120.2 kg Gena Gaviota PA-C Work Phone: [facility] 06-07-2022 14:44-0400 Diastolic blood pressure 85 mm[Hg] Gena Gaviota PA-C Work Phone: [facility] 06-07-2022 14:44-0400 Systolic blood pressure 136 mm[Hg] Gena Sunset PA-C Work Phone: [facility] Encounters Encounter Date Encounter Type Care Provider Facility Start: 03-24-2025 ambulatory [facility] Facility:[facility] Start: 03-14-2025 End: 03-14-2025 ambulatory Madelaine Lee MD Work Phone: [facility] Start: 03-14-2025 End: 03-14-2025 Patient encounter procedure Brock Mike Peter CISNEROS-C [facility] Work Phone: Start: 03-10-2025 Registered Referred HEALTH RIS K ASSESSMENT -Employee Health Start: 03-10-2025 Patient encounter procedure Lynnette GORDILLO [facility] Work Phone: Start: 03-10-2025 ambulatory Madelaine Lee Facility:[facility] Start: 02-24-2025 End: 02-24-2025 Patient encounter procedure Lynnette GORDILLO -[facility] Work Phone: Start: 02-24-2025 End: 02-24-2025 Patient encounter status Lynnette GORDILLO [facility] Start: 02-24-2025 End: 02-24-2025 ambulatory Madelaine Lee MD Work Phone: -[facility] Start: 02-15-2025 End: 02-15-2025 Patient encounter procedure Kevin Chakraborty DO -[facility] Work Phone: Start: 02-15-2025 End: 02-15-2025 ambulatory Madelaine Lee MD Work Phone: -[facility] Start: 02-15-2025 End: 03-04-2025 Discharged Recurring Kevin Chakraborty DO -Nutritional Servic es Work Phone: Start: 02-15-2025 Registered Recurring Kevin Friend DO -Nutritional Services Work Phone: Start: 02-15-2025 End: 03-04-2025 ambulatory Madelaine Lee MD Work Phone: -Nutritional Services Start: 02-01-2025 End: 02-01-2025 ambulatory Madelaine Lee MD Work Phone: -Cat Scan [facility] Start: 02-01-2025 End: 02-01-2025 Patient encounter procedure Kevintone Chakraborty DO -Cat Scan [facility] Work Phone: Start: 02-01-2025 End: 02-01-2025 ambulatory Madelaine Lee Facility:[facility] Start: 11-12-2024 End: 11-12-2024 Patient encounter procedure Kevin Chakraborty DO -[facility] Work Phone: Start: 11-12-2024 End: 11-12-2024 ambulatory Chalon Jesus Facility:[facility] Start: 11-10-2024 End: 11-10-2024 ambulatory Madelaine Lee MD Work Phone: [facility] Work Phone: Start: 11-10-2024 End: 11-10-2024 Patient encounter procedure Kevin Chakraborty DO -Ultrasound, [facility] Work Phone: Start: 11-10-2024 End: 11-10-2024 ambulatory Madelaine Lee Facility:[facility] Start: 10-29-2024 End: 10-29-2024 ambulatory Madelaine Lee MD Work Phone: [facility] Work Phone: Start: 10-29-2024 End: 10-29-2024 Patient encounter procedure Kevin Chakraborty DO -Cat Scan, [facility] Work Phone: Start: 10-29-2024 End: 10-29-2024 ambulatory Madelaine Lee Facility:[facility] Start: 09-24-2024 End: 09-24-[address] Madelaine Lee MD -[facility] Work Phone: Start: 09-24-2024 End: 09-24-2024 ambulatory Madelaine Lee Facility:[facility] Start: 05-16-2024 End: 05-16-2024 Emergency department patient visit Rome Lynch Facility:[facility] Start: 05-15-2024 End: 05-15-2024 ambulatory Madelaine Lee Facility:[facility] Start: 03-30-2024 ambulatory Challakeshia Lee Facility:[facility] Start: 12-02-2023 End: 12-02-2023 ambulatory DO Sharita Young Work Phone: [facility] Work Phone: Start: 12-02-2023 End: 12-02-2023 Patient encounter procedure DO Sharita Young Work Phone: [facility]-Laboratory, Specimen Work Phone: Start: 12-02-2023 End: 12-02-2023 Patient encounter procedure DO Sharita Young Work Phone: [facility] Work Phone: Start: 11-15-2023 End: 11-15-2023 Patient encounter procedure DO Sharita Young Work Phone: [facility] Work Phone: Start: 09-17-2023 End: 09-17-2023 ambulatory [facility] Work Phone: Start: 09-17-2023 End: 09-17-2023 Patient encounter procedure [facility]-Outpatient Breast Imaging Work Phone: Start: 06-07-2023 End: 06-07-2023 ambulatory DO Sharita Young Work Phone: [facility] Work Phone: Start: 06-07-2023 End: 06-07-2023 Patient encounter procedure DO Sharita Young Work Phone: [facility]-Ultrasound, H Work Phone: Start: 05-16-2023 End: 05-16-2023 Patient encounter procedure DO Sharita Young Work Phone: [facility] Work Phone: Start: 05-11-2023 End: 05-11-2023 ambulatory DO Sharita Young Work Phone: [facility] Work Phone: Start: 05-11-2023 End: 05-11-2023 Patient encounter procedure DO Sharita Young Work Phone: [facility]-Laboratory, Specimen Work Phone: Start: 05-08-2023 End: 05-08-2023 Patient encounter procedure DO Sharita Young Work Phone: [facility]-Cat Scan, [facility] Work Phone: Start: 03-22-2023 Registered Referred DO Sharita Young Work Phone: [facility]-Employee Health Start: 03-06-2023 Non-patient / Non-visit DO Sahil Young Work Phone: [facility] Start: 03-06-2023 End: 03-06-2023 Admission to same day surgery center DO Sharita Young Work Phone: [facility]-Endoscopy Work Phone: Start: 03-06-2023 End: 03-06-2023 ambulatory DO Sharita Young Work Phone: [facility] Work Phone: Start: 12-22-2022 End: 12-23-2022 Emergency department patient visit DO Sharita Young Work Phone: [facility]-Emergency Department Work Phone: Start: 12-11-2022 End: 12-11-2022 ambulatory DO Sharita Young Work Phone: [facility] Work Phone: Start: 12-11-2022 End: 12-11-2022 Patient encounter procedure DO Sharita Young Work Phone: [facility] Start: 10-17-2022 End: 10-17-2022 ambulatory DO Sharita Young Work Phone: [facility] Work Phone: Start: 10-17-2022 End: 10-17-2022 Patient encounter procedure DO Sharita Young Work Phone: [facility] Start: 08-27-2022 End: 08-27-2022 ambulatory [facility] Work Phone: Start: 08-27-2022 End: 08-27-2022 Patient encounter procedure [facility]-Outpatient Breast Imaging Start: 06-07-2022 End: 06-07-2022 ambulatory GENA MEEK Facility:[facility] Start: 06-07-2022 End: 06-07-2022 Patient encounter procedure Gena Meek NM-C Work Phone: [facility] Comment on above: Rosacea (Primary Dx) Start: 08-25-2021 End: 08-25-2021 Patient encounter procedure [facility]patient [facility] Start: 10-07-2018 Patient encounter procedure Mirna Corteze Facility:[facility] Start: 09-28-2018 Patient encounter procedure James Ambrose Facility:[facility] Start: 11-22-2008 Documentation procedure Phan Robertson III, MD Work Phone: [facility] Start: 11-22-2008 Historic EMR Phan Robertson MD Work Phone: [facility] Start: 12-21-2005 Documentation procedure Phan Robertson III, MD Work Phone: 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 Phan Robertson MD Work Phone: Start: 12-19-2005 CYTOLOGY 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, CONVERTED Phan Robertson MD Work Phone: Cytopathology proced ure, preparation of smear, genital source DO Sharita Young Work Phone: Investigation of transfusion reaction DO Sharita Young Work Phone: Plan of Treatment Date Care Activity Detail Author Start: 06-07-2023 Liver elastography w/o imag w/i&r LIVER ELASTOGRAPHY [facility] Start: 04-05-2023 Influenza [facility] Start: 03-06-2023 Colonoscopy w/biopsy single/multiple COLONOSCOPY AND BIOPSY [facility] Start: 03-06-2023 Colsc flx w/rmvl of tumor polyp lesion snare tq COLONOSCOPY W/LESION REMOVAL [facility] Start: 03-06-2023 Egd transoral biopsy single/multiple EGD BIOPSY SINGLE/MULTIPLE [facility] Start: 03-06-2023 Patient discharge [facility] Start: 10-17-2022 Liquid based cervical cytology screening [facility] Start: 10-17-2022 Source specific culture [facility] Start: 08-05-2022 Depression Assessment Depression Assessment [facility] Start: 04-05-2022 Influenza vaccination INFLUENZA (#1) [facility] Start: 09-13-2021 COVID-19 VACCINE (4 - Booster for Moderna series) COVID-19 VACCINE (4 - Booster for Moderna series) [facility] Start: 09-13-2021 Covid-19 Vaccine (4 - Moderna series) Covid-19 Vaccine (4 - Moderna series) [facility] Start: 08-05-2021 DEPRESSION ASSESSMENT DEPRESSION ASSESSMENT [facility] Start: 05-03-2021 HPV TESTING HPV TESTING [facility] [facility] Start: 05-03-2021 PAP TESTING PAP TESTING [facility] Start: 12-11-2002 Urine microalbumin profile [facility] Start: 12-11-2001 HEPATITIS C SCREENING HEPATITIS C SCREENING [facility] Start: 12-11-2001 HIV SCREENING HIV SCREENING [facility] Start: 1985 HEPATITIS B (1 of 3 - 3-dose series) HEPATITIS B (1 of 3 - 3-dose series) [facility] Start: 1985 Hepatitis B Vaccine (1 of 3 - 3-dose series) Hepatitis B Vaccine (1 of 3 - 3-dose series) [facility] Cytopathology proced ure, preparation of smear, genital source Genital Culture [facility] Lactoferrin [Presenc e] in Stool by Immunoassay [facility] MG Breast - bilatera l Screening [facility] Path report.final Dx Spec [facility] Patient Education ED Diverticulitis [facility] Work Phone: Patient referral [facility] Work Phone: Protein measurement [facility] Protein measurement [facility] US Pelvis [facility] Immunizations Immunization Date Immunization Notes Care Provider Fa cility 06-19-2024 influenza, seasonal, injectable, preservative free Madelaine Lee MD Work Phone: [facility] 06-10-2023 influenza, injectabl e, quadrivalent, preservative free DO Sharita Hector Work Phone: [facility] 06-21-2022 influenza, injectabl e, quadrivalent, preservative free DO Sharita Hector Work Phone: [facility] 06-21-2022 influenza, seasonal, injectable [facility] 09-07-2020 Covid (Moderna) [facility] 08-10-2020 Covid (Moderna) [facility] 06-09-2020 influenza, injectabl e, quadrivalent, preservative free DO Sharita Hector Work Phone: [facility] 06-09-2020 influenza, seasonal, injectable [facility] 06-09-2020 influenza virus vaccine, unspecified formulation Phan Robertson III, MD Work Phone: [facility] 06-10-2019 influenza, injectabl e, quadrivalent, preservative free DO Sharita Hector Work Phone: [facility] 06-10-2019 influenza, seasonal, injectable [facility] 07-03-2018 influenza, injectabl e, quadrivalent, preservative free DO Sharita Hector Work Phone: [facility] 07-03-2018 influenza, seasonal, injectable [facility] 05-10-2017 influenza, injectabl e, quadrivalent, preservative free DO Sharita Hector Work Phone: [facility] 05-10-2017 influenza, seasonal, injectable [facility] 05-03-2016 influenza, injectabl e, quadrivalent, preservative free DO Sharita Hector Work Phone: [facility] 05-03-2016 influenza, seasonal, injectable [facility] 05-31-2015 influenza, injectabl e, quadrivalent, preservative free DO Sharita Hector Work Phone: [facility] 05-31-2015 influenza, seasonal, injectable [facility] 05-13-2014 influenza, injectabl e, quadrivalent, preservative free DO Sharita Young Work Phone: [facility] 05-13-2014 influenza, seasonal, injectable [facility] Payers Date Payer Category Payer Self-pay [id number] 2023 Unknown [id number] 2017 Unknown 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 2017-Present [phone] [address] [address] [place] [address] Indemnity [id number] 2016 Unknown [id number] Unknown [id number] Unknown [id number] 2.16.840.1.073989.3.579.2.273 Unknown [id number] 2.16.840.1.559001.3.579.2.462 Unknown [id number] 2.16.840.1.919304.3.579.2.462 Unknown [id number] 2.16.840.1.724128.3.579.2.462 Unknown [id number] 2.16.840.1.244446.3.579.2.462 Unknown [id number] 2.16.840.1.453305.3.579.2.462 Unknown [id number] 2.16.840.1.100847.3.579.2.462 Unknown [id number] 2.16.840.1.077537.3.579.2.462 Unknown [id number] 2.16.840.1.621897.3.579.2.462 Unknown [id number] 2.16.840.1.682258.3.579.2.462 Unknown [id number] 2.16.840.1.372742.3.579.2.462 Unknown [id number] 2.16.840.1.503216.3.579.2.462 Unknown [id number] 2.16.840.1.334450.3.579.2.462 Unknown [id number] 2.16.840.1.078434.3.579.2.462 Unknown [id number] 2.16.840.1.774481.3.579.2.462 Social History Date Type Detail Facility Tobacco smoking status NHIS Unknown if ever smoked [facility] Work Phone: Start: 1985 Sex Assigned At Female [facility] Start: 02-17-2018 End: 05-16-2024 Tobacco smoking status NHIS Never smoked tobacco [facility] Start: 02-17-2018 Tobacco use and exposure Smokeless tobacco non-user [facility] Start: 06-10-2022 Alcohol intake Current non-dr ryder of alcohol (finding) [facility] Start: 1985 Sex Assigned At Not on file [facility] Start: 05-28-2022 End: 06-07-2022 Exposure to SARS-CoV-2 (event) Not sure [facility] Start: 10-17-2022 End: 11-15-2023 Tobacco smoking status NHIS Unknown if ever smoked [facility] Start: 06-10-2022 End: 09-02-2022 History of Social function [facility] Start: 06-10-2022 End: 09-02-2022 Tobacco use panel [facility] National Score (1-100), lower number is lower risk 81 [facility] Start: 11-05-2024 End: 11-13-2024 Sex Female (finding) [facility] NEGATED: Highlighted row [facility] Goals Date Patient Goal Desired Activity /State Mental Status Date Assessment Result Facility 03-06-2023 Cognitive function Voice/Name [facility] Work Phone: Clinical Notes 06-07-2022 to [...] (urinary tract infection) acute March 14 10:39am [facility] Work Phone: 1(985) 203-219806-30-2025 Radiology Diagnostic study note [facility] Imaging Services [address] [place], [place] [address] Abdomen/Pelvis WITH Contrast MR#: [id number] Acct: [id number] Name: TAMRAMU YADIRA Rep #: [id number] : 1985 F 39 From: Sally Morley MD PCP: Dr. Madelaine Lee MD Status: REG CL I Study:Abdomen/Pelvis WITH Contrast Date of Ex am: 02/01/25 Exam# [id number] Ordering Dr: Natali Chakraborty DO PROCEDURE: ABDOMEN/PELVIS [...] acute diverticulitis. 2. Fibroid uterus. Reading Location: [id number] CC: Dr. Madelaine Lee MD; Kevin Friend, DO ~ Sports Betting Manager: Signed [facility]04-10-2025 Evaluation note* Diagnosis Onset Date Resolution Status Admit Date Diverticulitis acute November 1:58pm GERD (gastroesophageal reflu x disease) acute November 12, 2024 1:58pm THOMPSON (nonalcoholic steatohepatitis) acute November 12 1:58pm Frequent stools chronic November 1:58pm [facility] Work Phone: [phone]) 353-671604-10-2025 Evaluation note* Diagnosis Onset Date Resolution Status [...] routine gynecological examination noneactive February 032024 10:26am [facility] Work Phone: 1(592) 877-320304-09-2025 Radiology Diagnostic study note [facility] Imaging Services [address] [place] [address] ABD Limited w/ Elastography MR#: [id number] Acct: [id number] Name: MU BARBOZA Rep #: [id number] : 1985 F 38 From: Ashley Wong MD PCP: Dr. Madelaine Lee MD Status: REG CL I Study:ABD Limited w/ Elastography Date of Exa m: 11/10/24 Exam# [id number] Ordering Dr: Natali Chakraborty DO PROCEDURE: ABD LIMITED W/ ELASTOGRAPHY (USABDLELPARO), 11/10/2024 REASON FOR EXAM: THOMPSON COMPARISON: 10/29/2024 TECHNIQUE: Grayscale and color Doppler imaging of the right upper quadrant was performed. StrongLoop S-shear waveelastography was performed for non-invasive assessment [...] of lifer fibrosis may be overestimated. Previous [facility] reference values: <1.37 m/s (5.7kPa): No to mild fibrosis 1.37 m/s - 2.2 m/s: Moderate to severe fibrosis >2.2 m/s (15kPa): Significant fibrosis / cirrhosis Reading Location: [facility] CC: Dr. Madelaine Lee MD; Kevin Chakraborty DO ~ Sports Betting Manager: Signed [facility]03-27-2025 Radiology Diagnostic study note [facility] Imaging Services [address] [place] [address] [id number] Abdomen/Pelvis WITH Contrast MR#: [id number] Acct: [id number] Name: MU BARBOZA YADIRA Rep #: [id number] : 1985 F 38 From: Loreto Mazariegos MD PCP: Dr. Madelaine Lee MD Status: REG CL I Study:Abdomen/Pelvis WITH Contrast Date of Ex am: 10/29/24 Exam# [id number] Ordering Dr: Natali Chakraborty DO PROCEDURE: ABDOMEN/PELVIS [...] hepatomegaly with diffuse hepatic steatosis. Reading Location: [id number] CC: Dr. Madelaine Lee MD; Kevin Chakraborty DO ~ Sports Betting Manager: Signed [facility]08-02-2023 History and physical note Author Kevin Chakraborty [facility] March 06, 2023 6:57am Note Date/Time March 06, 2023 6:5 7am [facility] System Medical Records Department [address] [place] [address] History & Physical Exam 03/06/23 0657 MR#: [id number] Acct: [id number] Name: MU BARBOZA YADIRA Rep #:[id number] : 1985 37 From: Kevin Chakraborty DO PCP: Sharita Young DO Status:REG S DC Location: [address] History and Physical Date of Admission: [...] Appearance: average body habitus and well nourished [facility] Head: normal to inspection Ears: hearing grossly [...] Affect: normal affect Quality Reporting Tobacco Screening ([facility] 138) Smoking Status: Never smoker Assessment [...] Sharita Young DO; Kevin Chakraborty DO~ Signed [facility] Work Phone: 1(536) 953-518608-02-2023 [facility]2023 Procedure note [facility]08-02-2023 Procedure [facility] 10-17-2022 NotePap Smear Specimen AdequacyMarch 2022 5:54pmComment. Satisfactory for evaluation. Endocervical and/or squamous metaplasticcells (endocervical component)are present.[facility] A#[id number] [place], [place] [address]Comment on above:Satisfactory for evaluation. Endocervical and/or squamous metaplasticcells (endocervical component)are present.06-07-2022 NoteHNO ID: [id number] Author: Gena Meek PA-C Service: ? Author Type: Physician Fire Watcher Type: Progress Notes Filed: 06/10/2022 10:43 PM [...] PA-C Return in about 1 year (around 06/07/2023).[facility]11-03-2022 History of Present illness Narrative* Gena Meek [...] 1 year (around 06/07/2023). [facility]No assessment information availableWAC[facility] Work Phone: Evaluation note* Diagnosis Rosacea- Primary documented in this encounter [facility] note* Diagnosis Onset Date Resolution Status Possible exposure to STD non eactive Encounter for routine gynecological examination noneactive Monilial vaginitis noneactiv e Monilial intertrigo noneacti ve [facility] Work Phone: Evaluation note* Diagnosis Onset Date Resolution Status Possible exposure to STD non eactive Encounter for routine gynecological examination noneactive Monilial vaginitis noneactiv e Monilial intertrigo noneacti ve Diverticulitis acute GERD (gastroesophageal reflux disease) acute Frequent stools chronic [facility] Work Phone: Evaluation note* Diagnosis Onset Date Resolution Status Diverticulitis acute GERD (gastroesophageal reflux disease) acute Frequent stools chronic [facility] Work Phone: Evaluation note* Diagnosis Onset Date Resolution Status Diverticulitis acute GERD (gastroesophageal reflux disease) acute THOMPSON (nonalcoholic steatohepatitis) acute Frequent stools chronic [facility] Work Phone: Reason for referral (narrative)No reason for referral information availableWACMC Healthcare System Work Phone: Summary Purpose Family History Relationship Condition Age at Onset Recorded Date/T susie mother Malignant neoplasm of breast 35 father Malignant neoplasm Unknown grandmother Malignant neoplasm Unknown grandfather Malignant neoplasm of colon Unknown Advance Directives Advance Directive Response Recorded Date/ Time Living Will No February 28, 2023 1:20pm Power of Tip Length Checker No February 28 3 1:20pm Advance Directive Response Recorded Date/ Time Living Will No February 28, 2023 12:20pm Power of Tip Length Checker No February 28 3 12:20pm Chief Complaint and Reason for Visit Chief Complaint SCREENING Chief Complaint SCREENING 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) Reason for Visit Possible exposure to STD Encounter for routine gynecological examination Monilial vaginitis Monilial intertrigo Chief Complaint SCREENING 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) Consult E ORDERS Reason for Visit Possible [...] FU February 15, 2025 2:47 pm 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) February 24, 2025 10:2 6am Reason for [...] FU February 15, 2025 2:47 pm 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) February 24, 2025 10:2 6am Chief Complaint Admit Date DIVERTICULITIS - ORAL AND IV CONTRAST Ju ne 2024 4:09pm MNT February 15, 2025 1:13 pm 3 M FU February 15, 2025 2:47 pm 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) February 24, 2025 10:2 6am PELVIC PAIN, [...] section and content) DATE CREATED AUTHOR 10/09/2018 [facility] Nellie Odom DATE CREATED AUTHOR AUTHOR'S ORGANIZ ATION 03/02/2020 [facility] renetta [place] DATE CREATED AUTHOR AUTHOR'S ORGANIZ ATION 11/23/2020 [facility] DATE CREATED AUTHOR AUTHOR'S ORGANIZ ATION 06/10/2022 [facility] DATE CREATED AUTHOR AUTHOR'S ORGANIZ ATION 03/12/2025 [facility] Goals (unrecognized section and content) Goals [...] or prosecute any alcohol or drug abuse patient.[facility] the event this information is protected by the Federal Confidentiality of Alcohol and Drug Abuse Patient Records regulations: The Federal rules restrict any use of the information to criminally investigate or prosecute any alcohol or drug abuse patient.[facility] Hospital[facility] the event this information is protected by the Federal Confidentiality of Alcohol and Drug Abuse Patient Records regulations: The Federal rules restrict any use of the information to criminally investigate or prosecute any alcohol or drug abuse patient.[facility] Reason for Visit (unrecogniz ed section and content) Reason Comments Rosacea Care Teams (unrecognized sec tion and content) Team Status: Active Member Role Status Dates BARBARA MOORE Family Provider Active Sharita Young DO Primary Care Provider Active Team Status: Inactive Member Role Status Dates Sharita Young , Primary Care Provider, Attending Provider Active Team Status: Inactive Member Role Status Bambi Pedraza PASTE WORKER, PASTE WORKER-C Attending Provider Active Sharita Young DO Primary Care Provider, Referring Provider Active Team Status: Inactive Member Role Status Bambi Young , Primary Care Provider Active Michelle Pedraza PASTE WORKER, PASTE WORKER-C Attending Provider, Referring Provider Active Team Status: [...] End: March 14, 2025 Brock Green NP, PASTE WORKER-C Attending Provider Active S tart: March 14, [...] BE BASED ON THE PRIMARY CLINICAL RECORDS. [facility] [employer] [facility]. provides no warranty or guarantee of the accuracy or completeness of information in this document.
== END | disposition home or self-care (01) ==
LOC: LABSPEC 03-15 08:15
PROVIDERS: PCP Family Medicine; Visit Provider Nurse Practitioner Family
DX: R82.90 Unspecified abnormal findings in urine (principal)
CPT/HCPCS: 87086; 87088

== ENCOUNTER 2025-04-07 09:12 | Outpatient (RCR) | payer OTHER, SELFPAY | END 2025-05-04 23:59 | LOC: NS 09:12 | PROVIDERS: PCP Family Medicine; Referring Provider Internal Medicine Gastroenterology; Visit Provider Internal Medicine Gastroenterology | DX: Z71.3 Dietary counseling and surveillance (principal); K57.92 Diverticulitis of intestine, part unspecified, without perforation or abscess without bleeding; K21.00 Gastro-esophageal reflux disease with esophagitis, without bleeding; K75.81 Nonalcoholic steatohepatitis (NASH) | CPT/HCPCS: 97803 ==

== ENCOUNTER 2025-05-12 10:00 | Emergency (ER) | payer OTHER, SELFPAY ==
[2025-05-12 10:01] VITALS: BP 167/96; PULSE 109; RESP 16; TEMP 36.6; O2SAT 100; BMI 41.8
--- NOTE | 2025-05-12 10:13 | ED.VIS.GI ---
HPI HPI - GI History of Present Illness Chief Complaint: Abd Pain Informant: patient Abdominal Pain/Flank Pain Onset: Days (3) Context: Gradual Onset Timing: Continuous Quality: Aching, Dull and Sharp (At times) Location: LLQ Worsened by: Nothing Relieved by: Nothing Nausea/Vomiting/Emesis GI Symptom: Positive for Nausea and Vomiting Quality: Negative for Blood streaks, Coffee ground or Hematemesis Episodes: 1 Diarrhea/Melena/Hematochezia GI Symptom: Negative for Diarrhea, Melena or Hematochezia Associated Symptoms Associated Symptoms: Positive for Frequency; Negative for Dysuria or Hematuria LMP: 04/26/2025 Narrative Narrative: Patient presents with left lower abdominal pain that has been getting worse over the past 3 days. Patient states that it has gradually gotten worse. Patient describes her pain as dull and aching but sharp at times. Patient states this feels similar to prior episodes of diverticulitis. Patient states her pain is localized to the left lower abdomen. Patient admits to some nausea and 1 episode of vomiting. Patient denies any diarrhea, melena, or hematochezia. Patient does admit to some urinary frequency. Patient denies any dysuria or hematuria. Patient denies any abnormal vaginal bleeding or discharge. [facility] Medical History Fatty liver Heartburn Non-smoker History of edema Diverticulitis Home Medications ?Medication ?Instructions ?Recorded ?Last Taken ?Type pantoprazole 20 mg tablet,delayed 20 mg PO DAILY #90 TABLETS 04/14/24 Unknown Rx release hyoscyamine sulfate 0.125 mg 0.125 mg PO BID-QID PRN dyspepsia 09/25/24 Unknown Rx disintegrating tablet #60 tabs mesalamine 800 mg tablet,delayed 1,600 mg (2 x 800 mg) PO BID #120 01/07/25 Unknown Rx release tabs drospirenone 3 mg-ethinyl 1 tab PO DAILY #84 tabs 02/24/25 Unknown Rx estradiol 0.03 mg tablet ciprofloxacin HCl 500 mg tablet 500 mg PO BID #20 TABLETS 05/12/25 Unknown Rx metronidazole 500 mg tablet 500 mg PO Q6H #40 tabs 05/12/25 Unknown Rx Allergy/AdvReac Type Severity Reaction Status Date / Time No Known Allergies Allergy Verified 05/12/25 10:03 Family History Mother Breast cancer, Onset Age: 35 Father Cancer Prostate Grandmother Cancer Ovarian- paternal Grandfather Colon cancer Paternal Surgical History Hx of wisdom tooth extraction S/P surgical removal of pilonidal cyst S/P tonsillectomy S/P right oophorectomy Social History adopted: No household members: significant other housing: house number of children: 0 current occupational status: employed 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 ROS ROS ED Constitutional Constitutional ED: Reports chills and subjective; Denies fever(s) Eyes Eyes: Denies blurry vision or change in vision ENT ENT ED: Denies rhinorrhea or sore throat Cardiovascular Cardiovascular: Denies chest pain or palpitations Respiratory/Chest Respiratory/Chest: Denies cough or dyspnea Gastrointestinal Gastrointestinal: Reports abdominal pain, nausea and vomiting; Denies diarrhea or melena Genitourinary Genitourinary ED: Reports urinary frequency; Denies dysuria or hematuria Musculoskeletal Musculoskeletal: Denies back pain or neck pain Integumentary Denies abscess or rash Neurologic Neurologic: Denies headache(s) or weakness Allergic/Immunologic Allergic/Immunologic ED: Denies mouth swelling or urticaria EXAM Physical Exam Const Vital Signs: 05/12/25 10:01 Temperature 98 F Temperature Source Oral Pulse Rate 109 H Respiratory Rate 16 Blood Pressure 167/96 H Blood Pressure Mean 119 Pulse Ox 100 Oxygen Delivery Method Room Air Positive well nourished and well developed Constitutional Narrative: BMI is 41.8. General Appearance ED: well developed and NAD HEENT Reports moist mucous membranes normocephalic and atraumatic Neck supple and no JVD Resp normal respiratory effort and clear to auscultation bilaterally Cardio regular rate and regular rhythm GI non-distended Palpation: soft and tender LLQ; Negative for guarding or rebound tenderness present Neuro CN's II-XII intact bilaterally, moves all extremities and no sensory deficits noted Sensorium / Orientation: alert Motor Exam: strength 5/5 throughout Psych mental status grossly normal and thought process normal MDM MDM MDM Narrative Medical decision making narrative: Differential diagnosis includes diverticulitis, colitis, dehydration, electrolyte abnormality, urinary tract infection, pyelonephritis, ectopic , and ureteral calculus. CBC will be obtained to assess for leukocytosis and anemia. Basic metabolic profile will be obtained to assess for electrolyte abnormality and renal function. Serum hCG will be obtained to assess for . Urinalysis will be obtained to assess for urinary tract infection and hematuria. CT scan of the abdomen and pelvis will be obtained to assess for diverticulitis, colitis, and ureteral calculus. Lab Data Attestation: I reviewed the patient's lab results. Lab results narrative: CBC was reviewed. There is a mild leukocytosis of 15.5. The remainder is within normal limits. Basic metabolic profile was reviewed and was essentially within normal limits. Serum hCG was reviewed and was negative. Urinalysis was reviewed. There is no evidence of urinary tract infection or hematuria. Labs: Laboratory Results - last 24 hr 05/12/25 05/12/25 10:35 10:43 WBC 15.5 H RBC 5.28 Hgb 14.0 Hct 42.3 MCV 80.1 L MCH 26.5 L MCHC 33.1 RDW Std Deviation 40.3 RDW Coeff of Antolin 13.9 Plt Count 329 MPV 10.6 Immature Gran % (Auto) 0.300 Neut % (Auto) 84.6 H Lymph % (Auto) 9.7 L [place] % (Auto) 4.6 Eos % (Auto) 0.5 Baso % (Auto) 0.3 Absolute Neuts (auto) 13.1 H Absolute Lymphs (auto) 1.50 Nucleated RBC % 0 Sodium 137 Potassium 4.0 Chloride 100 Carbon Dioxide 22.8 Anion Gap 14 BUN 6 Creatinine 0.68 L Estim Creat Clear Calc 141.86 Est GFR (MDRD) Non-Af 112 BUN/Creatinine Ratio 9.2 L Glucose 109 H Calcium 9.2 Serum , Qual NEGATIVE Urine Color Yellow Urine Clarity Clear Urine pH 6.0 Ur Specific [place] 1.015 Urine Protein 15 H Urine Glucose (UA) Normal Urine Ketones 5 H Urine Occult Blood Negative Urine Nitrite Negative Urine Bilirubin Negative Urine Urobilinogen Normal Ur Leukocyte Esterase 25 H Urine RBC 0 SEEN Urine WBC 0 SEEN Ur Squamous Epith Cells 5-10 SEEN Urine Bacteria RARE Urine Mucus 0 SEEN Radiography Diagnostic Testing: Clinical Impression(s) from Imaging Studies Abdomen/Pelvis CT 05/12/25 11:10 IMPRESSION: Non complicated sigmoid diverticulitis. Fatty infiltration of the liver. Reading Location: [facility] CT scan of the abdomen pelvis was obtained. There is evidence of diverticulitis but there is no evidence of perforation or abscess. There is fatty infiltration of the liver. There is no free air or free fluid. This was interpreted by the radiologist and was also independently reviewed by myself. Treatment and Re-Evaluation :: Patient was given IV fluids, morphine, and Zofran. Patient was feeling better on reevaluation. Patient states she did take a metronidazole at home that was leftover from previous prescription. Patient was given a dose of Cipro here. Patient was given prescriptions for Cipro and Flagyl. Patient was instructed to avoid alcohol while taking Flagyl. Patient was instructed to follow-up with her primary care physician in 5 to 7 days. Patient was also instructed to follow-up with Dr. Chakraborty in 5 to 7 days. Patient understood and was agreeable with the plan. All questions were answered. Discharge Plan Triage Chief Complaint: Abd Pain ED Provider: Shaquille Hernandez Dx/Rx/DC Orders Clinical Impression: Diverticulitis, Left lower quadrant abdominal pain Instructions: ED Diverticulitis Prescriptions: New metronidazole 500 mg tablet 500 mg PO Q6H Qty: 40 0RF ciprofloxacin HCl 500 mg tablet 500 mg PO BID Qty: 20 0RF No Action drospirenone-ethinyl estradiol 3-0.03 mg tablet 1 tab PO DAILY Qty: 84 4RF pantoprazole 20 mg tablet,delayed release (DR/EC) 20 mg PO DAILY Qty: 90 9RF hyoscyamine sulfate 0.125 mg tablet,disintegrating 0.125 mg PO BID-QID PRN (Reason: dyspepsia) Qty: 60 3RF mesalamine 800 mg tablet,delayed release (DR/EC) 1,600 mg PO BID Qty: 120 2RF Rx Instructions: must be taken on empty stomach; no food 1 hr after or 2-3 hrs before dose Primary Care Provider: Madelaine Lee Referrals: Madelaine Lee MD [Primary Care Provider, Family Practice] - 5-7 Days Friend,DO Kevin [Med Staff - Active Staff, Gastroenterology] - 5-7 Days Print Language: Thai Disposition Disposition: Home, Self Care
[2025-05-12] MEDS: 0.9% Normal Saline (1000mL) 1,000 ML 999 ML IV (10:34)
[2025-05-12 10:53] LABS: Mucous, Urine 0 SEEN /hpf (<or=2+); Red Blood Cells-Urine 0 SEEN /hpf (0-5)
[2025-05-12 11:02] LABS: Hematocrit 42.3 % (37-47); Hemoglobin 14.0 g/dL (12.0-15.0); Immature Granulocytes Count 0.050 X10^3/uL (0.0-0.0); Mean Corp Hgb Conc 33.1 g/dL (32-36); Mean Corpuscular Volume 80.1 fL (81-99); Mean Platelet Vol. 10.6 fl (6.2-12.0); NRBC Flagged by Analyzer 0 % (0-5); Platelet Count 329 K/mm3 (150-450); RBC Distribution Width CV 13.9 % (11.6-14.6); RBC Distribution Width SD 40.3 fl (35.1-43.9); Red Blood Count 5.28 M/mm3 (4.2-5.4); White Blood Count 15.5 K/mm3 (4.4-11.0)
[2025-05-12 11:03] LABS: Color, Urine Yellow (Yellow); Glucose, Dipstick Normal (Normal); Ketone-Dipstick 5 mg/dl (Negative); Leukocyte Esterase-Dipstick 25 /ul (Negative); Nitrite-Dipstick Negative (Negative); Occult Blood-Urine Negative /ul (Negative); Protein-Dipstick 15 mg/dl (Negative); Specific Gravity, Urine 1.015 (1.002-1.030); Urine Bilirubin Dipstick Negative (Negative)
--- NOTE | 2025-05-12 11:10 | CT_ITS ---
PROCEDURE: ABDOMEN/PELVIS W IV CONT ONLY 05/12/2025 REASON FOR EXAM: ABDOMINAL PAIN Left lower quadrant pain. TECHNIQUE: Procedure Code: [id number] Modality: CT Procedure: ABDOMEN/PELVIS W IV CONT ONLY Coronal and Sagittal reconstruction series were provided. CONTRAST: Isovue-300 VOLUME: 100 mL One or more dose reduction techniques were used (e.g., Automated exposure control, adjustment of the mA and/or kV according to patient size, use of iterative reconstruction technique. RADIATION DOSE SUMMARY: CTDlvol: 16.6 mGy DLP: 1322.87 mGycm COMPARISON: Prior study dated February 01, 2025. FINDINGS: Lung bases: The lung bases are clear. Liver: Diffuse fatty infiltration. Gallbladder: Gallbladder is unremarkable. Spleen: Normal size. Pancreas: Normal size without evidence of mass surrounding inflammation or ductal dilation. Adrenals: Unremarkable Kidneys: Normal renal sizes. No hydronephrosis. Bladder: Unremarkable Reproductive Organs: Normal uterine size and contour. Ovaries are unremarkable. Bowel: Sigmoid colon diverticula with wall thickening and adjacent inflammatory changes. No evidence of perforation or abscess. Appendix: Unremarkable Lymph nodes: No significant lymph nodes are seen Vasculature: The abdominal aorta and IVC are normal. Peritoneum / Retroperitoneum: Unremarkable Bones: No significant abnormality is present. CT/Abdomen/Pelvis W IV Cont ONLY IMPRESSION: Non complicated sigmoid diverticulitis. Fatty infiltration of the liver. Reading Location: [id number]
[2025-05-12 11:23] LABS: Anion Gap 14 (5-15); BUN 6 mg/dL (4-19); BUN/Creat Ratio 9.2 RATIO (10-20); Calcium,Total 9.2 mg/dL (7.6-11.0); Carbon Dioxide 22.8 mmol/L (21.0-32.0); Chloride 100 mmol/L (98-108); Estimated Creatinine Clearance 141.86 ml/min (50-250); Glucose 109 mg/dL (70-99); Potassium 4.0 mmol/L (3.3-5.1)
[2025-05-12 11:56] LABS: Squamous Epithelial Cells - UA 5-10 SEEN /hpf (5-10)
[2025-05-12 12:01] LABS: Internal QC Validated? YES +Cl - CLEAR BKGD; Pregnancy, Serum, hCG Quali. NEGATIVE Negative; Record Kit Lot#, Serum Preg. 0000980607
[2025-05-12 13:15] VITALS: BP 116/78; PULSE 71; RESP 16; TEMP 37.1; O2SAT 100
== END 2025-05-12 13:17 | disposition home or self-care (01) ==
PROVIDERS: Emergency Provider Emergency Medicine; PCP Family Medicine; Visit Provider Emergency Medicine
DX: K57.92 Diverticulitis of intestine, part unspecified, without perforation or abscess without bleeding (principal); R11.2 Nausea with vomiting, unspecified; R35.0 Frequency of micturition; Z79.899 Other long term (current) drug therapy; R10.32 Left lower quadrant pain
CPT/HCPCS: 74177; 80048; 81001; 84703; 85025; 96361; 96374; 99284; Q9967; A4216; J2405

== ENCOUNTER → 2025-06-28 | Outpatient (CLI) | payer OTHER, SELFPAY ==
--- NOTE | 2025-06-28 16:14 | US_ITS ---
PROCEDURE: PELVIC W/ TRANSVAGINAL 06/28/2025 REASON FOR EXAM: UTERUS FIBROID TECHNIQUE: Procedure Code: [id number] Modality: US Procedure: PELVIC W/ TRANSVAGINAL COMPARISON: 10 March 2025. FINDINGS: Uterus: The uterus measures 9.1 x 5 x 3.4 cm. Heterogenous appearance without evidence of discrete cyst, or echogenic calculi. Left fibroids measuring 1.6 x 1.1 x 1 cm and 4.1 x 3.6 x 2.3 cm. The endometrial stripe measures 3 mm. Multiple simple nabothian cysts visualized in the cervix. Right ovary: The right ovary is surgically absent. Left ovary: The left ovary is normal in size measuring 3.6 x 2 x 1.5 cm. No suspicious masses. Blood flow to the adnexa is normal with arterial and venous waveforms documented. BLADDER: The bladder wall measures less than less than 3 mm. The ureteral jets were notseen. Prevoid bladder volume is 366 ml. No ascites. US/Pelvic w/ Transvaginal IMPRESSION: 1. Fibroid uterus. 2. Previous right oophorectomy. Reading Location: [id number]
== END | disposition home or self-care (01) ==
LOC: US 16:12
PROVIDERS: PCP Family Medicine; Referring Provider Obstetrics & Gynecology; Visit Provider Obstetrics & Gynecology
DX: D25.9 Leiomyoma of uterus, unspecified (principal); R10.20 Pelvic and perineal pain unspecified side
CPT/HCPCS: 76830; 76856

== ENCOUNTER → 2025-07-26 | Outpatient (CLI) | payer OTHER, SELFPAY ==
--- OUTSIDE RECORDS SUMMARY | 2025-07-26 20:03 | XMS RPT_ITS | CCD ---
Author Organization [facility] CliniSyor Care Team Providers Care Watchguard Name Role Phone James Ambrose CNP Attending Unavailable Mirna Mcbride Attending Unavailable GENA MEEK Referring Unavailable GENA MEEK Attending Unavailable Unavailable Primary Care Provider Unavailcristo Pedraza ELECTRICIAN APPRENTICE, ELECTRICIAN APPRENTICENikC Michelle Attending Provider DO Sharita Young Primary Care Provider DO Chris Youngistin M Referring Provider Friend, Dr. Brown Attending Provider [phone] DO Chris Youngistin M Primary Care Provider DO Hector Sharita M Referring Provider Friend, Dr. Brown Other Provider Unavailable Primary Care Provider UnavailDO Chris Davidsonistin M Primary Care Provider DO Hector Sharita M Referring Provider FriendDr. Brown Attending Provider [phone] DO Chris Youngistin M Primary Care Provider Hector DO Sharita M Referring Provider FriendDr. Brown Attending Provider FriendDr. Brown Other Provider DO Sharita Young M Primary Care Provider Hector DO Sharita M Referring Provider Friend, Dr. Brown Attending Provider Pattie ENRIQUE, VIA Choi Attending Provider Madelaine Lee MD Primary Care Provider Jesus MCKEON, Madelaine Attending Provider Jesus MCKEON, Madelaine Referring Provider Mylene MURO, Dr. Brown Attending Provider Mylene MURO, Dr. Brown Referring Provider Jseus MCKEON, Madelaine Primary Care Provider Jesus MCKEON, Madelaine Referring Provider Berny CISNEROS-CLynnette Attending Provider Jesus MCKEON, Madelaine Primary Care Provider Mylene MURO, Dr. Brown Attending Provider Mylene MURO, Dr. Brown Referring Provider Jesus MCKEON, Madelaine Primary Care Provider Mylene MURO, Dr. Brown Attending Provider Mylene MURO, Dr. Brown Referring Provider Jesus MCKEON, Madelaine Referring Provider Berny CISNEROS-CLynnette Referring Provider Assessment, Health Risk Attending Provider Unava ilable Assessment, Health Risk Referring Provider Unava ilable Roof ELECTRICIAN APPRENTICE-C, Brock Mike Attending Provider Peter ELECTRICIAN APPRENTICE-Brock Parra Attending Provider Jesus MCKEON, Madelaine Primary Care Physician Mylene MURO, Dr. Brown Attending Physician Berny CISNEROS-Lynnette Parra Attending Physician [phone] Assessment, Health Risk Attending Physician Unav ailable Roof ELECTRICIAN APPRENTICE-C, Brock Mike Attending Physician Enrique MCKEON, Dr. Kelly Attending Physician Dr. Shaquille Hernandez DO Emergency Department Physi isaias Dr. Shaquille Hernandez DO Attending Physician Laura Mohr Attending Physician [phone] Jesus, Chalon Primary Care Unavailable Friend, Kevin Attending Unavailable Friend, Kevin Referring Unavailable Jesus, Chalon Primary Care Unavailable Jesus, Chalon Referring Unavailable Lynnette Arrieta Attending Unavailable Roof, Brock Mike Attending Unavailable Jesus, Chalon Primary Care Unavailable Jesus, Chalon Referring Unavailable Jesus, Chalon Primary Care Unavailable Jesus, Chalon Referring Unavailable Marcanthony, Leticia Attending Unavailable Jesus, Chalon Primary Care Unavailable Laura Zamudio Attending Unavailable Jesus, Chalon Referring Unavailable Jesus, Chalon Primary Care Unavailable Jesus, Chalon Referring Unavailable Friend, Kevin Attending Unavailable Jesus, Chalon Primary Care Unavailable Jesus, Chalon Referring Unavailable Friend, Kevin Attending Unavailable Barkman, Lynnette Attending Unavailable Jesus, Chalon Primary Care Unavailable Barkman, Lynnette Referring Unavailable Roof, Brock Mike Attending Unavailable Jesus, Chalon Primary Care Unavailable Jesus, Chalon Attending Unavailable Jesus, Chalon Primary Care Unavailable Jesus, Chalon Referring Unavailable Jesus, Chalon Primary Care Unavailable Friend, Kevin Attending Unavailable Friend, Kevni Referring Unavailable Jesus, Chalon Primary Care Unavailable Shaquille Hernandez Attending Unavailable Friend, Kevin Attending Unavailable Jesus, Chalon Primary Care Unavailable Friend, Kevin Referring Unavailable Jesus, Chalon Primary Care Unavailable Marcanthony, Leticia Referring Unavailable Marcanthony, Leticia Attending Unavailable Jesus, Chalon Primary Care Unavailable Friend, Kevin Attending Unavailable Friend, Kevin Referring Unavailable Jesus, Chalon Primary Care Unavailable Assessment, Health Risk Attending Unavaila ble Assessment, Health Risk Referring Unavaila ble Friend, Kevin Referring Unavailable Jesus, Chalon Primary Care Unavailable Friend, Kevin Attending Unavailable Friend, Kevin Referring Unavailable Jesus, Chalon Primary Care Unavailable Friend, Kevin Attending Unavailable Medications Current Medications Medication Drug Class(es) Dates Sig (Normalized) Sig (Original) betamethasone 0.5 mg/ml / clotrimazole 10 mg/ml topical cream (2 sources) Azole Antifungal, Corticosteroid Start: 10-17-2022 Clotrimazole-Betam ethasone Active 1 APPLIC TOPICAL TWICE A DAY 45 October 17, 2022 12:00am ciprofloxacin 500 mg oral tablet (20 sources) Quinolone Antimicrobial Start: 05-12-2025 take 1 tablet by mouth twice daily Ciprofloxacin Hcl 500 mg tablet Active 500 mg PO TWICE A DAY 20 0 May 12, 2025 12:00am Complies with drug therapy Start: 05-16-2024 End: 11-12-2024 take 1 tablet by mouth twice daily Ciprofloxacin Hcl (Cipro) 500 mg tablet Discontinued 500 mg PO TWICE A DAY 20 10 0 October 22, 2024 3:12pm October 31, 2024 [...] 17, 2023 12:00am May 18, 2023 12:25am Drospirenone-Ethinyl Estradiol (20 sources) Progestin, Estrogen Start: 02-24-2025 Drospirenone-Ethinyl Estradiol 3-0.03 mg tablet Active 1 {tbl} PO DAILY 84 February 24, 2025 11:33am Complies with drug therapy Start: 02-24-2025 Start: 02-24-2025 Drospirenone-E thinyl Estradiol 3-0.03 mg tablet Active 1 {tbl} PO DAILY 84 February 24, 2025 11:33am Start: 02-24-2024 End: 02-24-2025 Drospirenone-Ethinyl Estradi ol 3-0.03 mg tablet Discontinued 1 {tbl} PO DAILY 84 4 February 24, 2024 3:32pm February 24, 2025 11:33am Start: 02-24-2024 Drospirenone-E thinyl Estradiol 3-0.03 mg tablet Active 1 {tbl} PO DAILY 84 4 February 24, 2024 3:32pm Start: 02-24-2024 Drospirenone-E [...] 1 tablet by effie th once daily. fluconazole 200 mg oral tablet (20 sources) Azole Antifungal Start: End: take 1 tablet by mouth once daily Fluconazole 200 mg tablet Discontinued 200 mg PO daily 10 10 May 18, 2025 12:00am May 27, 2025 12:00am May 28, 2025 12:09am Start: 10-29-2024 End: 11-03-2024 take 1 tablet by mouth once daily Fluconazole 200 mg tablet Discontinued 200 mg PO daily 5 5 0 October 29, 2024 12:00am November 02, 2024 12:00am November 03, 2024 12:08am Start: 05-08-2024 End: 02-24-2025 Fluconazole 150 mg tablet Discontinued 150 mg PO Every 3 Days 2 0 May 08, 2024 12:00am February 24, 2025 10:43am may repeat second dose 72 hrs after first dose if symptoms persist Start: 05-29-2023 End: 12-02-2023 take 1 tablet by mouth once Fluconazole 150 mg tablet Discontinued 150 mg PO ONCE 1 0 May 29, 2023 12:00am December 02, 2023 6:47am as a single dose Start: 10-17-2022 Fluconazole Ac tive 150 MG PO .COMPLEX 2 October 17, 2022 12:00am 150 mg PO take one po now and repeat in 3 days hyoscyamine sulfate 0.125 mg disintegrating oral tablet (20 sources) Start: 05-21-2025 Hyoscyamine Chaudhari lfate 0.125 mg tablet,disintegrating Active 0.125 mg PO 2 to 4 times per day as needed for dyspepsia 60 3 May 21, 2025 8:24am Complies with drug therapy Start: 05-16-2023 End: 05-21-2025 Hyoscyamine Sulfate 0.125 mg tablet,disintegrating Discontinued 0.125 mg PO 2 to 4 times per day as needed for dyspepsia 60 3 September 25, 2024 5:32pm May 21, 2025 8:24am mesalamine 800 mg delayed release oral tablet (20 sources) Aminosalicylate Start: 01-07-2025 End: 05-21-2025 take 1 tablet by mouth twice daily Mesalamine 800 mg tablet,delayed release (DR/EC) Active 1600 mg PO TWICE A DAY 120 2 May 21, 2025 8:22am must be taken on empty stomach; no food 1 hr after or 2-3 hrs before dose Complies with drug therapy Start: 10-29-2024 End: 01-07-2025 take 2 tablets [...] contact clinic in 3 months with update metroNIDAZOLE 500 mg oral tablet (20 sources) Nitroimidazole Antimicrobial Start: 05-12-2025 take 1 tablet by mouth every six hours Metronidazole 500 mg tablet Active 500 mg PO EVERY 6 HOURS 40 0 May 12, 2025 12:00am Complies with drug therapy Start: 11-16-2024 End: 12-28-2024 take 1 tablet by mouth every twelve hours Metronidazole 500 mg tablet Discontinued 500 mg PO Q12H 84 42 0 November 16, 2024 12:00am December 27, 2024 12:00am December 28, 2024 12:06am Start: 10-22-2024 End: 11-01-2024 take 1 tablet by mouth twice daily Metronidazole 500 mg tablet Discontinued 500 mg PO TWICE A DAY 20 10 0 October 22, 2024 3:12pm October 31, 2024 12:00am November 01, 2024 6:34am Start: 05-16-2024 End: 11-12-2024 take 1 tablet by mouth three times daily Metronidazole 500 mg tablet Discontinued 500 mg PO THREE TIMES A DAY 30 10 0 May 16, 2024 12:00am November 12, 2024 2:11pm Diverticulitis Start: 02-04-2024 End: 02-24-2024 take 1 tablet by mouth every twelve hours Metronidazole 500 mg tablet Discontinued 500 mg PO Q12H 14 0 February 04, 2024 12:00am February 24, 2024 [...] daily Pantoprazole 20 mg tablet,delayed release (DR/EC) Active 20 mg PO DAILY 90 9 May 21, 2025 8:22am Complies with drug therapy Start: 03-06-2023 End: 09-25-2023 take 1 tablet by mouth every twelve hours Pantoprazole 20 mg tablet,delayed release (DR/EC) Discontinued 20 mg PO Q12H 60 3 March 06, 2023 12:00am September 25, 2023 2:53pm Completed/Discontinued Medications Medication Drug Class(es) Dates Sig (Normalized) Sig (Original) amoxicillin 875 mg / clavulanate 125 mg oral tablet (20 sources) Penicillin-class Antibacterial Start: 11-16-2024 End: 12-25-2024 Amoxicillin-Pot Clavulanate 875-125 mg tablet Discontinued 1 {tbl} PO Q12H 84 42 0 November 16, 2024 12:00am December 27, 2024 12:00am December 25, 2024 3:08pm Diverticulitis Start: 10-30-2024 End: 11-09-2024 Amoxicillin-Pot Clavulanate (Augmentin) 500-125 mg tablet Discontinued 1 {tbl} PO TWICE A DAY 20 10 0 October 30, 2024 12:00am November 08, 2024 12:00am November 09, 2024 12:12am dextromethorphan hydrobromide 15 mg / guaiFENesin 400 mg / pseudoephedrine hydrochloride 60 mg oral tablet (1 source) alpha-Adrenergic Agonist, Uncompetitive T-nqtudm-W-aspartate Receptor Antagonist, Sigma-1 Agonist Start: 09-28-2018 CAPMIST [...] Comment on above: Take 1 capsule by [facility] twice daily. With food methylPREDNISolone 4 mg oral tablet (12 sources) Corticosteroid Start: 12-25-2024 End: 02-15-2025 take 1 tablet by mouth once Methylprednisolone (Medrol (Dannie)) 4 mg tablets,dose pack Discontinued 0 PO per package directions 21 0 December 25, 2024 12:00am February 15, 2025 3:10pm PO PER PKG DIR for 6 days Start: 09-28-2018 methylPREDNISo lone (MEDROL DOSE-PACK) 4 mg Dose-Pack TAKE BY MOUTH DIRECTED ON PACKAGE 0 09/28/2018 Active Comment on above: TAKE BY MOUTH DIR ECTED ON PACKAGE nitrofurantoin, macrocrystals 25 mg / nitrofurantoin, monohydrate 75 mg oral capsule (20 sources) Nitrofuran Antibacterial Start: End: take 1 capsule by mouth every twelve hours at mealtime Nitrofurantoin Monohyd/M-Cryst (Macrobid) 100 mg capsule Discontinued 100 mg PO Q12H 14 7 0 March 14, 2025 12:00am March 20, 2025 12:00am March 21, 2025 12:08am must administer with a meal/food Start: 12-02-2023 End: 12-07-2023 take 1 capsule by mouth every twelve hours at mealtime Nitrofurantoin Monohyd/M-Cryst (Macrobid) 100 mg capsule Discontinued 100 mg PO Q12H 10 5 0 December 02, 2023 12:00am December 06, 2023 12:00am December 07, 2023 12:15am must administer with a meal/food Problems Active Problems Problem Classification Problem Date Documented Date Episodic/Chronic Abdominal pain (20 sources) Abdominal pain; Translations: [Unspecified abdominal pain] Onset: 04-27-2025 05-24-2024 Episodic Comment on above: improving. quesiton diverticular disease vs fibroid uterus. Benign neoplasm of uterus (20 sources) Uterine leiomyoma; Translations: [Leiomyoma of uterus, unspecified] Onset: 04-27-2025 02-24-2025 Episodic Diverticulosis and diverticulitis (20 sources) Diverticulitis; Translations: [Diverticulitis of intestine, part unspecified, without perforation or abscess without bleeding] Onset: 02-04-2025 12-11-2022 Chronic Esophageal disorders (20 sources) Gastroesophageal reflux disease; Translations: [Gastro-esophageal reflux disease without esophagitis] 12-11-2022 Chronic Genitourinary symptoms and ill-defined conditions (2 sources) Dysuria; Translations: [Unspecified abnormal findings in urine] Onset: 03-14-2025 Episodic Hepatitis (20 sources) Nonalcoholic steatohepatitis; Translations: [Nonalcoholic [...] defecation; Translations: [Noninfective gastroenteritis and colitis, unspecified] 12-11-2022 Episodic Other inflammatory condition of skin (4 sources) Rosacea; Translations: [Rosacea, unspecified] Onset: 02-24-2020 Chronic Residual codes; unclassified (20 sources) Family history of malignant neoplasm of breast in first degree relative; Translations: [Family history of malignant neoplasm of breast] 10-17-2022 Episodic Comment on above: Patient with negativ e genetic testing. Does yearly mammogram Residual codes; unclassified (8 sources) Family history of malignant neoplasm of ovary; Translations: [Family history of malignant neoplasm of ovary] 04-27-2025 Episodic Comment on above: negative cancer gene tic testing. Residual codes; unclassified (1 source) Family history of malignant neoplasm of ovary; Translations: [Family history of malignant neoplasm of ovary] Onset: 04-27-2025 Episodic Residual codes; unclassified (1 source) Family history of malignant neoplasm of breast; Translations: [Family history of malignant neoplasm of breast] Onset: 04-27-2025 Episodic Unclassified (2 sources) COUGH,SORE THROAT Onset: 09-28-2018 Urinary tract infections (14 sources) Urinary tract infectious disease; Translations: [Urinary tract infection, site not specified] 03-14-2025 Episodic Past or Other Problems Problem Classification Problem Date Documented Da te Episodic/Chronic Other screening for suspected conditions (not mental disorders or infectious disease) (1 source) Encounter for screening mammogram for malignant neoplasm of breast; Translations: [Encounter for screening mammogram for malignant neoplasm of breast] Onset: 02-24-2025 Episodic Other skin disorders (3 sources) Acne vulgaris; Translations: [Acne vulgaris] Onset: 02-24-2020 02-24-2020 Episodic Results Test Name Value Interpretation Reference Range Facility Gastroenterology Visit Repor ton 05-21-2025 Gastroenterology Visit Report [facility] [address] [place] [address] OFFICE VISIT Date of Service: 05/21/25 MR#: [id number] Acct: [id number] Name: TAMRABETINA YADIRA Rep #: [id number] : 1985 Provider: IVA Villaseñor Age/Sex: 39/F [place] [facility] [place]: Signed Intake Vital Signs 05/12/25 10:01 Height 5 ft 6 in Intake Visit Reasons: ER FU ABDOMINAL HERNIA NEAR INTESTINE Chief Complaint: Diverticulitis Clerical And Administrative Workers Required: No Accompanied by: Self Is patient in pain?: No Allergies No Known Allergies Allergy (Verified 05/21/25 08:00) Medications ???Medication ???Instructions ???Recorded ???Confirmed ???Type drospirenone 3 mg-ethinyl 1 tab PO DAILY #84 tabs 02/24/25 1 Rx estradiol 0.03 mg tablet ciprofloxacin HCl 500 mg tablet 500 mg PO BID #20 TABLETS 05/12/25 05/21/25 Rx metronidazole 500 mg tablet 500 mg PO Q6H #40 tabs 05/12/25 Rx fluconazole 200 mg tablet 200 mg PO QDAY 10 days #10 tabs 05/21/25 Rx hyoscyamine sulfate 0.125 mg 0.125 mg PO BID-QID PRN dyspepsia 05/21/25 05/21/25 Rx disintegrating tablet #60 tabs mesalamine 800 mg tablet,delayed 1,600 mg (2 x 800 mg) PO BID #120 05/21/25 05/21/25 Rx release tabs pantoprazole 20 mg tablet,delayed 20 mg PO DAILY #90 TABLETS 05/21/25 Rx release PFSH Medical History Fatty liver [...] 0 current occupational status: employed 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 HPI HPI Chief Complaint: Diverticulitis Details: BETINA BARBOZA, is a 39 F who presents to the office today for follow-up. OV 10..24 pt reports that she is feeling well overall and denies GI symptoms of concern at this time. Pt notes some abd pain when she tried to decrease her mesalamine. abd/pelvis 3..25 1. Severe diverticulosis with moderate wall thickening of the distal descending and sigmoid colon. No evidence of acute diverticulitis. 2. Mild hepatomegaly with diffuse hepatic steatosis. US and elastography 4.03.29 hepatic measurement 18.3cm with fatty infiltration, stiffness measures 7.87kPa compatible with F_-F_ Metavir score. OV 4..25 pt reports she had a recent diverticulitis flare and was given cipro and flagyl which were not effective, and then tried Augmentin, which she also feels was not effective. Pt reports she is feeling better today, but is unsure what to do to prevent recurrent diverticulitis flares. abd/pelvis CT 6.30.25 1. Colonic diverticulosis, without current evidence of acute diverticulitis. 2. Fibroid uterus. OV 7.14.25 pt reports that she is feeling well overall and denies GI symptoms of concern at this time. Pt reports that digestive enzyme / probiotic has been helpful for her symptoms. Is requesting clarification on how to take her Mesalamine. [facility] ED 05/12/25 with worsening LLQ abd pain over the past 3 days. Similar to prior episodes of diverticulitis. CT showing non complicated sigmoid diverticulitits. Started on Cipro and flagyl. OV 05/21/25 patient recently diagnosed with diverticulitis. Patient having left lower quadrant pain and loose stool. She was started on Cipro and Flagyl. She continues with mesalamine daily and hyoscyamine as needed. She has had diverticulitis every year since turning 29. ROS Const Constitutional: No fatigue, fever(s) or weight change ENT ENT: No difficulty swallowing Gastro GI: Positive for abdominal pain, change in bowel habits, constipation, diarrhea, nausea/dyspepsia and vomiting; No belching, bloating, change in stool character, coffee ground emesis, cramping, heartburn, difficulty swallowing, feeling full early, excessive flatus, incontinent of stools, Vomiting blood/hematemesis, Blood in stool, loose stools, Black,tarry stools, pain with swallowing or other Musc Musculoskeletal: No joint pain Skin Skin: No yellowing of the eye or itchy eyes (more content not included)... Normal [facility] Abdomen/Pelvis W IV Cont ONL Yon 05-12-2025 Abdomen/Pelvis W IV Cont ONLY [facility] Imaging Services [address] [place] [address] [id number] Abdomen/Pelvis W IV Cont ONLY MR#: [id number] Acct: [id number] Name: BETINA BARBOZA Rep #: [id number] : 1985 F 39 From: Kam bettencourt MD PCP: Dr. Madelaine Lee MD Status: REG ER Study: Abdomen/Pelvis W IV Cont ONLY Date of Exam: Exam# [id number] Ordering Dr: Shaquille Hernandez DO PROCEDURE: ABDOMEN/PELVIS W IV CONT ONLY 05/12/2025 REASON FOR EXAM: ABDOMINAL PAIN Left lower quadrant pain. TECHNIQUE: Procedure Code: [id number] Modality: CT Procedure: ABDOMEN/PELVIS W IV CONT ONLY Coronal and Sagittal reconstruction series were provided. CONTRAST: Isovue-300 VOLUME: 100 mL One or more dose reduction techniques were used (e.g., Automated exposure control, adjustment of the mA and/or kV according to patient size, use of iterative reconstruction technique. RADIATION DOSE SUMMARY: CTDlvol: 16.6 mGy DLP: 1322.87 mGycm COMPARISON: Prior study dated February 01, 2025. FINDINGS: Lung bases: The lung bases are clear. Liver: Diffuse fatty infiltration. Gallbladder: Gallbladder is unremarkable. Spleen: Normal size. Pancreas: Normal size without evidence of mass surrounding inflammation or ductal dilation. Adrenals: Unremarkable Kidneys: Normal renal sizes. No hydronephrosis. Bladder: Unremarkable Reproductive Organs: Normal uterine size and contour. Ovaries are unremarkable. Bowel: Sigmoid colon diverticula with wall thickening and adjacent inflammatory changes. No evidence of perforation or abscess. Appendix: Unremarkable Lymph nodes: No significant lymph nodes are seen Vasculature: The abdominal aorta and IVC are normal. Peritoneum / Retroperitoneum: Unremarkable Bones: No significant abnormality is present. CT/Abdomen/Pelvis W IV Cont ONLY IMPRESSION: Non complicated sigmoid diverticulitis. Fatty infiltration of the liver. Reading Location: [id number] CC: Dr. Madelaine Lee MD; Dr. Shaquille Hernandez DO Accuracy Expert: Signed Normal [facility] Absolute lymphocyte countOrd ered By: Shaquille Hernandez on 05-12-2025 Lymphocytes Auto (Unsp spec) [#/Vol] 1.50 10*3/uL 0.83-4.51 [facility] Absolute neutrophil countOrd ered By: Shaquille Hernandez on 05-12-2025 Neutrophils (Bld) [#/Vol] 13.1 10*3/uL High 2.0-7.7 [facility] Anion gap in Serum or Plasma Ordered By: Shaquille Hernandez on 05-12-2025 Anion gap [Moles/Vol] 14 mmol/L 5-15 [facility] Automated lymphocyte count a s percentage of total leukocytesOrdered By: Shaquille Hernandez on 05-12-2025 Lymphocytes/100 WBC Auto (Unsp spec) 9.7 % Low 19-41 [facility] BUN/creatinine ratioOrdered By: Shaquille Hernandez on 05-12-2025 Urea nitrogen/Creatinine [Mass ratio] 9.2 mg/mg Low 10-20 [facility] Basic Metabolic Profile (BMP )on 05-12-2025 BUN/CRE 9.2 RATIO Low 10-20 [facility] Comment on above: Performed By: #### L 100.0100, L500.2500, L700.6800 #### [facility] [address] [place], [address] Calcium [Mass/Vol] 9.2 mg/dL Normal 7.6-11.0 [facility] Comment on above: Performed By: #### L 100.0100, L500.2500, L700.6800 #### [facility] [address] [place], [address] Chloride [Moles/Vol] 100 mmol/L Normal 98-108 [facility] Comment on above: Performed By: #### L 100.0100, L500.2500, [id number] #### [facility] [address] [place], [address] CO2 [Moles/Vol] 22.8 mmol/L Normal 21.0-32.0 [facility] Comment on above: Performed By: #### L 100.0100, L500.2500, [id number] #### [facility] [address] [place], [address] Creatinine [Mass/Vol] 0.68 mg/dL Low 0.70-1.20 [facility] Comment on above: Performed By: #### L 100.0100, L500.2500, [id number] #### [facility] [address] [place], [address] ECRCL 141.86 ml/min Normal 50-250 [facility] Comment on above: Performed By: #### L 100.0100, L500.2500, [id number] #### [facility] [address] [place], [address] GAP 14 Normal 5-15 [facility] Comment on above: Performed By: #### L 100.0100, L500.2500, [id number] #### [facility] [address] [place], [address] GFR/1.73 sq M.predicted among non-blacks MDRD (S/P/Bld) [Vol rate/Area] 112 mL/min/{1.73_m2} Normal >60 [facility] Comment on above: Result Comment: mL/m in/1.73m2 CKD-EPI Creatinine Equation (2020) Performed By: #### L 100.0100, L500.2500, [id number] #### [facility] [address] [place], [address] Glucose [Mass/Vol] 109 mg/dL High 70-99 [facility] Comment on above: Performed By: #### L 100.0100, L500.2500, [id number] #### [facility] [address] [place], [address] Potassium [Moles/Vol] 4.0 mmol/L Normal 3.3-5.1 [facility] Comment on above: Performed By: #### L 100.0100, L500.2500, L700.6800 #### [facility] [address] [place], [address] Sodium [Moles/Vol] 137 mmol/L Normal 133-145 [facility] Comment on above: Performed By: #### L 100.0100, L500.2500, L700.6800 #### [facility] [address] [place], [address] Urea nitrogen [Mass/Vol] 6 mg/dL Normal 4-19 [facility] Comment on above: Performed By: #### L 100.0100, L500.2500, L700.6800 #### [facility] [address] [place], [address] Basophil percentageOrdered B y: Shaquille Hernandez on 05-12-2025 Basophils/100 WBC (Bld) 0.3 % 0-1 [facility] Bilirubin Test strip Ql (U)O rdered By: Shaquille Ramoskush on 05-12-2025 Bilirubin Ql (U) Negative Negative [facility] CBC W/Diff, Automatedon 10-0 Absolute Lymph 1.50 X10 3/uL Normal 0.83-4.51 [facility] Comment on above: Performed By: #### L 100.0100, L500.2500, L700.6800 #### [facility] [address] [place], [address] Absolute Neut 13.1 X10 3/uL High 2.0-7.7 [facility] Comment on above: Performed By: #### L 100.0100, L500.2500, L700.6800 #### [facility] [address] [place], [address] Basophils/100 WBC (Bld) 0.3 % Normal 0-1 [facility] Comment on above: Performed By: #### L 100.0100, L500.2500, L700.6800 #### [facility] [address] [place], [address] Eosinophils/100 WBC (Bld) 0.5 % Normal 0-5 [facility] Comment on above: Performed By: #### L 100.0100, L500.2500, L700.6800 #### [facility] [address] [place], [address] Erythrocyte distribution width (RBC) [Ratio] 13.9 % Normal 11.6-14.6 [facility] Comment on above: Performed By: #### L 100.0100, L500.2500, L700.6800 #### [facility] [address] [place], [address] Hematocrit (Bld) [Volume fraction] 42.3 % Normal 37-47 [facility] Comment on above: Performed By: #### L 100.0100, L500.2500, L700.6800 #### [facility] [address] [place], [address] Hemoglobin (Bld) [Mass/Vol] 14.0 g/dL Normal 12.0-15.0 [facility] Comment on above: Performed By: #### L 100.0100, L500.2500, L700.6800 #### [facility] [address] [place], [address] IG% 0.300 Normal 0.0-0.9 [facility] Comment on above: Result Comment: IG% - Immature Granulocytes (promyelocytes, myelocytes and metamyelocytes) > 1% indicates that a LEFT SHIFT is Present. Performed By: #### L 100.0100, L500.2500, L700.6800 #### [facility] [address] [place], [address] Lymphocytes/100 WBC (Bld) 9.7 % Low 19-41 [facility] Comment on above: Performed By: #### L 100.0100, L500.2500, L700.6800 #### [facility] [address] [place], [address] MCH (RBC) [Entitic mass] 26.5 pg Low 27.0-32.0 [facility] Comment on above: Performed By: #### L 100.0100, L500.2500, L700.6800 #### [facility] [address] [place], [address] MCHC (RBC) [Mass/Vol] 33.1 g/dL Normal 32-36 [facility] Comment on above: Performed By: #### L 100.0100, L500.2500, L700.6800 #### [facility] [address] [place], [address] MCV (RBC) [Entitic vol] 80.1 fL Low 81-99 [facility] Comment on above: Performed By: #### L 100.0100, L500.2500, L700.6800 #### [facility] [address] [place], [address] Monocytes/100 WBC (Bld) 4.6 % Normal 0-10 [facility] Comment on above: Performed By: #### L 100.0100, L500.2500, L700.6800 #### [facility] [address] [place], [address] Neutrophils/100 WBC (Bld) 84.6 % High 47-70 [facility] Comment on above: Performed By: #### L 100.0100, L500.2500, L700.6800 #### [facility] [address] [place], [address] Nucleated RBC (Bld) [#/Vol] 0 10*3/uL Normal 0-5 [facility] Comment on above: Performed By: #### L 100.0100, L500.2500, L700.6800 #### [facility] [address] [place], [address] Platelet mean volume (Bld) [Entitic vol] 10.6 fL Normal 6.2-12.0 [facility] Comment on above: Performed By: #### L 100.0100, L500.2500, L700.6800 #### [facility] [address] [place], [address] Platelets (Bld) [#/Vol] 329 10*3/uL Normal 150-450 [facility] Comment on above: Performed By: #### L 100.0100, L500.2500, L700.6800 #### [facility] [address] [place], [address] RBC (Bld) [#/Vol] 5.28 10*6/uL Normal 4.2-5.4 [facility] Comment on above: Performed By: #### L 100.0100, L500.2500, L700.6800 #### [facility] [address] [place], [address] RDW SD 40.3 fl Normal 35.1-43.9 [facility] Comment on above: Performed By: #### L 100.0100, L500.2500, L700.6800 #### [facility] [address] [place], [address] WBC (Bld) [#/Vol] 15.5 10*3/uL High 4.4-11.0 [facility] Comment on above: Performed By: #### L 100.0100, L500.2500, L700.6800 #### [facility] [address] [place], [address] Carbon dioxide, total [Moles /volume] in Central venous bloodOrdered By: Shaquille Hernandez on 05-12-2025 CO2 [Moles/Vol] 22.8 mmol/L 21.0-32.0 [facility] Chloride assayOrdered By: Wale Hernandez on 05-12-2025 Chloride [Moles/Vol] 100 mmol/L 98-108 [facility] Emergency Department Summary on 05-12-2025 Emergency Department Summary [facility] Medical Records Department [address] [place] [address] Emergency Department Summary 05/12/25 MR#: [id number] Acct: [id number] Name: BETINA BARBOZA Rep #: [id number] : 1985 39 From: Shaquille Hernandez DO PCP: Dr. Madelaine Lee MD Status:DEP ER Location: ED HPI HPI - GI History of Present Illness Chief Complaint: Abd Pain Informant: patient Abdominal Pain/Flank Pain Onset: Days (3) Context: Gradual Onset Timing: Continuous Quality: Aching, Dull and Sharp (At times) Location: LLQ Worsened by: Nothing Relieved by: Nothing Nausea/Vomiting/Emes is GI Symptom: Positive for Nausea and Vomiting Quality: Negative for Blood streaks, Coffee ground or Hematemesis Episodes: 1 Diarrhea/Melena/Dae tochezia GI Symptom: Negative for Diarrhea, Melena or Hematochezia Associated Symptoms Associated Symptoms: Positive for Frequency; Negative for Dysuria or Hematuria LMP: 04/26/2025 Narrative Narrative: Patient presents with left lower abdominal pain that has been getting worse over the past 3 days. Patient states that it has gradually gotten worse. Patient describes her pain as dull and aching but sharp at times. Patient states this feels similar to prior episodes of diverticulitis. Patient states her pain is localized to the left lower abdomen. Patient admits to some nausea and 1 episode of vomiting. Patient denies any diarrhea, melena, or hematochezia. Patient does admit to some urinary frequency. Patient denies any dysuria or hematuria. Patient denies any abnormal vaginal bleeding or discharge. [facility] Medical History Fatty liver Heartburn Non-smoker History of edema Diverticulitis Home Medications ???Medication ???Instructions ???Recorded ???Last Taken ???Type pantoprazole 20 mg tablet,delayed 20 mg PO DAILY #90 TABLETS Unknown Rx release hyoscyamine sulfate 0.125 mg 0.125 mg PO BID-QID PRN dyspepsia 09/25/24 Unknown Rx disintegrating tablet #60 tabs mesalamine 800 mg tablet,delayed 1,600 mg (2 x 800 mg) PO BID #120 01/07/25 Unknown Rx release tabs drospirenone 3 mg-ethinyl 1 tab PO DAILY #84 tabs 02/24/25 U nknown Rx estradiol 0.03 mg tablet ciprofloxacin HCl 500 mg tablet 500 mg PO BID #20 TABLETS 05/12/25 Unknown Rx metronidazole 500 mg tablet 500 mg PO Q6H #40 tabs 05/12/25 Un known Rx Allergy/AdvReac Type Severity Reaction Status Date / Time No Known Allergies Allergy Verified 05/12/25 10:03 Family History Mother Breast cancer, Onset Age: 35 Father Cancer Prostate Grandmother Cancer Ovarian- paternal Grandfather Colon cancer Paternal Surgical History Hx of wisdom tooth extraction S/P surgical removal of pilonidal cyst S/P tonsillectomy S/P right oophorectomy Social History adopted: No household members: significant other housing: house number of children: 0 current occupational status: employed 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 Smoking Status: Never smoker alcohol intake: current alcohol intake frequency: holidays/special occasions only substance use type: does not use seatbelt use: always do you feel safe at home: Yes additional social history: Boyfriend- Wan- [employer] ROS ED Constitutional Constitutional ED: Reports chills and subjective; Denies fever(s) Eyes Eyes: Denies blurry vision or change in vision ENT ENT ED: Denies rhinorrhea or sore throat Cardiovascular Cardiovascular: Denies chest pain or palpitations Respiratory/Chest Respiratory/Chest: Denies cough or dyspnea Gastrointestinal Gastrointestinal: Reports abdominal pain, nausea and vomiting; Denies diarrhea or melena Genitourinary Genitourinary ED: Reports urinary frequency; Denies dysuria or hematuria Musculoskeletal Musculoskeletal: Denies back pain or neck pain Integumentary Denies abscess or rash Neurologic Neurologic: Denies headache(s) or weakness Allergic/Immunologic Allergic/Immunologic ED: Denies mouth swelling or urticaria EXAM Physical Exam Const Vital Signs: 05/12/25 10:01 Temperature 98 F Temperature Source Oral Pulse Rate 109 H Respiratory Rate 16 Blood Pressure 167/96 H Blood Pressure Mean 119 Pulse Ox 100 Oxygen Delivery Method Room Air Positive well nourished and well developed Constitutional Narrative: BMI is 41.8. General Appearance ED: well developed and NAD HEENT Reports moist mucous membranes normocephalic and atraumatic Neck supple and no JVD Resp normal respiratory effort and clear to auscultation bilaterally Cardio regular rate and regular (more content not included)... Normal [facility] Eosinophil percentageOrdered By: Shaquille Hernandez on 05-12-2025 Eosinophils/100 WBC (Bld) 0.5 % 0-5 [facility] Erythrocyte distribution wid th ratioOrdered By: Shaquille Hernandez on 05-12-2025 Erythrocyte distribution width (RBC) [Ratio] 13.9 % 11.6-14.6 [facility] Erythrocyte distribution wid th standard deviationOrdered By: Shaquille Hernandez on 05-12-2025 Erythrocyte distribution width (RBC) [Ratio] 40.3 fl 35.1-43.9 [facility] Glomerular filtration rate ( GFR) estimation/1.73 sq m using serum, plasma, or whole bOrdered By: Shaquille Hernandez on 05-12-2025 GFR/1.73 sq M.predicted among non-blacks MDRD (S/P/Bld) [Vol rate/Area] 112 mL/min/{1.73_m2} >60 [facility] Comment on above: mL/min/1.73m2 CKD-EP I Creatinine Equation (2020) Hematocrit Auto (Bld) [Volum e fraction]Ordered By: Shaquille Hernandez on 05-12-2025 Hematocrit (Bld) [Volume fraction] 42.3 % 37-47 [facility] Hemoglobin measurementOrdere d By: Shaquille Hernandez on 05-12-2025 Hemoglobin (Bld) [Mass/Vol] 14.0 g/dL 12.0-15.0 [facility] Immature granulocytes/100 WB C Auto (Bld)Ordered By: Shaquille Hernandez on 05-12-2025 Immature granulocytes/100 WBC (Bld) 0.300 % 0.0-0.9 [facility] Comment on above: IG% - Immature Granu locytes (promyelocytes, myelocytes and metamyelocytes) > 1% indicates that a LEFT SHIFT is Present. Ketones Test strip Ql (U)Ord ered By: Shaquille Hernandez on 05-12-2025 Ketones Ql (U) 5 mg/dl High Negative [facility] MCV (mean corpuscular volume ) determinationOrdered By: Shaquille Hernandez on 05-12-2025 MCV (RBC) [Entitic vol] 80.1 fL Low 81-99 [facility] Mean corpuscular hemoglobin (MCH) determinationOrdered By: Shaquille Hernandez on 05-12-2025 MCH (RBC) [Entitic mass] 26.5 pg Low 27.0-32.0 [facility] Mean corpuscular hemoglobin concentration (MCHC) determinationOrdered By: Shaquille Hernandez on 05-12-2025 MCHC (RBC) [Mass/Vol] 33.1 g/dL 32-36 [facility] Mean platelet volume determi nationOrdered By: Shaquille Hernandez on 05-12-2025 Platelet mean volume (Bld) [Entitic vol] 10.6 fL 6.2-12.0 [facility] Microscopic analysis of urin e for red blood cells (RBC)Ordered By: Shaquille Hernandez on 05-12-2025 Microscopic analysis of urine for red blood cells (RBC) 0 SEEN /hpf 0-5 [facility] Monocyte percentageOrdered B y: Shaquille Hernandez on 05-12-2025 Monocytes/100 WBC (Bld) 4.6 % 0-10 [facility] Mucus LM Ql (Urine sed)Order ed By: Shaquille Hernandez on 05-12-2025 Mucus Ql (Urine sed) 0 SEEN /hpf [facility] Neutrophil percentageOrdered By: Shaquille Hernandez on 05-12-2025 Neutrophils/100 WBC (Bld) 84.6 % High 47-70 [facility] Nitrite Test strip Ql (U)Ord ered By: Shaquille Hernandez on 05-12-2025 Nitrite Ql (U) Negative Negative [facility] Nucleated red blood cell per centageOrdered By: Shaquille Hernandez on 05-12-2025 Nucleated RBC/100 WBC (Bld) [Ratio] 0 % 0-5 [facility] Platelet countOrdered By: Wale Hernandez on 05-12-2025 Platelets (Bld) [#/Vol] 329 10*3/uL 150-450 [facility] Potassium measurement (mass/ volume)Ordered By: Shqauille Hernandez on 05-12-2025 Potassium (Unsp spec) [Mass/Vol] 4.0 mmol/L 3.3-5.1 [facility] ,Serum,hCG Quali.on 05-12-2025 HCG, SERUM QUAL Negative Normal [facility] Comment on above: Performed By: #### L 100.0100, L500.2500, L700.6800 #### [facility] [address], [address] Protein Test strip Ql (U)Ord ered By: Shaquille Hernandez on 05-12-2025 Protein Ql (U) 15 mg/dl High Negative [facility] RBC Auto (Bld) [#/Vol]Ordere d By: Shaquille Hernandez on 05-12-2025 RBC (Bld) [#/Vol] 5.28 10*6/uL 4.2-5.4 [facility] Serum beta-hCG test, qualita tiveOrdered By: Shaquille Hernandez on 05-12-2025 Beta HCG ( test) Ql Negative [facility] Serum creatinine measurement (mass/volume)Ordered By: Shaquille Hernandez on 05-12-2025 Creatinine [Mass/Vol] 0.68 mg/dL Low 0.70-1.20 [facility] Serum glucose measurement (m ass/volume)Ordered By: Shaquille Hernandez on 05-12-2025 Glucose [Mass/Vol] 109 mg/dL High 70-99 [facility] Serum or plasma calcium malathi urement (mass/volume)Ordered By: Shaquille Hernandez on 05-12-2025 Calcium [Mass/Vol] 9.2 mg/dL 7.6-11.0 [facility] Serum or plasma urea nitroge n measurement (mass/volume)Ordered By: Shaquille Hernandez on 05-12-2025 Urea nitrogen [Mass/Vol] 6 mg/dL 4-19 [facility] Sodium levelOrdered By: Shaquille Hernandez on 05-12-2025 Sodium [Moles/Vol] 137 mmol/L 133-145 [facility] Squamous epithelial cells de tection in urine sediment by light microscopyOrdered By: Shaquille Hernandez on 05-12-2025 Epithelial cells.squamous LM Ql (Urine sed) 5-10 SEEN /hpf 5-10 [facility] Urinalysis, Completeon 05-12 BACTERIA RARE Normal None Seen [facility] Comment on above: Order Comment: CLEAN CATCH Performed By: #### L 400.0001 ####[facility] [address] [place], [address] EPI,SQUAMOUS 5-10 SEEN Normal 5-10 [facility] Comment on above: Order Comment: CLEAN CATCH Performed By: #### L 400.0001 ####[facility] [address] [place], [address] Mucus Ql (Urine sed) [address] [facility] Comment on above: Order Comment: CLEAN CATCH Performed By: #### L 400.0001 ####[facility] [address] [place], [address] RBC 0 SEEN Normal 0-5 [facility] Comment on above: Order Comment: CLEAN CATCH Performed By: #### L 400.0001 ####[facility] [address] [place], [address] WBC 0 SEEN Normal 0-5 [facility] Comment on above: Order Comment: CLEAN CATCH Performed By: #### L 400.0001 ####[facility] [address] [place], [address] Urine clarityOrdered By: Rebeca Hernandez on 05-12-2025 Clarity (U) Clear Clear [facility] Urine color determinationOrd ered By: Shaquille Hernandez on 05-12-2025 Color (U) Yellow Yellow [facility] Urine glucose detectionOrder ed By: Shaquille Hernandez on 05-12-2025 Glucose Ql (U) Normal mg/dl Normal [facility] Urine leukocyte esterase det ection by dipstickOrdered By: Shaquille Hernandez on 05-12-2025 Leukocyte esterase Test strip Ql (U) 25 /ul High Negative [facility] Urine pHOrdered By: Shaquille crenshaw on 05-12-2025 pH (U) 6.0 [pH] 5.0 - 8.0 [facility] Urine sediment bacteria coun t by microscopy (number/high power field)Ordered By: Shaquille Hernandez on 05-12-2025 Bacteria LM.HPF (Urine sed) [#/Area] RARE /hpf None Seen [facility] Urine specific gravity measu rementOrdered By: Shaquille Hernandez on 05-12-2025 Specific gravity (U) [Rel density] 1.015 1.002-1.030 [facility] Urine urobilinogen measureme ntOrdered By: Shaquille Hernandez on 05-12-2025 Urobilinogen Ql (U) Normal mg/dl Normal [facility] White blood cell (WBC) count Ordered By: Shaquille Hernandez on 05-12-2025 WBC (Bld) [#/Vol] 15.5 10*3/uL High 4.4-11.0 [facility] White blood cell countOrdere d By: Shaquille Hernandez on 05-12-2025 White blood cell count 0 SEEN /hpf 0-5 [facility] Rn Bone Marrow Transplant Office Visit Reporton 04-27-2025 Rn Bone Marrow Transplant Office Visit Report [facility]'[address], [address] [place] [address] OFFICE VISIT Date of Service: 04/27/25 MR#: [id number] Acct: [id number] Name: TAMRABETINA YADIRA Rep #: [id number] : 1985 Provider: Dr. Leticia lopez MD Age/Sex: 39/F [place] [facility]: Signed Intake Vital Signs 02/24/25 10:37 04/07/25 09:35 04/27/25 13:54 04/27/25 13:55 Height 5 ft 6 in 5 ft 6 in 5 ft 6 in 5 ft 6 in Weight: 261 lb 6 oz BMI 42.2 BP 138/94 H Intake Visit Reasons: surgical consult *COPAY $20 [employer] Required: No Is patient in pain?: No Allergies No Known Allergies Allergy (Verified 04/27/25 13:49) Medications ???Medication ???Instructions ???Recorded ???Confirmed ???Type pantoprazole 20 mg tablet,delayed 20 mg PO DAILY #90 TABLETS 04/27/25 Rx release hyoscyamine sulfate 0.125 mg 0.125 mg PO BID-QID PRN dyspepsia 09/25/24 04/27/25 Rx disintegrating tablet #60 tabs mesalamine 800 mg tablet,delayed 1,600 mg (2 x 800 mg) PO BID #120 01/07/25 04/27/25 Rx release tabs drospirenone 3 mg-ethinyl 1 tab PO DAILY #84 tabs 02/24/25 0 04/27/25 Rx estradiol 0.03 mg tablet Is last menstrual period known: Yes Last Menstrual Period: 04/23/25 Post menopausal: No Patient : No : No [facility] Medical History Fatty liver Heartburn Non-smoker History [...] 0 current occupational status: employed 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 HPI surgical consult *COPAY $20 Details: The patient is a 39-year-old female presenting for management of uterine fibroid and evaluation of other gynecological concerns. The patient has a history of ovarian cysts, specifically a dermoid cyst, which was removed via laparoscopy. This procedure was performed by Dr. Rollins, and the patient has been asymptomatic since the surgery. She also has a history of diverticulitis, which began around the age of 29. She has been under the care of Dr. Pearce and has undergone a colonoscopy revealing significant inflammation in the colon. The patient is currently on mesalamine and reports improvement with no recent flare-ups. The patient reports having a uterine fibroid approximately 3.5-4 cm in size. It is not causing significant symptoms currently, but there is a discussion about potential growth and management options, including medication or surgical intervention if symptoms worsen. The patient has a family history of ovarian cancer, with her paternal grandmother having from the disease. She has undergone genetic testing for cancer risk in the past, although she does not recall the results. Her mother had breast cancer at age 35 but is currently doing well at age 61. The patient has been experiencing elevated blood pressure readings, which may be influenced by her current use of control pills. There is a family history of hypertension, with her father having had a heart attack and stroke by age 64. - Imaging: Uterine fibroid approximately 3.5-4 cm in size. Attestation: Documentation on this patient encounter was supported using ambient scribe technology/ voice AI technology. The patient consented to recording for the purpose of documenting the encounter. Provider reviewed content of the generated note prior to signature. Female Reproductive History Last Menstrual Period: 04/23/25 History 0 Elective abortions Hx Para Spontaneous abortions Hx # Term Pregnancies Ectopic pregnancies Hx # Pregnancies Multiple births # of living children ROS Const Constitutional: Denies fatigue, fever(s), headache(s), increased appetite, poor appetite, weight gain or weight loss GI GI: Reports as per HPI and constipation; Denies abdominal pain, nausea or vomiting : Reports as per HPI; Denies difficulty voiding, dysuria, hematuria, pelvic pain, urinary frequency, urinary incontinence (more content not included)... Normal [facility] Urine Cultureon 03-16-2025 U[facility] Mixed Gram Pos Gram Neg Org [place] Count 80,000-100,000 [facility] Mixed contaminants. Submit a new specimen if indicated. Normal [facility] Comment on above: Performed By: #### M 100.2200 ####[facility] [id number] [place], [address] Urine cultureOrdered By: Benjamín Green on 03-15-2025 Bacteria identified Cx Nom (U) Mixed Gram Pos & Gram Neg Org Abnormal [facility] Laboratory - Chemistry and C hemistry - challengeOrdered By: Brock Green on 03-14-2025 Bilirubin Ql (U) Negative [facility] Glucose Ql (U) Negative [facility] Ketones Ql (U) Negative [facility] pH (U) 6.5 [pH] [facility] Specific gravity (U) [Rel density] 1.005 [facility] Urobilinogen (U) [Mass/Vol] Negative [facility] Laboratory - Hematology and Cell countsOrdered By: Brock Green on 03-14-2025 Hemoglobin Ql (U) Moderate [facility] Laboratory - Specimen inform ationOrdered By: Brock Green on 03-14-2025 Clarity (U) Hazy [facility] Color (U) Yellow [facility] Laboratory - UrinalysisOrder ed By: Brock Green on 03-14-2025 Nitrite Ql (U) Negative [facility] Protein Ql (U) Trace [facility] No Panel InformationOrdered By: Brock Green on 03-14-2025 Urine Leukocytes Positive [facility] Urine Non-Hemolyzed Blood Negative [facility] Urgent Care Visit Reporton 0 03-14-2025 Urgent Care Visit Report [facility] [address], [address] [place] [address] OFFICE VISIT Date of Service: 03/14/25 MR#: [id number] Acct: [id number] Name: TAMRABETINA JO Rep #: [id number] : 1985 Provider: RAND romo Age/Sex: 39/F [place] [facility] [place] Status: Signed Intake Vital Signs 02/24/25 10:37 03/14/25 10:44 Height 5 ft 6 in BP 130/70 H Blood Pressure Location Lt brachial Position Sitting Respiration 16 Pulse 100 Pulse Source NIBP Temp 97.7 F L Temp Source Oral Pulse Oximetry (%) 97 Oxygen Delivery Method room air Intake Visit Reasons: CONCERN FOR UTI Chief Complaint: dysuria, urgency [employer]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 denies abd pain, back pain, fever, blood. 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 HPI HPI Chief Complaint: dysuria, urgency Details: BETINA BARBOZA, is a 39 F who presents to the office today for concerns regarding dysuria and urinary urgency that started this morning. She denies abdominal pain, back pain, fever, or blood in urine. She expresses concerns for possible UTI. ROS Const Constitutional: No body ache, chills, fatigue, fever(s) (no fever greater than 99.9 F), malaise, night sweats or other (rigors) Resp Respiratory: No shortness of breath Cardio Cardiology: No chest pain at rest or chest pain with exertion Gastro GI: No abdominal pain Genitourinary-Female : Positive for painful urination and urinary frequency; No burning urination, urinary urgency, blood in urine, suprapubic fullness or side pain Endo Endocrine: No fatigue Exam Const General: cooperative, healthy appearing, comfortable and no acute distress Orientation: alert, awake and oriented x3 Chest Chest palpation inspection: normal inspection of the chest Resp Effort Inspection: normal respiratory effort Auscultation: Bilateral: Clear to Auscultation Cardio Rhythm: other (Normal) Heart Sounds: S1 normal, S2 normal and no murmurs GI Inspection: normal to inspection and non-distended Auscultation: normal bowel sounds Palpation: soft and nontender General: No CVA tenderness Skin General: no rashes or lesions noted Results POC Urinalysis Dip (Clinic) Office Urine Color Yellow Last Edit by Xi Levine on 03/14/25 10:51 Office Urine Clarity Hazy Last Edit by Xi Levine on 03/14/25 10:51 Office Urine Glucose Negative Last Edit by Xi Levine on 03/14/25 10:51 Office Urine Ketones Negative Last Edit by Xi Levine on 03/14/25 10:51 Off Ur Spec [place] 1.005 Last Edit by Xi Levine on 03/14/25 10:51 Office Urine pH 6.5 Last Edit by Xi Levine on 03/14/25 10:51 Office Urine Bilirubin Negative Last Edit by Xi Levine on 03/14/25 10:51 Office Urine Urobilinogen Negative Last Edit by Xi Levine on 03/14/25 10:51 Office Urine Blood Moderate Last Edit by Xi Levine on 03/14/25 10:51 Office Urine Blood Hemolyzed Negative Last Edit by Xi Levine on 03/14/25 10:51 Office Urine Protein Trace Last Edit by Xi Levine on 03/14/25 10:51 Office Urine Nitrate Negative Last Edit by Xi Levine on 03/14/25 10:51 Off Ur Leukocytes Positive Last Edit by Xi Levine on 03/14/25 10:51 Coding Level of Care Code Off vis,est,level 3 Diagnoses UTI (urinary tract infection) N39.0 Assessment and Plan Assessment and Plan (1) UTI (urinary tract infection): Status: Acute Plan: Urine dip prior evaluation was positive for moderate nonhemolyzed blood and moderate leukocyte esterase. It was n (more content not included)... Normal [facility] Absolute lymphocyte countOrd ered By: HEALTH ASSESSMENT on 03-10-2025 Lymphocytes Auto (Unsp spec) [#/Vol] 2.48 10*3/uL 0.83-4.51 [facility] Absolute neutrophil countOrd ered By: HEALTH ASSESSMENT on 03-10-2025 Neutrophils (Bld) [#/Vol] 6.1 10*3/uL 2.0-7.7 [facility] Absolute nucleated red blood cell countOrdered By: HEALTH ASSESSMENT on 03-10-2025 Nucleated RBC (Bld) [#/Vol] 0.00 10*3/uL 0-5 [facility] Anion gap in Serum or Plasma Ordered By: HEALTH ASSESSMENT on 03-10-2025 Anion gap [Moles/Vol] 13 mmol/L 5-15 [facility] Comment on above: Previous reported re sult: 13 Edited by: AUTOINS on 03/10/25:0950 AMENDED REPORT 03/10/25 0950 GAP previously reported as: 13 BUN/creatinine ratioOrdered By: HEALTH ASSESSMENT on 03-10-2025 Urea nitrogen/Creatinine [Mass ratio] 10.1 mg/mg 10-20 [facility] Comment on above: Previous reported re sult: 10.4 RATIOEdited by: AUTOINS on 03/10/25:0950 AMENDED REPORT 03/10/25 0950 BUN/CRE previously reported as: 10.4 RATIO Bilirubin directOrdered By: HEALTH ASSESSMENT on 03-10-2025 Bilirubin.direct [Mass/Vol] 0.13 mg/dL 0.00-0.30 [facility] Comment on above: Previous reported re sult: 0.12 mg/dLEdited by: AUTOINS on 03/10/25:0950 AMENDED REPORT 03/10/25 0950 D BILI previously reported as: 0.12 mg/dL Bilirubin, totalOrdered By: HEALTH ASSESSMENT on 03-10-2025 Bilirubin [Mass/Vol] 0.29 mg/dL 0.00-1.30 [facility] CBC, Employeeon 03-10-2025 Absolute Lymph 2.48 X10 3/uL Normal 0.83-4.51 [facility] Comment on above: Performed By: #### L 100.0200, L500.2900, L400.0100 #### [facility] Laboratory [address] [place], [address] Absolute Neut 6.1 X10 3/uL Normal 2.0-7.7 [facility] Comment on above: Performed By: #### L 100.0200, L500.2900, L400.0100 #### [facility] [address] [place], [address] Basophils/100 WBC (Bld) 0.5 % Normal 0-1 [facility] Comment on above: Performed By: #### L 100.0200, L500.2900, L400.0100 #### [facility] [address] [place], [address] Eosinophils/100 WBC (Bld) 1.6 % Normal 0-5 [facility] Comment on above: Performed By: #### L 100.0200, L500.2900, L400.0100 #### [facility] [address] [place], [address] Erythrocyte distribution width (RBC) [Ratio] 14.1 % Normal 11.6-14.6 [facility] Comment on above: Performed By: #### L 100.0200, L500.2900, L400.0100 #### [facility] [address] [place], [address] Hematocrit (Bld) [Volume fraction] 38.3 % Normal 37-47 [facility] Comment on above: Performed By: #### L 100.0200, L500.2900, L400.0100 #### [facility] [address] [place], [address] Hemoglobin (Bld) [Mass/Vol] 12.4 g/dL Normal 12.0-15.0 [facility] Comment on above: Performed By: #### L 100.0200, L500.2900, L400.0100 #### [facility] [address] [place], [address] Lymphocytes/100 WBC (Bld) 26.8 % Normal 19-41 [facility] Comment on above: Performed By: #### L 100.0200, L500.2900, L400.0100 #### [facility] [address] [place], [address] MCH (RBC) [Entitic mass] 26.2 pg Low 27.0-32.0 [facility] Comment on above: Performed By: #### L 100.0200, L500.2900, L400.0100 #### [facility] [address] [place], [address] MCHC (RBC) [Mass/Vol] 32.4 g/dL Normal 32-36 [facility] Comment on above: Performed By: #### L 100.0200, L500.2900, L400.0100 #### [facility] [address] [place], [address] MCV (RBC) [Entitic vol] 81.0 fL Normal 81-99 [facility] Comment on above: Performed By: #### L 100.0200, L500.2900, L400.0100 #### [facility] [address] [place], [address] Monocytes/100 WBC (Bld) 4.7 % Normal 0-10 [facility] Comment on above: Performed By: #### L 100.0200, L500.2900, L400.0100 #### [facility] [address] [place], [address] Neutrophils/100 WBC (Bld) 66.1 % Normal 47-70 [facility] Comment on above: Performed By: #### L 100.0200, L500.2900, L400.0100 #### [facility] [address] [place], [address] NRBC # 0.00 10 3/uL Normal 0-5 [facility] Comment on above: Performed By: #### L 100.0200, L500.2900, L400.0100 #### [facility] [address] [place], [address] Nucleated RBC (Bld) [#/Vol] 0 10*3/uL Normal 0-5 [facility] Comment on above: Performed By: #### L 100.0200, L500.2900, L400.0100 #### [facility] [address] [place], [address] Platelet mean volume (Bld) [Entitic vol] 10.6 fL Normal 6.2-12.0 [facility] Comment on above: Performed By: #### L 100.0200, L500.2900, L400.0100 #### [facility] [address] [place], [address] Platelets (Bld) [#/Vol] 323 10*3/uL Normal 150-450 [facility] Comment on above: Performed By: #### L 100.0200, L500.2900, L400.0100 #### [facility] [address] [place], [address] RBC (Bld) [#/Vol] 4.73 10*6/uL Normal 4.2-5.4 [facility] Comment on above: Performed By: #### L 100.0200, L500.2900, L400.0100 #### [facility] [address] [place], [address] RDW SD 40.9 fl Normal 35.1-43.9 [facility] Comment on above: Performed By: #### L 100.0200, L500.2900, L400.0100 #### [facility] [address] [place], [address] WBC (Bld) [#/Vol] 9.3 10*3/uL Normal 4.4-11.0 [facility] Comment on above: Performed By: #### L 100.0200, L500.2900, L400.0100 #### [facility] [address] [place], [address] Calculated very low density lipoprotein (VLDL) cholesterol measurementOrdered By: HEALTH ASSESSMENT on 03-10-2025 Calculated very low density lipoprotein (VLDL) cholesterol measurement 27 mg/dL 5-40 [facility] Carbon dioxide, total [Moles /volume] in Central venous bloodOrdered By: HEALTH ASSESSMENT on 03-10-2025 CO2 [Moles/Vol] 22.6 mmol/L 21.0-32.0 [facility] Comment on above: Previous reported re sult: 22.7 mmol/LEdited by: AUTOINS on 03/10/25:0950 AMENDED REPORT 03/10/25 0950 CO2 previously reported as: 22.7 mmol/L Chloride assayOrdered By: [facility] ASSESSMENT on 03-10-2025 Chloride [Moles/Vol] 103 mmol/L 98-108 [facility] Comment on above: Previous reported re sult: 102 mmol/LEdited by: AUTOINS on 03/10/25:0950 AMENDED REPORT 03/10/25 0950 CL previously reported as: 102 mmol/L [employer] CHOL:HDL 2.77 Normal [facility] Comment on above: Performed By: #### L 100.0200, L500.2900, L400.0100 #### [facility] [address] [place], [address] Cholesterol [Mass/Vol] 130 mg/dL Normal <=[address] [facility] Comment on above: Result Comment: Chol esterol level, Desirable <200 mg/dL Borderline high cholesterol 200-239 mg/dL High cholesterol >=240 mg/dL Recommendations of the NCEP Adult Treatment Panel for the following risk-cutoff thresholds for the [place] population. Performed By: #### L 100.0200, L500.2900, L400.0100 #### [facility] [address] [place], [address] Cholesterol in HDL [Mass/Vol] 47 mg/dL Normal [facility] Comment on above: Result Comment: Olga onal Cholesterol Education Program (NCEP) guidelines: <40 mg/dL: Low HDL-cholesterol (major risk factor for CHD) >= 60 mg/dL: High HDL-cholesterol (negative risk factor for CHD) HDL-cholesterol is affected by a number of factors, e.g. smoking, exercise, hormones, sex and age. Performed By: #### L 100.0200, L500.2900, L400.0100 #### [facility] [address] [place], [address] Cholesterol in LDL [Mass/Vol] 56 mg/dL Normal [facility] Comment on above: Result Comment: Bord gmvyhu=055-122 mg/dL Higher Xsvs=540 mg/dL or greater Friedwald Equation for LDL-C Performed By: #### L 100.0200, L500.2900, L400.0100 #### [facility] [address] [place], [address] Cholesterol in VLDL [Mass/Vol] 27 mg/dL Normal 5-40 [facility] Comment on above: Performed By: #### L 100.0200, L500.2900, L400.0100 #### [facility] [address] [place], [address] LDH 181 U/L Normal 84-246 [facility] Comment on above: Performed By: #### L 100.0200, L500.2900, L400.0100 #### [facility] [address] [place], [address] Phosphate [Mass/Vol] 3.8 mg/dL Normal 2.7-4.5 [facility] Comment on above: Performed By: #### L 100.0200, L500.2900, L400.0100 #### [facility] [address] [place], [address] Triglyceride [Mass/Vol] 137 mg/dL Normal [facility] Comment on above: Result Comment: The drugs N-Acetylcysteine and Metamizole may falsely depress this assay. Normal range: <150 mg/dL Borderline High: 150-199 mg/dL High: 200-499 mg/dL Very High: >500 mg/dL Performed By: #### L 100.0200, L500.2900, L400.0100 #### [facility] [address] [place], [place], [address] URIC 7.9 mg/dL High 2.6-6.0 [facility] Comment on above: Result Comment: The drugs N-Acetylcysteine and Metamizole may falsely depress this assay. Performed By: #### L 100.0200, L500.2900, L400.0100 #### [facility] Laboratory [address] [place], [place], [address] Erythrocyte distribution wid th ratioOrdered By: HEALTH ASSESSMENT on 03-10-2025 Erythrocyte distribution width (RBC) [Ratio] 14.1 % 11.6-14.6 [facility] Erythrocyte distribution wid th standard deviationOrdered By: HEALTH ASSESSMENT on 03-10-2025 Erythrocyte distribution width (RBC) [Ratio] 40.9 fl 35.1-43.9 [facility] Glomerular filtration rate ( GFR) estimation/1.73 sq m using serum, plasma, or whole bOrdered By: HEALTH ASSESSMENT on 03-10-2025 GFR/1.73 sq M.predicted among non-blacks MDRD (S/P/Bld) [Vol rate/Area] 112 mL/min/{1.73_m2} >60 [facility] Comment on above: mL/min/1.73m2 CKD-EP I Creatinine Equation (2020) Hematocrit Auto (Bld) [Volum e fraction]Ordered By: HEALTH ASSESSMENT on 03-10-2025 Hematocrit (Bld) [Volume fraction] 38.3 % 37-47 [facility] Hemoglobin measurementOrdere d By: HEALTH ASSESSMENT on 03-10-2025 Hemoglobin (Bld) [Mass/Vol] 12.4 g/dL 12.0-15.0 [facility] LDL calc ser/plasOrdered By: HEALTH ASSESSMENT on 03-10-2025 Cholesterol in LDL [Mass/Vol] 56 mg/dL [facility] Comment on above: Mzfmibxqcl=972-125 m g/dL & Higher Qary=956 mg/dL or greaterFriedwald Equation for LDL-C Laboratory - Chemistry and C hemistry - challengeOrdered By: HEALTH ASSESSMENT on 03-10-2025 AST [Catalytic activity/Vol] 14 U/L <32 [facility] Lactate dehydrogenase (LDH) measurementOrdered By: HEALTH ASSESSMENT on 03-10-2025 LDH [Catalytic activity/Vol] 181 U/L 84-246 [facility] MCV (mean corpuscular volume ) determinationOrdered By: HEALTH ASSESSMENT on 03-10-2025 MCV (RBC) [Entitic vol] 81.0 fL 81-99 [facility] Mean corpuscular hemoglobin (MCH) determinationOrdered By: HEALTH ASSESSMENT on 03-10-2025 MCH (RBC) [Entitic mass] 26.2 pg Low 27.0-32.0 [facility] Mean corpuscular hemoglobin concentration (MCHC) determinationOrdered By: HEALTH ASSESSMENT on 03-10-2025 MCHC (RBC) [Mass/Vol] 32.4 g/dL 32-36 [facility] Mean platelet volume determi nationOrdered By: HEALTH ASSESSMENT on 03-10-2025 Platelet mean volume (Bld) [Entitic vol] 10.6 fL 6.2-12.0 [facility] Neutrophil percentageOrdered By: HEALTH ASSESSMENT on 03-10-2025 Neutrophils/100 WBC (Bld) 66.1 % 47-70 [facility] Nucleated red blood cell per centageOrdered By: HEALTH ASSESSMENT on 03-10-2025 Nucleated RBC/100 WBC (Bld) [Ratio] 0 % 0-5 [facility] Pelvic w/ Transvaginalon Pelvic w/ Transvaginal [facility] Imaging Services [address] [place], [place] [id number] Pelvic w/ Transvaginal MR#: [id number] Acct: [id number] Name: BETINA BAROBZA Rep #: [id number] : 1985 F 39 From: Kam bettencourt MD PCP: Dr. Madelaine Lee MD Status: [facility] CLI Study: Pelvic w/ Transvaginal Date of Exam: 03/10/25 Exam# [id number] Ordering Dr: Lynnette Arrieta PROCEDURE: PELVIC W/ [...] fibroid. Status post right oophorectomy. Reading Location: [facility] CC: RAND Arrieta; Dr. Madelaine Lee MD Accuracy Expert: Signed Normal [facility] Platelet countOrdered By: HE ALTH ASSESSMENT on 03-10-2025 Platelets (Bld) [#/Vol] 323 10*3/uL 150-450 [facility] Potassium measurement (mass/ volume)Ordered By: HEALTH ASSESSMENT on 03-10-2025 Potassium (Unsp spec) [Mass/Vol] 4.0 mmol/L 3.3-5.1 [facility] Comment on above: Previous reported re sult: [...] mariana in HDL [Mass ratio] 2.77 {ratio} [facility] Serum creatinine measurement (mass/volume)Ordered By: HEALTH ASSESSMENT on 03-10-2025 Creatinine [Mass/Vol] 0.68 mg/dL Low 0.70-1.20 [facility] Comment on above: Previous reported re sult: 0.69 mg/dLEdited by: EDUARS on 03/10/25:0950 AMENDED REPORT 03/10/25 0950 CREAT,SERUM previously reported as: 0.69 L mg/dL Serum globulin measurementOr dered By: HEALTH ASSESSMENT on 03-10-2025 Globulin (S) [Mass/Vol] 3.4 g/dL 2.2-4.2 [facility] Serum glucose measurement (m ass/volume)Ordered By: HEALTH ASSESSMENT on 03-10-2025 Glucose [Mass/Vol] 96 mg/dL 70-99 [facility] Comment on above: Previous reported re sult: 95 mg/dLEdited by: ARSENIO on 03/10/25:0950 AMENDED REPORT 03/10/25 0950 GLU previously reported as: 95 mg/dL Serum or plasma alanine pena otransferase (ALT) measurementOrdered By: HEALTH ASSESSMENT on 03-10-2025 ALT [Catalytic activity/Vol] 12 U/L <35 [facility] Comment on above: Previous reported re sult: 11 U/LEdited by: AUTOINS on 03/10/25:0950 AMENDED REPORT 03/10/25 0950 ALT previously reported as: 11 U/L Serum or plasma albumin malathi urement (mass/volume)Ordered By: HEALTH ASSESSMENT on 03-10-2025 Albumin [Mass/Vol] 3.8 g/dL 3.5-5.0 [facility] Comment on above: Previous reported re sult: 4.0 g/dLEdited by: AUTOINS on 03/10/25:0950 AMENDED REPORT 03/10/25 0950 ALB previously reported as: 4.0 g/dL Serum or plasma albumin/glob ulin mass ratioOrdered By: HEALTH ASSESSMENT on 03-10-2025 Albumin/Globulin [Mass ratio] 1.1 {ratio} 0.9-2.4 [facility] Serum or plasma alkaline bob sphatase measurementOrdered By: HEALTH ASSESSMENT on 03-10-2025 ALP [Catalytic activity/Vol] 85 U/L 35-104 [facility] Serum or plasma calcium malathi urement (mass/volume)Ordered By: HEALTH ASSESSMENT on 03-10-2025 Calcium [Mass/Vol] 9.1 mg/dL 7.6-11.0 [facility] Comment on above: Previous reported re sult: 8.9 mg/dLEdited by: AUTOINS on 03/10/25:0950 AMENDED REPORT 03/10/25 0950 CA previously reported as: 8.9 mg/dL Serum or plasma cholesterol in HDL measurement (mass/volume)Ordered By: HEALTH ASSESSMENT on 03-10-2025 Cholesterol in HDL [Mass/Vol] 47 mg/dL >40 [facility] Comment on above: National Cholesterol Education Program (NCEP) guidelines:<40 mg/dL: Low HDL-cholesterol (major risk factor for CHD)>= 60 mg/dL: High HDL-cholesterol (negative risk factor for CHD)HDL-cholesterol is affected by a number of factors, e.g. smoking, exercise, hormones, sex and age. Serum or plasma cholesterol measurement (mass/volume)Ordered By: HEALTH ASSESSMENT on 03-10-2025 Cholesterol [Mass/Vol] 130 mg/dL <[address] [facility] Comment on above: Cholesterol level, D esirable <200 mg/dLBorderline high cholesterol 200-239 mg/dLHigh cholesterol >=240 mg/dLRecommendations of the NCEP Adult Treatment Panel for the following risk-cutoff thresholds for the [place] population. Serum or plasma urea nitroge n measurement (mass/volume)Ordered By: HEALTH ASSESSMENT on 03-10-2025 Urea nitrogen [Mass/Vol] 7 mg/dL 4-19 [facility] Serum or plasma uric acid me asurement (mass/volume)Ordered By: HEALTH ASSESSMENT on 03-10-2025 Urate [Mass/Vol] 7.9 mg/dL High 2.6-6.0 [facility] Comment on above: The drugs N-Acetylcy steine and Metamizole may falsely depress this assay. Sodium levelOrdered By: HEAL TH ASSESSMENT on 03-10-2025 Sodium [Moles/Vol] 139 mmol/L 133-145 [facility] Comment on above: Previous reported re sult: 138 mmol/LEdited by: AUTOINS on 03/10/25:0950 AMENDED REPORT 03/10/25 0950 NA previously reported as: 138 mmol/L Total proteinOrdered By: Lorna [facility] ASSESSMENT on 03-10-2025 Protein [Mass/Vol] 7.2 g/dL 5.9-8.4 [facility] Comment on above: Previous reported re sult: 7.1 g/dLEdited by: AUTOINS on 03/10/25:0950 AMENDED REPORT 03/10/25 0950 T PROT previously reported as: 7.1 g/dL Triglycerides measurementOrd ered By: HEALTH ASSESSMENT on 03-10-2025 Triglyceride [Mass/Vol] 137 mg/dL <199 [facility] Comment on above: The drugs N-Acetylcy steine and Metamizole may falsely depress this assay. Normal range: <150 mg/dLBorderline High: 150-199 mg/dLHigh: 200-499 mg/dLVery High: >500 mg/dL Urinalysis, Employeeon 03-10 BILIRUBIN URINE Normal Negative [facility] Comment on above: Order Comment: Urine , Random Result Comment: UTO. WANTS TO COME BACK TO DO ANOTHER TIME Performed By: #### L 100.0200, L500.2900, L400.0100 #### [facility] [address] [place], [place], [id number] Clarity (U) Normal Clear [facility] Comment on above: Order Comment: Urine , Random Result Comment: UTO. WANTS TO COME BACK TO DO ANOTHER TIME Performed By: #### L 100.0200, L500.2900, L400.0100 #### [facility] [address] [place], [address] Color (U) Normal Yellow [facility] Comment on above: Order Comment: Urine , Random Result Comment: UTO. WANTS TO COME BACK TO DO ANOTHER TIME Performed By: #### L 100.0200, L500.2900, L400.0100 #### [facility] [address] [place], [address] GLUCOSE, UR Normal Normal [facility] Comment on above: Order Comment: Urine , Random Result Comment: UTO. WANTS TO COME BACK TO DO ANOTHER TIME Performed By: #### L 100.0200, L500.2900, L400.0100 #### [facility] [address] [place], [address] KETONE UR Normal Negative [facility] Comment on above: Order Comment: Urine , Random Result Comment: UTO. WANTS TO COME BACK TO DO ANOTHER TIME Performed By: #### L 100.0200, L500.2900, L400.0100 #### [facility] [address] [place], [address] LEUK ESTERASE Normal Negative [facility] Comment on above: Order Comment: Urine , Random Result Comment: UTO. WANTS TO COME BACK TO DO ANOTHER TIME Performed By: #### L 100.0200, L500.2900, L400.0100 #### [facility] [address] [place], [address] Nitrite Ql (U) Normal Negative [facility] Comment on above: Order Comment: Urine , Random Result Comment: UTO. WANTS TO COME BACK TO DO ANOTHER TIME Performed By: #### L 100.0200, L500.2900, L400.0100 #### [facility] [address] [place], [address] OCCULT BLOOD-UR Normal Negative [facility] Comment on above: Order Comment: Urine , Random Result Comment: UTO. WANTS TO COME BACK TO DO ANOTHER TIME Performed By: #### L 100.0200, L500.2900, L400.0100 #### [facility] [address] [place], [address] pH UR Normal 5.0 - 8.0 [facility] Comment on above: Order Comment: Urine , Random Result Comment: UTO. WANTS TO COME BACK TO DO ANOTHER TIME Performed By: #### L 100.0200, L500.2900, L400.0100 #### [facility] [address] [place], [address] PROT DIPSTX Normal Negative [facility] Comment on above: Order Comment: Urine , Random Result Comment: UTO. WANTS TO COME BACK TO DO ANOTHER TIME Performed By: #### L 100.0200, L500.2900, L400.0100 #### [facility] [address] [place], [address] SP.GR. DIPSTX Normal 1.002-1.030 [facility] Comment on above: Order Comment: Urine , Random Result Comment: UTO. WANTS TO COME BACK TO DO ANOTHER TIME Performed By: #### L 100.0200, L500.2900, L400.0100 #### [facility] [address] [place], [address] UR Preservative Normal [facility] Comment on above: Order Comment: Urine , Random Result Comment: UTO. WANTS TO COME BACK TO DO ANOTHER TIME Performed By: #### L 100.0200, L500.2900, L400.0100 #### [facility] [address] [place], [address] UROBILI Normal Normal [facility] Comment on above: Order Comment: Urine , Random Result Comment: UTO. WANTS TO COME BACK TO DO ANOTHER TIME Performed By: #### L 100.0200, L500.2900, L400.0100 #### [facility] [address] [place], [address] White blood cell (WBC) count Ordered By: HEALTH ASSESSMENT on 03-10-2025 WBC (Bld) [#/Vol] 9.3 10*3/uL 4.4-11.0 [facility] Rn Bone Marrow Transplant Office Visit Reporton 02-24-2025 Rn Bone Marrow Transplant Office Visit Report [facility] [address], [address] [place] [address] OFFICE VISIT Date of Service: 02/24/25 MR#: [id number] Acct: [id number] Name: BETINA BARBOZA Rep #: [id number] : 1985 Provider: RAND Flores Age/Sex: 39/F [place] [facility] [place]: Signed Intake Vital Signs 05/16/24 13:41 02/15/25 13:31 02/24/25 10:37 02/24/25 11:26 Height 5 ft 6 in 5 ft 6 in 5 ft 6 in Weight: 264 lb 3.2 oz 262 lb 2 oz BMI 42.3 BP 162/92 H 136/84 H Intake Visit 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 History 0 Elective abortions Hx Para Spontaneous abortions Hx # Term Pregnancies Ectopic pregnancies Hx # Pregnancies Multiple births # of living children HPI Encounter for routine gynecological examination Details: BETINA BARBOZA is a 39 year old who [...] oriented to person and oriented to place [facility] Head: normal to inspection Neck Neck: [...] normal appearance (more content not included)... 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 HPI HPI Details: BETINA BARBOZA, is a 39 F who presents [...] or oth (more content not included)... Normal [facility] Abdomen/Pelvis WITH Contrast on 02-01-2025 Abdomen/Pelvis WITH Contrast [facility] Services [address] [place], [place] [id number] Abdomen/Pelvis WITH Contrast MR#: [id number] Acct: [id number] Name: BETINA BARBOZA Rep #: [id number] : 1985 F 39 From: Wan Morley MD PCP: Dr. Madelaine Lee MD Status: REG CLI Study: Abdomen/Pelvis WITH Contrast Date of Exam: Exam# [id number] Ordering Dr: Kevin Chakraborty DO PROCEDURE: ABDOMEN/PELVIS [...] acute diverticulitis. 2. Fibroid uterus. Reading Location: [id number] CC: Dr. 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 HPI HPI Details: BETINA BARBOZA, is a 38 F who presents [...] easy bruising (more content not included)... Normal [facility] ABD Limited w/ Elastographyo n 11-10-2024 ABD Limited w/ Elastography [facility] Imaging Services [address] [place] [address] ABD Limited w/ Elastography MR#: [id number] Acct: [id number] Name: BETINA BARBOZA Rep #: [id number] : 1985 F 38 From: Hebert Wong MD PCP: Dr. Madelaine Lee MD Status: REG CLI Study: ABD Limited w/ Elastography Date of Exam: 03/29 Exam# [id number] Ordering Dr: Kevin Chakraborty DO PROCEDURE: ABD LIMITED W/ ELASTOGRAPHY (USABDLELPARO), 11/10/2024 REASON FOR EXAM: THOMPSON COMPARISON: 10/29/2024 TECHNIQUE: Grayscale and color Doppler imaging of the right upper quadrant was performed. [employer] S-shear wave elastography was performed for non-invasive [...] (15kPa): Significant fibrosis / cirrhosis Reading Location: [id number] CC: Dr. Madelaine Lee MD; Kevin Chakraborty DO Accuracy Expert: Signed Normal [facility] Abdomen/Pelvis WITH Contrast on 10-29-2024 Abdomen/Pelvis WITH Contrast [facility] Imaging Services [address] [place] [address] Abdomen/Pelvis WITH Contrast MR#: [id number] Acct: [id number] Name: BETINA BARBOZA Rep #: [id number] : 1985 F 38 From: Leann Polo nd, MD PCP: Dr. Madelaine Lee MD Status: REG CLI Study: Abdomen/Pelvis WITH Contrast Date of Exam: Exam# [id number] Ordering Dr: Kevin Chakraborty DO PROCEDURE: ABDOMEN/PELVIS [...] hepatomegaly with diffuse hepatic steatosis. Reading Location: [id number] CC: Dr. Madelaine Lee MD; Kevin Chakraborty DO Accuracy Expert: Signed Normal [facility] SCRN MAMM (CAD)W/SHANNAN BILATo n 09-24-2024 SCRN MAMM (CAD)W/SHANNAN BILAT [facility] Imaging Services [address] [place] [address] SCRN MAMM (CAD)W/SHANNAN BILAT MR#: [id number] Acct: [id number] Name: BETINA BARBOZA Rep #: [id number] : 1985 F 38 From: Kadie Holcomb PCP: Dr. Madelaine Lee MD Status: REG CLI Study: SCRN MAMM (CAD)W/SHANNAN BILAT Date of Exam: 09/06 Exam# [id number] Ordering Dr: Madelaine Lee MD PROCEDURE: SCRN [...] SCREENING. Follow-up code: Routine Follow-up Reading Location: [facility] CC: Dr. Madelaine Lee MD Accuracy Expert: Signed Normal [facility] Culture, urineOrdered By: St adenike Blankenship on 12-02-2023 Bacteria identified Cx Nom (U) Escherichia coli [facility] Laboratory - Chemistry and C hemistry - challengeon 12-02-2023 HCG ( test) Ql (U) Negative [facility] Bilirubin Ql (U) Negative [facility] Glucose Ql (U) Negative [facility] Ketones Ql (U) Negative [facility] pH (U) 6.0 [pH] [facility] Specific gravity (U) [Rel density] 1.015 [facility] Urobilinogen (U) [Mass/Vol] Negative [facility] Laboratory - Hematology and Cell countson 12-02-2023 Hemoglobin Ql (U) Trace [facility] Laboratory - Specimen inform ationon 12-02-2023 Clarity (U) Clear [facility] Color (U) Dk Yellow [facility] Laboratory - Urinalysison Nitrite Ql (U) Negative [facility] Protein Ql (U) Negative [facility] No Panel Informationon 12-01 Urine Leukocytes Positive [facility] Urine Non-Hemolyzed Blood [facility] No Panel InformationOrdered By: Kevin Chakraborty on 05-11-2023 Stool Calprotectin 287 ug/g 0-120 [facility] Comment on above: Concentration Interp retation Follow-Up< 5 - 50 ug/g Normal None>50 -120 ug/g Borderline Re-evaluate in 4-6 weeks >120 ug/g Abnormal Repeat as clinically indicatedPerformed at: [facility] [address] [id number] Director: Abdiel Randolph MD, Phone: [phone] Stool Pancreatic Elastase 449 >200 [facility] Comment on above: Result Units: ug Nayla st./g Severe Pancreatic Insufficiency: <100 Moderate Pancreatic Insufficiency: 100 - 200 Normal: >200Performed at: [facility] [address] [id number] Director: Abdiel Randolph MD, Phone: [phone] Stool lactoferrin detection by immunoassayOrdered By: Kevin Chakraborty on 05-11-2023 Lactoferrin IA Ql (Stl) [facility] Lactoferrin IA Ql (Stl) [facility] Absolute lymphocyte countOrd ered By: HEALTH ASSESSMENT on 03-22-2023 Lymphocytes Auto (Unsp spec) [#/Vol] 2.28 10*3/uL 0.83-4.51 [facility] Absolute reticulocyte countO rdered By: HEALTH ASSESSMENT on 03-22-2023 Reticulocytes (Bld) [#/Vol] 0.00 10*3/uL 0-5 [facility] Basophil percentageOrdered B y: HEALTH ASSESSMENT on 03-22-2023 Basophil percentage 3.8 mg/dL 2.5-4.9 [facility] Bilirubin [Mass/Vol] 0.40 mg/dL 0.20-1.00 [facility] Comment on above: For patients on eltr ombopag therapy, use of Dimension [place] TBIL is not recommended. Chloride [Moles/Vol] 106 mmol/L 98-107 [facility] Cholesterol [Mass/Vol] 124 mg/dL <[address] [facility] Comment on above: <200 mg/dL Desirable 200-240 mg/dL Borderline >240 mg/dL High Risk Glucose [Mass/Vol] 103 mg/dL 74-106 [facility] Comment on above: Fasting Glucose resu lt from 100 to 125 mg/dL suggests IMPAIRED HOMEOSTASIS per A.D.A. criteria. LDH [Catalytic activity/Vol] 147 U/L 84-246 [facility] Neutrophils (Bld) [#/Vol] 5.9 10*3/uL 2.0-7.7 [facility] Potassium [Moles/Vol] 4.0 mmol/L 3.5-5.1 [facility] Protein [Mass/Vol] 7.6 g/dL 6.4-8.2 [facility] Sodium [Moles/Vol] 137 mmol/L 136-145 [facility] Triglyceride [Mass/Vol] 160 mg/dL <199 [facility] Comment on above: The drugs N-Acetylcy steine and Metamizole may falsely depress this assay.Serum Triglycerides Reference Interval Normal <150 mg/dL Borderline high 150 - 199 mg/dL High 200 - 499 mg/dL Very High > or = 500 mg/dL WBC (Bld) [#/Vol] 8.8 10*3/uL 4.4-11.0 [facility] Blood erythrocytes count (nu mber/volume)Ordered By: HEALTH ASSESSMENT on 03-22-2023 RBC (Bld) [#/Vol] 4.97 10*6/uL 4.2-5.4 [facility] Blood hemoglobin measurement (mass/volume)Ordered By: HEALTH ASSESSMENT on 03-22-2023 Hemoglobin (Bld) [Mass/Vol] 13.1 g/dL 12.0-15.0 [facility] Blood leukocytes count corre cted for nucleated erythrocytes (number/volume)Ordered By: HEALTH ASSESSMENT on 03-22-2023 WBC corrected for nucl RBC (Bld) [#/Vol] ELECTRICIAN APPRENTICE [facility] Blood platelet mean volumeOr dered By: HEALTH ASSESSMENT on 03-22-2023 Platelet mean volume (Bld) [Entitic vol] 11.3 fL 6.2-12.0 [facility] Determination of erythrocyte mean corpuscular volume (MCV)Ordered By: HEALTH ASSESSMENT on 03-22-2023 MCV (RBC) [Entitic vol] 83.9 fL 81-99 [facility] Direct bilirubinOrdered By: HEALTH ASSESSMENT on 03-22-2023 Bilirubin.direct [Mass/Vol] 0.12 mg/dL 0.00-0.30 [facility] Hematocrit Auto (Bld) [Volum e fraction]Ordered By: HEALTH ASSESSMENT on 03-22-2023 Hematocrit (Bld) [Volume fraction] 41.7 % 37-47 [facility] Laboratory - Chemistry and C hemistry - challengeOrdered By: HEALTH ASSESSMENT on 03-22-2023 ALP [Catalytic activity/Vol] 91 U/L 45-117 [facility] ALT [Catalytic activity/Vol] 19 U/L 13-56 [facility] Cholesterol.total/Cholest mariana in HDL [Mass ratio] 2.40 {ratio} [facility] CO2 [Moles/Vol] 27.0 mmol/L 21.0-32.0 [facility] Globulin (S) [Mass/Vol] 4.4 g/dL 2.2-4.2 [facility] Urea nitrogen/Creatinine [Mass ratio] 11.8 mg/mg 10-20 [facility] Laboratory - Hematology and Cell countsOrdered By: HEALTH ASSESSMENT on 03-22-2023 Erythrocyte distribution width (RBC) [Entitic vol] 42.7 fL 35.1-43.9 [facility] Erythrocyte distribution width (RBC) [Ratio] 14.1 % 11.6-14.6 [facility] MCH (RBC) [Entitic mass] 26.4 pg 27.0-32.0 [facility] Nucleated RBC/100 WBC (Bld) [Ratio] 0 % 0-5 [facility] MCHC Auto (RBC) [Mass/Vol]Or dered By: HEALTH ASSESSMENT on 03-22-2023 MCHC (RBC) [Mass/Vol] 31.4 g/dL 32-36 [facility] No Panel InformationOrdered By: HEALTH ASSESSMENT on 03-22-2023 Estimated Creatinine Clearance Calc ELECTRICIAN APPRENTICE [facility] Estimated GFR (MDRD) Amer 108 mL/min >60 [facility] Comment on above: GFR Calc Estimated GFR (MDRD) Non-Af Amer 90 mL/min >60 [facility] Comment on above: Non- GFR Calc Immature Granulocyte % (Auto) ELECTRICIAN APPRENTICE [facility] Platelets bldOrdered By: LAVERNE LT ASSESSMENT on 03-22-2023 Platelets (Bld) [#/Vol] 300 10*3/uL 150-450 [facility] Review by pathologistOrdered By: HEALTH ASSESSMENT on 03-22-2023 Pathologist review Jason (Unsp spec) [Interp] ELECTRICIAN APPRENTICE [facility] Segmented neutrophils/100 WB C Auto (Bld)Ordered By: HEALTH ASSESSMENT on 03-22-2023 Segmented neutrophils/100 WBC (Bld) 66.9 % 47-70 [facility] Serum or plasma albumin malathi urement (mass/volume)Ordered By: HEALTH ASSESSMENT on 03-22-2023 Albumin [Mass/Vol] 3.2 g/dL 3.2-5.0 [facility] Serum or plasma albumin/glob ulin mass ratioOrdered By: HEALTH ASSESSMENT on 03-22-2023 Albumin/Globulin [Mass ratio] 0.7 {ratio} 0.9-2.4 [facility] Serum or plasma calcium malathi urement (mass/volume)Ordered By: HEALTH ASSESSMENT on 03-22-2023 Calcium [Mass/Vol] 9.0 mg/dL 8.5-10.1 [facility] Serum or plasma cholesterol in HDL measurement (mass/volume)Ordered By: HEALTH ASSESSMENT on 03-22-2023 Cholesterol in HDL [Mass/Vol] 51 mg/dL >40 [facility] Comment on above: The drugs N-Acetylcy steine and Metamizole may falsely depress this assay. Reference Range HDL <40 mg/dL Low HDL Cholesterol HDL >or= 60 mg/dL High HDL Cholesterol Serum or plasma cholesterol in VLDL measurement (mass/volume)Ordered By: HEALTH ASSESSMENT on 03-22-2023 Cholesterol in VLDL [Mass/Vol] 32 mg/dL 5-40 [facility] Serum or plasma creatinine m easurement (mass/volume)Ordered By: HEALTH ASSESSMENT on 03-22-2023 Creatinine [Mass/Vol] 0.76 mg/dL 0.55-1.02 [facility] Comment on above: The validity of the calculated GFR & GFRAA in patients over 70 years has not been determined. Clinical correlation is essential. Serum or plasma low density lipoprotein (LDL) cholesterol measurement (mass/volume)Ordered By: HEALTH ASSESSMENT on 03-22-2023 Cholesterol in LDL [Mass/Vol] 41 mg/dL 0-130 [facility] Serum or plasma urea nitroge n measurement (mass/volume)Ordered By: HEALTH ASSESSMENT on 03-22-2023 Urea nitrogen [Mass/Vol] 9 mg/dL 7-18 [facility] Serum or plasma uric acid me asurement (mass/volume)Ordered By: HEALTH ASSESSMENT on 03-22-2023 Urate [Mass/Vol] 6.9 mg/dL 2.6-6.0 [facility] Comment on above: The drugs N-Acetylcy steine and Metamizole may falsely depress this assay. Thin prep Papanicolaou smear with manual screeningOrdered By: HEALTH ASSESSMENT on 03-22-2023 Thin prep Papanicolaou smear with manual screening 11 U/L 15-37 [facility] Thin prep Papanicolaou smear with manual screening 4 5-15 [facility] Laboratory - Chemistry and C hemistry - challengeOrdered By: Carlos Michael on 03-06-2023 HCG ( test) Ql (U) Negative [facility] Comment on above: Very dilute urine sp ecimens, as indicated by a low specificgravity, may not contain call center support representative levels of hCG. If is still suspected, a first morning urinespecimen should be collected 48 hours later and tested. Absolute lymphocyte countOrd ered By: Carolyn Gaitan on 12-22-2022 Lymphocytes Auto (Unsp spec) [#/Vol] 2.78 10*3/uL 0.83-4.51 [facility] Basophil percentageOrdered B y: Carolyn Gaitan on 12-22-2022 Basophil percentage 0-5 SEEN /hpf 0-[address] [facility] Basophils/100 WBC (Bld) 0.3 % 0-1 [facility] Chloride [Moles/Vol] 105 mmol/L 98-107 [facility] Eosinophils/100 WBC (Bld) 0.9 % 0-5 [facility] Glucose [Mass/Vol] 145 mg/dL 74-106 [facility] Comment on above: Fasting Glucose resu lt greater than or equal to 126 mg/dL suggests DIABETES MELLITUS per A.D.A. criteria. Neutrophils (Bld) [#/Vol] 6.7 10*3/uL 2.0-7.7 [facility] Neutrophils/100 WBC (Bld) 66.2 % 47-70 [facility] Potassium [Moles/Vol] 3.8 mmol/L 3.5-5.1 [facility] Sodium [Moles/Vol] 138 mmol/L 136-145 [facility] WBC (Bld) [#/Vol] 10.1 10*3/uL 4.4-11.0 [facility] Beta hCG serum qualOrdered B y: Carolyn Gaitan on 12-22-2022 Beta HCG ( test) Ql Negative [facility] Bilirubin Test strip Ql (U)O rdered By: Carolyn Gaitan on 12-22-2022 Bilirubin Ql (U) Negative Negative [facility] Blood erythrocytes count (nu mber/volume)Ordered By: Carolyn Gaitan on 12-22-2022 RBC (Bld) [#/Vol] 4.50 10*6/uL 4.2-5.4 [facility] Blood hemoglobin measurement (mass/volume)Ordered By: Carolyn Gaitan on 12-22-2022 Hemoglobin (Bld) [Mass/Vol] 12.3 g/dL 12.0-15.0 [facility] Blood lymphocytes/100 leukoc ytesOrdered By: Carolyn Gaitan on 12-22-2022 Lymphocytes/100 WBC (Bld) 27.4 % 19-41 [facility] Blood monocytes/100 leukocyt esOrdered By: Carolyn Gaitan on 12-22-2022 Monocytes/100 WBC (Bld) 4.9 % 0-10 [facility] Blood platelet mean volumeOr dered By: Carolyn Gaitan on 12-22-2022 Platelet mean volume (Bld) [Entitic vol] 10.1 fL 6.2-12.0 [facility] Determination of erythrocyte mean corpuscular volume (MCV)Ordered By: Carolyn Gaitan on 12-22-2022 MCV (RBC) [Entitic vol] 81.8 fL 81-99 [facility] Hematocrit Auto (Bld) [Volum e fraction]Ordered By: Carolyn Gaitan on 12-22-2022 Hematocrit (Bld) [Volume fraction] 36.8 % 37-47 [facility] Ketones Test strip Ql (U)Ord ered By: Carolyn Gaitan on 12-22-2022 Ketones Ql (U) Negative Negative [facility] Laboratory - Chemistry and C hemistry - challengeOrdered By: Carolyn Gaitan on 12-22-2022 CO2 [Moles/Vol] 25.0 mmol/L 21.0-32.0 [facility] Urea nitrogen/Creatinine [Mass ratio] 12.4 mg/mg 10-20 [facility] Laboratory - Hematology and Cell countsOrdered By: Carolyn Gaitan on 12-22-2022 Erythrocyte distribution width (RBC) [Entitic vol] 43.2 fL 35.1-43.9 [facility] Erythrocyte distribution width (RBC) [Ratio] 14.6 % 11.6-14.6 [facility] Immature granulocytes/100 WBC (Bld) 0.300 % 0.0-0.9 [facility] Comment on above: IG% - Immature Granu locytes (promyelocytes, myelocytes and metamyelocytes) > 1% indicates that a LEFT SHIFT is Present. MCH (RBC) [Entitic mass] 27.3 pg 27.0-32.0 [facility] Nucleated RBC/100 WBC (Bld) [Ratio] 0 % 0-5 [facility] MCHC Auto (RBC) [Mass/Vol]Or dered By: Carolyn Gaitan on 12-22-2022 MCHC (RBC) [Mass/Vol] 33.4 g/dL 32-36 [facility] Mucus LM Ql (Urine sed)Order ed By: Carolyn Gaitan on 12-22-2022 Mucus Ql (Urine sed) 0 SEEN /hpf [facility] Nitrite Test strip Ql (U)Ord ered By: Carolyn Gaitan on 12-22-2022 Nitrite Ql (U) Negative Negative [facility] No Panel InformationOrdered By: Carolyn Gaitan on 12-22-2022 Estimated Creatinine Clearance Calc 80.35 ml/min [facility] Estimated GFR (MDRD) Amer 91 mL/min >60 [facility] Comment on above: GFR Calc Estimated GFR (MDRD) Non-Af Amer 76 mL/min >60 [facility] Comment on above: Non- GFR Calc Platelets bldOrdered By: Nasrin Gaitan on 12-22-2022 Platelets (Bld) [#/Vol] 276 10*3/uL 150-450 [facility] Protein Test strip Ql (U)Ord ered By: Carolyn Gaitan on 12-22-2022 Protein Ql (U) Negative Negative [facility] Serum or plasma calcium malathi urement (mass/volume)Ordered By: Carolyn Gaitan on 12-22-2022 Calcium [Mass/Vol] 8.9 mg/dL 8.5-10.1 [facility] Serum or plasma creatinine m easurement (mass/volume)Ordered By: Carolyn Gaitan on 12-22-2022 Creatinine [Mass/Vol] 0.88 mg/dL 0.55-1.02 [facility] Comment on above: The validity of the calculated GFR & GFRAA in patients over 70 years has not been determined. Clinical correlation is essential. Serum or plasma urea nitroge n measurement (mass/volume)Ordered By: Carolyn Gaitan on 12-22-2022 Urea nitrogen [Mass/Vol] 11 mg/dL 7-18 [facility] Squamous epithelial cells de tection in urine sediment by light microscopyOrdered By: Carolyn Gaitan on 12-22-2022 Epithelial cells.squamous LM Ql (Urine sed) 0-5 SEEN /hpf 5-10 [facility] Thin prep Papanicolaou smear with manual screeningOrdered By: Carolyn Gaitan on 12-22-2022 Thin prep Papanicolaou smear with manual screening 8 5-15 [facility] Urine blood detectionOrdered By: Carolyn Gaitan on 12-22-2022 RBC Ql (U) Negative Negative [facility] RBC Ql (U) 0 SEEN /hpf 0-5 [facility] Urine clarityOrdered By: Nasrin Gaitan on 12-22-2022 Clarity (U) Clear Clear [facility] Urine color determinationOrd ered By: Carolyn Gaitan on 12-22-2022 Color (U) Yellow Yellow [facility] Urine glucose detectionOrder ed By: Carolyn Gaitan on 12-22-2022 Glucose Ql (U) Normal mg/dl Normal [facility] Urine leukocyte esterase det ection by dipstickOrdered By: Carolyn Gaitan on 12-22-2022 Leukocyte esterase Test strip Ql (U) 100 /ul Negative [facility] Urine pHOrdered By: Carolyn Gaitan on 12-22-2022 pH (U) 6.5 [pH] 5.0 - 8.0 [facility] Urine sediment bacteria coun t by microscopy (number/high power field)Ordered By: Carolyn Gaitan on 12-22-2022 Bacteria LM.HPF (Urine sed) [#/Area] RARE /hpf None Seen [facility] Urine specific gravity measu rementOrdered By: Carolyn Gaitan on 12-22-2022 Specific gravity (U) [Rel density] 1.010 1.002-1.030 [facility] Urobilinogen Auto test strip Ql (U)Ordered By: Carolyn Gaitan on 12-22-2022 Urobilinogen Ql (U) Normal mg/dl Normal [facility] Absolute lymphocyte countOrd ered By: Kevin Chakraborty on 12-11-2022 Lymphocytes Auto (Unsp spec) [#/Vol] 2.17 10*3/uL 0.83-4.51 [facility] Albumin Elph [Mass/Vol]Order ed By: Kevin Chakraborty on 12-11-2022 Albumin [Mass/Vol] 3.4 g/dL 2.9-4.4 [facility] Alternaria alternata IgE ser umOrdered By: Kevin Chakraborty on 12-11-2022 A. alternata IgE Qn (S) <0.10 kU/L Class 0 [facility] Atypical perinuclear antineu trophil cytoplasmic antibodies measurementOrdered By: Kevin Chakraborty on 12-11-2022 Neutrophil cytoplasmic Ab.perinuclear.atypical IF (S) [Titer] <1:20 titer Neg:<1:20 [facility] Comment on above: The atypical pANCA p attern has been observed in asignificant percentage of patients with ulcerative colitis,primary sclerosing cholangitis and autoimmune hepatitis.Performed at: [address] [place], [place] [id number] Director: Crow Berrios PhD, Phone: [phone] at: [address] [id number] Director: Abdiel Randolph MD, Phone: [phone] Basophil percentageOrdered B y: Kevin Chakraborty on 12-11-2022 Basophil percentage < 0.2 AI 0.0-0.9 [facility] Basophils/100 WBC (Bld) 0.4 % 0-1 [facility] Bilirubin [Mass/Vol] 0.20 mg/dL 0.20-1.00 [facility] Comment on above: For patients on eltr ombopag therapy, use of Dimension [place] TBIL is not recommended. Chloride [Moles/Vol] 110 mmol/L 98-107 [facility] Eosinophils/100 WBC (Bld) 1.0 % 0-5 [facility] Glucose [Mass/Vol] 100 mg/dL 74-106 [facility] Comment on above: Fasting Glucose resu lt from 100 to 125 mg/dL suggests IMPAIRED HOMEOSTASIS per A.D.A. criteria. LDH [Catalytic activity/Vol] 158 U/L 84-246 [facility] Neutrophils (Bld) [#/Vol] 7.1 10*3/uL 2.0-7.7 [facility] Neutrophils/100 WBC (Bld) 71.5 % 47-70 [facility] Potassium [Moles/Vol] 4.1 mmol/L 3.5-5.1 [facility] Protein [Mass/Vol] 7.6 g/dL 6.4-8.2 [facility] Sodium [Moles/Vol] 140 mmol/L 136-145 [facility] WBC (Bld) [#/Vol] 9.9 10*3/uL 4.4-11.0 [facility] Blood erythrocytes count (nu mber/volume)Ordered By: Kevin Chakraborty on 12-11-2022 RBC (Bld) [#/Vol] 4.84 10*6/uL 4.2-5.4 [facility] Blood hemoglobin measurement (mass/volume)Ordered By: Kevin Chakraborty on 12-11-2022 Hemoglobin (Bld) [Mass/Vol] 12.8 g/dL 12.0-15.0 [facility] Blood lymphocytes/100 leukoc ytesOrdered By: Kevin Chakraborty on 12-11-2022 Lymphocytes/100 WBC (Bld) 21.9 % 19-41 [facility] Blood monocytes/100 leukocyt esOrdered By: Kevin Chakraborty on 12-11-2022 Monocytes/100 WBC (Bld) 4.8 % 0-10 [facility] Blood platelet mean volumeOr dered By: Kevin Chakraborty on 12-11-2022 Platelet mean volume (Bld) [Entitic vol] 10.4 fL 6.2-12.0 [facility] Chocolate RASTOrdered By: Ra tone Chakraborty on 12-11-2022 Chocolate IgE Qn (S) <0.10 kU/L Class 0 [facility] Comment on above: Performed at: [address] [id number] Director: Crow Berrios PhD, Phone: [phone] at: [facility] [id number] Director: Abdiel Randolph MD, Phone: [phone] Determination of erythrocyte mean corpuscular volume (MCV)Ordered By: Kevin Chakraborty on 12-11-2022 MCV (RBC) [Entitic vol] 82.2 fL 81-99 [facility] Erythrocyte sedimentation ra teOrdered By: Kevin Chakraborty on 12-11-2022 ESR (Bld) [Velocity] 27 mm/h 0-30 [facility] Hematocrit Auto (Bld) [Volum e fraction]Ordered By: Kevin Chakraborty on 12-11-2022 Hematocrit (Bld) [Volume fraction] 39.8 % 37-47 [facility] Interpretation of serum or p lasma protein pattern by immunofixation (narrative resultOrdered By: Kevin Chakraborty on 12-11-2022 Protein Fractions Immunofixation Jason [Interp] See comment [facility] Comment on above: NOT OBSERVED Laboratory - Chemistry and C hemistry - challengeOrdered By: Kevin Chakraborty on 12-11-2022 ALP [Catalytic activity/Vol] 81 U/L 45-117 [facility] ALT [Catalytic activity/Vol] 21 U/L 13-56 [facility] CO2 [Moles/Vol] 26.0 mmol/L 21.0-32.0 [facility] Urea nitrogen/Creatinine [Mass ratio] 12.1 mg/mg 10-20 [facility] Laboratory - Hematology and Cell countsOrdered By: Kevin Chakraborty on 12-11-2022 Erythrocyte distribution width (RBC) [Entitic vol] 42.8 fL 35.1-43.9 [facility] Erythrocyte distribution width (RBC) [Ratio] 14.5 % 11.6-14.6 [facility] Immature granulocytes/100 WBC (Bld) 0.400 % 0.0-0.9 [facility] Comment on above: IG% - Immature Granu locytes (promyelocytes, myelocytes and metamyelocytes) > 1% indicates that a LEFT SHIFT is Present. MCH (RBC) [Entitic mass] 26.4 pg 27.0-32.0 [facility] Nucleated RBC/100 WBC (Bld) [Ratio] 0 % 0-5 [facility] Laboratory - Miscellaneous t estsOrdered By: Kevin Chakraborty on 12-11-2022 Service comment (Unsp spec) [Interp] Comment . [facility] Comment on above: Levels of Specific I [...] 12-11-2022 MCHC (RBC) [Mass/Vol] 32.2 g/dL 32-36 [facility] No Panel InformationOrdered By: Kevin Friend on 12-11-2022 Addendum Document Comment . [facility] Comment on above: Protein electrophore sis scan will follow via computer,mail, or picking table worker delivery. Centromere B Antibody <0.2 AI 0.0-0.9 [facility] Common Ragweed (Short) Allergen <0.10 kU/L Class 0 [facility] Endomysial IgA Antibody Negative Negative [facility] Cymraes Plantain Allergen (RAST) <0.10 kU/L Class 0 [facility] Estimated GFR (MDRD) Amer 112 mL/min >60 [facility] Comment on above: GFR Calc Estimated GFR (MDRD) Non-Af Amer 92 mL/min >60 [facility] Comment on above: Non- GFR Calc Immunoglobulin E 8 IU/mL 6-495 [facility] Miscellaneous Test See comment [facility] [...] developed and its performance characteristics determined by [employer]. It has not been cleared or approved by the Food and Drug Administration. The FDA has determined that such clearance or approval is not necessary.Atypical pANCA Negative Negative Comments Suggestive of Crohn's Disease. Pattern is not conclusive for disease behavior risk stratification. TESTING PERFORMED AT [facility]. ORIGINAL REPORT ON FILE IN LAB CONTAINS ADDITIONAL TEST SITE INFORMATION. Mouse Urine Allergen IgE Antibody <0.10 kU/L Class 0 [facility] [employer] Antibody <0.2 AI 0.0-0.9 [facility] Seafood Group Allergens (RAST) Negative . [facility] Comment on above: Allergens in this mi x are: Blue mussel Fish [place] Shrimp Tuna Platelets bldOrdered By: Etienne Chakraborty on 12-11-2022 Platelets (Bld) [#/Vol] 286 10*3/uL 150-450 [facility] Serum Bermuda grass IgE anti body assay (units/volume)Ordered By: Kevin Chakraborty on 12-11-2022 Bermuda grass IgE Qn (S) <0.10 kU/L Class 0 [facility] Serum DNA double strand anti body assay (units/volume)Ordered By: Kevin Chakraborty on 12-11-2022 DNA double strand Ab Qn (S) [IU]/mL 0-9 [facility] Comment on above: Negative <5 Equivoca l 5 - 9 Positive >9 Serum Dermatophagoides farin ae specific IgE antibody assay (units/volume)Ordered By: Kevin Chakraborty on 12-11-2022 Bangladeshi house dust mite IgE Qn (S) <0.10 kU/L Class 0 [facility] Serum house dust mi te IgE antibody assay (units/volume)Ordered By: Kevin Chakraborty on 12-11-2022 house dust mite IgE Qn (S) <0.10 kU/L Class 0 [facility] Serum Yadira-1 antibody assay (u nits/volume)Ordered By: Kevin Chakraborty on 12-11-2022 Yadira-1 extractable nuclear Ab Qn (S) <0.2 AI 0.0-0.9 [facility] Serum [place] blue grass Ig E antibody assay (units/volume)Ordered By: Kevin Chakraborty on 12-11-2022 [place] blue grass IgE Qn (S) <0.10 kU/L Class 0 [facility] Serum Scl-70 extractable nuc lear antibody assay (units/volume)Ordered By: Kevin Chakraborty on 12-11-2022 SCL-70 extractable nuclear Ab Qn (S) <0.2 AI 0.0-0.9 [facility] Serum Coulter extractable nucl ear antibody detectionOrdered By: Kevin Chakraborty on 12-11-2022 Coulter extractable nuclear Ab Ql (S) <0.2 AI 0.0-0.9 [facility] Serum [id number] measu rement by electrophoresisOrdered By: Kevin Chakraborty on 12-11-2022 Alpha 1 globulin Elph [Mass/Vol] 0.3 g/dL 0.0-0.4 [facility] Alpha 1 globulin Elph [Mass/Vol] 0.9 g/dL 0.4-1.0 [facility] Serum beef IgE antibody assa y (units/volume)Ordered By: Kevin Chakraborty on 12-11-2022 Beef IgE Qn (S) <0.10 kU/L Class 0 [facility] Serum cat dander IgE antibod y assay (units/volume)Ordered By: Kevin Chakraborty on 12-11-2022 Cat dander IgE Qn (S) <0.10 kU/L Class 0 [facility] Serum classic neutrophil cyt oplasmic antibody assay (units/volume)Ordered By: Kevin Chakraborty on 12-11-2022 Neutrophil cytoplasmic Ab.classic Qn (S) <1:20 titer Neg:<1:20 [facility] Serum corn IgE antibody assa y (units/volume)Ordered By: Kevin Chakraborty on 12-11-2022 [place] IgE Qn (S) <0.10 kU/L Class 0 [facility] Serum cow milk IgE antibody assay (units/volume)Ordered By: Kevin Chakraborty on 12-11-2022 Cow milk IgE Qn (S) <0.10 kU/L Class 0 [facility] Serum dog epithelium IgE ant ibody assay (units/volume)Ordered By: Kevin Chakraborty on 12-11-2022 Dog epithelium IgE Qn (S) <0.10 kU/L Class 0 [facility] Serum globulin measurement ( mass/volume)Ordered By: Kevin Chakraborty on 12-11-2022 Globulin (S) [Mass/Vol] 3.6 g/dL 2.2-3.9 [facility] Serum or plasma C reactive p rotein measurement (mass/volume)Ordered By: Kevin Chakraborty on 12-11-2022 CRP [Mass/Vol] 31.10 mg/L 0.0-3.0 [facility] Comment on above: C-Reactive Protein ( CRP) provides useful information for thediagnosis, therapy and monitoring of inflammatory processesand associated diseases. For the evaluation of Relative Riskfor Cardiovascular Disease, a High Sensitivity CRP (HSCRP)should be ordered. Serum or plasma IgA measurem ent (mass/volume)Ordered By: Kevin Chakraborty on 12-11-2022 IgA [Mass/Vol] 216 mg/dL 87-352 [facility] Serum or plasma IgG measurem ent (mass/volume)Ordered By: Kevin Chakraborty on 12-11-2022 IgG [Mass/Vol] 1175 mg/dL 586-1602 [facility] Serum or plasma IgM measurem ent (mass/volume)Ordered By: Kevin Chakraborty on 12-11-2022 IgM [Mass/Vol] 167 mg/dL 26-217 [facility] Serum or plasma albumin malathi urement (mass/volume)Ordered By: Kevin Chakraborty on 12-11-2022 Albumin [Mass/Vol] 3.1 g/dL 3.2-5.0 [facility] Serum or plasma albumin/glob ulin mass ratioOrdered By: Kevin Chakraborty on 12-11-2022 Albumin/Globulin [Mass ratio] 0.7 {ratio} 0.9-2.4 [facility] Serum or plasma beta globuli n measurement by electrophoresis (mass/volume)Ordered By: Kevin Chakraborty on 12-11-2022 Beta globulin Elph [Mass/Vol] 1.2 g/dL 0.7-1.3 [facility] Serum or plasma calcium malathi urement (mass/volume)Ordered By: Kevin Chakraborty on 12-11-2022 Calcium [Mass/Vol] 8.8 mg/dL 8.5-10.1 [facility] Serum or plasma creatinine m easurement (mass/volume)Ordered By: Kevin Chakraborty on 12-11-2022 Creatinine [Mass/Vol] 0.74 mg/dL 0.55-1.02 [facility] Comment on above: The validity of the calculated GFR & GFRAA in patients over 70 years has not been determined. Clinical correlation is essential. Serum or plasma gamma globul in measurement by electrophoresis (mass/volume)Ordered By: Kevin Chakraborty on 12-11-2022 Gamma globulin Elph [Mass/Vol] 1.1 g/dL 0.4-1.8 [facility] Serum or plasma immunoelectr ophoresis interpretation (nominal result)Ordered By: Kevin Chakraborty on 12-11-2022 Interpretation IEP [Interp] Comment . [facility] Comment on above: No monoclonality det ected. Serum or plasma urea nitroge n measurement (mass/volume)Ordered By: Kevin Chakraborty on 12-11-2022 Urea nitrogen [Mass/Vol] 9 mg/dL 7-18 [facility] Serum peanut IgE antibody as say (units/volume)Ordered By: Kevin Chakraborty on 12-11-2022 Peanut IgE Qn (S) <0.10 kU/L Class 0 [facility] Serum perinuclear neutrophil cytoplasmic antibody titer by immunofluorescenceOrdered By: Kevin Chakraborty on 12-11-2022 Neutrophil cytoplasmic Ab.perinuclear IF (S) [Titer] <1:20 titer Neg:<1:20 [facility] Comment on above: The presence of posi tive fluorescence exhibiting P-ANCA orC-ANCA patterns alone is not specific for the diagnosis ofWegener's Granulomatosis (WG) or microscopic polyangiitis.Decisions about treatment should not be based solely onANCA IFA results. The International ANCA Group Consensusrecommends follow up testing of positive sera with both ME-3 and MPO-ANCA enzyme immunoassays. As many as 5% serumsamples are positive only by EIA. Ref. AM J Clin [id number];111:507-513. Serum pork IgE antibody assa y (units/volume)Ordered By: Kevin Chakraborty on 12-11-2022 Pork IgE Qn (S) <0.10 kU/L Class 0 [facility] Serum soybean IgE antibody a ssay (units/volume)Ordered By: Kevin Chakraborty on 12-11-2022 Soybean IgE Qn (S) <0.10 kU/L Class 0 [facility] Serum tissue transglutaminas e IgA antibody assay (units/volume)Ordered By: Kevin Chakraborty on 12-11-2022 tTG IgA Qn (S) <2 U/mL 0-3 [facility] Comment on above: Negative 0 - 3 Weak Positive 4 - 10 Positive >10 Tissue Transglutaminase (tTG) has been identified as the endomysial antigen. Studies have demonstr- ated that endomysial IgA antibodies have over 99% specificity for gluten sensitive enteropathy. Serum wheat IgE antibody ass ay (units/volume)Ordered By: Kevin Chakraborty on 12-11-2022 Wheat IgE Qn (S) <0.10 kU/L Class 0 [facility] Serum white elm IgE antibody assay (units/volume)Ordered By: Kevin Chakraborty on 12-11-2022 White Elm IgE Qn (S) <0.10 kU/L Class [address] [facility] Serum white oak IgE antibody assay (units/volume)Ordered By: Kevin Chakrabotry on 12-11-2022 [place] IgE Qn (S) <0.10 kU/L Class [address] [facility] Serum whole egg IgE antibody assay (units/volume)Ordered By: Kevin Chakraborty on 12-11-2022 Whole Egg IgE Qn (S) <0.10 kU/L Class 0 [facility] Thin prep Papanicolaou smear with manual screeningOrdered By: Kevin Chakraborty on 12-11-2022 Thin prep Papanicolaou smear with manual screening 11 U/L 15-37 [facility] Thin prep Papanicolaou smear with manual screening 4 5-15 [facility] Thin prep Papanicolaou smear with manual screening 1.0 0.7-1.7 [facility] Total protein bloodOrdered B y: Kevin Chakraborty on 12-11-2022 Protein [Mass/Vol] 7.0 g/dL 6.0-8.5 [facility] Thin prep Papanicolaou smear with manual screeningOrdered By: Michelle Pedraza on 10-21-2022 Genital Culture Presumptive C albicans [facility] Genital Culture G. vaginalis (Presumptive) [facility] Gram stain for investigation of transfusion reactionOrdered By: Michelle Pedraza on 10-18-2022 Microscopic observation Gram stain Nom (Unsp spec) [facility] Cervical or vagninal specime n microscopic examination by cytology stain (reported asOrdered By: Michelle Pedraza on 10-17-2022 Cytology report Cyto stain Doc (Cvx/Vag) Comment . [facility] Comment on above: The Pap smear is [...] rRNA FLAQUITA+probe Ql (Unsp spec) Negative Negative [facility] Detection in cervical specim en of any of human papilloma virus (HPV) 16, 18, 31, 33,Ordered By: Michelle Pedraza on 10-17-2022 HPV 16+18+31+33+35+39+45+51+5 2+56+58+59+66+68 DNA Probe+sig amp Ql (Cvx) Negative Negative [facility] Comment on above: This nucleic acid am plification test detects fourteen high-risk HPV types (16,18,31,33,35,39,45,51,52,56,58,59,66,68)without differentiation. HIV 1 and HIV-2 antibody ass ay with HIV-1 p24 antigen detectionOrdered By: Michelle Pedraza on 10-17-2022 HIV 1+2 Ab+HIV1 p24 Ag IA Ql Non-Reactive Nonreactive [facility] Laboratory - CytologyOrdered By: Michelle Pedraza on 10-17-2022 Finance Officer Cyto stain Nom (Cvx/Vag) [ID] Comment . [facility] Comment on above: Mirza Delaney [facility] otechnologist (ASCP) Laboratory - Microbiology an d Antimicrobial susceptibilityOrdered By: Michelle Pedraza on 10-17-2022 N. gonorrhoeae DNA FLAQUITA+probe Ql (Unsp spec) Negative Negative [facility] Comment on above: Performed at: =[address] [id number] Director: Elisa Cartagena MD, Phone: [phone] Laboratory - Miscellaneous t estsOrdered By: Michelle Pedraza on 10-17-2022 Service comment (Unsp spec) [Interp] Comment . [facility] Comment on above: This liquid based Th inPrep(R) pap test was screened withthe use of an image guided system. Service comment (Unsp spec) [Interp] . . [facility] Liquid-based cerv Pap + CT/G C by FLAQUITA w reflex to high-risk HPV for ASCUSOrdered By: Michelle Pedraza on 10-17-2022 Cytology report Cyto stain.thin prep Doc (Cvx/Vag) Comment . [facility] Comment on above: Criteria not met, HP V Genotype not performed.Performed at: - [facility] [id number] Director: Elisa Cartagena MD, Phone: [phone] at: = - [facility], [place] [id number] Director: Elisa Cartagena MD, Phone: [phone] No Panel InformationOrdered By: Michelle Pedraza on 10-17-2022 Pathology report final diagnosis Narrative Comment . [facility] Comment on above: NEGATIVE FOR INTRAEP ITHELIAL LESION OR MALIGNANCY.FUNGAL ORGANISMS MORPHOLOGICALLY CONSISTENT WITH CRISTY SPECIES AREPRESENT.CELLULAR CHANGES ASSOCIATED WITH INFLAMMATION ARE PRESENT. Hepatitis C Antibody Non-Reactive Nonreactive [facility] Comment on above: Non Reactive: < 0.8 Equivocal: >/= 0.8 to < 1.0 Reactive: >/= 1.0The CDC recommends that a reactive/equivocal HCV antibody result be followed up by the HCV Nucleic Acid Amplificationtest (330261) Herpes Simplex Virus I IgG Antibody < 0.91 index 0.00-0.90 [facility] Comment on above: Negative <0.91 Equiv ocal 0.91 - 1.09 Positive >1.09 Note: Negative indicates no antibodies detected to HSV-1. Equivocal may suggest early infection. If clinically appropriate, retest at later date. Positive indicates antibodies detected to HSV-1. No Panel Informationon 10-17 POC Bacterial Vaginitis (Rapid) Negative [facility] POC Trichomonas (Rapid) Negative [facility] Serum Treponema species anti body detectionOrdered By: Michelle Pedraza on 10-17-2022 Treponema sp Ab Ql (S) Non-Reactive [facility] Serum herpes simplex virus 2 antibody assay by immunoassay (units/volume)Ordered By: Michelle Pedraza on 10-17-2022 HSV 2 Ab IA Qn (S) < 0.91 index 0.00-0.90 [facility] Comment on above: Negative <0.91 Equiv ocal 0.91 - 1.09 Positive >1.09 Note: Negative indicates no HSV-2 antibodies detected. Positive indicates HSV-2 antibodies detected. Equivocal and low positive HSV-2 screens (Index 0.91-5.00) may be false positive and are reflexed to supplemental testing in accordance with CDC guidelines.Performed at: [employer] [id number] Director: Crow Berrios PhD, Phone: [phone] Lucia 06-07-2022 CNOV Office Visit (DERMUP) BETINA BARBOZA ([id number]) 1985 F Date Time Provider Department 06/07/22 [...] year (around 06/07/2023). Referring Provider: GENA MEEK [[id number]] Allergies As of Date: 06/07/2022 (No Known [...] for Encounter Date Provider Department Center 06/07/2022 [id number]-MAGHUTLPGENA MEEK [facility] Encounter Numb (more content not included)... [facility] B-HCG (SERUM) Negative Normal NEGATIVE [facility] Comment on above: Result Comment: Serum Test is more Sensitive than a Urine Test. Please Note Threshold Values: SERUM - 10mlU/mL URINE - 20mlU/mL Performed By: #### L 200.4092 #### ML [facility] [address] [place] [address] [facility] Anion gap [Moles/Vol] 13.1 mmol/L Low 15-22 [facility] Comment on above: Performed By: #### L 100.0010 #### ML - LABORATORY [address] [place] [address]35 Calcium [Mass/Vol] 8.8 mg/dL Normal 8.6-10.0 [facility] Comment on above: Performed By: #### L 100.0010 #### ML - LABORATORY [address] [place] [address] 88791 Chloride [Moles/Vol] 104 mmol/L Normal 98-107 [facility] Comment on above: Performed By: #### L 100.0010 #### ML - LABORATORY [address] [place] [address] 31322 CO2 [Moles/Vol] 23 mmol/L Normal 22-29 [facility] Comment on above: Performed By: #### L 100.0010 #### [facility] [address] [place] [address] 79496 Creatinine [Mass/Vol] 0.65 mg/dL Normal 0.50-0.90 [facility] Comment on above: Performed By: #### L 100.0010 #### ML [facility] [address] [place] [address] 03242 eGFR if AFR ESE > 60 ml/min/1.73m2 Normal [facility] Comment on above: Result Comment: eGFR >= [...] #### L 100.0010 #### ML - LABORATORY [address] [place] [address] 07119 eGFR nonAFR Ese > 60 ml/Min/1.73m2 [facility] Comment on above: Performed By: #### L 100.0010 #### ML - LABORATORY [address] [place] [address] 56174 Glucose [Mass/Vol] 133 mg/dL High 74-106 [facility] Comment on above: Performed By: #### L 100.0010 #### [facility] [address] [place] [address] 09857 Potassium [Moles/Vol] 4.1 mmol/L Normal 3.5-5.0 [facility] Comment on above: Performed By: #### L 100.0010 #### ML [facility] [address] [place] [address] 95087 Sodium [Moles/Vol] 136 mmol/L Normal 135-145 [facility] Comment on above: Performed By: #### L 100.0010 #### [facility] [address] [place] [address] 42133 Urea nitrogen [Mass/Vol] 9 mg/dL Normal 6-20 [facility] Comment on above: Performed By: #### L 100.0010 #### ML [facility] [address] [place] [address] 88989 CBCon 11-20-2020 BASO# 0.00 x10(3) Normal 0.00-0.10 [facility] Comment on above: Performed By: #### L 200.0010 #### [facility] [address] [place] [address] 21326 Basophils/100 WBC (Bld) 0.4 % Normal 0.0-1.0 [facility] Comment on above: Performed By: #### L 200.0010 #### ML [facility] [address] [place] [address] 58104 EOS# 0.10 x10(3) Normal 0.00-0.54 [facility] Comment on above: Performed By: #### L 200.0010 #### [facility] [address] [place] [address] 57904 Eosinophils/100 WBC (Bld) 1.0 % Normal 0.5-4.9 [facility] Comment on above: Performed By: #### L 200.0010 #### ML [facility] [address] [place] [address] 16682 Erythrocyte distribution width (RBC) [Ratio] 14.8 % Normal 12.5-15.7 [facility] Comment on above: Performed By: #### L 200.0010 #### ML [facility] [address] [place] [address] 36655 Hematocrit (Bld) [Volume fraction] 36.1 % Normal 36.0-48.0 [facility] Comment on above: Performed By: #### L 200.0010 #### ML [facility] [address] [place] [address] 12885 Hemoglobin (Bld) [Mass/Vol] 12.0 g/dL Normal 12.0-16.0 [facility] Comment on above: Performed By: #### L 200.0010 #### [facility] [address] [place] [address] 99025 LYMPH# 1.70 x10(3) Normal 1.00-3.50 [facility] Comment on above: Performed By: #### L 200.0010 #### ML [facility] [address] [place] [address] 87082 Lymphocytes/100 WBC (Bld) 13.3 % Low 16.0-48.0 [facility] Comment on above: Performed By: #### L 200.0010 #### [facility] [address] [place] [address] 95934 MCH (RBC) [Entitic mass] 28.0 pg Low 28.5-32.9 [facility] Comment on above: Performed By: #### L 200.0010 #### ML [facility] [address] [place] [address]359 MCHC (RBC) [Mass/Vol] 33.3 g/dL Normal 33.0-36.0 [facility] Comment on above: Performed By: #### L 200.0010 #### ML - LAB[facility]ATORY [address] [place] [address] 69671 MCV (RBC) [Entitic vol] 84.4 fL Normal 80.0-99.0 [facility] Comment on above: Performed By: #### L 200.0010 #### ML - [facility] [address] [place] [address] 76718 MONO# 0.90 x10(3) High 0.30-0.80 [facility] Comment on above: Performed By: #### L 200.0010 #### ML - [facility]AT[facility] [address] [place] [address] 09580 Monocytes/100 WBC (Bld) 6.6 % Normal 4.3-11.2 [facility] Comment on above: Performed By: #### L 200.0010 #### ML - [facility] [address] [place] [address] 62600 NEUT# 10.40 x10(3) High 1.40-6.50 [facility] Comment on above: Performed By: #### L 200.0010 #### ML - [facility] [address] [place] [address] 63163 Neutrophils/100 WBC (Bld) 78.7 % High 45.0-73.0 [facility] Comment on above: Performed By: #### L 200.0010 #### ML - [facility] [address] [place] [address] 29299 Platelet mean volume (Bld) [Entitic vol] 8.5 fL Normal 7.5-9.5 [facility] Comment on above: Performed By: #### L 200.0010 #### ML - [facility] [address] [place] [address] 23159 PLT 254 X10(3) Normal 150-450 [facility] Comment on above: Performed By: #### L 200.0010 #### ML - [facility] [address] [place] [address] 76878 RBC 4.28 x10(6) Normal 3.30-5.00 [facility] Comment on above: Performed By: #### L 200.0010 #### ML - [facility] [address] [place] [address] WBC 13.2 x10(3) High 4.5-10.0 [facility] Comment on above: Performed By: #### L 200.0010 #### ML - [facility] [address] [place] [address] EMERGENCY DEPARTMENT REPORTo n 11-20-2020 [place] [address] HEALTH INFORMATION MANAGEMENT EMERGENCY DEPARTMENT REPORT Patient: BETINA BARBOZAQUINTON Correia M.D. [id number] F Status: DEP ER ED [...] negative. PAST HISTORY: Ovarian cystectomy done at [facility]. SOCIAL HISTORY: Single. No alcohol or tobacco [...] an outpatient. Will use Augmentin and Flagyl. [place] 6 packs for overnight pain. IMPRESSION: Diverticulitis. Report#: Dict ID [id number] / Int ID [id number] cc: ARINA Burroughs 11/20/20 2049 _ QUINTON INFANTE M.D. cc: QUINTON INFANTE M.D.; BARBARA MOORE << Signature on File>> Reported By: QUINTON INFANTE M.D. Signed By: QUINTON INFANTE M.D. Tests performed at: [place] [id number] [facility] W/C&Son 11-20-2020 Bilirubin Ql (U) Negative Normal NEGATIVE [facility] Comment on above: Order Comment: Urine Specimen Source+ CLEAN CATCH Performed By: #### L 200.3001 #### ML - [facility]AT[facility] [address] [place] [address] 06165 Color (U) YELLOW Normal YELLOW [facility] Comment on above: Order Comment: Urine Specimen Source+ CLEAN CATCH Performed By: #### L 200.3001 #### ML [facility] [address] [place] [address] 06443 Glucose Ql (U) Negative Normal NEGATIVE [facility] Comment on above: Order Comment: Urine Specimen Source+ CLEAN CATCH Performed By: #### L 200.3001 #### ML - [facility] [address] [place] [address] 89556 Hemoglobin Ql (U) Negative Normal NEGATIVE [facility] Comment on above: Order Comment: Urine Specimen Source+ CLEAN CATCH Performed By: #### L 200.3001 #### ML [facility] [address] [place] [address] 94380 Leukocyte esterase Test strip Ql (U) Negative Normal NEGATIVE [facility] Comment on above: Order Comment: Urine Specimen Source+ CLEAN CATCH Performed By: #### L 200.3001 #### ML - [facility] [address] [place] [address] 47745 Nitrite Ql (U) Negative Normal NEGATIVE [facility] Comment on above: Order Comment: Urine Specimen Source+ CLEAN CATCH Performed By: #### L 200.3001 #### ML - [facility] [address] [place] [address] 84878 pH (U) 5.5 [pH] Normal 5.0-8.0 [facility] Comment on above: Order Comment: Urine Specimen Source+ CLEAN CATCH Performed By: #### L 200.3001 #### ML - [facility] [address] [place] [address] 63717 Protein Ql (U) Negative Normal NEGATIVE [facility] Comment on above: Order Comment: Urine Specimen Source+ CLEAN CATCH Performed By: #### L 200.3001 #### ML - [facility] [address] [place] [address] 06044 URINE APPEARANC SL CLOUDY Normal CLEAR [facility] Comment on above: Order Comment: Urine Specimen Source+ CLEAN CATCH Performed By: #### L 200.3001 #### ML - [facility] [address] [place] [address] 82545 URINE KETONE Negative Normal NEGATIVE [facility] Comment on above: Order Comment: Urine Specimen Source+ CLEAN CATCH Performed By: #### L 200.3001 #### ML - [facility] [address] [place] [address] 23307 URINE SPECIFIC >=1.030 Normal 1.001-1.035 [facility] Comment on above: Order Comment: Urine Specimen Source+ CLEAN CATCH Performed By: #### L 200.3001 #### ML - [facility] [address] [place] [address] 01394 URINE UROBILINO 0.2 EU/DL Normal 0.2-1.0 [facility] Comment on above: Order Comment: Urine Specimen Source+ CLEAN CATCH Performed By: #### L 200.3001 #### ML - LABORATORY [address] [place] [address] 27140 ASSOCIATE PATHOLOGIST CYTOLOGYon 02-23-2020 ASSOCIATE PATHOLOGIST CYTOLOGY RUN DATE: 03/02/20 Laboratory LIVE PAGE 1 RUN TIME: 725 Specimen Inquiry RUN USER: INTERFACE [facility] Department of Laboratories [address] [place] [address] PATIENT: BETINA BARBOZA LOC: [facility] U #: [id number] HOME PHONE: AGE/SX: 34/F ROOM: RE02/23/[address] [facility] [address]: Barbara Moore D.O.B.: 81 BED: DIS: STATUS: REG REF LAB O/S: Specimen : [id number] Date Collected: 02/23/20 Surgeon : Barbara Moore [...] indicated, further investigation is recommended. Signed-Out: OVI Sears([facility]) (signature on file) 03/02/20 My electronic signature is attestation that I have personally reviewed the submitted material(s) and the final report reflects that evaluation. END OF REPORT Normal [facility] Comment on above: Performed By: #### G Y #### [facility] [address] [address] CYTOLOGY ASSOCIATE PATHOLOGIST, CONVERTEDon [facility] CYTOLOGY ASSOCIATE PATHOLOGIST, CONVERTEDon [facility] Vital Signs Date Time Vital Sign Value Performing Clinician Marielle corona 05-12-2025 13:15-0400 Body temperature 98.8 [degF] Madelaine Lee MD Work Phone: [facility] 05-12-2025 13:15-0400 Diastolic blood pressure 78 mm[Hg] Madelaine Lee MD Work Phone: [phone] [place] [address] 05-12-2025 13:15-0400 Heart rate 71 /min Madelaine Lee MD Work Phone: [phone])[phone] [place] [address] 05-12-2025 13:15-0400 Respiratory rate 16 /min Madelaine Lee MD Work Phone: [facility] 05-12-2025 13:15-0400 SaO2% (BldA) [Mass fraction] 100 % Madelaine Lee MD Work Phone: [facility] 05-12-2025 13:15-0400 Systolic blood pressure 116 mm[Hg] Madelanie Lee MD Work Phone: [facility] 05-12-2025 10:01-0400 Body height 167.64 cm Madelaine Lee MD Work Phone: [facility] 05-12-2025 10:01-0400 Body mass index (BMI) [Ratio] 41.8 kg/m2 Madelaine Lee MD Work Phone: [facility] 05-12-2025 10:01-0400 Body weight 117.38 kg Madelaine Lee MD Work Phone: [facility] 04-27-2025 13:55-0400 Body height 167.64 cm Madelaine Lee MD Work Phone: [facility] 04-27-2025 13:54-0400 Body mass index (BMI) [Ratio] 42.2 kg/m2 Madelaine Lee MD Work Phone: [facility] 04-27-2025 13:54-0400 Body weight 118.55 kg Madelaine Lee MD Work Phone: [facility] 04-27-2025 13:54-0400 Diastolic blood pressure 94 mm[Hg] Madelaine Lee MD Work Phone: [facility] 04-27-2025 13:54-0400 Systolic blood pressure 138 mm[Hg] Madelaine Lee MD Work Phone: [facility] 04-07-2025 09:35-0400 Body weight 117.57 kg Madelaine Lee MD Work Phone: 1([phone] [place] [address] 03-14-2025 10:44-0400 Body temperature 97.7 [degF] Madelaine Lee MD Work Phone: [facility] 03-14-2025 10:44-0400 Diastolic blood pressure 70 mm[Hg] Madelaine Lee MD Work Phone: [facility] 03-14-2025 10:44-0400 Heart rate 100 /min Madelaine Lee MD Work Phone: [facility] 03-14-2025 10:44-0400 Respiratory rate 16 /min Madelaine Lee MD Work Phone: [facility] 03-14-2025 10:44-0400 SaO2% (BldA) [Mass fraction] 97 % Madelaine Lee MD Work Phone: [phone] [place] [address] 03-14-2025 10:44-0400 Systolic blood pressure 130 mm[Hg] Madelaine Lee MD Work Phone: [facility] 02-24-2025 11:26-0400 Diastolic blood pressure 84 mm[Hg] Madelaine Lee MD Work Phone: [facility] 02-24-2025 11:26-0400 Systolic blood pressure 136 mm[Hg] Madelaine Lee MD Work Phone: [facility] 02-24-2025 10:37-0400 Body height 167.64 cm Madelaine Lee MD Work Phone: [facility] 02-24-2025 10:37-0400 Body mass index (BMI) [Ratio] 42.3 kg/m2 Madelaine Lee MD Work Phone: [facility] 02-24-2025 10:37-0400 Body weight 118.89 kg Madelaine Lee MD Work Phone: [facility] 02-15-2025 13:31-0400 Body height 167.64 cm Madelaine Lee MD Work Phone: [facility] 02-15-2025 13:31-0400 Body weight 119.83 kg Madelaine Lee MD Work Phone: [facility] 12-02-2023 06:41-0400 Body height 167.64 cm DO Sharita Hector Work Phone: [facility] 12-02-2023 06:41-0400 Body mass index (BMI) [Ratio] 44.2 kg/m2 DO Sharita Hector Work Phone: [facility] 12-02-2023 06:41-0400 Body temperature 97.7 [degF] DO Sharita Hector Work Phone: [facility] 12-02-2023 06:41-0400 Body weight 124.45 kg DO Sharita Hector Work Phone: [facility] 12-02-2023 06:41-0400 Diastolic blood pressure 70 mm[Hg] DO Sharita Hector Work Phone: [facility] 12-02-2023 06:41-0400 Heart rate 91 /min DO Sharita Hector Work Phone: [facility] 12-02-2023 06:41-0400 Respiratory rate 16 /min DO Sharita Hector Work Phone: [facility] 12-02-2023 06:41-0400 SaO2% (BldA) [Mass fraction] 95 % DO Sharita Balderasnger Work Phone: [facility] 12-02-2023 06:41-0400 Systolic blood pressure 132 mm[Hg] DO Sharita Hector Work Phone: [facility] 03-06-2023 07:45-0400 Body temperature 98.9 [degF] DO Sharitamartin Balderasnger Work Phone: [facility] 03-06-2023 07:45-0400 Diastolic blood pressure 76 mm[Hg] DO Sharita Hector Work Phone: [facility] 03-06-2023 07:45-0400 Heart rate 83 /min DO Sharita Balderasnger Work Phone: [facility] 03-06-2023 07:45-0400 Respiratory rate 16 /min DO Sharita Balderasnger Work Phone: [facility] 03-06-2023 07:45-0400 SaO2% (BldA) [Mass fraction] 98 % DO Sharita Balderasnger Work Phone: [facility] 03-06-2023 07:45-0400 Systolic blood pressure 123 mm[Hg] DO Sharitamartin Balderasnger Work Phone: [facility] 03-06-2023 06:21-0400 Body height 167.64 cm DO Sharitamartin Balderasnger Work Phone: [facility] 03-06-2023 06:21-0400 Body mass index (BMI) [Ratio] 41.6 kg/m2 DO Sharita Hector Work Phone: [facility] 03-06-2023 06:21-0400 Body weight 117 kg DO Sharita Hector Work Phone: [facility] 12-22-2022 21:18-0400 Body mass index (BMI) [Ratio] 43.1 kg/m2 DO Sharita Hector Work Phone: [facility] 12-22-2022 21:18-0400 Body temperature 97 [degF] DO Sharita Hector Work Phone: [facility] 12-22-2022 21:18-0400 Body weight 121.24 kg DO Sharita Hector Work Phone: [facility] 12-22-2022 21:18-0400 Diastolic blood pressure 99 mm[Hg] DO Sharita Hector Work Phone: [facility] 12-22-2022 21:18-0400 Heart rate 119 /min DO Sharita Hector Work Phone: [facility] 12-22-2022 21:18-0400 Respiratory rate 16 /min DO Sharita Hector Work Phone: [facility] 12-22-2022 21:18-0400 SaO2% (BldA) [Mass fraction] 99 % DO Sharita Hector Work Phone: [facility] 12-22-2022 21:18-0400 Systolic blood pressure 187 mm[Hg] DO Sharita Hector Work Phone: [facility] 10-17-2022 14:34-0400 Body height 167.64 cm DO Sharita Hector Work Phone: [facility] 10-17-2022 14:34-0400 Body mass index (BMI) [Ratio] 42.9 kg/m2 DO Sharita Hector Work Phone: [facility] 10-17-2022 14:34-0400 Body weight 120.71 kg DO Sharita Hector Work Phone: [facility] 10-17-2022 14:34-0400 Diastolic blood pressure 86 mm[Hg] DO Sharita Hector Work Phone: [facility] 10-17-2022 14:34-0400 Systolic blood pressure 124 mm[Hg] DO Sharita Hector Work Phone: [facility] 06-07-2022 14:44-0400 Body height 172.7 cm Gena Meek PA-C Work Phone: [facility] 06-07-2022 14:44-0400 Body weight 120.2 kg Gena Meek PA-C Work Phone: [facility] 06-07-2022 14:44-0400 Diastolic blood pressure 85 mm[Hg] Gena Meek PA-C Work Phone: [facility] 06-07-2022 14:44-0400 Systolic blood pressure 136 mm[Hg] Gena Meek PA-C Work Phone: [facility] Encounters Encounter Date Encounter Type Care Provider Facility Start: 06-28-2025 ambulatory Madelaine Lee Facility:[facility] Start: 05-24-2025 ambulatory Kevin Chakraborty Facility :[facility] Start: 05-21-2025 End: 05-21-2025 Patient encounter procedure Laura ENRIQUE -[facility] Work Phone: Start: 05-21-2025 End: 05-21-2025 ambulatory Madelaine Lee MD Work Phone: -[facility] Start: 05-12-2025 End: 05-12-2025 Emergency department patient visit Madelaine Lee MD Work Phone: -Emergency Department Work Phone: Start: 04-27-2025 End: 04-27-[address] Leticia Nunez MD -[facility] Work Phone: Start: 04-27-2025 End: 04-27-2025 ambulatory Madelaine Lee MD Work Phone: -[facility] Start: 04-07-2025 End: 05-04-2025 Discharged Recurring Kevin Friend DO -[facility] Work Phone: Start: 04-07-2025 End: 05-04-2025 ambulatory Madelaine Lee MD Work Phone: -[facility] Start: 03-14-2025 End: 03-14-2025 ambulatory Madelaine Lee MD Work Phone: -[facility] Start: 03-14-2025 End: 03-14-2025 Patient encounter procedure Brock Green ELECTRICIAN APPRENTICE-C -[facility] Work Phone: Start: 03-14-2025 End: 03-14-2025 ambulatory Brock Green Facility:[facility] Start: 03-10-2025 Registered Referred HEALTH RIS K ASSESSMENT -Employee Health Start: 03-10-2025 End: 03-10-2025 ambulatory Madelaine Lee MD Work Phone: [facility] Start: 03-10-2025 End: 03-10-2025 Patient encounter procedure Lynnette RAMÍREZC -[facility] Work Phone: Start: 03-10-2025 End: 03-10-2025 ambulatory Lynnette Arrieta Facility:[facility] Start: 02-24-2025 End: 02-24-2025 Patient encounter procedure Lynnette Arrieta ELECTRICIAN APPRENTICE-C -[facility] Work Phone: Start: 02-24-2025 End: 02-24-2025 Patient encounter status Lynntete Arrieta ELECTRICIAN APPRENTICE-C [facility] Start: 02-24-2025 End: 02-24-2025 ambulatory Madelaine Lee MD Work Phone: -[facility] Start: 02-15-2025 End: 02-15-2025 Patient encounter procedure Kevin Chakraborty DO -[facility] Work Phone: Start: 02-15-2025 End: 02-15-2025 ambulatory Madelaine Lee MD Work Phone: -[facility] Start: 02-15-2025 End: 03-04-2025 Discharged Recurring Kevin Chakraborty DO -Nutritional Servic es Work Phone: Start: 02-15-2025 Registered Recurring Kevin Chakraborty DO -Nutritional Services Work Phone: Start: 02-15-2025 End: 03-04-2025 ambulatory Madelaine Lee MD Work Phone: -Nutritional Services Start: 02-01-2025 End: 02-01-2025 ambulatory Madelaine Lee MD Work Phone: -Cat Scan [facility] Start: 02-01-2025 End: 02-01-2025 Patient encounter procedure Kevin Mylene DO -[facility] Work Phone: Start: 02-01-2025 End: 02-01-2025 ambulatory Johnon Jesus Facility:[facility] Start: 11-12-2024 End: 11-12-2024 Patient encounter procedure Kevin Chakraborty DO -[facility] Work Phone: Start: 11-12-2024 End: 11-12-2024 ambulatory Madelaine Lee [place] [place] Start: 11-10-2024 End: 11-10-2024 ambulatory Madelaine Lee MD Work Phone: [facility] Work Phone: Start: 11-10-2024 End: 11-10-2024 Patient encounter procedure Kevin Chakraborty DO -Ultrasound, [facility] Work Phone: Start: 11-10-2024 End: 11-10-2024 ambulatory Madelaine Jesus Facility:[facility] Start: 10-29-2024 End: 10-29-2024 ambulatory Madelaine Lee MD Work Phone: [facility] Work Phone: Start: 10-29-2024 End: 10-29-2024 Patient encounter procedure Kevin Chakraborty DO -Cat Scan, [facility] Work Phone: Start: 10-29-2024 End: 10-29-2024 ambulatory Kevin Chakraborty Facility:[facility] Start: 09-24-2024 End: 09-24-[address] Madelaine Lee MD -[facility] Work Phone: Start: 09-24-2024 End: 09-24-2024 ambulatory Madelaine Lee Facility:[facility] Start: 12-02-2023 End: 12-02-2023 ambulatory DO Sharita Young Work Phone: [facility] Work Phone: Start: 12-02-2023 End: 12-02-2023 Patient encounter procedure DO Sharita Young Work Phone: [facility]-Laboratory, Specimen Work Phone: Start: 12-02-2023 End: 12-02-2023 Patient encounter procedure DO Sharita Young Work Phone: [facility] Work Phone: Start: 11-15-2023 End: 11-15-2023 Patient encounter procedure DO Sharita Young Work Phone: [facility] Gastroenterology Work Phone: Start: 09-17-2023 End: 09-17-2023 ambulatory [facility] Work Phone: Start: 09-17-2023 End: 09-17-2023 Patient encounter procedure [facility]-Outpatient Breast Imaging Work Phone: Start: 06-07-2023 End: 06-07-2023 ambulatory DO Sharita Young Work Phone: [facility] Work Phone: Start: 06-07-2023 End: 06-07-2023 Patient encounter procedure DO Sharita Young Work Phone: [facility]-Ultrasound, [facility] Work Phone: Start: 05-16-2023 End: 05-16-2023 Patient encounter procedure DO Sharita Young Work Phone: [facility] Gastroenterology Work Phone: Start: 05-11-2023 End: 05-11-2023 ambulatory DO Sharita Balderasnger Work Phone: [facility] Work Phone: Start: 05-11-2023 End: 05-11-2023 Patient encounter procedure DO Sharita Young Work Phone: [facility]-Laboratory, Specimen Work Phone: Start: 05-08-2023 End: 05-08-2023 Patient encounter procedure DO Sharita Young Work Phone: [facility]-Cat Scan, [facility] Work Phone: Start: 03-22-2023 Registered Referred DO Sharita Young Work Phone: [facility]-Employee Health Start: 03-06-2023 Non-patient / Non-visit DO Sharita Young Work Phone: [facility] Start: 03-06-2023 End: 03-06-2023 Admission to same day surgery center DO Sharita Young Work Phone: [facility]-Endoscopy Work Phone: Start: 03-06-2023 End: 03-06-2023 ambulatory DO Sharita Young Work Phone: [facility] Work Phone: Start: 12-22-2022 End: 12-23-2022 Emergency department patient visit DO Sharita Young Work Phone: [facility]-Emergency Department Work Phone: Start: 12-11-2022 End: 12-11-2022 ambulatory DO Sharita Young Work Phone: [facility] Work Phone: Start: 12-11-2022 End: 12-11-2022 Patient encounter procedure DO Sharita Young Work Phone: [facility] Gastroenterology Start: 10-17-2022 End: 10-17-2022 ambulatory DO Sharita Young Work Phone: [facility] Work Phone: Start: 10-17-2022 End: 10-17-2022 Patient encounter procedure DO Sharita Young Work Phone: [facility] Start: 08-27-2022 End: 08-27-2022 ambulatory [facility] Work Phone: Start: 08-27-2022 End: 08-27-2022 Patient encounter procedure [facility]-Outpatient Breast Imaging Start: 06-07-2022 End: 06-07-2022 ambulatory GENA MEEK Facility:[facility] Start: 06-07-2022 End: 06-07-2022 Patient encounter procedure Gena Meek MD-C Work Phone: [facility] Dermatology Comment on above: Rosacea (Primary Dx) Start: 08-25-2021 End: 08-25-2021 Patient encounter procedure [facility]-Outpatient Breast Imaging Start: 10-07-2018 Patient encounter procedure Mirna Corteze Facility:[facility] Start: 09-28-2018 Patient encounter procedure James Ambrose Facility:[facility] Start: 11-22-2008 Documentation procedure Phan Robertson III, MD Work Phone: [facility] Start: 11-22-2008 Historic EMR Phan Robertson MD Work Phone: [facility] Start: 12-21-2005 Documentation procedure Phan Robertson III, MD Work Phone: [facility] Start: 12-21-2005 Historic EMR Phan Robertson MD Work Phone: [facility] Procedures Date Procedure Procedure Detail Performing Clinician Start: 05-12-2025 Ct abdomen & pelvis w/contrast material Madelaine Lee MD Work Phone: Start: 05-12-2025 Urnls dip stick/tabl et reagent auto microscopy Madelaine Lee MD Work Phone: Start: 05-12-2025 Estimated creatinine clearance Madelaine Lee MD Work Phone: Start: 03-15-2025 Urine culture Madelaine demarco MD Work Phone: Start: 03-10-2025 Serum inorganic phos phate measurement [...] Start: 08-25-2021 Screening mammography Start: 11-19-2008 CYTOLOGY ASSOCIATE PATHOLOGIST, CONVERTED Phan Robertson MD Work Phone: Start: 12-19-2005 CYTOLOGY ASSOCIATE PATHOLOGIST, CONVERTED Phan Robertson MD Work Phone: Cytopathology proced ure, preparation of smear, genital source DO Sharita Young Work Phone: Investigation of transfusion reaction DO Sharita Young Work Phone: Plan of Treatment Date Care Activity Detail Author Start: 05-12-2025 [facility] Start: 04-07-2025 End: 05-04-2025 Discharged Recurring Discharged Recurring -Nutritional Services Work Phone: Start: 06-07-2023 Liver elastography w/o imag w/i&r LIVER ELASTOGRAPHY [facility] Start: 04-05-2023 Influenza vaccination Influenza Vaccine (#1) [facility] Start: 03-06-2023 Colonoscopy w/biopsy single/multiple COLONOSCOPY AND BIOPSY [facility] Start: 03-06-2023 Colsc flx w/rmvl of tumor polyp lesion snare tq COLONOSCOPY W/LESION REMOVAL [facility] Start: 03-06-2023 Egd transoral biopsy single/multiple EGD BIOPSY SINGLE/MULTIPLE [facility] Start: 03-06-2023 Patient discharge [facility] Start: 10-17-2022 Liquid based cervical cytology screening [facility] Start: 10-17-2022 Source specific culture [facility] Start: 08-05-2022 Depression Assessment Depression Assessment [facility] Start: 04-05-2022 Influenza vaccination INFLUENZA (#1) [facility] Start: 09-13-2021 COVID-19 VACCINE (4 - Booster for Moderna series) COVID-19 VACCINE (4 - Booster for Moderna series) [facility] Start: 09-13-2021 Covid-19 Vaccine (4 - Moderna series) Covid-19 Vaccine (4 - Moderna series) [facility] Start: 08-05-2021 DEPRESSION ASSESSMENT DEPRESSION ASSESSMENT [facility] Start: 05-03-2021 HPV TESTING HPV TESTING [facility] Start: 05-03-2021 PAP TESTING PAP TESTING [facility] Start: 12-11-2002 Urine microalbumin profile [facility] Start: 12-11-2001 HEPATITIS C SCREENING HEPATITIS C SCREENING [facility] Start: 12-11-2001 HIV SCREENING HIV SCREENING [facility] Start: 1985 HEPATITIS B (1 of 3 - 3-dose series) HEPATITIS B (1 of 3 - 3-dose series) [facility] Start: 1985 Hepatitis B Vaccine (1 of 3 - 3-dose series) Hepatitis B Vaccine (1 of 3 - 3-dose series) [facility] Cytopathology proced ure, preparation of smear, genital source Genital Culture [facility] Lactoferrin [Presenc e] in Stool by Immunoassay [facility] MG Breast - bilatera l Screening [facility] Path report.final Dx Spec [facility] Patient Education ED Diverticulitis [facility] Work Phone: Patient referral [facility] Work Phone: Protein measurement [facility] Protein measurement [facility] US Pelvis [facility] US Pelvis [facility] Immunizations Immunization Date Immunization Notes Care Provider Mari turner 06-19-2024 influenza, seasonal, injectable, preservative free Madelaine Lee MD Work Phone: [facility] 06-10-2023 influenza, injectabl e, quadrivalent, preservative free DO Sharita Hector Work Phone: [facility] 06-21-2022 influenza, injectabl e, quadrivalent, preservative free DO Sharita Hector Work Phone: [facility] 06-21-2022 influenza, seasonal, injectable [facility] 09-07-2020 Covid (Moderna) [facility] 08-10-2020 [facility] (Moderna) [facility] 06-09-2020 influenza, injectabl e, quadrivalent, preservative free DO Sharita Hector Work Phone: [facility] 06-09-2020 influenza, seasonal, injectable [facility] 06-09-2020 influenza virus vaccine, unspecified formulation Phan Robertson III, MD Work Phone: [facility] 06-10-2019 influenza, injectabl e, quadrivalent, preservative free DO Sharita Hector Work Phone: [facility] 06-10-2019 influenza, seasonal, injectable [facility] 07-03-2018 influenza, injectabl e, quadrivalent, preservative free DO Sharita Hector Work Phone: [facility] 07-03-2018 influenza, seasonal, injectable [facility] 05-10-2017 influenza, injectabl e, quadrivalent, preservative free DO Sharita Hector Work Phone: [facility] 05-10-2017 influenza, seasonal, injectable [facility] 05-03-2016 influenza, injectabl e, quadrivalent, preservative free DO Sharita Hector Work Phone: [facility] 05-03-2016 influenza, seasonal, injectable [facility] 05-31-2015 influenza, injectabl e, quadrivalent, preservative free DO Sharita Hector Work Phone: [facility] 05-31-2015 influenza, seasonal, injectable [facility] 05-13-2014 influenza, injectabl e, quadrivalent, preservative free DO Sharita Hector Work Phone: [facility] 05-13-2014 influenza, seasonal, injectable [facility] Payers Date Payer Category Payer Self-pay [id number] 2024 Unknown [id number] 2017 Unknown 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 2017-Present [phone] [address] [address] [place] [address] Indemnity [id number] 2016 Unknown [id number] Unknown [id number] Unknown [id number] Unknown [id number] Unknown [id number] [id number] Unknown [id number] [id number] Unknown [id number] [id number] Unknown [id number] [id number] Unknown [id number] [id number] Unknown [id number] 2.16.840.1.125945.3.579.2.462 Unknown [id number] [id number] Unknown [id number] 2.16.840.1.551402.3.579.2.462 Unknown [id number] 2.16.840.1.169802.3.579.2.462 Unknown [id number] [id number] Unknown [id number] [id number] Unknown [id number] 2.16.840.1.584428.3.579.2.462 Unknown [id number] [id number] Unknown [id number] [id number] Unknown [id number] [id number] Unknown [id number] [id number] Unknown [id number] [id number] Social History Date Type Detail Facility Tobacco smoking status PAIS Unknown if ever smoked [facility] Work Phone: Start: 1985 Sex Assigned At Female [facility] Start: 02-17-2018 End: 05-12-2025 Tobacco smoking status NHIS Never smoked tobacco [facility] Start: 02-17-2018 Tobacco use and exposure Smokeless tobacco non-user [facility] Start: 06-10-2022 Alcohol intake 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 (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) [facility] Start: 1985 Sex Assigned At Not on file [facility] Start: 05-28-2022 End: 06-07-2022 Exposure to SARS-CoV-2 (event) Not sure [facility] Start: 10-17-2022 End: 11-15-2023 Tobacco smoking status NHIS Unknown if ever smoked [facility] Start: 06-10-2022 End: 09-02-2022 History of Social function [facility] Start: 06-10-2022 End: 09-02-2022 Tobacco use panel [facility] National Score (1-100), lower number is lower risk 81 [facility] Start: 11-05-2024 End: 11-13-2024 Sex Female (finding) [facility] NEGATED: Highlighted row [facility] Goals Date Patient Goal Desired Activity /State Mental Status Date Assessment Result Facility 03-06-2023 Cognitive function Voice/Name [facility] Work Phone: Clinical Notes 06-07-2022 to 05-21-2025 Note Date & Type Note Facility 05-21-2025 Progress note [facility] 05-12-2025 Radiology Diagnostic study note [facility] Imaging Services [address] [place], [place] [address] Abdomen/Pelvis W IV Cont ONLY MR#: [id number] Acct: [id number] Name: BETINA BARBOZA YADIRA Rep #: [id number] : 1985 F 39 From: Tripp Parsons MD PCP: Dr. Madelaine Lee MD Status: REG ER Study:Abdomen/Pelvis W IV Cont ONLY Date of E xam: 05/12/25 Exam# [id number] Ordering Dr: Shaquille Hernandez DO PROCEDURE: ABDOMEN/PELVIS W IV CONT ONLY 05/12/2025 REASON FOR EXAM: ABDOMINAL PAIN Left lower quadrant pain. TECHNIQUE: Procedure Code: [id number] Modality: CT Procedure: ABDOMEN/PELVIS W IV CONT ONLY Coronal and Sagittal reconstruction series were provided. CONTRAST: Isovue-300 VOLUME: 100 mL One or more dose reduction techniques were used (e.g., Automated exposure control, adjustment of the mA and/or kV according to patient size, use of iterative reconstruction technique. RADIATION DOSE SUMMARY: CTDlvol: 16.6 mGy DLP: 1322.87 mGycm COMPARISON: Prior study dated February 01, 2025. FINDINGS: Lung bases: The lung bases are clear. Liver: Diffuse fatty infiltration. Gallbladder: Gallbladder is unremarkable. Spleen: Normal size. Pancreas: Normal size without evidence of mass surrounding inflammation or ductal dilation. Adrenals: Unremarkable Kidneys: Normal renal sizes. No hydronephrosis. Bladder: Unremarkable Reproductive Organs: Normal uterine size and contour. Ovaries are unremarkable. Bowel: Sigmoid colon diverticula with wall thickening and adjacent inflammatory changes. No evidence of perforation or abscess. Appendix: Unremarkable Lymph nodes: No significant lymph nodes are seen Vasculature: The abdominal aorta and IVC are normal. Peritoneum / Retroperitoneum: Unremarkable Bones: No significant abnormality is present. CT/Abdomen/Pelvis W IV Cont ONLY IMPRESSION: Non complicated sigmoid diverticulitis. Fatty infiltration of the liver. Reading Location: [id number] CC: Dr. Madelaine Lee MD; Dr. Shaquille Hernandez, DO ~ Accuracy Expert: Signed [facility] 04-27-2025 Progress note [facility] 04-27-2025 Progress note Note Date/Time April 27, 2025 2:50pm [facility] [address], [address] [place] [address] OFFICE VISIT Date of Service: 04/27/25 MR#: [id number] Acct: [id number] Name: BETINA BARBOZA Rep #: [id number] : 1985 Provider: Dr. Cornelio Nunez MD Age/Sex: 39/F [place] [facility] [place]: Signed Intake Vital Signs 02/24/25 10:37 04/07/25 09:35 04/27/25 13:54 04/27/25 13:55 Height 5 ft 6 in 5 ft 6 in 5 ft 6 in 5 ft 6 in Weight: 261 lb 6 oz BMI 42.2 BP 138/94 H Intake Visit Reasons: surgical consult *COPAY $20 Clerical And Administrative Workers Required: No Is patient in pain?: No Allergies No Known Allergies Allergy (Verified 04/27/25 13:49) Medications ?Medication ?Instructions ?Recorded ?Confirmed ?Type pantoprazole 20 mg tablet,delayed 20 mg PO DAILY #90 T ABLETS 04/14/24 04/27/25 Rx release hyoscyamine sulfate 0.125 mg 0.125 mg PO BID-QID PRN d yspepsia 09/25/24 04/27/25 Rx disintegrating tablet #60 tabs mesalamine 800 mg tablet,delayed 1,600 mg (2 x 800 mg) PO BID #120 01/07/25 04/27/25 Rx release tabs drospirenone 3 mg-ethinyl 1 tab PO DAILY #84 tabs /10/2704/27/25 Rx estradiol 0.03 mg tablet Is last menstrual period known: Yes Last Menstrual Period: 04/23/25 Post menopausal: No Patient : No : No [facility] Medical History Fatty liver Heartburn Non-smoker History [...] 0 current occupational status: employed 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 HPI surgical consult *COPAY $20 Details: The patient is a 39-year-old female presenting for management of uterine fibroidand evaluation of other gynecological concerns. The patient has a history of ovarian cysts, specifically a dermoid cyst, which was removed via laparoscopy. This procedure was performed by Dr. Rollins, and the patient has been asymptomatic since the surgery. She also has a history of diverticulitis, which began around the age of 29. She has been under the care of Dr. Pearce and has undergone a colonoscopy revealing significant inflammation in the colon. The patient is currently on mesalamine and reports improvement with no recent flare-ups. The patient reports having a uterine fibroid approximately 3.5-4 cm in size. It is not causing significant symptoms currently, but there is a discussion about potential growth and management options, including medication or surgical intervention if symptoms worsen. The patient has a family history of ovarian cancer, with her paternal grandmother having from the disease. She has undergone genetic testing for cancer risk in the past, although she does not recall the results. Her mother had breast cancer at age 35 but is currently doing well at age 61. The patient has been experiencing elevated blood pressure readings, which may beinfluenced by her current use of control pills. There is a family history of hypertension, with her father having had a heart attack and stroke by age 64. - Imaging: Uterine fibroid approximately 3.5-4 cm in size. Attestation: Documentation on this patient encounter was supported using ambient scribe technology/ voice AI technology. The patient consented to recording for the purpose of documenting the encounter. Provider reviewed content of the generatednote prior to signature. Female Reproductive History Last Menstrual Period: 04/23/25 History 0 Elective abortions Hx Para Spontaneous abortions Hx # Term Pregnancies Ectopic pregnancies Hx # Pregnancies Multiple births # of living children ROS Const Constitutional: Denies fatigue, fever(s), headache(s), increased appetite, poor appetite, weight gain or weight loss GI GI: Reports as per HPI and constipation; Denies abdominal pain, nausea or vomiting : Reports as per HPI; Denies difficulty voiding, dysuria, hematuria, pelvic pain, urinary frequency, urinary incontinence, urinary hesitancy, urinary urgency, vaginal discharge, vaginal dryness, vaginal odor, vaginal pruritus or other Exam Const General: cooperative, healthy appearing, comfortable, no acute distress and welldeveloped Orientation: alert HENMT Head: normal to inspection and normocephalic Ears: hearing grossly normal bilaterally and external ears normal Nose: external nose normal and nares normal Face and sinus: normal facial exam Neck Neck: normal visual inspection, no lymphadenopathy and trachea midline Thyroid: thyroid normal Resp Effort & Inspection: normal respiratory effort Musc Other: gross motor intact no deficits, full bilateral strength Skin General: no rashes or lesions noted Neuro Motor: muscle tone normal throughout Coding Level of Care Code Off vis,est,level 4 Diagnoses Fibroid uterus D25.9 Pelvic pain R10.2 Family history of ovarian cancer Z80.41 Family history of breast cancer in mother Z80.3 Assessment and Plan Assessment and Plan (1) Fibroid uterus: Status: Acute (2) Pelvic pain: Status: Acute Comment: improving. quesiton diverticular disease vs fibroid uterus. (3) Family history of ovarian cancer: Status: Acute Comment: negative cancer genetic testing. (4) Family history of breast cancer in mother: Status: Acute Comment: Patient with negative genetic testing. Does yearly mammogram Orders: Orders Pelvic w/ Transvaginal 2 Months D25.9 - Leiomyoma of uterus, unspecified, R10.2- Pelvic and perineal pain Plan Assessment and Plan 39-year-old female with a history of ovarian cysts and diverticulitis presentingwith uterine fibroid management and evaluation of elevated blood pressure. The uterine fibroid is currently asymptomatic, measuring approximately 3.5-4 cm.The patient is advised to monitor for any symptoms such as increased pain or bleeding, which may necessitate intervention. Options include medication to slowgrowth or surgical removal if symptoms become significant. The patient's blood pressure is elevated, potentially related to her use of estrogen-containing control pills. A switch to a progesterone-only pill orhormone jcarlos may be considered if hypertension persists. Family history of hypertension and cardiovascular events is noted, necessitating careful monitoring. 1. Uterine Fibroid The uterine fibroid is currently asymptomatic, measuring approximately 3.5-4 cm.The patient is advised to monitor for any symptoms such as increased pain or bleeding, which may necessitate intervention. Options include medication to slowgrowth or surgical removal if symptoms become significant. 2. Hypertension The patient's blood pressure is elevated, potentially related to her use of estrogen-containing control pills. A switch to a progesterone-only pill orhormone jcarlos may be considered if hypertension persists. Family history of hypertension and cardiovascular events is noted, necessitating careful monitoring. 04/27/25 1450 <Electronically signed by Leticia mary MD> Date _ Leticia Nunez MD Cosigner Signature: Date (if applicable) CC: ~ [facility] Work Phone: 1(210) 994-300408-06-2025 Radiology Diagnostic study note [facility] Imaging Services [address] [place] [address] Pelvic w/ Transvaginal MR#: [id number] Acct: [id number] Name: BETINA BARBOZA YADIRA Rep #: [id number] : 1985 F 39 From: Tripp Parsons MD PCP: Dr. Madelaine Lee MD Status: REG CL I Study:Pelvic w/ Transvaginal Date of Exam: 03/10/25 Exam# [id number] Ordering Dr: Lynnette Arrieta ELECTRICIAN APPRENTICE-C PROCEDURE: PELVIC W/ TRANSVAGINAL REASON FOR EXAM: [...] fibroid. Status post right oophorectomy. Reading Location: [id number] CC: RAND Arrieta; Dr. Madelaine Lee MD ~ Accuracy Expert: Signed [facility]07-14-2025 Evaluation note* Diagnosis Onset Date Resolution Status Admit Date Diverticulitis acute February 15, 2025 2:47pm GERD (gastroesophageal reflu x disease) acute February 15, 2025 2:47pm THOMPSON (nonalcoholic steatohepatitis) acute February 15, 2025 2:47pm Frequent stools chronic February 2:47pm Fibroid uterus acute February 24, 2025 10:26am Pelvic pain acute February 24 10:26am Encounter for routine gynecological examination noneactive February 032024 10:26am UTI (urinary tract infection) acute March 14, 2025 10:39am [facility] Work Phone: [phone] Evaluation note* Diagnosis Onset Date Resolution Status Admit Date Diverticulitis acute February 15, 2025 2:47pm GERD (gastroesophageal reflu x disease) acute February 15, 2025 2:47pm THOMPSON (nonalcoholic steatohepatitis) acute February 15, 2025 2:47pm Frequent stools chronic February 2:47pm Fibroid uterus acute February 24, 2025 10:26am Pelvic pain acute February 24 10:26am Encounter for routine gynecological examination noneactive February 032024 10:26am UTI (urinary tract infection) acute March 14, 2025 10:39am Family history of breast cancer in mother acute April 27, 2025 1:42pm Family history of ovarian cancer acute April 27, 2025 1:42pm Fibroid uterus acute April 27, 2025 1:42pm Pelvic pain acute April 1:42pm [facility] Work Phone: [phone]) 209-818807-14-2025 Evaluation note* Diagnosis Onset Date Resolution Status Admit Date Diverticulitis acute February 15, 2025 2:47pm GERD (gastroesophageal reflu x disease) acute February 15, 2025 2:47pm THOMPSON (nonalcoholic steatohepatitis) acute February 15, 2025 2:47pm Frequent stools chronic February 2:47pm Fibroid uterus acute February 24, 2025 10:26am Pelvic pain acute February 24 10:26am Encounter for routine gynecological examination noneactive February 032024 10:26am UTI (urinary tract infection) acute March 14, 2025 10:39am Family history of breast cancer in mother acute April 27, 2025 1:42pm Family history of ovarian cancer acute April 27, 2025 1:42pm Fibroid uterus acute April 27, 2025 1:42pm Pelvic pain acute April 1:42pm Diverticulitis acute May 212024 7:53am [facility] Work Phone: [phone]) 665-471106-30-2025 Radiology Diagnostic study note [facility] Imaging Services [address] [place] [address] Abdomen/Pelvis WITH Contrast MR#: [id number] Acct: [id number] Name: BETINA BARBOZA Rep #: [id number] : 1985 F 39 From: Sally Morley MD PCP: Dr. Madelaine Lee MD Status: REG CL I Study:Abdomen/Pelvis WITH Contrast Date of Ex am: 02/01/25 Exam# [id number] Ordering Dr: Natali Chakraborty DO PROCEDURE: ABDOMEN/PELVIS [...] acute diverticulitis. 2. Fibroid uterus. Reading Location: [id number] CC: Dr. Madelaine Lee MD; Kevin Friend, DO ~ Accuracy Expert: Signed [facility]04-10-2025 Evaluation note* Diagnosis Onset Date Resolution Status Admit Date Diverticulitis acute November 1:58pm GERD (gastroesophageal reflu x disease) acute November 12, 2024 1:58pm THOMPSON (nonalcoholic steatohepatitis) acute November 12 1:58pm Frequent stools chronic November 1:58pm [facility] Work Phone: [phone]) [phone] Evaluation note* Diagnosis Onset Date Resolution Status [...] routine gynecological examination noneactive February 032024 10:26am [facility] Work Phone: [phone]) 261-603004-09-2025 Radiology Diagnostic study note [facility] Imaging Services [address] [place] [address] ABD Limited w/ Elastography MR#: [id number] Acct: [id number] Name: BETINA BARBOZA Rep #: [id number] : 1985 F 38 From: Ashley Wong MD PCP: Dr. Madelaine Lee MD Status: REG CL I Study:ABD Limited w/ Elastography Date of Exa m: 11/10/24 Exam# [id number] Ordering Dr: Natali Chakraborty DO PROCEDURE: ABD LIMITED W/ ELASTOGRAPHY (USABDLELPARO), 11/10/2024 REASON FOR EXAM: THOMPSON COMPARISON: 10/29/2024 TECHNIQUE: Grayscale and color Doppler imaging of the right upper quadrant was performed. [employer] S-shear waveelastography was performed for non-invasive assessment [...] (15kPa): Significant fibrosis / cirrhosis Reading Location: [id number] CC: Dr. Madelaine Lee MD; Kevin Chakraborty DO ~ Accuracy Expert: Signed [facility]03-27-2025 Radiology Diagnostic study note [facility] Imaging Services [address] [place] [address] Abdomen/Pelvis WITH Contrast MR#: [id number] Acct: [id number] Name: BETINA BARBOZA YADIRA Rep #: [id number] : 1985 F 38 From: Loreto Mazariegos MD PCP: Dr. Madelaine Lee MD Status: REG CL I Study:Abdomen/Pelvis WITH Contrast Date of Ex am: 10/29/24 Exam# [id number] Ordering Dr: Natali Chakraborty DO PROCEDURE: ABDOMEN/PELVIS [...] hepatomegaly with diffuse hepatic steatosis. Reading Location: [facility] CC: Dr. Madelaine Lee MD; Kevin Chakraborty DO ~ Accuracy Expert: Signed [facility]08-02-2023 History and physical note Author Kevin Chakraborty [facility] March 06, 2023 6:57am Note Date/Time March 06, 2023 6:5 7am [facility] Medical Records Department [address] [place] [address] History & Physical Exam 03/06/23 0657 MR#: [id number] Acct: [id number] Name: BETINA BARBOZA Rep #:[id number] : 1985 37 From: Kevin Chakraborty DO PCP: Sharita M Hector, DO Status:REG S DC Location: [place] [address] History and Physical Date of Admission: 03/06/23 BETINA BARBOZA, is a 37 F who presents to the office today for Prior workup: ? CT abd/pel 06.13.20 LLQ pain colonic diverticulosis; [...] Appearance: average body habitus and well nourished HENMT Head: normal to inspection Ears: hearing grossly [...] Affect: normal affect Quality Reporting Tobacco Screening ([facility] 138) Smoking Status: Never smoker Assessment [...] Sharita Young DO; Kevin Chakraborty DO~ Signed [facility] Work Phone: 1([phone]) 486-385408-02-2023 Procedure [facility] 03-06-2023 Procedure [facility]08-02-2023 Procedure note [facility]08-02-2023 Procedure [facility] 10-17-2022 NotePap Smear Specimen AdequacyMarch 2022 5:54pmComment. Satisfactory for evaluation. Endocervical and/or squamous metaplasticcells (endocervical component)are present.[facility] INTER[facility]ACED A#[id number] Medical Specialty Hospital - YoungstownComment on above:Satisfactory for evaluation. Endocervical and/or squamous metaplasticcells (endocervical component)are present.06-07-2022 NoteHNO ID: [id number] Author: Gena Meek PA-C Service: ? Author Type: Physician Buildings Painter Type: Progress Notes Filed: 06/10/2022 10:43 PM [...] PA-C Return in about 1 year (around 06/07/2023).[facility]11-03-2022 History of Present illness Narrative* Gena [...] 1 year (around 06/07/2023). documented in this encounterDay[facility] HospitalEvaluation noteNo assessment information availableWWright-[facility] Work Phone: Evaluation note* Diagnosis Rosacea- Primary documented in this encounter [facility] Diagnosis Onset Date Resolution Status Possible exposure to STD non eactive Encounter for routine gynecological examination noneactive Monilial vaginitis noneactiv e Monilial intertrigo noneacti ve [facility] Work Phone: Evaluation note* Diagnosis Onset Date Resolution Status Possible exposure to STD non eactive Encounter for routine gynecological examination noneactive Monilial vaginitis noneactiv e Monilial intertrigo noneacti ve Diverticulitis acute GERD (gastroesophageal reflux disease) acute Frequent stools chronic [facility] Work Phone: Evaluation note* Diagnosis Onset Date Resolution Status Diverticulitis acute GERD (gastroesophageal reflux disease) acute Frequent stools chronic [facility] Work Phone: Evaluation note* Diagnosis Onset Date Resolution Status Diverticulitis acute GERD (gastroesophageal reflux disease) acute THOMPSON (nonalcoholic steatohepatitis) acute Frequent stools chronic [facility] Work Phone: Progress note Author Laura Zamudio [facility] Note Date/Time May 21, 2025 8 :24am [facility] [address] [place] [address] OFFICE VISIT Date of Service: 05/21/25 MR#: [id number] Acct: [id number] Name: BETINA BARBOZA YADIRA Rep #: [id number] : 1985 Provider: IVA Villaseñor Age/Sex: 39/F [place] [facility] Status: Signed Intake Vital Signs 05/12/25 10:01 Height 5 ft 6 in Intake Visit Reasons: ER FU ABDOMINAL HERNIA NEAR INTESTINE Chief Complaint: Diverticulitis Clerical And Administrative Workers Required: No Accompanied by: Self Is patient in pain?: No Allergies No Known Allergies Allergy (Verified 05/21/25 08:00) Medications ?Medication ?Instructions ?Recorded ?Confirmed ?Type drospirenone 3 mg-ethinyl 1 tab PO DAILY #84 tabs 02/0305/21/25 Rx estradiol 0.03 mg tablet ciprofloxacin HCl 500 mg tablet 500 mg PO BID #20 TABL ETS 05/12/25 05/21/25 Rx metronidazole 500 mg tablet 500 mg PO Q6H #40 tabs 03/2905/21/25 Rx fluconazole 200 mg tablet 200 mg PO QDAY 10 days #10 t abs 05/18/25 05/21/25 Rx hyoscyamine sulfate 0.125 mg 0.125 mg PO BID-QID PRN d yspepsia 05/21/25 05/21/25 Rx disintegrating tablet #60 tabs mesalamine 800 mg tablet,delayed 1,600 mg (2 x 800 mg) PO BID #120 05/21/25 05/21/25 Rx release tabs pantoprazole 20 mg tablet,delayed 20 mg PO DAILY #90 T ABLETS 05/21/25 05/21/25 Rx release PFSH Medical History Fatty liver [...] 0 current occupational status: employed 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 HPI HPI Chief Complaint: Diverticulitis Details: BETINA BARBOZA, is a 39 F who presents to the office today for follow-up. OV 05.15.24 pt reports that she is feeling well overall and denies GI symptoms of concern at this time. Pt notes some abd pain when she tried to decrease her mesalamine. abd/pelvis 10.29.24 1. Severe diverticulosis with moderate wall thickening ofthe distal descending and sigmoid colon. No evidence [...] CT 02.01.25 1. Colonic diverticulosis, without current evidenceof acute diverticulitis. 2. Fibroid uterus. OV 02.15.25 pt reports that she is feeling well overall and denies GI symptoms ofconcern at this time. Pt reports that digestive enzyme / probiotic has been helpful for her symptoms. Is requesting clarification on how to take her Mesalamine. [facility] [facility] ED 05/12/25 with worsening LLQ abd pain over the past 3 days. Similar to prior episodes of diverticulitis. CT showing non complicated sigmoid diverticulitits. Started on Cipro and flagyl. OV 05/21/25 patient recently diagnosed with diverticulitis. Patient having leftlower quadrant pain and loose stool. She was started on Cipro and Flagyl. She continues with mesalamine daily and hyoscyamine as needed. She has had diverticulitis every year since turning 29. ROS Const Constitutional: No fatigue, fever(s) or weight change ENT ENT: No difficulty swallowing Gastro GI: Positive for abdominal pain, change in bowel habits, constipation, diarrhea,nausea/dyspepsia and vomiting; No belching, bloating, change in stool character, coffee ground emesis, cramping, heartburn, difficulty swallowing, feeling full early, excessive flatus, incontinent of stools, Vomiting blood/hematemesis, Blood in stool, loosestools, Black,tarry stools, pain with swallowing or other Musc Musculoskeletal: No joint pain Skin Skin: No yellowing of the eye or itchy eyes Psych Psychiatric: No anxiety and No depression Endo Endocrine: No fatigue or weight change Aller/Imm Allergy/Immunologic: No itchy eyes Dae/Lymp Hematologic/Lymphatic: No easy bleeding or easy bruising Exam Const General: cooperative and comfortable Nutritional Appearance: overweight Orientation: alert HENMT Head: normal to inspection Ears: hearing grossly normal bilaterally Eyes General: appearance normal, both eyes and all related structures Neck Neck: normal visual inspection Chest Chest palpation & inspection: normal inspection of the chest Resp Effort & Inspection: normal respiratory effort Cardio Rate: regular rate Rhythm: regular rhythm GI Inspection: normal to inspection Assessment and Plan Assessment and Plan (1) Diverticulitis: Status: Acute Plan: Betina is a 39-year-old female patient with history of recurrent diverticulitishere today for follow-up. Patient was diagnosed with another flare of diverticulitis last week in the ED and was started on metronidazole and ciprofloxacin. Patient notes that over the past month she has been been more constipated due to a uterine fibroid. It is possible her constipation triggeredthe acute diverticulitis. Patient reports having diverticulitis at least once ayear since turning 29. She is on mesalamine 1600 mg twice a day for prevention however it appears this is not working. I discussed possible need for partial colectomy due to recurrent diverticulitis. In reviewing her chart, she has had 4 CT confirmed episodes of diverticulitis since 2022. Patient will consider referral to surgery and discuss with Dr. Chakraborty at her appointment in August. - Continue antibiotics - Continue mesalamine - Consider referral to general surgery - Follow-up with Dr. Chakraborty Medications: Refilled pantoprazole 20 mg PO DAILY 90 TABLETS 9RF mesalamine must be taken on empty stomach; no food 1 hr after or 2-3 hrs before dose 1,600 mg (2 x 800 mg) PO BID 120 tabs 2RF hyoscyamine sulfate 0.125 mg PO BID-QID PRN 60 tabs 3RF dyspepsia Coding Level of Care Code Off vis,est,level 3 Diagnoses Diverticulitis K57.92 05/21/25 0859 <Electronically signed by Laura ENRIQUE> Date _ Laura ENRIQUE Cosigner Signature: Date (if applicable) CC: ~ [facility] Work Phone: Reason for referral (narrative)No reason for referral information availableWWright-[facility] Work Phone: Summary Purpose Family History No Family History Records Found Relationship Condition Age at Onset Recorded Date/T susie mother Malignant neoplasm of breast 35 father Malignant neoplasm Unknown grandmother Malignant neoplasm Unknown grandfather Malignant neoplasm of colon Unknown Advance Directives No Advanced Directives Records Found Advance Directive Response Recorded Date/ Time Living Will No February 28, 2023 1:20pm Power of Front Desk Supervisor No February 28 1:20pm Advance Directive Response Recorded Date/ Time Living Will No February 28, 2023 12:20pm Power of Front Desk Supervisor No February 28 12:20pm Advance Directive Response Recorded Date/ Time Do you have a Healthcare Power of Front Desk Supervisor? 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) Reason for Visit Possible exposure to STD Encounter for routine gynecological examination Monilial vaginitis Monilial intertrigo Chief Complaint SCREENING Annual (ASSOCIATE PATHOLOGIST) Consult E ORDERS Reason for Visit Possible [...] FU February 15, 2025 2:47 pm Annual (ASSOCIATE PATHOLOGIST) February 24, 2025 10:2 6am Reason for [...] FU February 15, 2025 2:47 pm Annual (ASSOCIATE PATHOLOGIST) February 24, 2025 10:2 6am Chief Complaint Admit Date DIVERTICULITIS - ORAL AND IV CONTRAST Ju ne 2024 4:09pm MNT February 15, 2025 1:13 pm 3 M FU February 15, 2025 2:47 pm Annual (ASSOCIATE PATHOLOGIST) February 24, 2025 10:2 6am PELVIC PAIN, [...] 10:26am UTI (urinary tract infection) March 10:39am Chief Complaint Admit Date DIVERTICULITIS - ORAL AND IV CONTRAST Ju ne 2024 4:09pm MNT February 15, 2025 1:13 pm 3 M FU February 15, 2025 2:47 pm Annual (ASSOCIATE PATHOLOGIST) February 24, 2025 10:2 6am PELVIC PAIN, FIBROID UTERUS March 10, 2025 7:52am 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, 2025 8:4 4am CONCERN FOR UTI March 14, 2025 10 :39am MNT April 07, 2025 9:12am surgical consult *COPAY $20 April 272024 1:42pm Reason for Visit Admit Date Diverticulitis February 15, 2025 2:47 pm GERD (gastroesophageal reflux disease) J dalila 2024 2:47pm THOMPSON (nonalcoholic steatohepatitis) February 15, 2025 2:47pm Frequent stools February 15, 2025 2:47 pm Fibroid uterus February 24, 2025 10:2 6am Pelvic pain February 24, 2025 10:2 6am Encounter for routine gynecological exam ination February 24, 2025 10:26am UTI (urinary tract infection) March 10:39am Family history of breast cancer in [place] April 27, 2025 1:42pm Family history of ovarian cancer Septemb er 2024 1:42pm Fibroid uterus April 27, 2025 1:42pm Pelvic pain April 27, 2025 1:42pm Chief Complaint Admit Date DIVERTICULITIS - ORAL AND IV CONTRAST Ju ne 2024 4:09pm MNT February 15, 2025 1:13 pm 3 M FU February 15, 2025 2:47 pm 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 (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 PATHOLOGIST) February 24, 2025 10:2 6am PELVIC PAIN, FIBROID UTERUS March 10, 2025 7:52am 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, 2025 8:4 4am CONCERN FOR UTI March 14, 2025 10 :39am MNT April 07, 2025 9:12am surgical consult *COPAY $20 April 272024 1:42pm abd May 12, 2025 10 :00am Chief Complaint Admit Date DIVERTICULITIS - ORAL AND IV CONTRAST Ju ne 2024 4:09pm MNT February 15, 2025 1:13 pm 3 M FU February 15, 2025 2:47 pm Annual (ASSOCIATE PATHOLOGIST) February 24, 2025 10:2 6am PELVIC PAIN, FIBROID UTERUS March 10, 2025 7:52am 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, 2025 8:4 4am CONCERN FOR UTI March 14, 2025 10 :39am MNT April 07, 2025 9:12am surgical consult *COPAY $April 272024 1:42pm abd May 12, 2025 10 :00am ER FU ABDOMINAL HERNIA NEAR INTESTINE Oc tober 2024 7:53am Reason for Visit Admit Date Diverticulitis February 15, 2025 2:47 pm GERD (gastroesophageal reflux disease) J dalila 2024 2:47pm THOMPSON (nonalcoholic steatohepatitis) February 15, 2025 2:47pm Frequent stools February 15, 2025 2:47 pm Fibroid uterus February 24, 2025 10:2 6am Pelvic pain February 24, 2025 10:2 6am Encounter for routine gynecological exam ination February 24, 2025 10:26am UTI (urinary tract infection) March 10:39am Family history of breast cancer in [place] April 27, 2025 1:42pm Family history of ovarian cancer Septemb er 2024 1:42pm Fibroid uterus April 27, 2025 1:42pm Pelvic pain April 27, 2025 1:42pm Diverticulitis May 21, 2025 7 :53am Additional Source Comments INFORMATION SOURCE (unrecogn ized section and content) DATE CREATED AUTHOR 10/09/2018 [facility] [place] DATE CREATED AUTHOR AUTHOR'S ORGANIZ ATION 03/02/2020 [facility] DATE CREATED AUTHOR AUTHOR'S ORGANIZ ATION 11/23/2020 [facility] DATE CREATED AUTHOR AUTHOR'S ORGANIZ ATION 06/10/2022 [facility] DATE CREATED AUTHOR AUTHOR'S ORGANIZ ATION 06/14/2025 [facility] Goals (unrecognized section and content) Goals [...] or prosecute any alcohol or drug abuse patient.[facility] HospitalIn the event this information is protected by the Federal Confidentiality of Alcohol and Drug Abuse Patient Records regulations: The Federal rules restrict any use of the information to criminally investigate or prosecute any alcohol or drug abuse patient.[facility] HospitalIn the event this information is protected by the Federal Confidentiality of Alcohol and Drug Abuse Patient Records regulations: The Federal rules restrict any use of the information to criminally investigate or prosecute any alcohol or drug abuse patient.[facility] Reason for Visit (unrecogniz ed section and content) Reason Comments Rosacea Care Teams (unrecognized sec tion and content) Team Status: Active Member Role Status Dates BARBARA MOORE Family Provider Active Sharita Young , DO Primary Care Provider Active Team Status: Inactive Member Role Status Dates Sharita Young , DO Primary Care Provider, Attending Provider Active Team Status: Inactive Member Role Status Dates Michelle Pedraza ELECTRICIAN APPRENTICE, ELECTRICIAN APPRENTICE-C Attending Provider Active Sharita Young , Primary Care Provider, Referring Provider Active Team Status: Inactive Member Role Status Dates Sharita Young , Primary Care Provider Active Michelle Pedraza ELECTRICIAN APPRENTICE, ELECTRICIAN APPRENTICE-C Attending Provider, Referring Provider Active Team Status: Inactive Member Role Status Dates Sharita Young Primary Care Provider, Referring Provider Active Dr. Kevin Chakraborty , Attending Provider Active Team Status: Inactive Member Role Status Dates Sharita Young , Primary Care Provider Active Dr. Kevin Chakraborty , Attending Provider, Referring Provider Active Team Status: Active Member Role Status Dates Sharita Young , DO Primary Care Provider, Referring Provider Active Dr. Kevin Chakraborty , Attending Provider, Other Prov ider Active Team Status: Inactive Member Role Status Dates Sharita Young , DO Primary Care Provider Active Dr. Carolyn Gaitan MD Attending Provider, Emergency Provider Active Team Status: Active Member Role Status Dates Sharita Young , Primary Care Provider Active Health Risk Assessment Attending Provider, Referring P azucena Active Team Status: Inactive Member Role Status Dates Sharita Young , DO Primary Care Provi cortez, Attending Provider, Referring Provider Active Team Status: Inactive Member Role Status Dates Sharita Young , Primary Care Provider, Referring Provider Active Nikolas Blankenship PA, PA Attending Provider Active Team Status: Inactive Member Role Status Dates Sharita Young , Primary Care Provider Active Nikolas ENRIQUE, PA Attending Provider Active Team Status: Active Member [...] 2025 End: March 14, 2025 Brock Green ELECTRICIAN APPRENTICE, ELECTRICIAN APPRENTICE-C Attending Provider Active S tart: March 14, 2025 End: March 14, 2025 Team Status: Inactive Member Role/Relationship Status Bambi Lee MD Primary Care Provider Active St art: March 10, 2025 End: March 10, 2025 RAND Fagan Attending Provider Active Start: March 10, 2025 End: March 10, 2025 RAND Fagan Referring Provider Active Start: March 10, 2025 End: March 10, 2025 Team Status: Active Member Role/Relationship Status Bambi Lee MD Primary Care Provider Active St art: March 14, 2025 Brock Green ELECTRICIAN APPRENTICE, ELECTRICIAN APPRENTICE-C Attending Provider Active S tart: March 14, 2025 Team Status: Inactive Member Role/Relationship Status Bambi Lee MD Primary Care Provider Active St art: March 14, 2025 End: March 14, 2025 Madelaine Lee MD Referring Provider Active Start : March 14, 2025 End: March 14, 2025 Brock Green ELECTRICIAN APPRENTICE, ELECTRICIAN APPRENTICE-C Attending Provider Active S tart: March 14, 2025 End: March 14, 2025 Team Status: Inactive Member Role/Relationship Status Bambi Lee MD Primary Care Provider Active St art: March 14, 2025 End: March 14, 2025 Brock Green ELECTRICIAN APPRENTICE, ELECTRICIAN APPRENTICE-C Attending Provider Active S tart: March 14, 2025 End: March 14, 2025 Team Status: Active Member Role/Relationship Status Bambi Lee MD Primary care physician Active Team Status: Inactive Member Role/Relationship Status Bambi Lee MD Primary care physician Active S tart: February 01, 2025 End: February 01, 2025 Dr. Kevin Chakraborty DO Attending physician Active Start: February 01, 2025 End: February 01, 2025 Dr. Kevin Chakraborty DO Referring Provider Active Start: February 01, 2025 End: February 01, 2025 Team Status: Inactive Member Role/Relationship Status Bambi Lee MD Primary care physician Active S tart: February 15, 2025 End: March 04, 2025 Dr. Kevin Chakraborty DO Attending physician Active Start: February 15, 2025 End: March 04, 2025 Dr. Kevin Chakraborty DO Referring Provider Active Start: February 15, 2025 End: March 04, 2025 Team Status: Inactive Member Role/Relationship Status Bambi Lee MD Primary care physician Active S tart: February 15, 2025 End: February 15, 2025 Madelaine Lee MD Referring Provider Active Start : February 15, 2025 End: February 15, 2025 Dr. Kevin Chakraborty DO Attending physician Active Start: February 15, 2025 End: February 15, 2025 Team Status: Inactive Member Role/Relationship Status Bambi Lee MD Primary care physician Active S tart: February 24, 2025 End: February 24, 2025 Madelaine Lee MD Referring Provider Active Start : February 24, 2025 End: February 24, 2025 DARRELL FaganC Attending physician Active Start: February 24, 2025 End: February 24, 2025 Team Status: Inactive Member Role/Relationship Status Bambi Lee MD Primary care physician Active S tart: March 10, 2025 End: March 10, 2025 DARRELL FaganC Attending physician Active Start: March 10, 2025 End: March 10, 2025 RAND Fagan Referring Provider Active Start: March 10, 2025 End: March 10, 2025 Team Status: Active Member Role/Relationship Status Bambi Lee MD Primary care physician Active S tart: March 10, 2025 Health Risk Assessment Attending physician Active Start: March 10, 2025 Health Risk Assessment Referring Provider Active Start: March 10, 2025 Team Status: Inactive Member Role/Relationship Status Bambi Lee MD Primary care physician Active S tart: March 14, 2025 End: March 14, 2025 Brock Green ELECTRICIAN APPRENTICE, ELECTRICIAN APPRENTICE-C Attending physician Active Start: March 14, 2025 End: March 14, 2025 Team Status: Inactive Member Role/Relationship Status Bambi Lee MD Primary care physician Active S tart: March 14, 2025 End: March 14, 2025 Madelaine Lee MD Referring Provider Active Start : March 14, 2025 End: March 14, 2025 Brock Green ELECTRICIAN APPRENTICE, ELECTRICIAN APPRENTICE-C Attending physician Active Start: March 14, 2025 End: March 14, 2025 Team Status: Inactive Member Role/Relationship Status Bambi Lee MD Primary care physician Active S tart: April 07, 2025 End: May 04, 2025 Dr. Kevin Chakraborty DO Attending physician Active Start: April 07, 2025 End: May 04, 2025 Dr. Kevin Chakraborty DO Referring Provider Active Start: April 07, 2025 End: May 04, 2025 Team Status: Inactive Member Role/Relationship Status Bambi Lee MD Primary care physician Active S tart: April 27, 2025 End: April 27, 2025 Madelaine Lee MD Referring Provider Active Start : April 27, 2025 End: April 27, 2025 Dr. Leticia Nunez MD Attending physician Active Start: April 27, 2025 End: April 27, 2025 Team Status: Inactive Member Role/Relationship Status Bambi Lee MD Primary care physician Active S tart: May 12, 2025 End: May 12, 2025 Dr. Shaquille Hernandez DO Emergency Department Physician Active Start: May 12, 2025 End: May 12, 2025 Team Status: Inactive Member Role/Relationship Status Dates Madelaine Lee MD Primary care physician Active S tart: May 12, 2025 End: May 12, 2025 Dr. Shaquille Hernandez DO Attending physician Active Start: May 12, 2025 End: May 12, 2025 Dr. Shaquille Hernandez DO Emergency Department Physician Active Start: May 12, 2025 End: May 12, 2025 Team Status: Inactive Member Role/Relationship Status Dates Madelaine Lee MD Primary care physician Active S tart: May 21, 2025 End: May 21, 2025 Madelaine Lee MD Referring Provider Active Start : May 21, 2025 End: May 21, 2025 IVA Villaseñor Attending physician Active Start: May 21, 2025 End: May 21, 2025 FOR RECORDS PERTAINING TO PATIENTS WHO [...] BE BASED ON THE PRIMARY CLINICAL RECORDS. [facility] [employer] [facility]. provides no warranty or guarantee of the accuracy or completeness of information in this document.
== END | disposition home or self-care (01) ==
LOC: LAB 12:35
PROVIDERS: PCP Family Medicine; Referring Provider Obstetrics & Gynecology; Visit Provider Obstetrics & Gynecology
DX: Z13.1 Encounter for screening for diabetes mellitus (principal)
CPT/HCPCS: 36415; 83036